=== PATIENT | female | born 1965 | race Caucasian/White ===

== ENCOUNTER 2024-09-17 09:04 | Inpatient (IN) | payer MEDICAID ==
[~2024-09-17] VITALS: Ht 170.2 cm; Wt 108.2 kg
[2024-09-17] VITALS (8 sets, daily range): BP systolic 127–159; BP diastolic 61–96; PULSE 77–94; RESP 16–22; TEMP 98.1–98.2; O2SAT 89–94
[~2024-09-17 09:04] MED LIST: ALBU0.084 NEB; HYDR25TA88 PO
--- NOTE | 2024-09-17 09:17 | ECG ---
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
--- NOTE | 2024-09-17 09:19 | ED.PDOC ---
History of Present Illness HPI Comments 58-year-old female brought by paramedics because of shortness a breath which started last night. She could not get any sleep because of shortness a breath. She does have a history of COPD hypotension atrial fibrillation CHF. Her blood pressure on arrival was 160/111 with a heart rate of 86. Her saturation in the was 74% on 5 L. She was given a breathing treatment in route which improved her saturation to 90%. Patient continues to smoke cigarettes. She was admitted at [facility] last week for pneumonia. She states that she never really improved 100%. She data lose her mother recently causing interviewed depressed. Denies suicidal or homicidal ideation. Time Seen by MD: 09:12 Reviewed Notes: Nurses Notes, Medications, Allergies Allergies: Coded Allergies: NO KNOWN ALLERGIES (Unverified , 09/17/24) Information Source: Patient, Emergency Med Personnel Mode of Arrival: EMS Severity: Moderate Timing: Hours Duration: Since onset Past Medical History PAST MEDICAL HISTORY: AFIB, CHF, COPD, HTN Social History Smoker: Cigarettes Alcohol: Denies ETOH Use Drugs: Denies Drug Use Constitutional: denies: chills, diaphoresis, fatigue, fever, malaise, sweats, weakness, others EENTM: denies: blurred vision, double vision, ear bleeding, ear discharge, ear drainage, ear pain, ear ringing, eye pain, eye redness, hearing loss, mouth pain, mouth swelling, nasal discharge, nose bleeding, nose congestion, nose pain, photophobia, tearing, throat pain, throat swelling, voice changes, others Respiratory: reports: shortness of breath; denies: cough, hemoptysis, orthopnea, SOB at rest, SOB with excertion, stridor, wheezing, others Cardiovascular: denies: chest pain, dizzy spells, diaphoresis, Dyspnea on exertion, edema, irregular heart beat, left arm pain, lightheadedness, palpitations, PND, syncope, others Gastrointestinal: denies: abdomen distended, abdominal pain, blood streaked bowels, constipated, diarrhea, dysphagia, difficulty swallowing, hematemesis, melena, nausea, poor appetite, poor fluid intake, rectal bleeding, rectal pain, vomiting, others Genitourinary: denies: abnormal vagina bleeding, burning, dyspareunia, dysuria, flank pain, frequency, hematuria, incontinence, pain, , vagina discharge, urgency, others Neurological: denies: dizziness, fainting, headache, left sided numbness, left sided weakness, numbness, paresthesia, pre-existing deficit, right sided numbness, right sided weakness, seizure, speech problems, tingling, tremors, weakness, others Musculoskeletal: denies: back pain, gout, joint pain, joint swelling, muscle pain, muscle stiffness, neck pain, others Integumetry: denies: bruises, change in color, change in hair/nails, dryness, laceration, lesions, lumps, rash, wounds, others Allergic/Immunocompromised: denies: Difficulty Healing, Frequent Infections, Hives, Itching, others Hematologic/Lymphatic: denies: anemia, blood clots, easy bleeding, easy bruising, swollen glands, others Endocrine: denies: excessive hunger, excessive sweating, excessive thirst, excessive urination, flushing, intolerance to cold, intolerance to heat, unexplained weight gain, unexplained weight loss, others Psychiatric: denies: anxiety, bipolar disorder, depression, hopeless, panic disorder, schizophrenia, sleepless, suicidal, others Physical Exam General Appearance: Moderate Distress HEENT: Normal ENT Inspection, Pharynx Normal, TMs Normal Neck: Full Range of Motion, Non-Tender, Normal, Normal Inspection Respiratory: Accessory Muscle Use, Respiratory Distress, Wheezing Cardiovascular: Irregular, Tachycardia Breast Exam: Deferred Gastrointestinal: No Organomegaly, Non Tender, No Pulsatile Mass, Normal Bowel Sounds, Soft Genitalia: Deferred Pelvic: Deferred Rectal: Deferred Extremities: Swelling (Bilateral lower extremity chronic) Musculoskeletal : Apperance: Normal Neurologic: Alert, research director II-XII nml as Tested, No Motor Deficits, No Sensory Deficits Cerebellar Function: NOT DONE Reflexes: NOT DONE Skin: Rash (Bilateral lower extremity chronic) Peripheral Pulses: 3+ Radial (R), 3+ Radial (L) Lymphatic: No Adenopathy Was a procedure done? Was a procedure done?: No Differential Dx Considerations may include: COPD Electrolyte imbalance X-Ray, Labs, Meds, VS Vital Signs Date Time Temp Pulse Resp B/P (MAP) Pulse Ox O2 Delivery O2 Flow Rate FiO2 09/17/24 10:02 18 99 Nasal Cannula* 2 28 09/17/24 10:00 95 16 140/92 (108) 95 09/17/24 09:42 85 188/104 09/17/24 09:22 98.2 97 14 188/104 (132) 97 98.2 09/17/24 09:15 94 Nasal Cannula* 3 32 09/17/24 09:15 91 16 94 Nasal Cannula* 3 32 09/17/24 09:13 97.6 94 25 140/96 (111) 96 97.6 09/17/24 09:13 25 96 Nasal Cannula* 4 36 09/17/24 09:11 90 Lab Test 09/17/24 09:49 Range/Units White Blood Count 11.5 H 4.4-10.8 10^3/uL Red Blood Count 5.21 H 4.0-5.20 10^6/uL Hemoglobin 15.3 12.2-16.2 g/dL Hematocrit 47.7 H 36.0-46.0 % Mean Corpuscular Volume 91.4 80.0-100.0 fL Mean Corpuscular Hemoglobin 29.3 28.0-32.0 pg Mean Corpuscular Hemoglobin Concent 32.0 32.0-36.0 g/dL Red Cell Distribution Width 15.0 H 11.8-14.3 % Platelet Count 233 140-450 10^3/uL Mean Platelet Volume 9.0 6.9-10.8 fL Neutrophils (%) (Auto) 78.2 37.0-80.0 % Lymphocytes (%) (Auto) 13.7 10.0-50.0 % Monocytes (%) (Auto) 6.9 0.0-12.0 % Eosinophils (%) (Auto) 0.7 0.0-7.0 % Basophils (%) (Auto) 0.5 0.0-2.0 % Neutrophils # (Auto) 9.0 H 1.6-8.6 10 ^3/uL Lymphocytes # (Auto) 1.6 0.4-5.4 10 ^3/uL Monocytes # (Auto) 0.8 0-1.3 10 ^3/uL Eosinophils # (Auto) 0.1 0-0.8 10 ^3/uL Basophils # (Auto) 0.1 0-0.2 10 ^3/uL Nucleated Red Blood Cells 0.1 % Sodium Level 145 136-145 mmol/L Potassium Level 3.2 L 3.5-5.1 mmol/L Chloride Level 97 L 98-107 mmol/L Carbon Dioxide Level > 40 *H 20-31 mmol/L Anion Gap 7.65955 5-15 Blood Urea Nitrogen 25 H 9-23 mg/dL Creatinine 0.93 0.550-1.02 mg/dL Glomerular Filtration Rate Calc 71 >90 mL/min BUN/Creatinine Ratio 26.9 H 10.0-20.0 Serum Glucose 125 H 74-106 mg/dL Calcium Level 9.5 8.7-10.4 mg/dL Troponin I High Sensitivity 9 </=34 ng/L Current Medications Medications (Trade) Dose Ordered Sig/Tod Route Start Time Stop Time Status Last Admin Labetalol HCl (Labetalol HCl) 10 mg ONCE ONCE IV 09/17/24 09:30 09/17/24 09:46 DC 09/17/24 09:42 Amiodarone HCl 100 ml @ 600 mls/hr ONCE ONCE IV 09/17/24 09:30 09/17/24 09:46 DC 09/17/24 09:44 Methylprednisolone Sodium Succinate (Solu Medrol) 125 mg ONCE ONCE IV 09/17/24 09:45 09/17/24 09:46 DC 09/17/24 10:39 Albuterol (Ventolin Medneb) 5 mg ONCE ONCE NEB 09/17/24 09:45 09/17/24 09:46 DC 09/17/24 10:03 Ipratropium [place] (Atrovent Medneb) 0.5 mg ONCE ONCE NEB 09/17/24 09:45 09/17/24 09:46 DC 09/17/24 10:03 Patient alert. Complaining of shortness a breath. Placed on oxygen. Blood pressure elevated. Chronic history. Possible pneumonitis. Possible pneumonia. Requiring more oxygen than normal. Was given breathing treatment. Was given steroid. Was given Levaquin. EKG reviewed does show atrial fibrillation with flutter. Reviewed her previous visit. Explained to the patient. Continue cardiac monitoring. Time of 1ST Reevaluation: 09:16 Reevaluation 1ST: Unchanged Patient Education/Counseling: Diagnosis, Treatment, Prognosis Family Education/Counseling: No Family Present Departure 1 Departure Time of Disposition: 09:18 Impression: Primary Impression: Acute respiratory failure Qualified Codes: J96.01 - Acute respiratory failure with hypoxia Additional Impressions: COPD exacerbation Congestive heart failure Qualified Codes: I50.43 - Acute on chronic combined systolic (congestive) and diastolic (congestive) heart failure Hypertensive emergency Disposition: 09 ADMITTED INPATIENT Admit to: Med Surg Condition: Guarded Critical Care Note Critical Care Time?: Yes (90 min-critical care time only) Critical care comment: Placed on oxygen continue to monitor Stability Stability form required: No Heart Score Heart Score: Heart Score Response (Comments) Value History Slightly Suspicious 0 EKG Normal 0 Age 45-64 1 Risk Factors >3 or Hx ASHD 2 Troponin Normal limit 0 Total 3 AVIVA DICKERSON MD Sep 17, 2024 09:19
[2024-09-17] MEDS: LABETALOL HCL 20 MG/4 ML VL IV ONE (09:42)
[2024-09-17] MEDS: AMIODARONE BOLUS KIT 100 ML IV ONE (09:44)
--- NOTE | 2024-09-17 10:02 | DVH ---
CHEST RADIOGRAPH Indication: sob Technique: Single frontal view of the chest was obtained COMPARISON: None FINDINGS: Lines and Tubes: None Lungs: Right lower lobe airspace disease. Pleura: No effusion. No pneumothorax. Cardiomediastinal contours: Unremarkable Bones: Unremarkable IMPRESSION: Right lower lobe airspace disease.
[2024-09-17] MEDS: ALBUTEROL SULF 2.5 MG/0.5ML(0.5%) NEB SOLN NEB ONE (10:03)
[2024-09-17] MEDS: IPRATROPIUM BROM 0.5 MG/2.5ML INH SOL NEB ONE (10:03)
[2024-09-17 10:09] LABS: Basophils # (auto) 0.1 10 ^3/uL (0-0.2); Basophils % (auto) 0.5 % (0.0-2.0); Eosinophils # (auto) 0.1 10 ^3/uL (0-0.8); Eosinophils % (auto) 0.7 % (0.0-7.0); Hematocrit 47.7 % (36.0-46.0); Hemoglobin 15.3 g/dL (12.2-16.2); Lymphocytes # (auto) 1.6 10 ^3/uL (0.4-5.4); Lymphocytes % (auto) 13.7 % (10.0-50.0); Mean Corpuscular Hemoglobin 29.3 pg (28.0-32.0); Mean Corpuscular Volume 91.4 fL (80.0-100.0); Monocytes # (auto) 0.8 10 ^3/uL (0-1.3); Monocytes % (auto) 6.9 % (0.0-12.0); Neutrophils % (auto) 78.2 % (37.0-80.0); Nucleated Red Blood Cells % 0.1 %; Platelet Count (auto) 233 10^3/uL (140-450); Red Blood Cells 5.21 10^6/uL (4.0-5.20); White Blood Cell 11.5 10^3/uL (4.4-10.8)
[2024-09-17 10:20] LABS: Sodium 145 mmol/L (136-145)
[2024-09-17 10:22] LABS: Calcium 9.5 mg/dL (8.7-10.4)
[2024-09-17 10:27] LABS: BUN/Creatinine Ratio 26.9 (10.0-20.0)
[2024-09-17 10:30] LABS: Anion Gap 7.99999 (5-15); Chloride 97 mmol/L (98-107); Potassium 3.2 mmol/L (3.5-5.1)
[2024-09-17 10:31] LABS: Blood Urea Nitrogen 25 mg/dL (9-23); Carbon Dioxide > 40 mmol/L (20-31); Glucose 125 mg/dL (74-106)
[2024-09-17] MEDS: AMIODARONE 360mg/200mL PREMIX 200 ML IV ONE (10:39)
[2024-09-17] MEDS: methylPREDNISolone SOD SUCC 125 MG/2 ML VL IV ONE (10:39)
[2024-09-17 11:22] LABS: Base Excess 14.9 mmol/L (-2.0-3.0)
[2024-09-17 12:41] LABS: Urine Bacteria None Seen /hpf (None Seen)
[2024-09-17 12:53] LABS: Urine Blood Negative /uL (Negative); Urine Clarity Clear (Clear); Urine Color Yellow (Yellow); Urine Protein, UAD 1+ (Negative); Urine Specific Gravity 1.035 (1.001-1.035); Urine Squamous Epithelial Cell MOD /hpf (<5); Urine Urobilinogen Normal (Negative); Urine WBC 3 /HPF (0-5); Urine pH 5.5 (5.0-9.0)
[2024-09-17] MEDS: NICOTINE 14 MG/24HR TOPICAL PATCH TD ONE (12:55)
[2024-09-17] MEDS ORDERED: ONDANSETRON HCL 4 MG/2 ML VIAL IV PRN (13:30)
[2024-09-17] MEDS ORDERED: NITROGLYCERIN 0.4 MG SL TAB SL PRN (13:30)
[2024-09-17] MEDS ORDERED: MORPHINE SULFATE INJ 2 MG/ml SYRG IV PRN (13:30)
[2024-09-17] MEDS ORDERED: DOCUSATE SOD 100 MG CAP PO PRN (13:30)
[2024-09-17] MEDS ORDERED: HYDR25TA5 PO (13:33)
[2024-09-17] MEDS ORDERED: CLON0.1T PO (13:33)
[2024-09-17] MEDS ORDERED: FURO20TA4 PO (13:33)
[2024-09-17] MEDS ORDERED: HYDR-3682 PO (13:33)
[2024-09-17] MEDS ORDERED: FAMO-12 PO (13:33)
[2024-09-17] MEDS ORDERED: DILT240C49 PO (13:33)
[2024-09-17] MEDS ORDERED: DILT-29 PO (13:33)
[2024-09-17] MEDS ORDERED: LISI10TA34 PO (13:33)
--- NOTE | 2024-09-17 13:43 | DVHHP2 ---
History of Present Illness Reason for Visit: Shortness of breath History of Present Illness Lolita Antonio is a 58-year-old female with past medical history of CHF, COPD, atrial fibrillation, and home oxygen who came in due to shortness of breath. Patient states he mom last night. She has been very upset and had a difficult time sleeping last night due to the shortness of breath. She states she has been short of breath for about a day. She also states she is on hospice care, and that she was recently hospitalized. Patient is a current daily smoker. When EMS arrived O2 sat was in the 70s, a breathing treatment was given and she improved to the 90s. ABG completed in ER showed PO2 of 54.1, and PCO2 of 56.7. Cardiovascular: AFIB, CHF Pulmonary: COPD (on home oxygen) Review of Systems Constitutional: No: Fever, Chills, Sweats, Weakness, Malaise, Other Eyes: No: Pain, Vision change, Conjunctivae inflammation, Eyelid inflammation, Other, Redness ENT: No: Ear pain, Ear discharge, Nose pain, Nose discharge, Nose congestion, Mouth pain, Mouth swelling, Throat pain, Throat swelling, Other Respiratory: Shortness of breath, SOB with excertion, Wheezing; No: Cough, Dry, Hemoptysis, Pleuritic Pain, Sputum, Wheezing, Other Cardiovascular: No: Chest Pain, Palpitations, Orthopnea, Paroxysmal Noc. Dyspnea, Edema, Lt Headedness, Other Gastrointestinal: No: Nausea, Vomiting, Abdominal Pain, Diarrhea, Constipation, Melena, Hematochezia, Other Genitourinary: No Dysuria, No Frequency, No Incontinence, No Hematuria, No Retention, No Other Musculoskeletal: No: other, neck pain, shoulder pain, arm pain, back pain, hand pain, leg pain, foot pain Skin: No: Rash, Lesions, Jaundice, Bruising, Other Neurological: No: Weakness, Numbness, Incoordination, Change in speech, Confusion, Seizures, Other Allergies: Coded Allergies: NO KNOWN ALLERGIES (Unverified , 09/17/24) Medications Current Medications Medications Dose Ordered Sig/Tod Route Start Time Stop Time Status Last Admin Dose Admin Sodium Chloride 10 ml Q8HR IV 09/17/24 14:00 UNV Acetaminophen/ Hydrocodone Bitart 1 tab Q4HP PRN PO 09/17/24 13:30 UNV Ondansetron HCl 4 mg Q4HP PRN IV 09/17/24 13:30 UNV Docusate Sodium 100 mg BIDPRN PRN PO 09/17/24 13:30 UNV Acetaminophen 650 mg Q6HP PRN PO 09/17/24 13:30 UNV Nitroglycerin 0.4 mg Q5MINP PRN SL 09/17/24 13:30 UNV Morphine Sulfate 2 mg Q30M PRN IV 09/17/24 13:30 UNV Exam Vital Signs Vital Signs Date Time Temp Pulse Resp B/P (MAP) Pulse Ox O2 Delivery O2 Flow Rate FiO2 09/17/24 12:00 94 09/17/24 10:42 140/92 09/17/24 10:02 18 99 Nasal Cannula* 2 28 09/17/24 09:22 98.2 98.2 General Appearance: Alert, Oriented X3, moderate distress HEENT: Atraumatic, PERRLA Respiratory: Other (bilateral wheezing) Cardiovascular: Normal S1, Normal S2, Other (atrial fibrillation) Abdominal: Normal bowel sounds, Soft, No tenderness Extremities: No clubbing, No cyanosis, Other (bilateral lower extremity edema, diminished pedal pulses) Skin: No rashes, No breakdown Psych/Mental Status: Mental status NL Labs/Xrays Labs Test 09/17/24 12:21 09/17/24 11:15 09/17/24 09:49 Range/Units Urine Color Yellow Yellow Urine Clarity Clear Clear Urine pH 5.5 5.0-9.0 Urine Specific [place] 1.035 1.001-1.035 Urine Protein 1+ H Negative Urine Ketones Negative Negative Urine Blood Negative Negative /uL Urine Nitrite Negative Negative Urine Bilirubin Negative Negative Urine Urobilinogen Normal Negative mg/dL Urine Leukocyte Esterase Trace Negative /uL Urine RBC 2 0 - 4 /hpf Urine Microscopic WBC 3 0-5 /HPF Urine Squamous Epithelial Cells Mod <5 /hpf Urine Bacteria None seen None Seen /hpf Urine Glucose Normal Normal mg/dL Blood Gas Specimen Type Arterial Blood Gas Sample Site Right radial Blood Gas Patient Temperature 37.0 Arterial Blood Date Drawn [id number] Arterial Blood pH 7.481 H 7.350-7.450 Arterial Blood Partial Pressure CO2 56.7 H 32.0-45.0 mmHg Arterial Blood Partial Pressure O2 54.1 *L 83.0-108.0 mmHg Arterial Blood HCO3 41.4 H 21.0-28.0 mmol/L Arterial Blood Oxygen Saturation 89.8 L 94.0-98.0 % Arterial Blood Base Excess 14.9 H -2.0-3.0 mmol/L Arterial Blood Oxyhemoglobin 86.3 L 94.0-98.0 % Arterial Blood Carboxyhemoglobin 3.5 H 0.5-1.5 % Arterial Blood Methemoglobin 0.4 0.0-1.5 % John Test Yes Blood Gas Total Hemoglobin 15.50 12.0-16.0 g/dL Blood Gas Liter Flow 4.00 Blood Gas Modality Nasal cannula FiO2 % 36.0 Blood Gas Critical Value Read Back Yes Blood Gas Notified Whom shanthi Santoyo Blood Gas Notified Time [id number] Blood Gas Notified By maite Bernal White Blood Count 11.5 H 4.4-10.8 10^3/uL Red Blood Count 5.21 H 4.0-5.20 10^6/uL Hemoglobin 15.3 12.2-16.2 g/dL Hematocrit 47.7 H 36.0-46.0 % Mean Corpuscular Volume 91.4 80.0-100.0 fL Mean Corpuscular Hemoglobin 29.3 28.0-32.0 pg Mean Corpuscular Hemoglobin Concent 32.0 32.0-36.0 g/dL Red Cell Distribution Width 15.0 H 11.8-14.3 % Platelet Count 233 140-450 10^3/uL Mean Platelet Volume 9.0 6.9-10.8 fL Neutrophils (%) (Auto) 78.2 37.0-80.0 % Lymphocytes (%) (Auto) 13.7 10.0-50.0 % Monocytes (%) (Auto) 6.9 0.0-12.0 % Eosinophils (%) (Auto) 0.7 0.0-7.0 % Basophils (%) (Auto) 0.5 0.0-2.0 % Neutrophils # (Auto) 9.0 H 1.6-8.6 10 ^3/uL Lymphocytes # (Auto) 1.6 0.4-5.4 10 ^3/uL Monocytes # (Auto) 0.8 0-1.3 10 ^3/uL Eosinophils # (Auto) 0.1 0-0.8 10 ^3/uL Basophils # (Auto) 0.1 0-0.2 10 ^3/uL Nucleated Red Blood Cells 0.1 % Sodium Level 145 136-145 mmol/L Potassium Level 3.2 L 3.5-5.1 mmol/L Chloride Level 97 L 98-107 mmol/L Carbon Dioxide Level > 40 *H 20-31 mmol/L Anion Gap 7.93498 5-15 Blood Urea Nitrogen 25 H 9-23 mg/dL Creatinine 0.93 0.550-1.02 mg/dL Glomerular Filtration Rate Calc 71 >90 mL/min BUN/Creatinine Ratio 26.9 H 10.0-20.0 Serum Glucose 125 H 74-106 mg/dL Calcium Level 9.5 8.7-10.4 mg/dL Troponin I High Sensitivity 9 </=34 ng/L CHEST RADIOGRAPH FINDINGS: Lines and Tubes: None Lungs: Right lower lobe airspace disease. Pleura: No effusion. No pneumothorax. Cardiomediastinal contours: Unremarkable Bones: Unremarkable IMPRESSION: Right lower lobe airspace disease. 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 Procedure Category Date Status Time Admit ADMIT 09/17/24 Transmitted 13:29 Code Status CODE 09/17/24 Transmitted 13:29 Sodium Chloride Lock PHA 09/17/24 Logged (Saline Lock Ns) 14:00 Hydrocodone-Acet PHA 09/17/24 Logged 5/325mg Tab ([place] 13:30 Ondansetron Hcl PHA 09/17/24 Logged (Zofran) 13:30 Docusate Sodium PHA 09/17/24 Logged Capsule (Colace 13:30 Complete Blood Count LAB 09/18/24 Verified 04:00 Comprehensive LAB 09/18/24 Verified Metabolic Panel 04:00 Cardiac DIET 09/17/24 Transmitted Diet-2gna,Lofat,Lochol Lunch Condition: Serious KAY 09/17/24 In Process 13:29 Acetaminophen Tablet PHA 09/17/24 Logged (Tylenol Tablet) 13:30 Nitroglycerin PHA 09/17/24 Logged Sublingual (Ntrostat 13:30 Morphine Sulfate PHA 09/17/24 Logged Injection 13:30 Stat Ekg For Chest [facility] 09/17/24 In Process Pain 13:29 Notify Of Changes [facility] 09/17/24 In Process From Base 13:29 Resistor Coater For [facility] 09/17/24 In Process 24 Hours 13:29 Emergency Dysrhythmia [facility] 09/17/24 In Process Protocol 13:29 Rhythm Strips Once [facility] 09/17/24 In Process Every Shift 13:29 Oxygen By Nasal RT 09/17/24 Transmitted Cannula 13:29 Clonidine Hcl Tablet PHA 09/18/24 Verified (Catapres Tablet) 10:00 Famotidine Tablet PHA 09/17/24 Verified (Pepcid Tablet) 22:00 Furosemide Tablet PHA 09/18/24 Verified (Lasix Tablet) 10:00 Hydrochlorothiazide PHA 09/18/24 Verified Tablet (Hydrochlorot 10:00 (Nf) Diltiazem Hcl PHA 09/18/24 Verified (Cartia Xt) 10:00 (Nf) Diltiazem Hcl PHA 09/18/24 Verified (Diltiazem Hcl Er) 10:00 (Nf) Hydroxyzine Hcl PHA 09/17/24 Verified 14:00 (Nf) Lisinopril PHA 09/18/24 Verified 10:00 Date of Service: Sep 17, 2024 Billing Provider: MILTON YIP Common Visit Codes: [id number] INP/OBS CARE (HIGH) MILTON YIP Sep 17, 2024 13:43
[2024-09-17] MEDS ORDERED: PATIENTS OWN MEDICATION (Hydroxyzine Hcl 1 TAB) PO SCH (14:00)
[2024-09-17] MEDS: SODIUM CHLOR 0.9% PF (SALINE LOCK) 10ML VIAL/SYR IV SCH (15:09)
[2024-09-17] MEDS: POTASSIUM EFFERVESENT TAB 25 MEQ PO ONE (15:26)
[2024-09-17] MEDS: FUROSEMIDE 40 MG/4 ML VIAL IV ONE (15:31)
[2024-09-17] MEDS ORDERED: APIX5TAB PO (15:46)
[2024-09-17] MEDS: AMIODARONE 360mg/200mL PREMIX 200 ML IV SCH (16:40)
[2024-09-17] MEDS: IPRATROPIUM BROM 0.5 MG/2.5ML INH SOL NEB SCH (18:00)
[2024-09-17] MEDS: ALBUTEROL SULF 2.5 MG/0.5ML(0.5%) NEB SOLN NEB SCH (18:44)
[2024-09-17] MEDS: FAMOTIDINE 20 MG TAB PO SCH (21:43)
[2024-09-17] MEDS: hydrOXYzine 25 MG TAB or CAP PO SCH (21:43)
[2024-09-17] MEDS: APIXABAN 5 MG TAB PO SCH (21:43)
[2024-09-17] MEDS: methylPREDNISolone SOD SUCC 40 MG/ML VL IV SCH (21:44)
[2024-09-18] VITALS (15 sets, daily range): BP systolic 130–170; BP diastolic 68–101; PULSE 64–96; RESP 16–20; TEMP 97.6–98.2; O2SAT 91–100
[2024-09-18 06:21] LABS: Basophils # (auto) 0 10 ^3/uL (0-0.2); Basophils % (auto) 0.2 % (0.0-2.0); Eosinophils # (auto) 0 10 ^3/uL (0-0.8); Eosinophils % (auto) 0.1 % (0.0-7.0); Hematocrit 42.8 % (36.0-46.0); Hemoglobin 14.3 g/dL (12.2-16.2); Lymphocytes # (auto) 0.8 10 ^3/uL (0.4-5.4); Lymphocytes % (auto) 6.9 % (10.0-50.0); Mean Corpuscular Hemoglobin 30.2 pg (28.0-32.0); Mean Corpuscular Hgb Conc. 33.4 g/dL (32.0-36.0); Mean Corpuscular Volume 90.3 fL (80.0-100.0); Monocytes # (auto) 0.2 10 ^3/uL (0-1.3); Monocytes % (auto) 2.1 % (0.0-12.0); Neutrophils # (auto) 10.1 10 ^3/uL (1.6-8.6); Neutrophils % (auto) 90.7 % (37.0-80.0); Nucleated Red Blood Cells % 0.1 %; Platelet Count (auto) 219 10^3/uL (140-450); Red Blood Cells 4.74 10^6/uL (4.0-5.20); Red Cell Distribution Width 14.9 % (11.8-14.3); White Blood Cell 11.1 10^3/uL (4.4-10.8)
[2024-09-18 06:38] LABS: Alanine Aminotransferase 23 U/L (7-40); Albumin 4.1 g/dL (3.2-4.8); Alkaline Phosphatase 89 U/L (46-116); Anion Gap 4 (5-15); BUN/Creatinine Ratio 30.9 (10.0-20.0); Calcium 9.2 mg/dL (8.7-10.4); Chloride 100 mmol/L (98-107); Potassium 3.7 mmol/L (3.5-5.1); Sodium 143 mmol/L (136-145); Total Protein 7.1 g/dL (5.7-8.2)
[2024-09-18 06:41] LABS: Aspartate Aminotransferase 11 U/L (13-40); Bilirubin, Total 0.2 mg/dL (0.2-1.0); Blood Urea Nitrogen 29 mg/dL (9-23); Carbon Dioxide 39 mmol/L (20-31); Glucose 156 mg/dL (74-106)
[2024-09-18] MEDS: hydroCHLOROthiazide 25 MG TAB PO SCH (09:18)
[2024-09-18] MEDS: NICOTINE 14 MG/24HR TOPICAL PATCH TD SCH (09:19)
[2024-09-18] MEDS: LISINOPRIL 5 MG TAB PO SCH (09:19)
[2024-09-18] MEDS: cloNIDine HCL 0.1 MG TAB PO SCH (09:19)
[2024-09-18] MEDS: FUROSEMIDE 20 MG/2 ML VIAL IV SCH (09:20)
[2024-09-18] MEDS ORDERED: FUROSEMIDE 20 MG TAB PO SCH (10:00)
[2024-09-18] MEDS ORDERED: PATIENTS OWN MEDICATION (Lisinopril 1 TAB) PO SCH (10:00)
[2024-09-18] MEDS ORDERED: DILTIAZEM HCL 240 MG PO SCH (10:00)
[2024-09-18] MEDS ORDERED: PATIENTS OWN MEDICATION (Diltiazem Hcl (Diltiazem Hcl Er) 1 CAP) PO SCH (10:00)
[2024-09-18] MEDS ORDERED: DILTIAZEM HCL PO SCH (10:00)
--- NOTE | 2024-09-18 13:45 | DVHPN2 ---
Progress Note Date Seen: Sep 18, 2024 Medical Necessity Reason Pt with a Central, PICC or Fol: Yes The following are medically ne: Arvizu Catheter Reason for arvizu catheter: Strict I&O Subjective Patient reports: No new complaints Review of Systems: HEENT:Normal, CVS:Normal, RESPIRATORY:Normal, GI:Normal, :Normal, MSK:Normal, NEURO:Normal Objective vital signs Vital Sign Date Time Temp Pulse Resp B/P (MAP) Pulse Ox O2 Delivery O2 Flow Rate FiO2 09/18/24 12:05 87 16 100 09/18/24 11:59 Nasal Cannula* 4 36 09/18/24 09:20 156/85 09/18/24 09:00 98.2 98.2 Total Intake and Output 09/17/24 09/17/24 09/18/24 15:00 23:00 07:00 Intake Total 244.98 ml 93.75 ml 20 ml Output Total 1000 ml Balance 244.98 ml 93.75 ml -980 ml medications Current Medications Medications Dose Ordered Sig/Tod Route Start Time Stop Time Status Last Admin Dose Admin Sodium Chloride 10 ml Q8HR IV 09/17/24 14:00 09/18/24 05:29 10 ML Acetaminophen/ Hydrocodone Bitart 1 tab Q4HP PRN PO 09/17/24 13:30 Ondansetron HCl 4 mg Q4HP PRN IV 09/17/24 13:30 Docusate Sodium 100 mg BIDPRN PRN PO 09/17/24 13:30 Acetaminophen 650 mg Q6HP PRN PO 09/17/24 13:30 Nitroglycerin 0.4 mg Q5MINP PRN SL 09/17/24 13:30 Morphine Sulfate 2 mg Q30M PRN IV 09/17/24 13:30 Clonidine HCl 0.1 mg DAILY PO 09/18/24 10:00 09/18/24 09:19 0.1 MG Famotidine 20 mg BID PO 09/17/24 22:00 09/18/24 09:18 20 MG Hydrochlorothiazide 25 mg DAILY PO 09/18/24 10:00 09/18/24 09:18 25 MG Patient Own Medication 1 cap DAILY PO 09/18/24 10:00 Hold Patient Own Medication 1 cap DAILY PO 09/18/24 10:00 Cancel Patient Own Medication 1 tab TID PO 09/17/24 14:00 UNV Patient Own Medication 1 tab DAILY PO 09/18/24 10:00 UNV Ipratropium [place] 0.5 mg Q6HWA NEB 09/17/24 18:00 09/18/24 11:59 0.5 MG Albuterol 2.5 mg Q6HWA NEB 09/17/24 18:00 09/18/24 11:59 2.5 MG Methylprednisolone Sodium Succinate 40 mg BID IV 09/17/24 22:00 09/18/24 09:20 40 MG Nicotine 1 patch DAILY TD 09/18/24 10:00 09/18/24 09:19 1 PATCH Furosemide 20 mg DAILY IV 09/18/24 10:00 09/18/24 09:20 20 MG Hydroxyzine Pamoate 25 mg TID PO 09/17/24 22:00 09/18/24 05:29 25 MG Lisinopril 10 mg DAILY PO 09/18/24 10:00 09/18/24 09:19 10 MG Patient Own Medication 1 cap DAILY PO 09/18/24 10:00 Hold Apixaban 5 mg BID PO 09/17/24 22:00 09/18/24 09:17 5 MG Examination: GENERAL:Normal, HEENT:Normal, NECK:Normal, LUNGS:Normal, LUNGS:Abnormal (ON OXYGEN), CVS:Normal, ABDOMEN:Normal, MSK:Normal, MSK:Abnormal (edema++, cellulitis both legs), SKIN:Normal, NEURO:Normal, :Normal laboratory and microbiology Laboratory Tests 09/18/24 05:14 Test 09/18/24 05:14 Range/Units Serum Glucose 156 H 74-106 mg/dL Problem List/Assessment/Plan Problem List/Assessment/Plan #1 acute on chronic resp failure: cont oxygen #2 copd with exacerbation: steroids, bronchodilators #3 right lower lung pneumonia ? sepsis: iv antibiotics #4 tobacco abuse: advised to quit, nicotine patch- time spent 11 mins #5 morbid obesity #6 a fib: resume home meds #7 cellulitis both legs: iv antibiotics #8 pvd #9 acute on chronic systolic/diastolic heart failure: iv lasix advance care planning- full code- time spent 19 mins Plan discussed with: Patient Date of Service: Sep 18, 2024 Billing Provider: KANDICE CAMILO MD Common Visit Codes: [id number] INP/OBS CARE(HIGH) Secondary Visit Codes: [id number] CHNG SMOKING >10MIN, [id number] CARE PLAN 30 MINUTES KANDICE CAMILO MD Sep 18, 2024 13:45
[2024-09-18] MEDS: dilTIAZem 120MG ER CAP PO ONE (14:34)
[2024-09-18] MEDS: AMPICILLIN & SULBACTAM SODIUM 3 GM in SODIUM CHL 0.9% 100 ML IV SCH ×2 (18:07→23:54)
[2024-09-18] MEDS: LEVALBUTEROL HCL 1.25 MG/3 ML NEB NEB SCH (19:26)
[2024-09-18] MEDS: HYDROcodone-ACET 5/325MG TAB PO PRN (22:53)
[2024-09-19] VITALS (18 sets, daily range): BP systolic 109–147; BP diastolic 64–93; PULSE 64–103; RESP 15–20; TEMP 97.3–98; O2SAT 88–100
--- NOTE | 2024-09-19 07:21 | DVH ---
EXAM: XR Chest, 1 View CLINICAL INDICATION: COPD TECHNIQUE: Frontal view of the chest. COMPARISON: XY CHEST PORTABLE on DOS: 09/17/24 FINDINGS: LUNGS AND PLEURAL SPACES: See below. HEART: Cardiomegaly with mild congestion. MEDIASTINUM: Unremarkable. Normal mediastinal contour. BONES/JOINTS: Unremarkable. No acute fracture. OTHER FINDINGS: . IMPRESSION: Cardiomegaly with mild congestion.
[2024-09-19 07:29] LABS: Anion Gap 6 (5-15); Sodium 140 mmol/L (136-145)
[2024-09-19 07:32] LABS: Carbon Dioxide 36 mmol/L (20-31); Chloride 98 mmol/L (98-107)
[2024-09-19 07:35] LABS: BUN/Creatinine Ratio 35.9 (10.0-20.0)
[2024-09-19 07:38] LABS: Hematocrit 46.1 % (36.0-46.0); Hemoglobin 14.9 g/dL (12.2-16.2); Mean Corpuscular Hemoglobin 29.8 pg (28.0-32.0); Mean Corpuscular Hgb Conc. 32.4 g/dL (32.0-36.0); Mean Corpuscular Volume 92.2 fL (80.0-100.0); Platelet Count (auto) 209 10^3/uL (140-450); Red Blood Cells 5.01 10^6/uL (4.0-5.20); Red Cell Distribution Width 15.6 % (11.8-14.3); White Blood Cell 25.9 10^3/uL (4.4-10.8)
[2024-09-19 07:40] LABS: Band Neutrophils % (manual) 0; Basophils % (manual) 0 (0.0-2.0); Blast Cells 0; Eosinophils % (manual) 0 (0-7); Metamyelocytes % 0; Myelocytes % 0; Promyelocytes % 0; Reactive Lymphocytes 0
[2024-09-19 07:44] LABS: Blood Urea Nitrogen 28 mg/dL (9-23); Glucose 145 mg/dL (74-106)
[2024-09-19 08:41] LABS: Lymphocytes % (manual) 6 (10.0-50.0); Monocytes % (manual) 3 (0-12); Platelet Estimate Adequate
[2024-09-19] MEDS: dilTIAZem 120MG ER CAP PO SCH (10:01)
--- NOTE | 2024-09-19 14:11 | DVHPN2 ---
Progress Note Date Seen: Sep 19, 2024 Medical Necessity Reason Pt with a Central, PICC or Fol: Yes The following are medically ne: Arvizu Catheter Reason for arvizu catheter: Strict I&O Subjective Patient reports: No new complaints Review of Systems: HEENT:Normal, CVS:Normal, RESPIRATORY:Normal, GI:Normal, :Normal, MSK:Normal, NEURO:Normal Objective vital signs Vital Sign Date Time Temp Pulse Resp B/P (MAP) Pulse Ox O2 Delivery O2 Flow Rate FiO2 09/19/24 13:00 97.7 83 16 117/67 (84) 88 97.7 09/19/24 11:04 Nasal Cannula 4.0 09/19/24 11:04 36 Total Intake and Output 09/18/24 09/18/24 09/19/24 15:00 23:00 07:00 Intake Total 113.12 ml 458 ml 1060 ml Output Total 1250 ml 500 ml Balance 113.12 ml -792 ml 560 ml medications Current Medications Medications Dose Ordered Sig/Tod Route Start Time Stop Time Status Last Admin Dose Admin Sodium Chloride 10 ml Q8HR IV 09/17/24 14:00 09/19/24 13:37 10 ML Acetaminophen/ Hydrocodone Bitart 1 tab Q4HP PRN PO 09/17/24 13:30 09/19/24 05:25 1 TAB Ondansetron HCl 4 mg Q4HP PRN IV 09/17/24 13:30 Docusate Sodium 100 mg BIDPRN PRN PO 09/17/24 13:30 Acetaminophen 650 mg Q6HP PRN PO 09/17/24 13:30 Nitroglycerin 0.4 mg Q5MINP PRN SL 09/17/24 13:30 Morphine Sulfate 2 mg Q30M PRN IV 09/17/24 13:30 Clonidine HCl 0.1 mg DAILY PO 09/18/24 10:00 09/19/24 10:00 0.1 MG Famotidine 20 mg BID PO 09/17/24 22:00 09/19/24 09:59 20 MG Patient Own Medication 1 cap DAILY PO 09/18/24 10:00 Cancel Patient Own Medication 1 tab TID PO 09/17/24 14:00 UNV Patient Own Medication 1 tab DAILY PO 09/18/24 10:00 UNV Ipratropium [place] 0.5 mg Q6HWA NEB 09/17/24 18:00 09/19/24 11:04 0.5 MG Methylprednisolone Sodium Succinate 40 mg BID IV 09/17/24 22:00 09/19/24 10:00 40 MG Nicotine 1 patch DAILY TD 09/18/24 10:00 09/19/24 09:59 1 PATCH Furosemide 20 mg DAILY IV 09/18/24 10:00 09/19/24 10:01 20 MG Hydroxyzine Pamoate 25 mg TID PO 09/17/24 22:00 09/19/24 13:35 25 MG Lisinopril 10 mg DAILY PO 09/18/24 10:00 09/19/24 10:01 10 MG Apixaban 5 mg BID PO 09/17/24 22:00 09/19/24 10:00 5 MG Levalbuterol HCl 1.25 mg Q6HR NEB 09/18/24 18:00 09/19/24 11:04 1.25 MG Diltiazem HCl 240 mg DAILY PO 09/19/24 10:00 09/19/24 10:01 240 MG Ampicillin Sodium/ Sulbactam Sodium 3 gm/Sodium Chloride 100 ml @ 100 mls/hr Q6H IV 09/19/24 00:00 09/19/24 12:05 100 MLS/HR Examination: GENERAL:Normal, HEENT:Normal, NECK:Normal, LUNGS:Normal, LUNGS:Abnormal (on oxygen, rhonchi), CVS:Normal, ABDOMEN:Normal, MSK:Normal, SKIN:Normal, NEURO:Normal, :Normal laboratory and microbiology Laboratory Tests 09/19/24 05:53 Test 09/19/24 05:53 Range/Units Serum Glucose 145 H 74-106 mg/dL Microbiology Date/Time Source Procedure Growth Status 09/18/24 09:38 Nose MRSA Screen - Final Complete Problem List/Assessment/Plan Problem List/Assessment/Plan #1 acute on chronic resp failure: cont oxygen #2 copd with exacerbation: steroids, bronchodilators #3 right lower lung pneumonia ? sepsis: iv antibiotics #4 tobacco abuse: advised to quit, nicotine patch- time spent 11 mins #5 morbid obesity #6 a fib: resume home meds #7 cellulitis both legs: iv antibiotics #8 pvd #9 acute on chronic systolic/diastolic heart failure: iv lasix advance care planning- full code- time spent 19 mins Plan discussed with: Patient My Orders My Orders Orders - KANDICE CAMILO MD Procedure Category Date Status Time Ampicillin & PHA 09/19/24 In Process Sulbactam Sodium 00:00 Date of Service: Sep 19, 2024 Billing Provider: KANDCIE CAMILO MD Common Visit Codes: [id number] INP/OBS CARE(HIGH) KANDICE CAMILO MD Sep 19, 2024 14:11
--- NOTE | 2024-09-19 14:22 | DVHSR ---
APPROVED REPORT EXAM: Two-dimensional and M-mode echocardiogram with Doppler, color Doppler and Optison. Blood Pressure: 156/85 mmHg INDICATION Chest Pain RISK FACTORS Obesity: Height: 5'7", Weight: 277 DIMENSIONS LVDd (3.8-5.7cm)LA (2D)4.9 (1.9-4.0cm)Aortic Root (2.0-3.7cm) EF (%) (55-70%)Rt. Atrium5.4 (1.9-4.0cm)Asc. Aorta cm Mitral Valve MitralMitral Stenosis E wave1.35m/sMV Mean GR.4mmHg A wavem/sMV Peak GR.9mmHg E/A ratio0.02D MVAcm2 Aortic Valve Aortic ValveAortic Stenosis V11.14m/Zhanna Mean GR.4mmHg V21.44m/Zhanna Peak GR.8mmHg LVOT Diameter2.0 (1.8-2.4cm)Doppler AVA2.49cm2 Other Information Quality : Technically LimitedRhythm : Technically limited study due to body habitus and pt patient position. Conclusion Technically difficult study off axis views. Atrial fibrillation. Biatrial enlargement. Mild mitral annular calcification. Valves are otherwise difficult to visualize but appear to be stru cturally normal. Left ventricular function appears preserved. EF of 60% with normal RV function. Contrast ECHO confi magaly normal left ventricular function. Dopplers unremarkable. No pericardial effusion masses or vegetations discernible.
[2024-09-19] MEDS: FUROSEMIDE 20 MG/2 ML VIAL IV ONE (15:21)
[2024-09-19] MEDS: methylPREDNISolone SOD SUCC 40 MG/ML VL IV SCH (21:41)
[2024-09-20] VITALS (20 sets, daily range): BP systolic 132–142; BP diastolic 75–88; PULSE 58–90; RESP 16–92; TEMP 97.3–98.5; O2SAT 90–98
[2024-09-20 07:02] LABS: Anion Gap 6 (5-15); Potassium 4.1 mmol/L (3.5-5.1); Sodium 140 mmol/L (136-145)
[2024-09-20 07:03] LABS: Calcium 8.8 mg/dL (8.7-10.4)
[2024-09-20 07:04] LABS: Carbon Dioxide 38 mmol/L (20-31); Chloride 96 mmol/L (98-107)
[2024-09-20 07:07] LABS: Basophils # (auto) 0 10 ^3/uL (0-0.2); Basophils % (auto) 0.1 % (0.0-2.0); Eosinophils # (auto) 0 10 ^3/uL (0-0.8); Hematocrit 44.3 % (36.0-46.0); Hemoglobin 14.2 g/dL (12.2-16.2); Lymphocytes # (auto) 0.6 10 ^3/uL (0.4-5.4); Lymphocytes % (auto) 3.6 % (10.0-50.0); Mean Corpuscular Hemoglobin 29.3 pg (28.0-32.0); Mean Corpuscular Hgb Conc. 32.1 g/dL (32.0-36.0); Mean Corpuscular Volume 91.2 fL (80.0-100.0); Monocytes # (auto) 0.9 10 ^3/uL (0-1.3); Monocytes % (auto) 5.4 % (0.0-12.0); Neutrophils # (auto) 14.6 10 ^3/uL (1.6-8.6); Neutrophils % (auto) 90.9 % (37.0-80.0); Platelet Count (auto) 178 10^3/uL (140-450); Red Blood Cells 4.86 10^6/uL (4.0-5.20); White Blood Cell 16.1 10^3/uL (4.4-10.8)
[2024-09-20 07:08] LABS: BUN/Creatinine Ratio 35.3 (10.0-20.0)
[2024-09-20 07:09] LABS: Blood Urea Nitrogen 30 mg/dL (9-23); Glucose 138 mg/dL (74-106)
--- NOTE | 2024-09-20 11:17 | DVHPN2 ---
Subjective The patient is seen and examined at bedside. No complaint today. Still have shortness for breath. Reviewed: Care Plan, H&P, Labs, Medications, Previous Orders, Radiology Changes from previous H/P or p: No Changes Eyes: No Pain, No Vision change, No Conjunctivae inflammation, No Eyelid inflammation, No Other, No Redness ENT: No Ear pain, No Ear discharge, No Nose pain, No Nose discharge, No Nose congestion, No Mouth pain, No Mouth swelling, No Throat pain, No Throat swelling, No Other Cardiovascular: No Chest Pain, No Palpitations, No Orthopnea, No Paroxysmal Noc. Dyspnea, No Edema, No Lt Headedness, No Other Respiratory: No Cough, No Dry; Shortness of breath, SOB with excertion, W heezing; No Hemoptysis, No Pleuritic Pain, No Sputum, No Other Gastrointestinal: No Nausea, No Vomiting, No Abdominal Pain, No Diarrhea, No Constipation, No Melena, No Hematochezia, No Other Genitourinary: No Dysuria, No Frequency, No Incontinence, No Hematuria, No Retention, No Other Musculoskeletal: No other, No neck pain, No shoulder pain, No arm pain, No back pain, No hand pain, No leg pain, No foot pain Skin: No Rash, No Lesions, No Jaundice, No Bruising, No Other Objective Vitals Vital Signs Date Time Temp Pulse Resp B/P (MAP) Pulse Ox O2 Delivery O2 Flow Rate FiO2 09/20/24 10:23 61 141/88 09/20/24 09:00 97.7 18 98 97.7 09/20/24 07:00 Nasal Cannula* 4 36 Intake/Output Intake and Output 09/20/24 07:00 Intake Total 2718 ml Output Total 1750 ml Balance 968 ml Intake Oral 2318 ml IV Total 400 ml Output Urine Total 1750 ml General Appearance: Alert, Oriented X3, Cooperative, No acute distress HEENT: Atraumatic, PERRLA, EOMI, Mucous membr. moist/pink Neck: Supple Lungs: Clear to auscultation, Normal air movement Cardiovascular: Regular rate, Normal S1, Normal S2, No murmurs, Gallops, Rubs Abdomen: Normal bowel sounds, Soft, No tenderness Neuro: Cranial nerves 3-12 NL Psych/Mental Status: Mental status NL Medications Current Medications Medications Dose Ordered Sig/Tod Route Start Time Stop Time Status Last Admin Dose Admin Sodium Chloride 10 ml Q8HR IV 09/17/24 14:00 09/20/24 05:14 10 ML Acetaminophen/ Hydrocodone Bitart 1 tab Q4HP PRN PO 09/17/24 13:30 09/19/24 21:42 1 TAB Ondansetron HCl 4 mg Q4HP PRN IV 09/17/24 13:30 Docusate Sodium 100 mg BIDPRN PRN PO 09/17/24 13:30 Acetaminophen 650 mg Q6HP PRN PO 09/17/24 13:30 Nitroglycerin 0.4 mg Q5MINP PRN SL 09/17/24 13:30 Morphine Sulfate 2 mg Q30M PRN IV 09/17/24 13:30 Clonidine HCl 0.1 mg DAILY PO 09/18/24 10:00 09/20/24 10:22 0.1 MG Famotidine 20 mg BID PO 09/17/24 22:00 09/20/24 10:21 20 MG Patient Own Medication 1 cap DAILY PO 09/18/24 10:00 Cancel Patient Own Medication 1 tab TID PO 09/17/24 14:00 UNV Patient Own Medication 1 tab DAILY PO 09/18/24 10:00 UNV Ipratropium [place] 0.5 mg Q6HWA NEB 09/17/24 18:00 09/20/24 07:00 0.5 MG Nicotine 1 patch DAILY TD 09/18/24 10:00 09/20/24 10:21 1 PATCH Furosemide 20 mg DAILY IV 09/18/24 10:00 09/20/24 10:20 20 MG Hydroxyzine Pamoate 25 mg TID PO 09/17/24 22:00 09/20/24 05:13 25 MG Lisinopril 10 mg DAILY PO 09/18/24 10:00 09/20/24 10:22 10 MG Apixaban 5 mg BID PO 09/17/24 22:00 09/20/24 10:22 5 MG Levalbuterol HCl 1.25 mg Q6HR NEB 09/18/24 18:00 09/20/24 07:00 1.25 MG Diltiazem HCl 240 mg DAILY PO 09/19/24 10:00 09/20/24 10:23 240 MG Ampicillin Sodium/ Sulbactam Sodium 3 gm/Sodium Chloride 100 ml @ 100 mls/hr Q6H IV 09/19/24 00:00 09/20/24 05:14 100 MLS/HR Methylprednisolone Sodium Succinate 20 mg BID IV 09/19/24 22:00 09/20/24 10:21 20 MG Laboratory Results Laboratory Tests 09/20/24 05:52 Chemistry Test 09/20/24 05:52 Calcium Level 8.8 mg/dL (8.7-10.4) Urinalysis Test 09/17/24 12:21 Urine Color Yellow (Yellow) Urine Clarity Clear (Clear) Urine pH 5.5 (5.0-9.0) Urine Specific [place] 1.035 (1.001-1.035) Urine Protein 1+ (Negative) H Urine Ketones Negative (Negative) Urine Blood Negative /uL (Negative) Urine Nitrite Negative (Negative) Urine Bilirubin Negative (Negative) Urine Urobilinogen Normal mg/dL (Negative) Urine Leukocyte Esterase Trace /uL (Negative) Urine RBC 2 /hpf (0 - 4) Urine Microscopic WBC 3 /HPF (0-5) Urine Squamous Epithelial Cells Mod /hpf (<5) Urine Bacteria None seen /hpf (None Seen) Urine Glucose Normal mg/dL (Normal) Microbiology Microbiology Date/Time Source Procedure Growth Status 09/18/24 09:38 Nose MRSA Screen - Final Complete Labs and/or images reviewed: Labs reviewed by me Assessment/Plan Assessment/Plan #1 acute on chronic resp failure #2 copd with exacerbation #3 right lower lung pneumonia ? sepsis #4 tobacco abuse #5 morbid obesity #6 a fibds #7 cellulitis both legs #8 pvd #9 acute on chronic systolic/diastolic heart failure Plan: Continuing current management. Continuing with oxygen to keep saturation oxygen above 92%. Continuing with Solu-Medrol and bronchodilator. Continuing with IV antibiotic Rocephin and Zithromax. Continuing with nicotine patch. Advised to quit smoking more than 15 minutes Continuing home medication for atrial fibrillation. Continuing IV Lasix. This medical document was created using an electronic medical record system with [employer] direct computerized dictation system. Although this document has been carefully reviewed, there may still be some phonetic and typographical errors. These areas are purely typographical due to imperfections of the software programs, and do not reflect any compromise in the patient's medical care. Plan discussed with: Patient Date of Service: Sep 20, 2024 Billing Provider: NUNO ENCARNACION MD Common Visit Codes: [id number] INP/OBS CARE(HIGH) NUNO ENCARNACION MD Sep 20, 2024 11:17
[2024-09-20] MEDS: ACETAMINOPHEN 325 MG TAB PO PRN (21:16)
[2024-09-21] VITALS (17 sets, daily range): BP systolic 107–164; BP diastolic 71–90; PULSE 58–95; RESP 17–22; TEMP 97.5–98; O2SAT 92–100
--- NOTE | 2024-09-21 23:05 | DVHPN2 ---
Subjective The patient is seen and examined at bedside. No complaint today. Still have shortness for breath. Reviewed: Care Plan, H&P, Labs, Medications, Previous Orders, Radiology Changes from previous H/P or p: No Changes Eyes: No Pain, No Vision change, No Conjunctivae inflammation, No Eyelid inflammation, No Other, No Redness ENT: No Ear pain, No Ear discharge, No Nose pain, No Nose discharge, No Nose congestion, No Mouth pain, No Mouth swelling, No Throat pain, No Throat swelling, No Other Cardiovascular: No Chest Pain, No Palpitations, No Orthopnea, No Paroxysmal Noc. Dyspnea, No Edema, No Lt Headedness, No Other Respiratory: No Cough, No Dry; Shortness of breath, SOB with excertion, W heezing; No Hemoptysis, No Pleuritic Pain, No Sputum, No Other Gastrointestinal: No Nausea, No Vomiting, No Abdominal Pain, No Diarrhea, No Constipation, No Melena, No Hematochezia, No Other Genitourinary: No Dysuria, No Frequency, No Incontinence, No Hematuria, No Retention, No Other Musculoskeletal: No other, No neck pain, No shoulder pain, No arm pain, No back pain, No hand pain, No leg pain, No foot pain Skin: No Rash, No Lesions, No Jaundice, No Bruising, No Other Objective Vitals Vital Signs Date Time Temp Pulse Resp B/P (MAP) Pulse Ox O2 Delivery O2 Flow Rate FiO2 09/21/24 21:26 95 140/90 (107) 09/21/24 21:00 97.8 18 95 97.8 09/21/24 19:20 Nasal Cannula* 4 36 Intake/Output Intake and Output 09/21/24 07:00 Intake Total 2638 ml Output Total 2650 ml Balance -12 ml Intake Oral 2338 ml IV Total 300 ml Output Urine Total 2650 ml General Appearance: Alert, Oriented X3, Cooperative, No acute distress HEENT: Atraumatic, PERRLA, EOMI, Mucous membr. moist/pink Neck: Supple Lungs: Clear to auscultation, Normal air movement Cardiovascular: Regular rate, Normal S1, Normal S2, No murmurs, Gallops, Rubs Abdomen: Normal bowel sounds, Soft, No tenderness Neuro: Cranial nerves 3-12 NL Psych/Mental Status: Mental status NL Medications Current Medications Medications Dose Ordered Sig/Tod Route Start Time Stop Time Status Last Admin Dose Admin Sodium Chloride 10 ml Q8HR IV 09/17/24 14:00 09/21/24 21:19 10 ML Acetaminophen/ Hydrocodone Bitart 1 tab Q4HP PRN PO 09/17/24 13:30 09/20/24 19:00 1 TAB Ondansetron HCl 4 mg Q4HP PRN IV 09/17/24 13:30 Docusate Sodium 100 mg BIDPRN PRN PO 09/17/24 13:30 Acetaminophen 650 mg Q6HP PRN PO 09/17/24 13:30 09/20/24 21:16 650 MG Nitroglycerin 0.4 mg Q5MINP PRN SL 09/17/24 13:30 Morphine Sulfate 2 mg Q30M PRN IV 09/17/24 13:30 Clonidine HCl 0.1 mg DAILY PO 09/18/24 10:00 09/21/24 09:56 0.1 MG Famotidine 20 mg BID PO 09/17/24 22:00 09/21/24 21:18 20 MG Patient Own Medication 1 cap DAILY PO 09/18/24 10:00 Cancel Patient Own Medication 1 tab TID PO 09/17/24 14:00 UNV Patient Own Medication 1 tab DAILY PO 09/18/24 10:00 UNV Ipratropium [place] 0.5 mg Q6HWA NEB 09/17/24 18:00 09/21/24 19:26 0.5 MG Nicotine 1 patch DAILY TD 09/18/24 10:00 09/21/24 10:15 1 PATCH Furosemide 20 mg DAILY IV 09/18/24 10:00 09/21/24 09:57 20 MG Hydroxyzine Pamoate 25 mg TID PO 09/17/24 22:00 09/21/24 21:17 25 MG Lisinopril 10 mg DAILY PO 09/18/24 10:00 09/21/24 09:57 10 MG Apixaban 5 mg BID PO 09/17/24 22:00 09/21/24 21:18 5 MG Levalbuterol HCl 1.25 mg Q6HR NEB 09/18/24 18:00 09/21/24 19:26 1.25 MG Diltiazem HCl 240 mg DAILY PO 09/19/24 10:00 09/21/24 09:56 240 MG Ampicillin Sodium/ Sulbactam Sodium 3 gm/Sodium Chloride 100 ml @ 100 mls/hr Q6H IV 09/19/24 00:00 09/21/24 19:06 100 MLS/HR Methylprednisolone Sodium Succinate 20 mg BID IV 09/19/24 22:00 09/21/24 21:18 20 MG Laboratory Results Laboratory Tests 09/20/24 05:52 Urinalysis Test 09/17/24 12:21 Urine Color Yellow (Yellow) Urine Clarity Clear (Clear) Urine pH 5.5 (5.0-9.0) Urine Specific [place] 1.035 (1.001-1.035) Urine Protein 1+ (Negative) H Urine Ketones Negative (Negative) Urine Blood Negative /uL (Negative) Urine Nitrite Negative (Negative) Urine Bilirubin Negative (Negative) Urine Urobilinogen Normal mg/dL (Negative) Urine Leukocyte Esterase Trace /uL (Negative) Urine RBC 2 /hpf (0 - 4) Urine Microscopic WBC 3 /HPF (0-5) Urine Squamous Epithelial Cells Mod /hpf (<5) Urine Bacteria None seen /hpf (None Seen) Urine Glucose Normal mg/dL (Normal) Microbiology Microbiology Date/Time Source Procedure Growth Status 09/21/24 06:00 Nose MRSA Screen - Final Complete Labs and/or images reviewed: Labs reviewed by me Assessment/Plan Assessment/Plan #1 acute on chronic resp failure #2 copd with exacerbation #3 right lower lung pneumonia ? sepsis #4 tobacco abuse #5 morbid obesity #6 a fibds #7 cellulitis both legs #8 pvd #9 acute on chronic systolic/diastolic heart failure Plan: Continuing current management. Continuing with oxygen to keep saturation oxygen above 92%. Continuing with Solu-Medrol and bronchodilator. Continuing with IV antibiotic Rocephin and Zithromax. Continuing with nicotine patch. Advised to quit smoking more than 15 minutes Continuing home medication for atrial fibrillation. Continuing IV Lasix. This medical document was created using an electronic medical record system with [employer] direct computerized dictation system. Although this document has been carefully reviewed, there may still be some phonetic and typographical errors. These areas are purely typographical due to imperfections of the software programs, and do not reflect any compromise in the patient's medical care. Plan discussed with: Patient Date of Service: Sep 21, 2024 Billing Provider: NUNO ENCARNACION MD Common Visit Codes: [id number] INP/OBS CARE(HIGH) NUNO ENCARNACION MD Sep 21, 2024 23:05
[2024-09-22] VITALS (15 sets, daily range): BP systolic 126–164; BP diastolic 78–97; PULSE 69–96; RESP 16–20; TEMP 97.7–98.4; O2SAT 93–99
--- NOTE | 2024-09-22 22:55 | DVHPN2 ---
Subjective The patient is seen and examined at bedside. Still have shortness for breath. Reviewed: Care Plan, H&P, Labs, Medications, Previous Orders, Radiology Changes from previous H/P or p: No Changes Eyes: No Pain, No Vision change, No Conjunctivae inflammation, No Eyelid inflammation, No Other, No Redness ENT: No Ear pain, No Ear discharge, No Nose pain, No Nose discharge, No Nose congestion, No Mouth pain, No Mouth swelling, No Throat pain, No Throat swelling, No Other Cardiovascular: No Chest Pain, No Palpitations, No Orthopnea, No Paroxysmal Noc. Dyspnea, No Edema, No Lt Headedness, No Other Respiratory: No Cough, No Dry; Shortness of breath, SOB with excertion, W heezing; No Hemoptysis, No Pleuritic Pain, No Sputum, No Other Gastrointestinal: No Nausea, No Vomiting, No Abdominal Pain, No Diarrhea, No Constipation, No Melena, No Hematochezia, No Other Genitourinary: No Dysuria, No Frequency, No Incontinence, No Hematuria, No Retention, No Other Musculoskeletal: No other, No neck pain, No shoulder pain, No arm pain, No back pain, No hand pain, No leg pain, No foot pain Skin: No Rash, No Lesions, No Jaundice, No Bruising, No Other Objective Vitals Vital Signs Date Time Temp Pulse Resp B/P (MAP) Pulse Ox O2 Delivery O2 Flow Rate FiO2 09/22/24 18:42 96 18 96 09/22/24 18:35 Nasal Cannula* 4 36 09/22/24 16:42 98.0 139/80 (99) 98.0 Intake/Output Intake and Output 09/22/24 07:00 Intake Total 2350 ml Output Total 2400 ml Balance -50 ml Intake Oral 2050 ml IV Total 300 ml Output Urine Total 2400 ml General Appearance: Alert, Oriented X3, Cooperative, No acute distress HEENT: Atraumatic, PERRLA, EOMI, Mucous membr. moist/pink Neck: Supple Lungs: Clear to auscultation, Normal air movement Cardiovascular: Regular rate, Normal S1, Normal S2, No murmurs, Gallops, Rubs Abdomen: Normal bowel sounds, Soft, No tenderness Neuro: Cranial nerves 3-12 NL Psych/Mental Status: Mental status NL Medications Current Medications Medications Dose Ordered Sig/Tod Route Start Time Stop Time Status Last Admin Dose Admin Sodium Chloride 10 ml Q8HR IV 09/17/24 14:00 09/22/24 22:35 10 ML Acetaminophen/ Hydrocodone Bitart 1 tab Q4HP PRN PO 09/17/24 13:30 09/21/24 23:17 1 TAB Ondansetron HCl 4 mg Q4HP PRN IV 09/17/24 13:30 Docusate Sodium 100 mg BIDPRN PRN PO 09/17/24 13:30 Acetaminophen 650 mg Q6HP PRN PO 09/17/24 13:30 09/20/24 21:16 650 MG Nitroglycerin 0.4 mg Q5MINP PRN SL 09/17/24 13:30 Morphine Sulfate 2 mg Q30M PRN IV 09/17/24 13:30 Clonidine HCl 0.1 mg DAILY PO 09/18/24 10:00 09/22/24 08:55 0.1 MG Famotidine 20 mg BID PO 09/17/24 22:00 09/22/24 22:34 20 MG Patient Own Medication 1 cap DAILY PO 09/18/24 10:00 Cancel Patient Own Medication 1 tab TID PO 09/17/24 14:00 UNV Patient Own Medication 1 tab DAILY PO 09/18/24 10:00 UNV Ipratropium [place] 0.5 mg Q6HWA NEB 09/17/24 18:00 09/22/24 18:30 0.5 MG Nicotine 1 patch DAILY TD 09/18/24 10:00 09/22/24 08:53 1 PATCH Furosemide 20 mg DAILY IV 09/18/24 10:00 09/22/24 08:55 20 MG Hydroxyzine Pamoate 25 mg TID PO 09/17/24 22:00 09/22/24 22:34 25 MG Lisinopril 10 mg DAILY PO 09/18/24 10:00 09/22/24 08:55 10 MG Apixaban 5 mg BID PO 09/17/24 22:00 09/22/24 22:34 5 MG Levalbuterol HCl 1.25 mg Q6HR NEB 09/18/24 18:00 09/22/24 18:30 1.25 MG Diltiazem HCl 240 mg DAILY PO 09/19/24 10:00 09/22/24 08:56 240 MG Ampicillin Sodium/ Sulbactam Sodium 3 gm/Sodium Chloride 100 ml @ 100 mls/hr Q6H IV 09/19/24 00:00 09/22/24 17:56 100 MLS/HR Methylprednisolone Sodium Succinate 20 mg BID IV 09/19/24 22:00 09/22/24 22:34 20 MG Laboratory Results Laboratory Tests 09/20/24 05:52 Urinalysis Test 09/17/24 12:21 Urine Color Yellow (Yellow) Urine Clarity Clear (Clear) Urine pH 5.5 (5.0-9.0) Urine Specific [place] 1.035 (1.001-1.035) Urine Protein 1+ (Negative) H Urine Ketones Negative (Negative) Urine Blood Negative /uL (Negative) Urine Nitrite Negative (Negative) Urine Bilirubin Negative (Negative) Urine Urobilinogen Normal mg/dL (Negative) Urine Leukocyte Esterase Trace /uL (Negative) Urine RBC 2 /hpf (0 - 4) Urine Microscopic WBC 3 /HPF (0-5) Urine Squamous Epithelial Cells Mod /hpf (<5) Urine Bacteria None seen /hpf (None Seen) Urine Glucose Normal mg/dL (Normal) Microbiology Microbiology Date/Time Source Procedure Growth Status 09/21/24 06:00 Nose MRSA Screen - Final Complete Labs and/or images reviewed: Labs reviewed by me Assessment/Plan Assessment/Plan #1 acute on chronic resp failure #2 copd with exacerbation #3 right lower lung pneumonia ? sepsis #4 tobacco abuse #5 morbid obesity #6 a fibds #7 cellulitis both legs #8 pvd #9 acute on chronic systolic/diastolic heart failure Plan: Continuing current management. Continuing with oxygen to keep saturation oxygen above 92%. Continuing with Solu-Medrol and bronchodilator. Continuing with IV antibiotic Rocephin and Zithromax. Continuing with nicotine patch. Advised to quit smoking more than 15 minutes Continuing home medication for atrial fibrillation. Continuing IV Lasix. Encourage to be out of bed and ambulate. Discharge planning. This medical document was created using an electronic medical record system with [email or web address] direct computerized dictation system. Although this document has been carefully reviewed, there may still be some phonetic and typographical errors. These areas are purely typographical due to imperfections of the software programs, and do not reflect any compromise in the patient's medical care. Plan discussed with: Patient Date of Service: Sep 22, 2024 Billing Provider: NUNO ENCARNACION MD Common Visit Codes: [id number] INP/OBS CARE(HIGH) NUNO ENCARNACION MD Sep 22, 2024 22:54
[2024-09-23] VITALS (20 sets, daily range): BP systolic 135–161; BP diastolic 78–91; PULSE 62–102; RESP 16–22; TEMP 97.5–98.2; O2SAT 90–100
[2024-09-23 06:43] LABS: Hemoglobin 14.5 g/dL (12.2-16.2); Mean Corpuscular Hemoglobin 29.4 pg (28.0-32.0); Mean Corpuscular Hgb Conc. 32.1 g/dL (32.0-36.0); Mean Corpuscular Volume 91.4 fL (80.0-100.0); Platelet Count (auto) 184 10^3/uL (140-450); Red Blood Cells 4.92 10^6/uL (4.0-5.20); Red Cell Distribution Width 15.3 % (11.8-14.3); White Blood Cell 20.6 10^3/uL (4.4-10.8)
[2024-09-23 06:47] LABS: Anion Gap 4 (5-15); Chloride 99 mmol/L (98-107); Potassium 4.3 mmol/L (3.5-5.1); Sodium 140 mmol/L (136-145)
[2024-09-23 06:48] LABS: Calcium 9.2 mg/dL (8.7-10.4)
[2024-09-23 06:51] LABS: Carbon Dioxide 37 mmol/L (20-31)
[2024-09-23 06:53] LABS: BUN/Creatinine Ratio 40.5 (10.0-20.0); Blood Urea Nitrogen 32 mg/dL (9-23); Glucose 172 mg/dL (74-106)
[2024-09-23 07:09] LABS: Band Neutrophils % (manual) 0; Basophils % (manual) 0 (0.0-2.0); Blast Cells 0; Eosinophils % (manual) 0 (0-7); Metamyelocytes % 0; Myelocytes % 0; Promyelocytes % 0; Reactive Lymphocytes 0
[2024-09-23 08:11] LABS: Lymphocytes % (manual) 10 (10.0-50.0); Monocytes % (manual) 6 (0-12); Platelet Estimate Adequate
--- NOTE | 2024-09-23 12:12 | DVHPN2 ---
Subjective The patient is seen and examined at bedside. Still have shortness for breath. Reviewed: Care Plan, H&P, Labs, Medications, Previous Orders, Radiology Changes from previous H/P or p: No Changes Eyes: No Pain, No Vision change, No Conjunctivae inflammation, No Eyelid inflammation, No Other, No Redness ENT: No Ear pain, No Ear discharge, No Nose pain, No Nose discharge, No Nose congestion, No Mouth pain, No Mouth swelling, No Throat pain, No Throat swelling, No Other Cardiovascular: No Chest Pain, No Palpitations, No Orthopnea, No Paroxysmal Noc. Dyspnea, No Edema, No Lt Headedness, No Other Respiratory: No Cough, No Dry; Shortness of breath, SOB with excertion, W heezing; No Hemoptysis, No Pleuritic Pain, No Sputum, No Other Gastrointestinal: No Nausea, No Vomiting, No Abdominal Pain, No Diarrhea, No Constipation, No Melena, No Hematochezia, No Other Genitourinary: No Dysuria, No Frequency, No Incontinence, No Hematuria, No Retention, No Other Musculoskeletal: No other, No neck pain, No shoulder pain, No arm pain, No back pain, No hand pain, No leg pain, No foot pain Skin: No Rash, No Lesions, No Jaundice, No Bruising, No Other Objective Vitals Vital Signs Date Time Temp Pulse Resp B/P (MAP) Pulse Ox O2 Delivery O2 Flow Rate FiO2 09/23/24 09:28 92 135/82 09/23/24 09:00 98.2 22 90 98.2 09/23/24 08:20 Nasal Cannula* 4 36 Intake/Output Intake and Output 09/23/24 07:00 Intake Total 2800 ml Output Total 3250 ml Balance -450 ml Intake Oral 2400 ml IV Total 400 ml Output Urine Total 3250 ml General Appearance: Alert, Oriented X3, Cooperative, No acute distress HEENT: Atraumatic, PERRLA, EOMI, Mucous membr. moist/pink Neck: Supple Lungs: Clear to auscultation, Normal air movement Cardiovascular: Regular rate, Normal S1, Normal S2, No murmurs, Gallops, Rubs Abdomen: Normal bowel sounds, Soft, No tenderness Neuro: Cranial nerves 3-12 NL Psych/Mental Status: Mental status NL Medications Current Medications Medications Dose Ordered Sig/Tod Route Start Time Stop Time Status Last Admin Dose Admin Sodium Chloride 10 ml Q8HR IV 09/17/24 14:00 09/23/24 05:46 10 ML Acetaminophen/ Hydrocodone Bitart 1 tab Q4HP PRN PO 09/17/24 13:30 09/21/24 23:17 1 TAB Ondansetron HCl 4 mg Q4HP PRN IV 09/17/24 13:30 Docusate Sodium 100 mg BIDPRN PRN PO 09/17/24 13:30 Acetaminophen 650 mg Q6HP PRN PO 09/17/24 13:30 09/20/24 21:16 650 MG Nitroglycerin 0.4 mg Q5MINP PRN SL 09/17/24 13:30 Morphine Sulfate 2 mg Q30M PRN IV 09/17/24 13:30 Clonidine HCl 0.1 mg DAILY PO 09/18/24 10:00 09/23/24 09:27 0.1 MG Famotidine 20 mg BID PO 09/17/24 22:00 09/23/24 09:27 20 MG Patient Own Medication 1 cap DAILY PO 09/18/24 10:00 Cancel Patient Own Medication 1 tab TID PO 09/17/24 14:00 UNV Patient Own Medication 1 tab DAILY PO 09/18/24 10:00 UNV Ipratropium [place] 0.5 mg Q6HWA NEB 09/17/24 18:00 09/23/24 06:25 0.5 MG Nicotine 1 patch DAILY TD 09/18/24 10:00 09/23/24 09:28 1 PATCH Furosemide 20 mg DAILY IV 09/18/24 10:00 09/23/24 09:25 20 MG Hydroxyzine Pamoate 25 mg TID PO 09/17/24 22:00 09/23/24 05:47 25 MG Lisinopril 10 mg DAILY PO 09/18/24 10:00 09/23/24 09:27 10 MG Apixaban 5 mg BID PO 09/17/24 22:00 09/23/24 09:26 5 MG Levalbuterol HCl 1.25 mg Q6HR NEB 09/18/24 18:00 09/23/24 06:24 1.25 MG Diltiazem HCl 240 mg DAILY PO 09/19/24 10:00 09/23/24 09:28 240 MG Ampicillin Sodium/ Sulbactam Sodium 3 gm/Sodium Chloride 100 ml @ 100 mls/hr Q6H IV 09/19/24 00:00 09/23/24 05:46 100 MLS/HR Methylprednisolone Sodium Succinate 20 mg BID IV 09/19/24 22:00 09/23/24 09:25 20 MG Laboratory Results Laboratory Tests 09/23/24 05:54 Chemistry Test 09/23/24 05:54 Calcium Level 9.2 mg/dL (8.7-10.4) Urinalysis Test 09/17/24 12:21 Urine Color Yellow (Yellow) Urine Clarity Clear (Clear) Urine pH 5.5 (5.0-9.0) Urine Specific [place] 1.035 (1.001-1.035) Urine Protein 1+ (Negative) H Urine Ketones Negative (Negative) Urine Blood Negative /uL (Negative) Urine Nitrite Negative (Negative) Urine Bilirubin Negative (Negative) Urine Urobilinogen Normal mg/dL (Negative) Urine Leukocyte Esterase Trace /uL (Negative) Urine RBC 2 /hpf (0 - 4) Urine Microscopic WBC 3 /HPF (0-5) Urine Squamous Epithelial Cells Mod /hpf (<5) Urine Bacteria None seen /hpf (None Seen) Urine Glucose Normal mg/dL (Normal) Microbiology Microbiology Date/Time Source Procedure Growth Status 09/21/24 06:00 Nose MRSA Screen - Final Complete Labs and/or images reviewed: Labs reviewed by me Assessment/Plan Assessment/Plan #1 acute on chronic resp failure #2 copd with exacerbation #3 right lower lung pneumonia ? sepsis #4 tobacco abuse #5 morbid obesity #6 a fibds #7 cellulitis both legs #8 pvd #9 acute on chronic systolic/diastolic heart failure Plan: Continuing current management. Continuing with oxygen to keep saturation oxygen above 92%. Continuing with Solu-Medrol and bronchodilator. Continuing with IV antibiotic Rocephin and Zithromax. Continuing with nicotine patch. Advised to quit smoking more than 15 minutes Continuing home medication for atrial fibrillation. Continuing IV Lasix. Encourage to be out of bed and ambulate. PT consult. JES arvizu Discharge planning. This medical document was created using an electronic medical record system with [employer] direct computerized dictation system. Although this document has been carefully reviewed, there may still be some phonetic and typographical errors. These areas are purely typographical due to imperfections of the software programs, and do not reflect any compromise in the patient's medical care. Plan discussed with: Patient, Spouse Date of Service: Sep 23, 2024 Billing Provider: NUNO ENCARNACION MD Common Visit Codes: [id number] INP/OBS CARE(HIGH) NUNO ENCARNACION MD Sep 23, 2024 12:12
[2024-09-24] VITALS (17 sets, daily range): BP systolic 124–156; BP diastolic 67–98; PULSE 58–97; RESP 14–21; TEMP 97.6–98.2; O2SAT 92–100
--- NOTE | 2024-09-24 20:18 | DVHPN2 ---
Reviewed: Care Plan, H&P, Labs, Medications, Previous Orders, Radiology Changes from previous H/P or p: No Changes General: Per HPI Eyes: No Pain, No Vision change, No Conjunctivae inflammation, No Eyelid inflammation, No Other, No Redness ENT: No Ear pain, No Ear discharge, No Nose pain, No Nose discharge, No Nose congestion, No Mouth pain, No Mouth swelling, No Throat pain, No Throat swelling, No Other Cardiovascular: No Chest Pain, No Palpitations, No Orthopnea, No Paroxysmal Noc. Dyspnea, No Edema, No Lt Headedness, No Other Respiratory: No Cough, No Dry; Shortness of breath, SOB with excertion, W heezing; No Hemoptysis, No Pleuritic Pain, No Sputum, No Other Gastrointestinal: No Nausea, No Vomiting, No Abdominal Pain, No Diarrhea, No Constipation, No Melena, No Hematochezia, No Other Genitourinary: No Dysuria, No Frequency, No Incontinence, No Hematuria, No Retention, No Other Musculoskeletal: No other, No neck pain, No shoulder pain, No arm pain, No back pain, No hand pain, No leg pain, No foot pain Skin: No Rash, No Lesions, No Jaundice, No Bruising, No Other Objective Vitals Vital Signs Date Time Temp Pulse Resp B/P (MAP) Pulse Ox O2 Delivery O2 Flow Rate FiO2 09/24/24 20:04 59 18 93 09/24/24 20:04 Nasal Cannula 3.0 09/24/24 20:04 32 09/24/24 17:23 97.9 133/89 (104) 97.9 Intake/Output Intake and Output 09/24/24 07:00 Intake Total 1700 ml Output Total 4500 ml Balance -2800 ml Intake Oral 1300 ml IV Total 400 ml Output Urine Total 4500 ml # Bowel Movements 4 General Appearance: Alert, Oriented X3, Cooperative, No acute distress HEENT: Atraumatic, PERRLA, EOMI, Mucous membr. moist/pink Neck: Supple Lungs: Clear to auscultation, Normal air movement Cardiovascular: Regular rate, Normal S1, Normal S2, No murmurs, Gallops, Rubs Abdomen: Normal bowel sounds, Soft, No tenderness Neuro: Cranial nerves 3-12 NL Psych/Mental Status: Mental status NL Medications Current Medications Medications Dose Ordered Sig/Tod Route Start Time Stop Time Status Last Admin Dose Admin Sodium Chloride 10 ml Q8HR IV 09/17/24 14:00 09/24/24 13:38 10 ML Acetaminophen/ Hydrocodone Bitart 1 tab Q4HP PRN PO 09/17/24 13:30 09/21/24 23:17 1 TAB Ondansetron HCl 4 mg Q4HP PRN IV 09/17/24 13:30 Docusate Sodium 100 mg BIDPRN PRN PO 09/17/24 13:30 Acetaminophen 650 mg Q6HP PRN PO 09/17/24 13:30 09/20/24 21:16 650 MG Nitroglycerin 0.4 mg Q5MINP PRN SL 09/17/24 13:30 Morphine Sulfate 2 mg Q30M PRN IV 09/17/24 13:30 Clonidine HCl 0.1 mg DAILY PO 09/18/24 10:00 09/24/24 09:57 0.1 MG Famotidine 20 mg BID PO 09/17/24 22:00 09/24/24 09:57 20 MG Patient Own Medication 1 cap DAILY PO 09/18/24 10:00 Cancel Patient Own Medication 1 tab TID PO 09/17/24 14:00 UNV Patient Own Medication 1 tab DAILY PO 09/18/24 10:00 UNV Ipratropium [place] 0.5 mg Q6HWA NEB 09/17/24 18:00 09/24/24 20:04 0.5 MG Nicotine 1 patch DAILY TD 09/18/24 10:00 09/24/24 10:01 1 PATCH Furosemide 20 mg DAILY IV 09/18/24 10:00 09/24/24 09:59 20 MG Hydroxyzine Pamoate 25 mg TID PO 09/17/24 22:00 09/24/24 13:37 25 MG Lisinopril 10 mg DAILY PO 09/18/24 10:00 09/24/24 09:55 10 MG Apixaban 5 mg BID PO 09/17/24 22:00 09/24/24 09:57 5 MG Levalbuterol HCl 1.25 mg Q6HR NEB 09/18/24 18:00 09/24/24 20:04 1.25 MG Diltiazem HCl 240 mg DAILY PO 09/19/24 10:00 09/24/24 09:56 240 MG Ampicillin Sodium/ Sulbactam Sodium 3 gm/Sodium Chloride 100 ml @ 100 mls/hr Q6H IV 09/19/24 00:00 09/24/24 17:15 100 MLS/HR Methylprednisolone Sodium Succinate 20 mg BID IV 09/19/24 22:00 09/24/24 09:59 20 MG Laboratory Results Laboratory Tests 09/23/24 05:54 Urinalysis Test 09/17/24 12:21 Urine Color Yellow (Yellow) Urine Clarity Clear (Clear) Urine pH 5.5 (5.0-9.0) Urine Specific [place] 1.035 (1.001-1.035) Urine Protein 1+ (Negative) H Urine Ketones Negative (Negative) Urine Blood Negative /uL (Negative) Urine Nitrite Negative (Negative) Urine Bilirubin Negative (Negative) Urine Urobilinogen Normal mg/dL (Negative) Urine Leukocyte Esterase Trace /uL (Negative) Urine RBC 2 /hpf (0 - 4) Urine Microscopic WBC 3 /HPF (0-5) Urine Squamous Epithelial Cells Mod /hpf (<5) Urine Bacteria None seen /hpf (None Seen) Urine Glucose Normal mg/dL (Normal) Microbiology Microbiology Date/Time Source Procedure Growth Status 09/21/24 06:00 Nose MRSA Screen - Final Complete Labs and/or images reviewed: Labs reviewed by me, Image(s) reviewed by me Assessment/Plan Assessment/Plan #1 acute on chronic resp failure #2 copd with exacerbation #3 right lower lung pneumonia ? sepsis #4 tobacco abuse #5 morbid obesity #6 a fibds #7 cellulitis both legs #8 pvd #9 acute on chronic systolic/diastolic heart failure Plan: Continuing current management. Continuing with oxygen to keep saturation oxygen above 92%. Continuing with Solu-Medrol and bronchodilator. Continuing with IV antibiotic Rocephin and Zithromax. Continuing with nicotine patch. Advised to quit smoking more than 15 minutes Continuing home medication for atrial fibrillation. Continuing IV Lasix. Encourage to be out of bed and ambulate. PT consult. JES arvizu Discharge planning. 09/24/2024: pt seen right outside of her room, sitting comfortably in a wheelchair with PT. Per pt, she still has significant coughing. Pt observed to have some coughing during my conversation. Plan discussed with: Patient Date of Service: Sep 24, 2024 Billing Provider: AMIN,LELA T DO Common Visit Codes: [id number] INP/OBS CARE(HIGH) LELA AMIN DO Sep 24, 2024 20:18
--- NOTE | 2024-09-24 21:06 | DVHINCON2 ---
Date of service: Sep 24, 2024 Referring Physician Lela Amin DO Reason for Consultation Acute hypoxic respiratory failure, chronic hypercarbic respiratory failure and COPD exacerbation History of Present Illness A 58-year-old woman with past medical history of COPD on home oxygen, CHF, and atrial fibrillation who presented to ED on 09/17/24 due to shortness of breath. Patient reported her mom the night prior to presentation and she had been very upset and had a difficult time sleeping that night due to the shortness of breath. She reported shortness of breath ongoing for about a day. Patient is also on hospice care and was recently hospitalized. Patient is a cur rent daily smoker. When EMS arrived, her O2 sat was in the 70s; a breathing treatment was given and she improved to the 90s. ABG completed in ER showed PO2 of 54.1, and PCO2 of 56.7. Patient was admitted for further care. Pulmonary consultation is requested for evaluation and management of acute hypoxic respiratory failure, chronic hypercarbic respiratory failure and COPD exacerb ation. Review of Systems: 14-point review of systems negative unless otherwise noted above. Past Medical History: COPD on home oxygen, CHF, and atrial fibrillation Past Surgical History: None Medications: Reviewed. Allergies: No known drug allergies. Family History: Liver cancer. Social History: Nonsmoker. No alcohol or illicit drug use. Family History: FH: liver cancer G8 MOTHER Allergies: Coded Allergies: NO KNOWN ALLERGIES (Unverified , 09/17/24) Home Meds Active Scripts Levofloxacin Hemihydrate (LEVOFLOXACIN) 500 Mg Tab, 1 TAB PO DAILY for 7 Days, #7 TAB Prov:LELA AMIN DO 09/26/24 Reported Medications Albuterol Sulfate (Albuterol Sulfate) 0.083 % Neb, 1 VIAL NEB TID for 90 Days, #810 09/18/24 Hydralazine Hcl (Hydralazine Hcl) 25 Mg Tab, 1 TAB PO BID for 90 Days, #180 09/18/24 Apixaban Base (ELIQUIS) 5 Mg Tab, 1 TAB PO BID 09/17/24 Famotidine (Famotidine) 20 Mg Tab, 1 TAB PO BID 09/17/24 Clonidine Hydrochloride (Clonidine Hcl) 0.1 Mg Tab, 1 TAB PO DAILY 09/17/24 Furosemide (Furosemide) 20 Mg Tab, 1 TAB PO DAILY 09/17/24 Hctz (Hydrochlorothiazide) 25 Mg Tab, 1 TAB PO DAILY 09/17/24 Lisinopril (Lisinopril) 10 Mg Tab, 1 TAB PO DAILY 09/17/24 Diltiazem Hcl (DILTIAZEM HCL ER) 240 Mg Cap, 1 CAP PO DAILY 09/17/24 Hydroxyzine Hcl (Hydroxyzine Hcl) 25 Mg Tab, 1 TAB PO TID 09/17/24 Vital Signs Vital Signs Date Time Temp Pulse Resp B/P (MAP) Pulse Ox O2 Delivery O2 Flow Rate FiO2 09/24/24 20:14 58 18 98 09/24/24 20:04 Nasal Cannula 3.0 09/24/24 20:04 32 09/24/24 17:23 97.9 133/89 (104) 97.9 Physical Exam Gen.: Patient lying in bed in no apparent distress. On supplemental oxygen. Head: Normocephalic, atraumatic. Eyes: EOMI/PERRLA. Ears: Normal hearing. Normal anatomy. Neck/trachea: Trachea midline, supple. Nose: Normal external anatomy. Mouth: Moist mucous membranes. Chest: Decreased air entry bilaterally. No wheezing or rhonchi. Cardiovascular: Positive S1, positive S2. Regular rate and rhythm. Abdomen: Positive bowel sounds in all 4 quadrants. Soft, non-tender, non- distended. : Deferred. Rectal: Deferred. Skin: Warm, dry. Intact. Extremities: 2+ radial pulses bilaterally. No lower extremity edema. Neuro: Awake, alert, oriented x3. No gross motor or sensory deficits. Cranial nerves II through XII intact. Gait not assessed. Labs/Diagnostic Data Labs Test 09/23/24 05:54 09/20/24 05:52 09/18/24 05:14 09/17/24 12:21 Range/Units White Blood Count 20.6 #H 4.4-10.8 10^3/uL Red Blood Count 4.92 4.0-5.20 10^6/uL Hemoglobin 14.5 12.2-16.2 g/dL Hematocrit 45.0 36.0-46.0 % Mean Corpuscular Volume 91.4 80.0-100.0 fL Mean Corpuscular Hemoglobin 29.4 28.0-32.0 pg Mean Corpuscular Hemoglobin Concent 32.1 32.0-36.0 g/dL Red Cell Distribution Width 15.3 H 11.8-14.3 % Platelet Count 184 140-450 10^3/uL Mean Platelet Volume 9.8 6.9-10.8 fL Neutrophils (%) (Auto) 37.0-80.0 % Lymphocytes (%) (Auto) 10.0-50.0 % Monocytes (%) (Auto) 0.0-12.0 % Basophils (%) (Auto) 0.0-2.0 % Neutrophils # (Auto) 1.6-8.6 10 ^3/uL Lymphocytes # (Auto) 0.4-5.4 10 ^3/uL Monocytes # (Auto) 0-1.3 10 ^3/uL Differential Total Cells Counted 100.0 100 Neutrophils % (Manual) 84 H 37.0-80.0 Band Neutrophils % (Manual) 0 Lymphocytes % (Manual) 10 10.0-50.0 Monocytes % (Manual) 6 0-12 Eosinophils % (Manual) 0 0-7 Basophils % (Manual) 0 0.0-2.0 Metamyelocytes % (manual) 0 Myelocytes % (Manual) 0 Promyelocytes % (Manual) 0 Blast Cells % (Manual) 0 Reactive Lymphocytes 0 Platelet Estimate Adequate Sodium Level 140 136-145 mmol/L Potassium Level 4.3 3.5-5.1 mmol/L Chloride Level 99 98-107 mmol/L Carbon Dioxide Level 37 H 20-31 mmol/L Anion Gap 4 L 5-15 Blood Urea Nitrogen 32 H 9-23 mg/dL Creatinine 0.79 0.550-1.02 mg/dL Glomerular Filtration Rate Calc 87 >90 mL/min BUN/Creatinine Ratio 40.5 H 10.0-20.0 Serum Glucose 172 H 74-106 mg/dL Calcium Level 9.2 8.7-10.4 mg/dL Eosinophils (%) (Auto) 0.0 0.0-7.0 % Eosinophils # (Auto) 0 0-0.8 10 ^3/uL Basophils # (Auto) 0 0-0.2 10 ^3/uL Nucleated Red Blood Cells 0.0 % Total Bilirubin 0.2 0.2-1.0 mg/dL Aspartate Amino Transferase (AST) 11 L 13-40 U/L Alanine Aminotransferase (ALT) 23 7-40 U/L Alkaline Phosphatase 89 46-116 U/L Total Protein 7.1 5.7-8.2 g/dL Albumin 4.1 3.2-4.8 g/dL Urine Color Yellow Yellow Urine Clarity Clear Clear Urine pH 5.5 5.0-9.0 Urine Specific [place] 1.035 1.001-1.035 Urine Protein 1+ H Negative Urine Ketones Negative Negative Urine Blood Negative Negative /uL Urine Nitrite Negative Negative Urine Bilirubin Negative Negative Urine Urobilinogen Normal Negative mg/dL Urine Leukocyte Esterase Trace Negative /uL Urine RBC 2 0 - 4 /hpf Urine Microscopic WBC 3 0-5 /HPF Urine Squamous Epithelial Cells Mod <5 /hpf Urine Bacteria None seen None Seen /hpf Urine Glucose Normal Normal mg/dL Test 09/17/24 11:15 09/17/24 09:49 Range/Units Blood Gas Specimen Type Arterial Blood Gas Sample Site Right radial Blood Gas Patient Temperature 37.0 Arterial Blood Date Drawn [id number] Arterial Blood pH 7.481 H 7.350-7.450 Arterial Blood Partial Pressure CO2 56.7 H 32.0-45.0 mmHg Arterial Blood Partial Pressure O2 54.1 *L 83.0-108.0 mmHg Arterial Blood HCO3 41.4 H 21.0-28.0 mmol/L Arterial Blood Oxygen Saturation 89.8 L 94.0-98.0 % Arterial Blood Base Excess 14.9 H -2.0-3.0 mmol/L Arterial Blood Oxyhemoglobin 86.3 L 94.0-98.0 % Arterial Blood Carboxyhemoglobin 3.5 H 0.5-1.5 % Arterial Blood Methemoglobin 0.4 0.0-1.5 % John Test Yes Blood Gas Total Hemoglobin 15.50 12.0-16.0 g/dL Blood Gas Liter Flow 4.00 Blood Gas Modality Nasal cannula FiO2 % 36.0 Blood Gas Critical Value Read Back Yes Blood Gas Notified Whom shanthi Santoyo Blood Gas Notified Time [id number] Blood Gas Notified By maite Bernal Troponin I High Sensitivity 9 </=34 ng/L Microbiology Date/Time Source Procedure Growth Status 09/21/24 06:00 Nose MRSA Screen - Final Complete Assessment Impression: Acute hypoxic respiratory failure Dependence on supplemental oxygen Chronic hypercarbic respiratory failure Acute COPD exacerbation Pneumonia, likely gram negative Morbid obesity, BMI 41.1 Nicotine dependence Acute on chronic CHF exacerbation Plan: Supplemental oxygen Titrate to keep O2 sats above 92%. CXR demonstrates pulmonary vascular congestion ABG notable for hypoxemia Continue antibiotics IV steroids Eliquis BID Diurese w/ Lasix Monitor renal function. Monitor electrolytes. Supplement as necessary. Monitor ins and outs. NRT Smoking cessation discussed for greater than 10 minutes Diet and lifestyle modifications for weight reduction Morbid obesity - complicates all care GI prophylaxis w/ Pepcid DVT prophylaxis w/ Eliquis. Prognosis: Poor given patient's multiple co-morbidities. Rest of plan per hospitalist and other consultants. Thank you Dr. Amin, for allowing me to participate in this patient's care. Further recommendations will depend on the patient's clinical course. Please do not hesitate to contact me if you have any questions or concerns. This medical document was created using an electronic medical record system with [employer] dictation system. Although these documentations are being carefully reviewed, there may still be some phonetic and typographical changes. The errors are purely typographical, due to imperfection on the software program, and do not reflect any compromise in the patient's medical care. Plan discussed with: Patient, Other (RN/Dr. Amin) GÓMEZ GORDILLO MD Sep 24, 2024 21:06
[2024-09-25] VITALS (18 sets, daily range): BP systolic 135–165; BP diastolic 77–118; PULSE 60–124; RESP 17–21; TEMP 97.3–97.6; O2SAT 91–100
--- NOTE | 2024-09-25 13:00 | DVHPN2 ---
Reviewed: Care Plan, H&P, Labs, Medications, Previous Orders, Radiology Changes from previous H/P or p: No Changes General: Per HPI Eyes: No Pain, No Vision change, No Conjunctivae inflammation, No Eyelid inflammation, No Other, No Redness ENT: No Ear pain, No Ear discharge, No Nose pain, No Nose discharge, No Nose congestion, No Mouth pain, No Mouth swelling, No Throat pain, No Throat swelling, No Other Cardiovascular: No Chest Pain, No Palpitations, No Orthopnea, No Paroxysmal Noc. Dyspnea, No Edema, No Lt Headedness, No Other Respiratory: No Cough, No Dry; Shortness of breath, SOB with excertion, W heezing; No Hemoptysis, No Pleuritic Pain, No Sputum, No Other Gastrointestinal: No Nausea, No Vomiting, No Abdominal Pain, No Diarrhea, No Constipation, No Melena, No Hematochezia, No Other Genitourinary: No Dysuria, No Frequency, No Incontinence, No Hematuria, No Retention, No Other Musculoskeletal: No other, No neck pain, No shoulder pain, No arm pain, No back pain, No hand pain, No leg pain, No foot pain Skin: No Rash, No Lesions, No Jaundice, No Bruising, No Other Objective Vitals Vital Signs Date Time Temp Pulse Resp B/P (MAP) Pulse Ox O2 Delivery O2 Flow Rate FiO2 09/25/24 11:41 66 18 99 09/25/24 11:35 Nasal Cannula 2.0 09/25/24 11:35 28 09/25/24 09:45 158/97 09/25/24 09:00 97.6 97.6 Intake/Output Intake and Output 09/25/24 07:00 Intake Total 200 ml Output Total 3500 ml Balance -3300 ml IV Total 200 ml Output Urine Total 3500 ml # Bowel Movements 3 General Appearance: Alert, Oriented X3, Cooperative, No acute distress HEENT: Atraumatic, PERRLA, EOMI, Mucous membr. moist/pink Neck: Supple Lungs: Clear to auscultation, Normal air movement Cardiovascular: Regular rate, Normal S1, Normal S2, No murmurs, Gallops, Rubs Abdomen: Normal bowel sounds, Soft, No tenderness Neuro: Cranial nerves 3-12 NL Psych/Mental Status: Mental status NL Medications Current Medications Medications Dose Ordered Sig/Tod Route Start Time Stop Time Status Last Admin Dose Admin Sodium Chloride 10 ml Q8HR IV 09/17/24 14:00 09/25/24 05:56 10 ML Acetaminophen/ Hydrocodone Bitart 1 tab Q4HP PRN PO 09/17/24 13:30 09/25/24 04:20 1 TAB Ondansetron HCl 4 mg Q4HP PRN IV 09/17/24 13:30 Docusate Sodium 100 mg BIDPRN PRN PO 09/17/24 13:30 Acetaminophen 650 mg Q6HP PRN PO 09/17/24 13:30 09/20/24 21:16 650 MG Nitroglycerin 0.4 mg Q5MINP PRN SL 09/17/24 13:30 Morphine Sulfate 2 mg Q30M PRN IV 09/17/24 13:30 Clonidine HCl 0.1 mg DAILY PO 09/18/24 10:00 09/25/24 09:34 0.1 MG Famotidine 20 mg BID PO 09/17/24 22:00 09/25/24 09:34 20 MG Patient Own Medication 1 cap DAILY PO 09/18/24 10:00 Cancel Patient Own Medication 1 tab TID PO 09/17/24 14:00 UNV Patient Own Medication 1 tab DAILY PO 09/18/24 10:00 UNV Ipratropium [place] 0.5 mg Q6HWA NEB 09/17/24 18:00 09/25/24 11:36 0.5 MG Nicotine 1 patch DAILY TD 09/18/24 10:00 09/25/24 09:37 1 PATCH Furosemide 20 mg DAILY IV 09/18/24 10:00 09/24/24 09:59 20 MG Lisinopril 10 mg DAILY PO 09/18/24 10:00 09/25/24 09:33 10 MG Apixaban 5 mg BID PO 09/17/24 22:00 09/25/24 09:32 5 MG Levalbuterol HCl 1.25 mg Q6HR NEB 09/18/24 18:00 09/25/24 11:36 1.25 MG Diltiazem HCl 240 mg DAILY PO 09/19/24 10:00 09/25/24 09:34 240 MG Ampicillin Sodium/ Sulbactam Sodium 3 gm/Sodium Chloride 100 ml @ 100 mls/hr Q6H IV 09/19/24 00:00 09/25/24 11:30 100 MLS/HR Methylprednisolone Sodium Succinate 20 mg BID IV 09/19/24 22:00 09/25/24 09:32 20 MG Laboratory Results Laboratory Tests 09/23/24 05:54 Urinalysis Test 09/17/24 12:21 Urine Color Yellow (Yellow) Urine Clarity Clear (Clear) Urine pH 5.5 (5.0-9.0) Urine Specific [place] 1.035 (1.001-1.035) Urine Protein 1+ (Negative) H Urine Ketones Negative (Negative) Urine Blood Negative /uL (Negative) Urine Nitrite Negative (Negative) Urine Bilirubin Negative (Negative) Urine Urobilinogen Normal mg/dL (Negative) Urine Leukocyte Esterase Trace /uL (Negative) Urine RBC 2 /hpf (0 - 4) Urine Microscopic WBC 3 /HPF (0-5) Urine Squamous Epithelial Cells Mod /hpf (<5) Urine Bacteria None seen /hpf (None Seen) Urine Glucose Normal mg/dL (Normal) Microbiology Microbiology Date/Time Source Procedure Growth Status 09/21/24 06:00 Nose MRSA Screen - Final Complete Assessment/Plan Assessment/Plan #1 acute on chronic resp failure #2 copd with exacerbation #3 right lower lung pneumonia ? sepsis #4 tobacco abuse #5 morbid obesity #6 a fibds #7 cellulitis both legs #8 pvd #9 acute on chronic systolic/diastolic heart failure Plan: Continuing current management. Continuing with oxygen to keep saturation oxygen above 92%. Continuing with Solu-Medrol and bronchodilator. Continuing with IV antibiotic Rocephin and Zithromax. Continuing with nicotine patch. Advised to quit smoking more than 15 minutes Continuing home medication for atrial fibrillation. Continuing IV Lasix. Encourage to be out of bed and ambulate. PT consult. JES arvizu Discharge planning. 09/24/2024: pt seen right outside of her room, sitting comfortably in a wheelchair with PT. Per pt, she still has significant coughing. Pt observed to have some coughing during my conversation. 09/25/2024: improving, possible discharged to home within 24 hours Plan discussed with: Patient My Orders Orders - LELA AMIN DO Procedure Category Date Status Time Furosemide Injection PHA 09/25/24 Logged (Lasix Injection) 13:00 Date of Service: Sep 25, 2024 Billing Provider: LELA AMIN DO Common Visit Codes: [id number] INP/OBS CARE(HIGH) LELA AMIN DO Sep 25, 2024 13:00
[2024-09-25] MEDS: FUROSEMIDE 40 MG/4 ML VIAL IV SCH (15:35)
--- NOTE | 2024-09-25 22:54 | DVHPN2 ---
Progress Note - Dictate Date Seen: Sep 25, 2024 Medical Necessity Reason Pt with a Central, PICC or Fol: Yes The following are medically ne: Arvizu Catheter Reason for arvizu catheter: Strict I&O Subjective Patient seen and examined at bedside. Remains on supplemental oxygen Overnight events reviewed. vital signs Vital Sign Date Time Temp Pulse Resp B/P (MAP) Pulse Ox O2 Delivery O2 Flow Rate FiO2 09/25/24 21:00 97.5 98 17 165/95 (118) 92 97.5 09/25/24 19:44 Nasal Cannula* 2 28 Total Intake and Output 09/24/24 09/24/24 09/25/24 15:00 23:00 07:00 Intake Total 100 ml 100 ml Output Total 2500 ml 1000 ml Balance 100 ml -2400 ml -1000 ml medications Current Medications Medications Dose Ordered Sig/Tod Route Start Time Stop Time Status Last Admin Dose Admin Sodium Chloride 10 ml Q8HR IV 09/17/24 14:00 09/25/24 15:18 10 ML Acetaminophen/ Hydrocodone Bitart 1 tab Q4HP PRN PO 09/17/24 13:30 09/25/24 04:20 1 TAB Ondansetron HCl 4 mg Q4HP PRN IV 09/17/24 13:30 Docusate Sodium 100 mg BIDPRN PRN PO 09/17/24 13:30 Acetaminophen 650 mg Q6HP PRN PO 09/17/24 13:30 09/20/24 21:16 650 MG Nitroglycerin 0.4 mg Q5MINP PRN SL 09/17/24 13:30 Morphine Sulfate 2 mg Q30M PRN IV 09/17/24 13:30 Clonidine HCl 0.1 mg DAILY PO 09/18/24 10:00 09/25/24 09:34 0.1 MG Famotidine 20 mg BID PO 09/17/24 22:00 09/25/24 22:41 20 MG Patient Own Medication 1 cap DAILY PO 09/18/24 10:00 Cancel Patient Own Medication 1 tab TID PO 09/17/24 14:00 UNV Patient Own Medication 1 tab DAILY PO 09/18/24 10:00 UNV Ipratropium [place] 0.5 mg Q6HWA NEB 09/17/24 18:00 09/25/24 19:44 0.5 MG Nicotine 1 patch DAILY TD 09/18/24 10:00 4/2/25 09:37 1 PATCH Lisinopril 10 mg DAILY PO 09/18/24 10:00 09/25/24 09:33 10 MG Apixaban 5 mg BID PO 09/17/24 22:00 09/25/24 22:41 5 MG Levalbuterol HCl 1.25 mg Q6HR NEB 09/18/24 18:00 09/25/24 19:44 1.25 MG Diltiazem HCl 240 mg DAILY PO 09/19/24 10:00 09/25/24 09:34 240 MG Ampicillin Sodium/ Sulbactam Sodium 3 gm/Sodium Chloride 100 ml @ 100 mls/hr Q6H IV 09/19/24 00:00 09/25/24 17:54 100 MLS/HR Methylprednisolone Sodium Succinate 20 mg BID IV 09/19/24 22:00 09/25/24 22:41 20 MG Furosemide 40 mg BIDD IV 09/25/24 13:02 09/25/24 15:35 40 MG objective Gen.: Patient lying in bed in no apparent distress. On supplemental oxygen. Head: Normocephalic, atraumatic. Eyes: EOMI/PERRLA. Ears: Normal hearing. Normal anatomy. Neck/trachea: Trachea midline, supple. Nose: Normal external anatomy. Mouth: Moist mucous membranes. Chest: Decreased air entry bilaterally. No wheezing or rhonchi. Cardiovascular: Positive S1, positive S2. Regular rate and rhythm. Abdomen: Positive bowel sounds in all 4 quadrants. Soft, non-tender, non- distended. : Deferred. Rectal: Deferred. Skin: Warm, dry. Intact. Extremities: 2+ radial pulses bilaterally. No lower extremity edema. Neuro: Awake, alert, oriented x3. No gross motor or sensory deficits. Cranial nerves II through XII intact. Gait not assessed. laboratory and microbiology Laboratory Tests 09/23/24 05:54 Test 09/23/24 05:54 Range/Units Serum Glucose 172 H 74-106 mg/dL Assessment/Plan Impression: Acute hypoxic respiratory failure Dependence on supplemental oxygen Chronic hypercarbic respiratory failure Acute COPD exacerbation Pneumonia, likely gram negative Morbid obesity, BMI 41.1 Nicotine dependence Acute on chronic CHF exacerbation Events: Remains on supplemental oxygen, 4 LPM NC Taper O2 as tolerated Continue bronchodilators IV steroids Continue antibiotics Incentive spirometry Diurese w/ Lasix Note, pt refused 6 AM Lasix Monitor renal function. Monitor electrolytes. Supplement as necessary. Patient requesting Arvizu Labs and imaging reviewed. Rest of plan as noted below. Plan: Supplemental oxygen Titrate to keep O2 sats above 92%. CXR demonstrated pulmonary vascular congestion ABG notable for hypoxemia Continue antibiotics IV steroids Eliquis BID Diurese w/ Lasix Monitor renal function. Monitor electrolytes. Supplement as necessary. Monitor ins and outs. NRT Smoking cessation discussed for greater than 10 minutes Diet and lifestyle modifications for weight reduction Morbid obesity - complicates all care GI prophylaxis w/ Pepcid DVT prophylaxis w/ Eliquis. Prognosis: Poor given patient's multiple co-morbidities. Rest of plan per hospitalist and other consultants. Thank you Dr. Andrade, for allowing me to participate in this patient's care. Further recommendations will depend on the patient's clinical course. Please do not hesitate to contact me if you have any questions or concerns. This medical document was created using an electronic medical record system with [employer] computerized dictation system. Although these documentations are being carefully reviewed, there may still be some phonetic and typographical changes. The errors are purely typographical, due to imperfection on the software program, and do not reflect any compromise in the patient's medical care. Dietary Evaluation Review Comments: 1) Refer to CDE on DC for weight management 2) Continue current plan of care Expected Outcomes/Goals: Pt will meet >75% estimated needs Fu 3-5 days Plan discussed with: Patient, Other (RICARDO Oakes) GÓMEZ GORDILLO MD Sep 25, 2024 22:54
[2024-09-25] MEDS ORDERED: hydrOXYzine 25 MG TAB or CAP PO ONE (23:30)
[2024-09-26] VITALS (15 sets, daily range): BP systolic 142–165; BP diastolic 97–109; PULSE 73–105; RESP 16–18; TEMP 97.3–97.9; O2SAT 90–99
[2024-09-26] MEDS: hydrOXYzine 25 MG TAB or CAP PO ONE (00:55)
[2024-09-26] MEDS: hydrOXYzine 25 MG TAB or CAP PO PRN (09:45)
[2024-09-26] MEDS ORDERED: LEVO500T91 PO (13:12)
--- NOTE | 2024-09-26 13:13 | DVHDS2 ---
Discharge Summary Date of Admission Sep 17, 2024 at 13:29 Date of Discharge: Sep 26, 2024 Labs/Diagnostic Data: Laboratory Results Test 09/23/24 05:54 09/20/24 05:52 09/18/24 05:14 09/17/24 12:21 White Blood Count 20.6 10^3/uL (4.4-10.8) Red Blood Count 4.92 10^6/uL (4.0-5.20) Hemoglobin 14.5 g/dL (12.2-16.2) Hematocrit 45.0 % (36.0-46.0) Mean Corpuscular Volume 91.4 fL (80.0-100.0) Mean Corpuscular Hemoglobin 29.4 pg (28.0-32.0) Mean Corpuscular Hemoglobin Concent 32.1 g/dL (32.0-36.0) Red Cell Distribution Width 15.3 % (11.8-14.3) Platelet Count 184 10^3/uL (140-450) Mean Platelet Volume 9.8 fL (6.9-10.8) Neutrophils (%) (Auto) % (37.0-80.0) Lymphocytes (%) (Auto) % (10.0-50.0) Monocytes (%) (Auto) % (0.0-12.0) Basophils (%) (Auto) % (0.0-2.0) Neutrophils # (Auto) 10 ^3/uL (1.6-8.6) Lymphocytes # (Auto) 10 ^3/uL (0.4-5.4) Monocytes # (Auto) 10 ^3/uL (0-1.3) Differential Total Cells Counted 100.0 (100) Neutrophils % (Manual) 84 (37.0-80.0) Band Neutrophils % (Manual) 0 Lymphocytes % (Manual) 10 (10.0-50.0) Monocytes % (Manual) 6 (0-12) Eosinophils % (Manual) 0 (0-7) Basophils % (Manual) 0 (0.0-2.0) Metamyelocytes % (manual) 0 Myelocytes % (Manual) 0 Promyelocytes % (Manual) 0 Blast Cells % (Manual) 0 Reactive Lymphocytes 0 Platelet Estimate Adequate Sodium Level 140 mmol/L (136-145) Potassium Level 4.3 mmol/L (3.5-5.1) Chloride Level 99 mmol/L (98-107) Carbon Dioxide Level 37 mmol/L (20-31) Anion Gap 4 (5-15) Blood Urea Nitrogen 32 mg/dL (9-23) Creatinine 0.79 mg/dL (0.550-1.02) Glomerular Filtration Rate Calc 87 mL/min (>90) BUN/Creatinine Ratio 40.5 (10.0-20.0) Serum Glucose 172 mg/dL (74-106) Calcium Level 9.2 mg/dL (8.7-10.4) Eosinophils (%) (Auto) 0.0 % (0.0-7.0) Eosinophils # (Auto) 0 10 ^3/uL (0-0.8) Basophils # (Auto) 0 10 ^3/uL (0-0.2) Nucleated Red Blood Cells 0.0 % Total Bilirubin 0.2 mg/dL (0.2-1.0) Aspartate Amino Transferase (AST) 11 U/L (13-40) Alanine Aminotransferase (ALT) 23 U/L (7-40) Alkaline Phosphatase 89 U/L (46-116) Total Protein 7.1 g/dL (5.7-8.2) Albumin 4.1 g/dL (3.2-4.8) Urine Color Yellow (Yellow) Urine Clarity Clear (Clear) Urine pH 5.5 (5.0-9.0) Urine Specific [place] 1.035 (1.001-1.035) Urine Protein 1+ (Negative) Urine Ketones Negative (Negative) Urine Blood Negative /uL (Negative) Urine Nitrite Negative (Negative) Urine Bilirubin Negative (Negative) Urine Urobilinogen Normal mg/dL (Negative) Urine Leukocyte Esterase Trace /uL (Negative) Urine RBC 2 /hpf (0 - 4) Urine Microscopic WBC 3 /HPF (0-5) Urine Squamous Epithelial Cells Mod /hpf (<5) Urine Bacteria None seen /hpf (None Seen) Urine Glucose Normal mg/dL (Normal) Test 09/17/24 11:15 09/17/24 09:49 Blood Gas Specimen Type Arterial Blood Gas Sample Site Right radial Blood Gas Patient Temperature 37.0 Arterial Blood Date Drawn [id number] Arterial Blood pH 7.481 (7.350-7.450) Arterial Blood Partial Pressure CO2 56.7 mmHg (32.0-45.0) Arterial Blood Partial Pressure O2 54.1 mmHg (83.0-108.0) Arterial Blood HCO3 41.4 mmol/L (21.0-28.0) Arterial Blood Oxygen Saturation 89.8 % (94.0-98.0) Arterial Blood Base Excess 14.9 mmol/L (-2.0-3.0) Arterial Blood Oxyhemoglobin 86.3 % (94.0-98.0) Arterial Blood Carboxyhemoglobin 3.5 % (0.5-1.5) Arterial Blood Methemoglobin 0.4 % (0.0-1.5) John Test Yes Blood Gas Total Hemoglobin 15.50 g/dL (12.0-16.0) Blood Gas Liter Flow 4.00 Blood Gas Modality Nasal cannula FiO2 % 36.0 Blood Gas Critical Value Read Back Yes Blood Gas Notified Whom shanthi Santoyo Blood Gas Notified Time [id number] Blood Gas Notified By Change Coordinator maite salmeron Troponin I High Sensitivity 9 ng/L (</=34) Other Laboratory Tests 09/23/24 05:54 Brief Hx & Hospital Course: #1 acute on chronic resp failure #2 copd with exacerbation #3 right lower lung pneumonia ? sepsis #4 tobacco abuse #5 morbid obesity #6 a fibds #7 cellulitis both legs #8 pvd #9 acute on chronic systolic/diastolic heart failure Plan: Continuing current management. Continuing with oxygen to keep saturation oxygen above 92%. Continuing with Solu-Medrol and bronchodilator. Continuing with IV antibiotic Rocephin and Zithromax. Continuing with nicotine patch. Advised to quit smoking more than 15 minutes Continuing home medication for atrial fibrillation. Continuing IV Lasix. Encourage to be out of bed and ambulate. PT consult. JES arvizu Discharge planning. 09/24/2024: pt seen right outside of her room, sitting comfortably in a wheelchair with PT. Per pt, she still has significant coughing. Pt observed to have some coughing during my conversation. 09/25/2024: improving, possible discharged to home within 24 hours 09/26/2024: discharged to home with self care. pt lives with a friend and has her equipment over her friend's place Condition at Discharge: Good Final Diagnosis/Problems List see atove Discharge Disposition: Home Discharge Instruct/Medications Diet: Cardiac 2g Na,low cholest Activity: No Restrictions, As Tolerated Discharge Statement: "Patient was advised to return to the ER or call 911 if any headaches, dizziness, shortness of breath, chest pain, abdominal pain, bleeding, fevers, or worsening of medical condition. Patient was counseled about treatment plan, medications, possible side effects, patientverbalized understanding. All questions were answered to the best of my ability. This discharge took greater then 30 minutes in planning, reviewing documentation, counseling the patient, and discussing with other team members." ASSESSMENT ASSESSMENT Assessment Date of Service: Sep 26, 2024 Billing Provider: LELA AMIN DO Common Visit Codes: [id number] DISCH DAY >30min LELA AMIN DO Sep 26, 2024 13:13
--- NOTE | 2024-09-26 23:07 | DVHPN2 ---
Progress Note - Dictate Date Seen: Sep 26, 2024 Medical Necessity Reason Pt with a Central, PICC or Fol: Yes The following are medically ne: Arvizu Catheter Reason for arvizu catheter: Strict I&O Subjective Patient seen and examined at bedside. Remains on supplemental oxygen Overnight events reviewed. vital signs Vital Sign Date Time Temp Pulse Resp B/P (MAP) Pulse Ox O2 Delivery O2 Flow Rate FiO2 09/26/24 20:47 97.9 94 17 150/98 (115) 94 97.9 09/26/24 19:21 Nasal Cannula 3.0 09/26/24 19:21 32 Total Intake and Output 09/25/24 09/25/24 09/26/24 15:00 23:00 07:00 Intake Total 100 ml 1340 ml 1280 ml Balance 100 ml 1340 ml 1280 ml medications Current Medications Medications Dose Ordered Sig/Tod Route Start Time Stop Time Status Last Admin Dose Admin Sodium Chloride 10 ml Q8HR IV 09/17/24 14:00 09/26/24 14:12 10 ML Ondansetron HCl 4 mg Q4HP PRN IV 09/17/24 13:30 Docusate Sodium 100 mg BIDPRN PRN PO 09/17/24 13:30 Acetaminophen 650 mg Q6HP PRN PO 09/17/24 13:30 09/20/24 21:16 650 MG Nitroglycerin 0.4 mg Q5MINP PRN SL 09/17/24 13:30 Clonidine HCl 0.1 mg DAILY PO 09/18/24 10:00 09/26/24 09:55 0.1 MG Famotidine 20 mg BID PO 09/17/24 22:00 09/26/24 09:55 20 MG Patient Own Medication 1 cap DAILY PO 09/18/24 10:00 Cancel Patient Own Medication 1 tab TID PO 09/17/24 14:00 UNV Patient Own Medication 1 tab DAILY PO 09/18/24 10:00 UNV Ipratropium [place] 0.5 mg Q6HWA NEB 09/17/24 18:00 09/26/24 19:25 0.5 MG Nicotine 1 patch DAILY TD 09/18/24 10:00 09/26/24 09:58 1 PATCH Lisinopril 10 mg DAILY PO 09/18/24 10:00 09/26/24 09:55 10 MG Apixaban 5 mg BID PO 09/17/24 22:00 09/26/24 09:55 5 MG Levalbuterol HCl 1.25 mg Q6HR NEB 09/18/24 18:00 09/26/24 19:25 1.25 MG Diltiazem HCl 240 mg DAILY PO 09/19/24 10:00 09/26/24 09:55 240 MG Ampicillin Sodium/ Sulbactam Sodium 3 gm/Sodium Chloride 100 ml @ 100 mls/hr Q6H IV 09/19/24 00:00 09/26/24 17:53 100 MLS/HR Methylprednisolone Sodium Succinate 20 mg BID IV 09/19/24 22:00 09/26/24 09:56 20 MG Furosemide 40 mg BIDD IV 09/25/24 13:02 09/26/24 05:57 40 MG Hydroxyzine Pamoate 25 mg TIDPRN PRN PO 09/26/24 09:15 09/26/24 18:34 25 MG objective Gen.: Patient lying in bed in no apparent distress. On supplemental oxygen. Head: Normocephalic, atraumatic. Eyes: EOMI/PERRLA. Ears: Normal hearing. Normal anatomy. Neck/trachea: Trachea midline, supple. Nose: Normal external anatomy. Mouth: Moist mucous membranes. Chest: Decreased air entry bilaterally. No wheezing or rhonchi. Cardiovascular: Positive S1, positive S2. Regular rate and rhythm. Abdomen: Positive bowel sounds in all 4 quadrants. Soft, non-tender, non- distended. : Deferred. Rectal: Deferred. Skin: Warm, dry. Intact. Extremities: 2+ radial pulses bilaterally. No lower extremity edema. Neuro: Awake, alert, oriented x3. No gross motor or sensory deficits. Cranial nerves II through XII intact. Gait not assessed. laboratory and microbiology Laboratory Tests 09/23/24 05:54 Test 09/23/24 05:54 Range/Units Serum Glucose 172 H 74-106 mg/dL Assessment/Plan Impression: Acute hypoxic respiratory failure Dependence on supplemental oxygen Chronic hypercarbic respiratory failure Acute COPD exacerbation Pneumonia, likely gram negative Morbid obesity, BMI 41.1 Nicotine dependence Acute on chronic CHF exacerbation Events: Remains on supplemental oxygen, 4 LPM NC Taper O2 as tolerated Continue bronchodilators IV steroids Continue antibiotics Incentive spirometry Diurese as tolerated w/ Lasix Monitor renal function. Monitor electrolytes. Supplement as necessary. Labs and imaging reviewed. Rest of plan as noted below. Plan: Supplemental oxygen Titrate to keep O2 sats above 92%. Continue antibiotics IV steroids Eliquis BID Diurese w/ Lasix Monitor renal function. Monitor electrolytes. Supplement as necessary. Monitor ins and outs. NRT Smoking cessation discussed for greater than 10 minutes Diet and lifestyle modifications for weight reduction Morbid obesity - complicates all care GI prophylaxis w/ Pepcid DVT prophylaxis w/ Eliquis. Prognosis: Poor given patient's multiple co-morbidities. Rest of plan per hospitalist and other consultants. Thank you Dr. Andrade, for allowing me to participate in this patient's care. Further recommendations will depend on the patient's clinical course. Please do not hesitate to contact me if you have any questions or concerns. This medical document was created using an electronic medical record system with [email or web address] dictation system. Although these documentations are being carefully reviewed, there may still be some phonetic and typographical changes. The errors are purely typographical, due to imperfection on the software program, and do not reflect any compromise in the patient's medical care. Dietary Evaluation Review Comments: 1) Refer to CDE on DC for weight management 2) Continue current plan of care Expected Outcomes/Goals: Pt will meet >75% estimated needs Fu 3-5 days Plan discussed with: Patient, Other (RN) GÓMEZ GORDILLO MD Sep 26, 2024 23:07
[2024-09-27] VITALS (16 sets, daily range): BP systolic 142–152; BP diastolic 76–101; PULSE 68–108; RESP 16–20; TEMP 97.7–98.1; O2SAT 95–100
[2024-09-28] VITALS (14 sets, daily range): BP systolic 122–163; BP diastolic 76–103; PULSE 66–110; RESP 17–20; TEMP 97.5–98; O2SAT 94–100
--- NOTE | 2024-09-28 09:15 | DVHPN2 ---
Progress Note - Dictate Date Seen: Sep 27, 2024 Medical Necessity Reason Pt with a Central, PICC or Fol: Yes The following are medically ne: Arvizu Catheter Reason for arvizu catheter: Strict I&O Subjective Patient seen and examined at bedside. Remains on supplemental oxygen Overnight events reviewed. vital signs Vital Sign Date Time Temp Pulse Resp B/P (MAP) Pulse Ox O2 Delivery O2 Flow Rate FiO2 09/28/24 08:32 154/84 09/28/24 08:31 96 09/28/24 05:00 97.6 18 97 97.6 09/27/24 20:00 Nasal Cannula* 2 28 Total Intake and Output 09/27/24 09/27/24 09/28/24 15:00 23:00 07:00 Intake Total 120 ml 480 ml 580 ml Output Total 950 ml Balance 120 ml -470 ml 580 ml medications Current Medications Medications Dose Ordered Sig/Tod Route Start Time Stop Time Status Last Admin Dose Admin Sodium Chloride 10 ml Q8HR IV 09/17/24 14:00 09/28/24 06:39 10 ML Ondansetron HCl 4 mg Q4HP PRN IV 09/17/24 13:30 Docusate Sodium 100 mg BIDPRN PRN PO 09/17/24 13:30 Acetaminophen 650 mg Q6HP PRN PO 09/17/24 13:30 09/20/24 21:16 650 MG Nitroglycerin 0.4 mg Q5MINP PRN SL 09/17/24 13:30 Clonidine HCl 0.1 mg DAILY PO 09/18/24 10:00 09/28/24 08:32 0.1 MG Famotidine 20 mg BID PO 09/17/24 22:00 09/27/24 21:22 20 MG Patient Own Medication 1 cap DAILY PO 09/18/24 10:00 Cancel Patient Own Medication 1 tab TID PO 09/17/24 14:00 UNV Patient Own Medication 1 tab DAILY PO 09/18/24 10:00 UNV Ipratropium [place] 0.5 mg Q6HWA NEB 09/17/24 18:00 09/28/24 07:10 0.5 MG Nicotine 1 patch DAILY TD 09/18/24 10:00 09/27/24 09:49 1 PATCH Lisinopril 10 mg DAILY PO 09/18/24 10:00 09/28/24 08:31 10 MG Apixaban 5 mg BID PO 09/17/24 22:00 09/27/24 21:21 5 MG Levalbuterol HCl 1.25 mg Q6HR NEB 09/18/24 18:00 09/28/24 07:10 1.25 MG Diltiazem HCl 240 mg DAILY PO 09/19/24 10:00 09/28/24 08:31 240 MG Ampicillin Sodium/ Sulbactam Sodium 3 gm/Sodium Chloride 100 ml @ 100 mls/hr Q6H IV 09/19/24 00:00 09/28/24 06:39 100 MLS/HR Methylprednisolone Sodium Succinate 20 mg BID IV 09/19/24 22:00 09/27/24 21:21 20 MG Furosemide 40 mg BIDD IV 09/25/24 13:02 09/28/24 06:39 40 MG Hydroxyzine Pamoate 25 mg TIDPRN PRN PO 09/26/24 09:15 09/28/24 08:32 25 MG objective Gen.: Patient lying in bed in no apparent distress. On supplemental oxygen. Head: Normocephalic, atraumatic. Eyes: EOMI/PERRLA. Ears: Normal hearing. Normal anatomy. Neck/trachea: Trachea midline, supple. Nose: Normal external anatomy. Mouth: Moist mucous membranes. Chest: Decreased air entry bilaterally. No wheezing or rhonchi. Cardiovascular: Positive S1, positive S2. Regular rate and rhythm. Abdomen: Positive bowel sounds in all 4 quadrants. Soft, non-tender, non- distended. : Deferred. Rectal: Deferred. Skin: Warm, dry. Intact. Extremities: 2+ radial pulses bilaterally. No lower extremity edema. Neuro: Awake, alert, oriented x3. No gross motor or sensory deficits. Cranial nerves II through XII intact. Gait not assessed. laboratory and microbiology Laboratory Tests 09/23/24 05:54 Test 09/23/24 05:54 Range/Units Serum Glucose 172 H 74-106 mg/dL Assessment/Plan Impression: Acute hypoxic respiratory failure Dependence on supplemental oxygen Chronic hypercarbic respiratory failure Acute COPD exacerbation Pneumonia, likely gram negative Morbid obesity, BMI 41.1 Nicotine dependence Acute on chronic CHF exacerbation Events: Remains on supplemental oxygen, 3 LPM NC O2 sat 98% Taper O2 as tolerated Continue bronchodilators IV steroids Continue antibiotics Incentive spirometry Diurese as tolerated w/ Lasix Monitor renal function. Monitor electrolytes. Supplement as necessary. Pending discharge Labs and imaging reviewed. Rest of plan as noted below. Plan: Supplemental oxygen Titrate to keep O2 sats above 92%. Continue antibiotics IV steroids Eliquis BID Diurese w/ Lasix Monitor renal function. Monitor electrolytes. Supplement as necessary. Monitor ins and outs. NRT Smoking cessation discussed for greater than 10 minutes Diet and lifestyle modifications for weight reduction Morbid obesity - complicates all care GI prophylaxis w/ Pepcid DVT prophylaxis w/ Eliquis. Prognosis: Poor given patient's multiple co-morbidities. Rest of plan per hospitalist and other consultants. Thank you Dr. Andrade, for allowing me to participate in this patient's care. Further recommendations will depend on the patient's clinical course. Please do not hesitate to contact me if you have any questions or concerns. This medical document was created using an electronic medical record system with [employer] dictation system. Although these documentations are being carefully reviewed, there may still be some phonetic and typographical changes. The errors are purely typographical, due to imperfection on the software program, and do not reflect any compromise in the patient's medical care. Dietary Evaluation Review Comments: 1) Refer to CDE on DC for weight management 2) Continue current plan of care Expected Outcomes/Goals: Pt will meet >75% estimated needs Fu 3-5 days Plan discussed with: Patient, Other (RN) GÓMEZ GORDILLO MD Sep 28, 2024 09:15
--- NOTE | 2024-09-28 09:36 | DVHPN2 ---
Assessment/Plan Assessment/Plan 58 F with COPD admitted for acute hypoxic RF seen today during rounds, baseline, pending discharge. please see jes whitt for further info assessment and plan #1 acute on chronic resp failure #2 copd with exacerbation #3 right lower lung pneumonia ? sepsis #4 tobacco abuse #5 morbid obesity #6 a fibds #7 cellulitis both legs #8 pvd #9 acute on chronic systolic/diastolic heart failure Plan: Continuing current management. Continuing with oxygen to keep saturation oxygen above 92%. Continuing with Solu-Medrol and bronchodilator. Continuing with IV antibiotic Rocephin and Zithromax. Continuing with nicotine patch. Advised to quit smoking more than 15 minutes Continuing home medication for atrial fibrillation. Continuing IV Lasix. Encourage to be out of bed and ambulate. PT consult. JES arvizu Discharge planning. Plan discussed with: Patient Date of Service: Sep 27, 2024 Billing Provider: PAUL MEDRANO MD Common Visit Codes: [id number] DISCH DAY >30min PAUL MEDRANO MD Sep 28, 2024 09:36
--- NOTE | 2024-09-28 15:30 | DVHPN2 ---
Assessment/Plan Assessment/Plan 58 F with COPD admitted for acute hypoxic RF seen today during rounds, slightly worse SOB, adjusted BP meds, and on lasix BID. will dc tomorrow if improved enough assessment and plan #1 acute on chronic resp failure #2 copd with exacerbation #3 right lower lung pneumonia ? sepsis #4 tobacco abuse #5 morbid obesity #6 a fibds #7 cellulitis both legs #8 pvd #9 acute on chronic systolic/diastolic heart failure Plan: Continuing current management. Continuing with oxygen to keep saturation oxygen above 92%. Continuing with Solu-Medrol and bronchodilator. Continuing with IV antibiotic Rocephin and Zithromax. Continuing with nicotine patch. Advised to quit smoking more than 15 minutes Continuing home medication for atrial fibrillation. Continuing IV Lasix. Encourage to be out of bed and ambulate. PT consult. DC nolberto Discharge planning. - hold today Plan discussed with: Patient Date of Service: Sep 28, 2024 Billing Provider: PAUL MEDRANO MD Common Visit Codes: [id number] INP/OBS CARE(HIGH) PAUL MEDRANO MD Sep 28, 2024 15:30
--- NOTE | 2024-09-28 16:45 | DVH ---
CHEST RADIOGRAPH Indication: Dyspnea Technique: Single frontal view of the chest was obtained COMPARISON: XY CHEST PORTABLE on DOS: 09/19/24, XY CHEST PORTABLE on DOS: 09/17/24 FINDINGS: Lines and Tubes: None Lungs: Increased interstitial prominence Pleura: No effusion. No pneumothorax. Cardiomediastinal contours: Cardiomegaly Bones: Unremarkable IMPRESSION: Unchanged pulmonary vascular congestion
--- NOTE | 2024-09-28 19:23 | DVHPN2 ---
Progress Note - Dictate Date Seen: Sep 28, 2024 Medical Necessity Reason Pt with a Central, PICC or Fol: Yes The following are medically ne: Arvizu Catheter Reason for arvizu catheter: Strict I&O Subjective Patient seen and examined at bedside. Remains on supplemental oxygen Overnight events reviewed. vital signs Vital Sign Date Time Temp Pulse Resp B/P (MAP) Pulse Ox O2 Delivery O2 Flow Rate FiO2 09/28/24 19:12 97 Nasal Cannula 3.0 09/28/24 19:12 32 09/28/24 19:12 107 20 09/28/24 17:35 149/105 09/28/24 17:00 98.0 98.0 Total Intake and Output 09/27/24 09/27/24 09/28/24 15:00 23:00 07:00 Intake Total 120 ml 480 ml 580 ml Output Total 950 ml Balance 120 ml -470 ml 580 ml medications Current Medications Medications Dose Ordered Sig/Tod Route Start Time Stop Time Status Last Admin Dose Admin Sodium Chloride 10 ml Q8HR IV 09/17/24 14:00 09/28/24 17:35 10 ML Ondansetron HCl 4 mg Q4HP PRN IV 09/17/24 13:30 Docusate Sodium 100 mg BIDPRN PRN PO 09/17/24 13:30 Acetaminophen 650 mg Q6HP PRN PO 09/17/24 13:30 09/28/24 12:56 650 MG Nitroglycerin 0.4 mg Q5MINP PRN SL 09/17/24 13:30 Famotidine 20 mg BID PO 09/17/24 22:00 09/28/24 10:21 20 MG Patient Own Medication 1 cap DAILY PO 09/18/24 10:00 Cancel Patient Own Medication 1 tab TID PO 09/17/24 14:00 UNV Patient Own Medication 1 tab DAILY PO 09/18/24 10:00 UNV Ipratropium [place] 0.5 mg Q6HWA NEB 09/17/24 18:00 09/28/24 19:12 0.5 MG Nicotine 1 patch DAILY TD 09/18/24 10:00 09/28/24 10:22 1 PATCH Lisinopril 10 mg DAILY PO 09/18/24 10:00 09/28/24 08:31 10 MG Apixaban 5 mg BID PO 09/17/24 22:00 09/28/24 10:21 5 MG Levalbuterol HCl 1.25 mg Q6HR NEB 09/18/24 18:00 09/28/24 19:12 1.25 MG Diltiazem HCl 240 mg DAILY PO 09/19/24 10:00 09/28/24 08:31 240 MG Ampicillin Sodium/ Sulbactam Sodium 3 gm/Sodium Chloride 100 ml @ 100 mls/hr Q6H IV 09/19/24 00:00 09/28/24 17:35 100 MLS/HR Methylprednisolone Sodium Succinate 20 mg BID IV 09/19/24 22:00 09/28/24 10:21 20 MG Furosemide 40 mg BIDD IV 09/25/24 13:02 09/28/24 17:35 40 MG Hydroxyzine Pamoate 25 mg TIDPRN PRN PO 09/26/24 09:15 09/28/24 18:51 25 MG Clonidine HCl 0.2 mg DAILY PO 09/29/24 10:00 objective Gen.: Patient lying in bed in no apparent distress. On supplemental oxygen. Head: Normocephalic, atraumatic. Eyes: EOMI/PERRLA. Ears: Normal hearing. Normal anatomy. Neck/trachea: Trachea midline, supple. Nose: Normal external anatomy. Mouth: Moist mucous membranes. Chest: Decreased air entry bilaterally. Bilateral wheezing. No rhonchi. Cardiovascular: Positive S1, positive S2. Regular rate and rhythm. Abdomen: Positive bowel sounds in all 4 quadrants. Soft, non-tender, non- distended. : Deferred. Rectal: Deferred. Skin: Warm, dry. Intact. Extremities: 2+ radial pulses bilaterally. No lower extremity edema. Neuro: Awake, alert, oriented x3. No gross motor or sensory deficits. Cranial nerves II through XII intact. Gait not assessed. laboratory and microbiology Laboratory Tests 09/23/24 05:54 Test 09/23/24 05:54 Range/Units Serum Glucose 172 H 74-106 mg/dL Assessment/Plan Impression: Acute hypoxic respiratory failure Dependence on supplemental oxygen Chronic hypercarbic respiratory failure Acute COPD exacerbation Pneumonia, likely gram negative Morbid obesity, BMI 41.1 Nicotine dependence Acute on chronic CHF exacerbation Events: Remains on supplemental oxygen, 3 LPM NC Taper O2 as tolerated Patient c/o distress. Wheezing - discharge canceled for today. Chest x-ray ordered Continue breathing treatment. Continue bronchodilators IV steroids Continue antibiotics Incentive spirometry Diurese as tolerated w/ Lasix Monitor renal function. Monitor electrolytes. Supplement as necessary. Labs and imaging reviewed. Rest of plan as noted below. Plan: Supplemental oxygen Titrate to keep O2 sats above 92%. Continue antibiotics IV steroids Eliquis BID Diurese w/ Lasix Monitor renal function. Monitor electrolytes. Supplement as necessary. Monitor ins and outs. NRT Smoking cessation discussed for greater than 10 minutes Diet and lifestyle modifications for weight reduction Morbid obesity - complicates all care GI prophylaxis w/ Pepcid DVT prophylaxis w/ Eliquis. Prognosis: Poor given patient's multiple co-morbidities. Rest of plan per hospitalist and other consultants. Thank you Dr. Andrade, for allowing me to participate in this patient's care. Further recommendations will depend on the patient's clinical course. Please do not hesitate to contact me if you have any questions or concerns. This medical document was created using an electronic medical record system with [employer] computerized dictation system. Although these documentations are being carefully reviewed, there may still be some phonetic and typographical changes. The errors are purely typographical, due to imperfection on the software program, and do not reflect any compromise in the patient's medical care. Dietary Evaluation Review Comments: 1) Refer to CDE on DC for weight management 2) Continue current plan of care Expected Outcomes/Goals: Pt will meet >75% estimated needs Fu 3-5 days Plan discussed with: Patient, Other (RN) GÓMEZ GORDILLO MD Sep 28, 2024 19:23
[2024-09-29] VITALS (18 sets, daily range): BP systolic 97–161; BP diastolic 67–88; PULSE 60–100; RESP 16–24; TEMP 97.5–98; O2SAT 92–100
[2024-09-29] MEDS: cloNIDine HCL 0.1 MG TAB PO SCH (12:32)
--- NOTE | 2024-09-29 18:50 | DVHPN2 ---
Assessment/Plan Assessment/Plan 58 F with COPD admitted for acute hypoxic RF seen today during rounds, improved, patient informed me she was on hospice and wants to resume, ss consult place, however if not possible will dc to board and care tomorrow assessment and plan #1 acute on chronic resp failure #2 copd with exacerbation #3 right lower lung pneumonia ? sepsis #4 tobacco abuse #5 morbid obesity #6 a fibds #7 cellulitis both legs #8 pvd #9 acute on chronic systolic/diastolic heart failure Plan: Continuing current management. Continuing with oxygen to keep saturation oxygen above 92%. Continuing with Solu-Medrol and bronchodilator. Continuing with IV antibiotic Rocephin and Zithromax. Continuing with nicotine patch. Advised to quit smoking more than 15 minutes Continuing home medication for atrial fibrillation. Continuing IV Lasix. Encourage to be out of bed and ambulate. PT consult. DC nolberto Discharge planning. - hold today Plan discussed with: Patient My Orders Orders - PAUL MEDRANO MD Procedure Category Date Status Time * Board Certified Orthodontist CONS 09/29/24 Verified Consult Date of Service: Sep 29, 2024 Billing Provider: PAUL MEDRANO MD Common Visit Codes: [id number] INP/OBS CARE(HIGH) PAUL MEDRANO MD Sep 29, 2024 18:50
--- NOTE | 2024-09-29 19:00 | DVHPN2 ---
Progress Note - Dictate Date Seen: Sep 29, 2024 Medical Necessity Reason Pt with a Central, PICC or Fol: Yes The following are medically ne: Arvizu Catheter Reason for arvizu catheter: Strict I&O Subjective Patient seen and examined at bedside. Remains on supplemental oxygen Overnight events reviewed. vital signs Vital Sign Date Time Temp Pulse Resp B/P (MAP) Pulse Ox O2 Delivery O2 Flow Rate FiO2 09/29/24 17:51 100/68 09/29/24 17:00 97.8 75 22 96 97.8 09/29/24 14:00 3.0 32 09/29/24 11:37 Nasal Cannula* Total Intake and Output 09/28/24 09/28/24 09/29/24 15:00 23:00 07:00 Intake Total 318 ml 718 ml 900 ml Balance 318 ml 718 ml 900 ml medications Current Medications Medications Dose Ordered Sig/Tod Route Start Time Stop Time Status Last Admin Dose Admin Sodium Chloride 10 ml Q8HR IV 09/17/24 14:00 09/29/24 15:21 10 ML Ondansetron HCl 4 mg Q4HP PRN IV 09/17/24 13:30 Docusate Sodium 100 mg BIDPRN PRN PO 09/17/24 13:30 Acetaminophen 650 mg Q6HP PRN PO 09/17/24 13:30 09/29/24 12:31 650 MG Nitroglycerin 0.4 mg Q5MINP PRN SL 09/17/24 13:30 Famotidine 20 mg BID PO 09/17/24 22:00 09/29/24 12:32 20 MG Patient Own Medication 1 cap DAILY PO 09/18/24 10:00 Cancel Patient Own Medication 1 tab TID PO 09/17/24 14:00 UNV Patient Own Medication 1 tab DAILY PO 09/18/24 10:00 UNV Ipratropium [place] 0.5 mg Q6HWA NEB 09/17/24 18:00 09/29/24 11:37 0.5 MG Nicotine 1 patch DAILY TD 09/18/24 10:00 09/29/24 10:10 1 PATCH Lisinopril 10 mg DAILY PO 09/18/24 10:00 09/29/24 10:09 10 MG Apixaban 5 mg BID PO 09/17/24 22:00 09/29/24 10:09 5 MG Levalbuterol HCl 1.25 mg Q6HR NEB 09/18/24 18:00 09/29/24 11:37 1.25 MG Diltiazem HCl 240 mg DAILY PO 09/19/24 10:00 09/29/24 10:08 240 MG Ampicillin Sodium/ Sulbactam Sodium 3 gm/Sodium Chloride 100 ml @ 100 mls/hr Q6H IV 09/19/24 00:00 09/29/24 15:18 100 MLS/HR Methylprednisolone Sodium Succinate 20 mg BID IV 09/19/24 22:00 09/29/24 10:08 20 MG Furosemide 40 mg BIDD IV 09/25/24 13:02 09/29/24 05:31 40 MG Hydroxyzine Pamoate 25 mg TIDPRN PRN PO 09/26/24 09:15 09/29/24 10:09 25 MG Clonidine HCl 0.2 mg DAILY PO 09/29/24 10:00 09/29/24 12:32 0.2 MG objective Gen.: Patient lying in bed in no apparent distress. On supplemental oxygen. Head: Normocephalic, atraumatic. Eyes: EOMI/PERRLA. Ears: Normal hearing. Normal anatomy. Neck/trachea: Trachea midline, supple. Nose: Normal external anatomy. Mouth: Moist mucous membranes. Chest: Decreased air entry bilaterally. Bilateral wheezing, heard throughout. No rhonchi. Cardiovascular: Positive S1, positive S2. Regular rate and rhythm. Abdomen: Positive bowel sounds in all 4 quadrants. Soft, non-tender, non- distended. : Deferred. Rectal: Deferred. Skin: Warm, dry. Intact. Extremities: 2+ radial pulses bilaterally. No lower extremity edema. Neuro: Awake, alert, oriented x3. No gross motor or sensory deficits. Cranial nerves II through XII intact. Gait not assessed. laboratory and microbiology Laboratory Tests 09/23/24 05:54 Test 09/23/24 05:54 Range/Units Serum Glucose 172 H 74-106 mg/dL Assessment/Plan Impression: Acute hypoxic respiratory failure Dependence on supplemental oxygen Chronic hypercarbic respiratory failure Acute COPD exacerbation Pneumonia, likely gram negative Morbid obesity, BMI 41.1 Nicotine dependence Acute on chronic CHF exacerbation Events: Remains on supplemental oxygen, 3 LPM NC Taper O2 as tolerated Continued wheezing Chest x-ray was reviewed. Continue breathing treatment. Continue bronchodilators IV steroids Continue antibiotics Incentive spirometry Diurese as tolerated w/ Lasix Monitor renal function. Monitor electrolytes. Supplement as necessary. Labs and imaging reviewed. Rest of plan as noted below. Plan: Supplemental oxygen Titrate to keep O2 sats above 92%. Continue antibiotics IV steroids Eliquis BID Diurese w/ Lasix Monitor renal function. Monitor electrolytes. Supplement as necessary. Monitor ins and outs. NRT Smoking cessation discussed for greater than 10 minutes Diet and lifestyle modifications for weight reduction Morbid obesity - complicates all care GI prophylaxis w/ Pepcid DVT prophylaxis w/ Eliquis. Prognosis: Poor given patient's multiple co-morbidities. Rest of plan per hospitalist and other consultants. Thank you Dr. Andrade, for allowing me to participate in this patient's care. Further recommendations will depend on the patient's clinical course. Please do not hesitate to contact me if you have any questions or concerns. This medical document was created using an electronic medical record system with [employer] [place] computerized dictation system. Although these documentations are being carefully reviewed, there may still be some phonetic and typographical changes. The errors are purely typographical, due to imperfection on the software program, and do not reflect any compromise in the patient's medical care. Dietary Evaluation Review Comments: 1) Refer to CDE on DC for weight management 2) Continue current plan of care Expected Outcomes/Goals: Pt will meet >75% estimated needs Fu 3-5 days Plan discussed with: Patient, Other (RICARDO Howard) GÓMEZ GORDILLO MD Sep 29, 2024 19:00
[2024-09-30] VITALS (16 sets, daily range): BP systolic 101–159; BP diastolic 67–89; PULSE 39–101; RESP 16–26; TEMP 97.2–97.8; O2SAT 62–100
--- NOTE | 2024-09-30 13:49 | DVHPN2 ---
Assessment/Plan Assessment/Plan 58 F with COPD admitted for acute hypoxic RF seen today during rounds, improved, patient informed me she was on hospice and wants to resume, ss consult place, however if not possible will dc to board and care tomorrow assessment and plan #1 acute on chronic resp failure #2 copd with exacerbation #3 right lower lung pneumonia ? sepsis #4 tobacco abuse #5 morbid obesity #6 a fibds #7 cellulitis both legs #8 pvd #9 acute on chronic systolic/diastolic heart failure Plan: Continuing current management. Continuing with oxygen to keep saturation oxygen above 92%. Continuing with Solu-Medrol and bronchodilator. Continuing with IV antibiotic Rocephin and Zithromax. Continuing with nicotine patch. Advised to quit smoking more than 15 minutes Continuing home medication for atrial fibrillation. Continuing IV Lasix. Encourage to be out of bed and ambulate. PT consult. DC nolberto Discharge planning. - hold today Plan discussed with: Patient My Orders Orders - PAUL MEDRANO MD Procedure Category Date Status Time * Inventory Analyst CONS 09/29/24 Transmitted Consult Date of Service: Sep 30, 2024 Billing Provider: PAUL MEDRANO MD Common Visit Codes: [id number] INP/OBS CARE(HIGH) PAUL MEDRANO MD Sep 30, 2024 13:49
--- NOTE | 2024-09-30 23:41 | DVHPN2 ---
Progress Note - Dictate Date Seen: Sep 30, 2024 Medical Necessity Reason Pt with a Central, PICC or Fol: Yes The following are medically ne: Arvizu Catheter Reason for arvizu catheter: Strict I&O Subjective Patient seen and examined at bedside. Remains on supplemental oxygen Overnight events reviewed. vital signs Vital Sign Date Time Temp Pulse Resp B/P (MAP) Pulse Ox O2 Delivery O2 Flow Rate FiO2 09/30/24 20:55 97.8 63 16 143/67 (92) 96 97.8 09/30/24 20:00 Nasal Cannula* 4 36 Total Intake and Output 09/29/24 09/29/24 09/30/24 15:00 23:00 07:00 Intake Total 100 ml 500 ml Balance 100 ml 500 ml medications Current Medications Medications Dose Ordered Sig/Tod Route Start Time Stop Time Status Last Admin Dose Admin Sodium Chloride 10 ml Q8HR IV 09/17/24 14:00 09/30/24 22:09 10 ML Ondansetron HCl 4 mg Q4HP PRN IV 09/17/24 13:30 Docusate Sodium 100 mg BIDPRN PRN PO 09/17/24 13:30 Acetaminophen 650 mg Q6HP PRN PO 09/17/24 13:30 09/29/24 12:31 650 MG Nitroglycerin 0.4 mg Q5MINP PRN SL 09/17/24 13:30 Famotidine 20 mg BID PO 09/17/24 22:00 09/30/24 21:17 20 MG Patient Own Medication 1 cap DAILY PO 09/18/24 10:00 Cancel Patient Own Medication 1 tab TID PO 09/17/24 14:00 UNV Patient Own Medication 1 tab DAILY PO 09/18/24 10:00 UNV Ipratropium [place] 0.5 mg Q6HWA NEB 09/17/24 18:00 09/30/24 18:35 0.5 MG Nicotine 1 patch DAILY TD 09/18/24 10:00 09/30/24 09:52 1 PATCH Lisinopril 10 mg DAILY PO 09/18/24 10:00 09/30/24 09:52 10 MG Apixaban 5 mg BID PO 09/17/24 22:00 09/30/24 21:18 5 MG Levalbuterol HCl 1.25 mg Q6HR NEB 09/18/24 18:00 09/30/24 18:36 1.25 MG Diltiazem HCl 240 mg DAILY PO 09/19/24 10:00 09/30/24 09:50 240 MG Methylprednisolone Sodium Succinate 20 mg BID IV 09/19/24 22:00 09/30/24 21:17 20 MG Furosemide 40 mg BIDD IV 09/25/24 13:02 09/30/24 18:51 40 MG Hydroxyzine Pamoate 25 mg TIDPRN PRN PO 09/26/24 09:15 09/30/24 21:17 25 MG Clonidine HCl 0.2 mg DAILY PO 09/29/24 10:00 09/30/24 09:51 0.2 MG objective Gen.: Patient lying in bed in no apparent distress. On supplemental oxygen. Head: Normocephalic, atraumatic. Eyes: EOMI/PERRLA. Ears: Normal hearing. Normal anatomy. Neck/trachea: Trachea midline, supple. Nose: Normal external anatomy. Mouth: Moist mucous membranes. Chest: Decreased air entry bilaterally. Bilateral wheezing, heard throughout. No rhonchi. Cardiovascular: Positive S1, positive S2. Regular rate and rhythm. Abdomen: Positive bowel sounds in all 4 quadrants. Soft, non-tender, non- distended. : Deferred. Rectal: Deferred. Skin: Warm, dry. Intact. Extremities: 2+ radial pulses bilaterally. No lower extremity edema. Neuro: Awake, alert, oriented x3. No gross motor or sensory deficits. Cranial nerves II through XII intact. Gait not assessed. laboratory and microbiology Laboratory Tests 09/23/24 05:54 Test 09/23/24 05:54 Range/Units Serum Glucose 172 H 74-106 mg/dL Assessment/Plan Impression: Acute hypoxic respiratory failure Dependence on supplemental oxygen Chronic hypercarbic respiratory failure Acute COPD exacerbation Pneumonia, likely gram negative Morbid obesity, BMI 41.1 Nicotine dependence Acute on chronic CHF exacerbation Events: Remains on supplemental oxygen, 3 LPM NC Taper O2 as tolerated Continue bronchodilators IV steroids Continue antibiotics Incentive spirometry On Eliquis Diurese as tolerated w/ Lasix Monitor renal function. Monitor electrolytes. Supplement as necessary. Labs and imaging reviewed. Rest of plan as noted below. Plan: Supplemental oxygen Titrate to keep O2 sats above 92%. Continue antibiotics IV steroids Eliquis BID Diurese w/ Lasix Monitor renal function. Monitor electrolytes. Supplement as necessary. Monitor ins and outs. NRT Smoking cessation discussed for greater than 10 minutes Diet and lifestyle modifications for weight reduction Morbid obesity - complicates all care GI prophylaxis w/ Pepcid DVT prophylaxis w/ Eliquis. Prognosis: Poor given patient's multiple co-morbidities. Rest of plan per hospitalist and other consultants. Thank you Dr. Andrade, for allowing me to participate in this patient's care. Further recommendations will depend on the patient's clinical course. Please do not hesitate to contact me if you have any questions or concerns. This medical document was created using an electronic medical record system with [employer] dictation system. Although these documentations are being carefully reviewed, there may still be some phonetic and typographical changes. The errors are purely typographical, due to imperfection on the software program, and do not reflect any compromise in the patient's medical care. Dietary Evaluation Review Comments: 1) Refer to CDE on DC for weight management 2) Continue current plan of care Expected Outcomes/Goals: Pt will meet >75% estimated needs Fu 3-5 days Plan discussed with: Patient, Other (RN) GÓMEZ GORDILLO MD Sep 30, 2024 23:41
[2024-10-01] VITALS (15 sets, daily range): BP systolic 124–154; BP diastolic 77–96; PULSE 56–91; RESP 18; TEMP 97.4–98; O2SAT 95–100
--- NOTE | 2024-10-01 21:08 | DVHPN2 ---
Progress Note - Dictate Date Seen: Oct 01, 2024 Medical Necessity Reason Pt with a Central, PICC or Fol: Yes The following are medically ne: Arvizu Catheter Reason for arvizu catheter: Strict I&O Subjective Patient seen and examined at bedside. Remains on supplemental oxygen Overnight events reviewed. vital signs Vital Sign Date Time Temp Pulse Resp B/P (MAP) Pulse Ox O2 Delivery O2 Flow Rate FiO2 10/01/24 19:47 70 18 96 10/01/24 19:38 Nasal Cannula 4.0 10/01/24 19:38 36 10/01/24 17:44 129/86 10/01/24 17:00 98.0 98.0 Total Intake and Output 09/30/24 09/30/24 10/01/24 15:00 23:00 07:00 Intake Total 490 ml 180 ml Output Total 1500 ml Balance -1010 ml 180 ml medications Current Medications Medications Dose Ordered Sig/Tod Route Start Time Stop Time Status Last Admin Dose Admin Sodium Chloride 10 ml Q8HR IV 09/17/24 14:00 10/01/24 14:58 10 ML Ondansetron HCl 4 mg Q4HP PRN IV 09/17/24 13:30 Docusate Sodium 100 mg BIDPRN PRN PO 09/17/24 13:30 Acetaminophen 650 mg Q6HP PRN PO 09/17/24 13:30 10/01/24 09:30 650 MG Nitroglycerin 0.4 mg Q5MINP PRN SL 09/17/24 13:30 Famotidine 20 mg BID PO 09/17/24 22:00 10/01/24 09:30 20 MG Patient Own Medication 1 cap DAILY PO 09/18/24 10:00 Cancel Patient Own Medication 1 tab TID PO 09/17/24 14:00 UNV Patient Own Medication 1 tab DAILY PO 09/18/24 10:00 UNV Ipratropium [place] 0.5 mg Q6HWA NEB 09/17/24 18:00 10/01/24 19:38 0.5 MG Nicotine 1 patch DAILY TD 09/18/24 10:00 10/01/24 09:38 1 PATCH Lisinopril 10 mg DAILY PO 09/18/24 10:00 10/01/24 09:55 10 MG Apixaban 5 mg BID PO 09/17/24 22:00 10/01/24 09:32 5 MG Levalbuterol HCl 1.25 mg Q6HR NEB 09/18/24 18:00 10/01/24 19:39 1.25 MG Diltiazem HCl 240 mg DAILY PO 09/19/24 10:00 10/01/24 09:54 240 MG Methylprednisolone Sodium Succinate 20 mg BID IV 09/19/24 22:00 10/01/24 09:31 20 MG Furosemide 40 mg BIDD IV 09/25/24 13:02 10/01/24 17:44 40 MG Clonidine HCl 0.2 mg DAILY PO 09/29/24 10:00 10/01/24 09:56 0.2 MG Hydroxyzine Pamoate 25 mg TIDPRN PRN PO 10/01/24 16:45 objective Gen.: Patient lying in bed in no apparent distress. On supplemental oxygen. Head: Normocephalic, atraumatic. Eyes: EOMI/PERRLA. Ears: Normal hearing. Normal anatomy. Neck/trachea: Trachea midline, supple. Nose: Normal external anatomy. Mouth: Moist mucous membranes. Chest: Decreased air entry bilaterally. Bilateral wheezing, heard throughout. No rhonchi. Cardiovascular: Positive S1, positive S2. Regular rate and rhythm. Abdomen: Positive bowel sounds in all 4 quadrants. Soft, non-tender, non- distended. : Deferred. Rectal: Deferred. Skin: Warm, dry. Intact. Extremities: 2+ radial pulses bilaterally. No lower extremity edema. Neuro: Awake, alert, oriented x3. No gross motor or sensory deficits. Cranial nerves II through XII intact. Gait not assessed. laboratory and microbiology Laboratory Tests 09/23/24 05:54 Test 09/23/24 05:54 Range/Units Serum Glucose 172 H 74-106 mg/dL Assessment/Plan Impression: Acute hypoxic respiratory failure Dependence on supplemental oxygen Chronic hypercarbic respiratory failure Acute COPD exacerbation Pneumonia, likely gram negative Morbid obesity, BMI 41.1 Nicotine dependence Acute on chronic CHF exacerbation Events: Remains on supplemental oxygen, 3 LPM [place] Taper O2 as tolerated Continue bronchodilators IV steroids Incentive spirometry Continue Eliquis Diurese as tolerated w/ Lasix Monitor renal function. Monitor electrolytes. Supplement as necessary. Pepcid for GI prophylaxis Labs and imaging reviewed. Rest of plan as noted below. Plan: Supplemental oxygen Titrate to keep O2 sats above 92%. Continue bronchodilators IV steroids Eliquis BID Diurese w/ Lasix Monitor renal function. Monitor electrolytes. Supplement as necessary. Monitor ins and outs. NRT Smoking cessation discussed for greater than 10 minutes Diet and lifestyle modifications for weight reduction Morbid obesity - complicates all care GI prophylaxis w/ Pepcid DVT prophylaxis w/ Eliquis. Prognosis: Poor given patient's multiple co-morbidities. Rest of plan per hospitalist and other consultants. Thank you Dr. Andrade, for allowing me to participate in this patient's care. Further recommendations will depend on the patient's clinical course. Please do not hesitate to contact me if you have any questions or concerns. This medical document was created using an electronic medical record system with [employer] computerized dictation system. Although these documentations are being carefully reviewed, there may still be some phonetic and typographical changes. The errors are purely typographical, due to imperfection on the software program, and do not reflect any compromise in the patient's medical care. Dietary Evaluation Review Comments: 1) Refer to CDE on DC for weight management 2) Continue current plan of care Expected Outcomes/Goals: Pt will meet >75% estimated needs Fu 3-5 days Plan discussed with: Patient, Other (RICARDO Cooley) GÓMEZ GORDILLO MD Oct 01, 2024 21:08
--- NOTE | 2024-10-01 23:11 | DVHPN2 ---
Assessment/Plan Assessment/Plan 58 F with COPD admitted for acute hypoxic RF seen today during rounds, informed by SS that patient will not qualify for hospice, per patient she will return to board and care, set for . otherwise FADYEKANWAL assessment and plan #1 acute on chronic resp failure #2 copd with exacerbation #3 right lower lung pneumonia ? sepsis #4 tobacco abuse #5 morbid obesity #6 a fibds #7 cellulitis both legs #8 pvd #9 acute on chronic systolic/diastolic heart failure Plan: Continuing current management. Continuing with oxygen to keep saturation oxygen above 92%. Continuing with Solu-Medrol and bronchodilator. Continuing with IV antibiotic Rocephin and Zithromax. Continuing with nicotine patch. Advised to quit smoking more than 15 minutes Continuing home medication for atrial fibrillation. Continuing IV Lasix. Encourage to be out of bed and ambulate. PT consult. JES arvizu Discharge planning. - hold today Plan discussed with: Patient My Orders Orders - PAUL MEDRANO MD Procedure Category Date Status Time * Certified Dietary Manager CONS 10/01/24 Transmitted Consult Hydroxyzine Oral PHA 10/01/24 In Process (Vistaril Oral) 16:45 Date of Service: Oct 01, 2024 Billing Provider: PAUL MEDRANO MD Common Visit Codes: [id number] INP/OBS CARE(MOD) PAUL MEDRANO MD Oct 01, 2024 23:11
[2024-10-02] VITALS (16 sets, daily range): BP systolic 112–144; BP diastolic 79–90; PULSE 60–112; RESP 17–20; TEMP 97.2–98.8; O2SAT 94–100
[2024-10-02] MEDS: hydrOXYzine 25 MG TAB or CAP PO PRN (04:41)
[2024-10-02 07:22] LABS: Potassium 4.3 mmol/L (3.5-5.1)
[2024-10-02 07:23] LABS: Anion Gap 4 (5-15)
[2024-10-02 07:24] LABS: Calcium 9.9 mg/dL (8.7-10.4)
[2024-10-02 07:28] LABS: BUN/Creatinine Ratio 41.3 (10.0-20.0)
[2024-10-02 07:35] LABS: Basophils # (auto) 0 10 ^3/uL (0-0.2); Basophils % (auto) 0.2 % (0.0-2.0); Eosinophils # (auto) 0 10 ^3/uL (0-0.8); Hematocrit 46.9 % (36.0-46.0); Hemoglobin 15.2 g/dL (12.2-16.2); Lymphocytes % (auto) 5.5 % (10.0-50.0); Mean Corpuscular Hemoglobin 29.4 pg (28.0-32.0); Mean Corpuscular Hgb Conc. 32.5 g/dL (32.0-36.0); Mean Corpuscular Volume 90.6 fL (80.0-100.0); Monocytes % (auto) 5.8 % (0.0-12.0); Neutrophils % (auto) 88.5 % (37.0-80.0); Nucleated Red Blood Cells % 0.1 %; Platelet Count (auto) 207 10^3/uL (140-450); Red Blood Cells 5.18 10^6/uL (4.0-5.20); Red Cell Distribution Width 15.6 % (11.8-14.3); White Blood Cell 18.1 10^3/uL (4.4-10.8)
[2024-10-02 07:38] LABS: Blood Urea Nitrogen 33 mg/dL (9-23); Carbon Dioxide 38 mmol/L (20-31); Chloride 94 mmol/L (98-107); Glucose 189 mg/dL (74-106); Sodium 136 mmol/L (136-145)
--- NOTE | 2024-10-02 19:10 | DVHPN2 ---
Progress Note - Dictate Date Seen: Oct 02, 2024 Medical Necessity Reason Pt with a Central, PICC or Fol: No The following are medically ne: Arvizu Catheter Reason for arvizu catheter: Strict I&O Subjective Patient seen and examined at bedside. Remains on supplemental oxygen Overnight events reviewed. vital signs Vital Sign Date Time Temp Pulse Resp B/P (MAP) Pulse Ox O2 Delivery O2 Flow Rate FiO2 10/02/24 18:16 130/79 10/02/24 16:49 98.1 85 18 95 98.1 10/02/24 14:00 4.0 36 10/02/24 11:58 Nasal Cannula Total Intake and Output 10/01/24 10/01/24 10/02/24 15:00 23:00 07:00 Intake Total 960 ml 2000 ml 675 ml Output Total 200 ml 2400 ml Balance 760 ml -400 ml 675 ml medications Current Medications Medications Dose Ordered Sig/Tod Route Start Time Stop Time Status Last Admin Dose Admin Sodium Chloride 10 ml Q8HR IV 09/17/24 14:00 10/02/24 14:13 10 ML Ondansetron HCl 4 mg Q4HP PRN IV 09/17/24 13:30 Docusate Sodium 100 mg BIDPRN PRN PO 09/17/24 13:30 Acetaminophen 650 mg Q6HP PRN PO 09/17/24 13:30 10/01/24 09:30 650 MG Nitroglycerin 0.4 mg Q5MINP PRN SL 09/17/24 13:30 Famotidine 20 mg BID PO 09/17/24 22:00 10/02/24 09:06 20 MG Patient Own Medication 1 cap DAILY PO 09/18/24 10:00 Cancel Patient Own Medication 1 tab TID PO 09/17/24 14:00 UNV Patient Own Medication 1 tab DAILY PO 09/18/24 10:00 UNV Ipratropium [place] 0.5 mg Q6HWA NEB 09/17/24 18:00 10/02/24 11:58 0.5 MG Nicotine 1 patch DAILY TD 09/18/24 10:00 10/02/24 09:07 1 PATCH Lisinopril 10 mg DAILY PO 09/18/24 10:00 10/02/24 09:05 10 MG Apixaban 5 mg BID PO 09/17/24 22:00 10/02/24 09:06 5 MG Levalbuterol HCl 1.25 mg Q6HR NEB 09/18/24 18:00 10/02/24 11:58 1.25 MG Diltiazem HCl 240 mg DAILY PO 09/19/24 10:00 10/02/24 09:06 240 MG Methylprednisolone Sodium Succinate 20 mg BID IV 09/19/24 22:00 10/02/24 09:15 20 MG Furosemide 40 mg BIDD IV 09/25/24 13:02 10/02/24 18:16 40 MG Clonidine HCl 0.2 mg DAILY PO 09/29/24 10:00 10/02/24 09:08 0.2 MG Hydroxyzine Pamoate 25 mg TIDPRN PRN PO 10/01/24 16:45 10/02/24 14:13 25 MG objective Gen.: Patient lying in bed in no apparent distress. On supplemental oxygen. Head: Normocephalic, atraumatic. Eyes: EOMI/PERRLA. Ears: Normal hearing. Normal anatomy. Neck/trachea: Trachea midline, supple. Nose: Normal external anatomy. Mouth: Moist mucous membranes. Chest: Decreased air entry bilaterally. Bilateral wheezing, heard throughout. No rhonchi. Cardiovascular: Positive S1, positive S2. Regular rate and rhythm. Abdomen: Positive bowel sounds in all 4 quadrants. Soft, non-tender, non- distended. : Deferred. Rectal: Deferred. Skin: Warm, dry. Intact. Extremities: 2+ radial pulses bilaterally. No lower extremity edema. Neuro: Awake, alert, oriented x3. No gross motor or sensory deficits. Cranial nerves II through XII intact. Gait not assessed. laboratory and microbiology Laboratory Tests 10/02/24 06:35 Test 10/02/24 06:35 Range/Units Serum Glucose 189 H 74-106 mg/dL Assessment/Plan Impression: Acute hypoxic respiratory failure Dependence on supplemental oxygen Chronic hypercarbic respiratory failure Acute COPD exacerbation Pneumonia, likely gram negative Morbid obesity, BMI 41.1 Nicotine dependence Acute on chronic CHF exacerbation Events: Remains on supplemental oxygen, 3 --> 2 LPM NC Taper O2 as tolerated Continue bronchodilators IV steroids Incentive spirometry Continue antibiotics Continue Eliquis Diurese as tolerated w/ Lasix Monitor renal function. Monitor electrolytes. Supplement as necessary. Pepcid for GI prophylaxis Labs and imaging reviewed. Rest of plan as noted below. Plan: Supplemental oxygen Titrate to keep O2 sats above 92%. Continue bronchodilators IV steroids Continue Eliquis BID Diurese w/ Lasix Monitor renal function. Monitor electrolytes. Supplement as necessary. Monitor ins and outs. NRT Smoking cessation discussed for greater than 10 minutes Diet and lifestyle modifications for weight reduction Morbid obesity - complicates all care GI prophylaxis w/ Pepcid DVT prophylaxis w/ Eliquis. Prognosis: Poor given patient's multiple co-morbidities. Rest of plan per hospitalist and other consultants. Thank you Dr. Andrade, for allowing me to participate in this patient's care. Further recommendations will depend on the patient's clinical course. Please do not hesitate to contact me if you have any questions or concerns. This medical document was created using an electronic medical record system with [employer] dictation system. Although these documentations are being carefully reviewed, there may still be some phonetic and typographical changes. The errors are purely typographical, due to imperfection on the software program, and do not reflect any compromise in the patient's medical care. Dietary Evaluation Review Comments: 1) Refer to CDE on DC for weight management 2) Continue current plan of care Expected Outcomes/Goals: Pt will meet >75% estimated needs Fu 3-5 days Plan discussed with: Patient, Other (RICARDO Flanagan) GÓMEZ GORDILLO MD Oct 02, 2024 19:10
--- NOTE | 2024-10-02 21:58 | DVHPN2 ---
Assessment/Plan Assessment/Plan 58 F with COPD admitted for acute hypoxic RF seen today during rounds, dc tomorrow to board and care. BRYAN assessment and plan #1 acute on chronic resp failure #2 copd with exacerbation #3 right lower lung pneumonia ? sepsis #4 tobacco abuse #5 morbid obesity #6 a fibds #7 cellulitis both legs #8 pvd #9 acute on chronic systolic/diastolic heart failure Plan: Continuing current management. Continuing with oxygen to keep saturation oxygen above 92%. Continuing with Solu-Medrol and bronchodilator. Continuing with IV antibiotic Rocephin and Zithromax. Continuing with nicotine patch. Advised to quit smoking more than 15 minutes Continuing home medication for atrial fibrillation. Continuing IV Lasix. Encourage to be out of bed and ambulate. PT consult. JES arvizu Discharge planning. - hold today Plan discussed with: Patient Date of Service: Oct 02, 2024 Billing Provider: PAUL MEDRANO MD Common Visit Codes: [id number] INP/OBS CARE(MOD) PAUL MEDRANO MD Oct 02, 2024 21:58
[2024-10-03] VITALS (11 sets, daily range): BP systolic 110–152; BP diastolic 66–85; PULSE 52–106; RESP 16–20; TEMP 97.4–98.1; O2SAT 95–100
--- NOTE | 2024-10-03 13:36 | DVHPN2 ---
Assessment/Plan Assessment/Plan 58 F with COPD admitted for acute hypoxic RF seen today during rounds, jes today to board and care assessment and plan #1 acute on chronic resp failure #2 copd with exacerbation #3 right lower lung pneumonia ? sepsis #4 tobacco abuse #5 morbid obesity #6 a fibds #7 cellulitis both legs #8 pvd #9 acute on chronic systolic/diastolic heart failure Plan: Continuing current management. Continuing with oxygen to keep saturation oxygen above 92%. Continuing with Solu-Medrol and bronchodilator. Continuing with IV antibiotic Rocephin and Zithromax. Continuing with nicotine patch. Advised to quit smoking more than 15 minutes Continuing home medication for atrial fibrillation. Continuing IV Lasix. Encourage to be out of bed and ambulate. PT consult. JES arvizu Discharge planning. - today Plan discussed with: Patient My Orders Orders - PAUL MEDRANO MD Procedure Category Date Status Time Discharge DISCHARGE 10/03/24 Transmitted 09:10 Date of Service: Oct 03, 2024 Billing Provider: PAUL MEDRANO MD Common Visit Codes: [id number] DISCH DAY >30min PAUL MEDRANO MD Oct 03, 2024 13:36
--- NOTE | 2024-10-03 18:21 | DVHPN2 ---
Progress Note - Dictate Date Seen: Oct 03, 2024 Medical Necessity Reason Pt with a Central, PICC or Fol: No Subjective Patient seen and examined at bedside. Remains on supplemental oxygen Overnight events reviewed. vital signs Vital Sign Date Time Temp Pulse Resp B/P (MAP) Pulse Ox O2 Delivery O2 Flow Rate FiO2 10/03/24 13:00 98.0 56 20 119/70 (86) 95 98.0 10/03/24 12:06 Nasal Cannula 3.0 10/03/24 12:06 32 Total Intake and Output 10/02/24 10/02/24 10/03/24 15:00 23:00 07:00 Intake Total 1400 ml 720 ml Balance 1400 ml 720 ml medications Current Medications Medications Dose Ordered Sig/Tod Route Start Time Stop Time Status Last Admin Dose Admin Patient Own Medication 1 cap DAILY PO 09/18/24 10:00 Cancel Patient Own Medication 1 tab TID PO 09/17/24 14:00 UNV Patient Own Medication 1 tab DAILY PO 09/18/24 10:00 UNV objective Gen.: Patient lying in bed in no apparent distress. On supplemental oxygen. Head: Normocephalic, atraumatic. Eyes: EOMI/PERRLA. Ears: Normal hearing. Normal anatomy. Neck/trachea: Trachea midline, supple. Nose: Normal external anatomy. Mouth: Moist mucous membranes. Chest: Decreased air entry bilaterally. Bilateral wheezing, heard throughout. No rhonchi. Cardiovascular: Positive S1, positive S2. Regular rate and rhythm. Abdomen: Positive bowel sounds in all 4 quadrants. Soft, non-tender, non- distended. : Deferred. Rectal: Deferred. Skin: Warm, dry. Intact. Extremities: 2+ radial pulses bilaterally. No lower extremity edema. Neuro: Awake, alert, oriented x3. No gross motor or sensory deficits. Cranial nerves II through XII intact. Gait not assessed. laboratory and microbiology Laboratory Tests 10/02/24 06:35 Test 10/02/24 06:35 Range/Units Serum Glucose 189 H 74-106 mg/dL Assessment/Plan Impression: Acute hypoxic respiratory failure Dependence on supplemental oxygen Chronic hypercarbic respiratory failure Acute COPD exacerbation Pneumonia, likely gram negative Morbid obesity, BMI 41.1 Nicotine dependence Acute on chronic CHF exacerbation Events: Remains on supplemental oxygen, 2 LPM [place] Taper O2 as tolerated Continue bronchodilators IV steroids Incentive spirometry Continue Eliquis Diurese as tolerated w/ Lasix Monitor renal function. Monitor electrolytes. Supplement as necessary. Pepcid for GI prophylaxis Labs and imaging reviewed. Rest of plan as noted below. Plan: Supplemental oxygen Titrate to keep O2 sats above 92%. Continue bronchodilators IV steroids Continue Eliquis BID Diurese w/ Lasix Monitor renal function. Monitor electrolytes. Supplement as necessary. Monitor ins and outs. NRT Smoking cessation discussed for greater than 10 minutes Diet and lifestyle modifications for weight reduction Morbid obesity - complicates all care GI prophylaxis w/ Pepcid DVT prophylaxis w/ Eliquis. Prognosis: Guarded given patient's multiple co-morbidities. Rest of plan per hospitalist and other consultants. Thank you Dr. Anrdade, for allowing me to participate in this patient's care. Further recommendations will depend on the patient's clinical course. Please do not hesitate to contact me if you have any questions or concerns. This medical document was created using an electronic medical record system with [employer] computerized dictation system. Although these documentations are being carefully reviewed, there may still be some phonetic and typographical changes. The errors are purely typographical, due to imperfection on the software program, and do not reflect any compromise in the patient's medical care. Dietary Evaluation Review Comments: 1) Refer to CDE on DC for weight management 2) Continue current plan of care Expected Outcomes/Goals: Pt will meet >75% estimated needs Fu 3-5 days Plan discussed with: Patient, Other (RICARDO Kinney) GÓMEZ GORDILLO MD Oct 03, 2024 18:21
== END 2024-10-03 16:15 | disposition hospice, home (50) | DRG 720 ==
LOC: EDBD 09:04 → ER 09:04 → OVERFLOW 13:29 → TELE-WESTW 20:50
PROVIDERS: ADMIT Student in an Organized Health Care Education/Training Program; ATTEND Student in an Organized Health Care Education/Training Program
DX: A41.9 Sepsis, unspecified organism (principal); J96.21 Acute and chronic respiratory failure with hypoxia; I50.43 Acute on chronic combined systolic (congestive) and diastolic (congestive) heart failure; J15.69 Pneumonia due to other Gram-negative bacteria; J96.22 Acute and chronic respiratory failure with hypercapnia; I11.0 Hypertensive heart disease with heart failure; Z99.81 Dependence on supplemental oxygen; J15.9 Unspecified bacterial pneumonia; Z51.5 Encounter for palliative care; I48.91 Unspecified atrial fibrillation; J44.1 Chronic obstructive pulmonary disease with (acute) exacerbation; I73.9 Peripheral vascular disease, unspecified; E66.01 Morbid (severe) obesity due to excess calories; I16.1 Hypertensive emergency; J44.0 Chronic obstructive pulmonary disease with (acute) lower respiratory infection; L03.116 Cellulitis of left lower limb; L03.115 Cellulitis of right lower limb; F17.210 Nicotine dependence, cigarettes, uncomplicated; Z68.41 Body mass index [BMI] 40.0-44.9, adult; Z80.0 Family history of malignant neoplasm of digestive organs; Z79.899 Other long term (current) drug therapy; Z79.01 Long term (current) use of anticoagulants
CPT/HCPCS: 36415; 36600; 71045; 80048; 80053; 81001; 82805; 84484; 85007; 85025; 85027; 87081; 93005; 93306; 94640; 96365; 96375; 97110; 97116; 97163; 99291; 99292; G0378

== ENCOUNTER 2024-10-24 19:54 | Inpatient (IN) | payer MEDICAID ==
[~2024-10-24] VITALS: Ht 172.7 cm; Wt 114.5 kg
[~2024-10-24 19:54] MED LIST changes: +APIX5TAB PO; +CLON0.1T PO; +DILT-29 PO; +FAMO-12 PO; +FURO20TA4 PO; +HYDR-3682 PO; +HYDR25TA5 PO; +LEVO500T91 PO; +LISI10TA34 PO
--- NOTE | 2024-10-24 20:30 | ED.PDOC ---
SOB-HPI HPI Comments 59y F who presents to the ED via EMS for chief complaint of shortness of breath. - pt states she is resident at nursing care facility and states she has been having increasing shortness of breath for the past 4 days. - EMS was called and states pt was in no respiratory distress and noted pt was on 5 L via nc with 02 sat at 95%. pt baseline is 4L NC. - EMS states pt was given breathing treatment and 1 nitro and pt had rechecked 02 sat at 95% and pt was placed at 4L and pt was brought to the ED - pt states she has history of CHF, COPD, and AFIB and states facility lost her medications but pt states she was given another pts medications - pt otherwise denies any other symptoms at this time PMH: COPD, CHF, HTN, AFIB PSH: unknown allergies: nkda medications: carvedilol, amlodipine, eliquis social history: denies ETOH use, denies tobacco use, denies drug use HPI: Poor Historian. REVIEW OF SYSTEMS: CONSTITUTIONAL: Denies acute: fever, diaphoresis, chills, HEAD: Denies acute: headache, photophobia Eyes: Denies acute: Double vision, vision loss, eye pain, eye discharge. EARS: Denies acute: tinnitus, hearing loss, ear discharge, ear pain, THROAT: Denies acute: sore throat, swelling, difficulty swallowing , pain with swallowing, change in voice. NECK: Denies acute: neck pain, neck swelling, stiff neck. HEART: Denies acute : chest pain, palpitations, LUNGS: Denies acute: wheezing, cough, hemoptysis ABDOMEN: Denies acute: abdominal pain, Nausea, Vomiting, diarrhea, melena , hematemesis, hematochezia SKIN: Denies acute: rash, redness, lesions, itchiness. EXTREMITIES: Denies acute: calf pain, numbness, tingling, weakness, denies pain in extremity. Denies acute: Low back pain. Neuro: Denies acute: focal neurological deficit, motor or sensory focal neurological deficit, tremors, seizure like activity, confusion, dizziness, change in mental status, loss of bowel or bladder function, cauda equina like symptoms. : Denies acute: dysuria, hematuria, flank pain, increase in urinary frequency. PSYCH: Denies acute: hallucination, suicidal ideation, homicidal ideation. FEMALE: Denies acute: abnormal vaginal bleeding, foul odor, unusual discharge. PHYSICAL EXAM: General: -----fbnn-bq-buamjaqz---acute distress, awake and alert. Head: normocephalic, atraumatic. Neck: supple, trachea is midline, no swelling. Throat: Normal phonation. Eyes:, no erythema, no purulent discharge, no proptosis, no icterus. Heart: Irregular rate and rhythm consistent with atrial fibrillation with RVR, no significant murmur appreciated. Lungs: no apparent respiratory distress, Able to speak in full sentences. No wheezing, no rhonchi, no crackles. No stridors Clear to auscultation bilaterally. Abdomen: non tender to palpation, non distended, soft, no guarding, no rebound, + bowel sounds. Morbidly obese. Neuro: Awake, Alert, oriented to name, self, situation, follows commands GCS=15. Speech is normal. Skin: no petechia, no purpura, no cyanosis, non-pale, not jaundice. Lower extremities: --three/for bilateral - Pitting edema no deformity, no focal swelling, no calf TTP. Noted bilateral lower extremity [id number] these wound dressing. Makes eye contact. moves all four extremities. Face: no apparent facial droop. ED COURSE: Chief Complaint: Shortness of Breath Time Seen by MD: 20:29 Reviewed notes: Sales Clerk Food Notes Information Source: Patient, Emergency Med Personnel Mode of Arrival: EMS Past Medical History PAST MEDICAL HISTORY: AFIB, CHF, COPD, HTN Social History Smoker: Cigarettes Alcohol: Denies ETOH Use Drugs: Denies Drug Use Was a procedure done? Was a procedure done?: No Differential Dx Differential Diagnosis: Other (DDx include ACS, unstable angina, anxiety, PE, pneumothroax, neoplasm, cardiac ischemia, COPD, asthma, CHF, pleural effusion, tobacco abuse, pneumonia, hypoxia, hypercapnia, anemia., infection/sepsis., pulmonary edema. Asthma, Cardiac tamponade, infection.) X-Ray, Labs, Meds, VS Vital Signs Date Time Temp Pulse Resp B/P (MAP) Pulse Ox O2 Delivery O2 Flow Rate FiO2 10/25/24 00:00 98.9 113 17 108/87 (94) 97 98.9 10/25/24 00:00 121 10/24/24 23:19 115 10/24/24 21:23 103 32 91 Nasal Cannula* 5 40 10/24/24 21:22 98.6 103 32 132/87 (102) 91 98.6 10/24/24 21:18 132/87 10/24/24 20:57 102 10/24/24 20:57 102 10/24/24 20:51 127 10/24/24 20:05 98.5 138 28 134/90 (105) 95 98.5 Lab Test 10/24/24 23:40 10/24/24 21:32 10/24/24 21:19 10/24/24 20:40 Range/Units Troponin I High Sensitivity 8 9 8 </=34 ng/L Urine Color Yellow Yellow Urine Clarity Clear Clear Urine pH 5.5 5.0-9.0 Urine Specific [place] 1.033 1.001-1.035 Urine Protein Trace H Negative Urine Ketones Trace Negative Urine Blood Negative Negative /uL Urine Nitrite Negative Negative Urine Bilirubin Negative Negative Urine Urobilinogen 2 H Negative mg/dL Urine Leukocyte Esterase Negative Negative /uL Urine RBC 2 0 - 4 /hpf Urine Microscopic WBC 2 0-5 /HPF Urine Squamous Epithelial Cells Few <5 /hpf Urine Bacteria None seen None Seen /hpf Urine Mucus Few None Seen Urine Glucose Normal Normal mg/dL White Blood Count 9.9 4.4-10.8 10^3/uL Red Blood Count 4.19 4.0-5.20 10^6/uL Hemoglobin 12.4 12.2-16.2 g/dL Hematocrit 37.7 36.0-46.0 % Mean Corpuscular Volume 90.0 80.0-100.0 fL Mean Corpuscular Hemoglobin 29.7 28.0-32.0 pg Mean Corpuscular Hemoglobin Concent 33.0 32.0-36.0 g/dL Red Cell Distribution Width 16.3 H 11.8-14.3 % Platelet Count 278 140-450 10^3/uL Mean Platelet Volume 8.4 6.9-10.8 fL Neutrophils (%) (Auto) 69.3 37.0-80.0 % Lymphocytes (%) (Auto) 18.0 10.0-50.0 % Monocytes (%) (Auto) 10.0 0.0-12.0 % Eosinophils (%) (Auto) 1.6 0.0-7.0 % Basophils (%) (Auto) 1.1 0.0-2.0 % Neutrophils # (Auto) 6.8 1.6-8.6 10 ^3/uL Lymphocytes # (Auto) 1.8 0.4-5.4 10 ^3/uL Monocytes # (Auto) 1.0 0-1.3 10 ^3/uL Eosinophils # (Auto) 0.2 0-0.8 10 ^3/uL Basophils # (Auto) 0.1 0-0.2 10 ^3/uL Nucleated Red Blood Cells 0.1 % Sodium Level 143 136-145 mmol/L Potassium Level 3.8 3.5-5.1 mmol/L Chloride Level 106 98-107 mmol/L Carbon Dioxide Level 32 H 20-31 mmol/L Anion Gap 5 5-15 Blood Urea Nitrogen 16 9-23 mg/dL Creatinine 0.76 0.550-1.02 mg/dL Glomerular Filtration Rate Calc 90 >90 mL/min BUN/Creatinine Ratio 21.1 H 10.0-20.0 Serum Glucose 124 H 74-106 mg/dL Lactic Acid Level 1.6 0.4-2.0 mmol/L Calcium Level 9.1 8.7-10.4 mg/dL Magnesium Level 1.9 1.6-2.6 mg/dL Total Bilirubin 0.3 0.2-1.0 mg/dL Aspartate Amino Transferase (AST) 11 L 13-40 U/L Alanine Aminotransferase (ALT) 16 7-40 U/L Alkaline Phosphatase 104 46-116 U/L B-Type Natriuretic Peptide 200.06 0-100 pg/mL Total Protein 6.4 5.7-8.2 g/dL Albumin 4.0 3.2-4.8 g/dL Current Medications Medications (Trade) Dose Ordered Sig/Tod Route Start Time Stop Time Status Last Admin Furosemide (Lasix Injection) 60 mg ONCE ONCE IV 10/24/24 20:30 10/24/24 20:31 DC 10/24/24 21:18 Hydroxyzine HCl (Vistaril Oral) 10 mg ONCE ONCE PO 10/24/24 22:30 10/24/24 22:31 DC 10/24/24 22:37 [facility] [id number] [place] [address] Ph: [phone] DIAGNOSTIC IMAGING Diagnostic Imaging Report : [id number] Signed PATIENT: MYESHA BAEZ ACCT: [id number] UNIT: [id number] : 1965 LOC: ER ROOM / BED: / AGE / SEX: 59 / F ADM STATUS: REG ER SERVICE 15 ORDERING PHYSICIAN: ARCENIO LAFLEUR DO PROCEDURE(s): CXRP - CHEST PORTABLE REASON: sob ORDER NUMBER(s): [id number], ACCESSION NUMBER(s): [id number] CHEST RADIOGRAPH Indication: sob Technique: Single frontal view of the chest was obtained COMPARISON: XY CHEST PORTABLE on DOS: 09/28/24, XY CHEST PORTABLE on DOS: 09/19/24, XY CHEST PORTABLE on DOS: 09/17/24 FINDINGS / IMPRESSION: Lines and Tubes: None Lungs: Pulmonary vascular congestion, peribronchial thickening, and mild perihilar opacity suggestive of mild pulmonary edema. Mild airspace consolidation noted at the right lung base. Pleura: No effusion. No pneumothorax. Cardiomediastinal contours: Lwjp-vq-odmvgkoc cardiomegaly. ATED BY: PIOTR CARRERA MD DICTATED DATE/TIME: 10/24/242119 SIGNED BY: PIOTR CARRERA MD SIGNED DATE/TIME: 10/24/242119 CC: Time of 1ST Reevaluation: 21:52 Reevaluation 1ST: Improved Time of 2ND Reevaluation: 22:18 (Patient at this time requesting hydroxyzine which she says she takes at the facility but they have not been giving it to her in the last two days. She does not know any other medicine that she is supposed to be taking. She is not even sure if she is supposed to be on diltiazem or not. It sounds from what she is communicating to me that whenever medicine she may have on our records is not necessarily the medicine they are allowing her to have at the facility.) Patient Education/Counseling: Diagnosis, Treatment Family Education/Counseling: No Family Present Comments Patient presented with the above HPI.--dyspnea----workup was initiated. patient was found with the above mentioned diagnosis. the following medications were ordered: please refer to order lists of meds and tests obtained by myself Dr. Lafleur. Patient ED course and VS have been stabilized. Patient has been reassessed in the ED and remained in a stable condition. Pertinent incidental findings were discussed with the patient and/or family. Patient/family voices understanding and is agreeable with plan. Patient has been observed in the ED adequate length of time to insure improvement/stability. Escalation of care considered: Consideration of escalation to observation or admission Patient requested a Knowles catheter. Patient was ADMITTED to the medicine team for further evaluation and treatment of their presentation. All the reports of any imaging studies that were ordered by myself were reviewed by myself. Departure 1 Departure Time of Disposition: 21:01 Impression: Primary Impression: Dyspnea Additional Impressions: Atrial fibrillation with RVR CHF exacerbation Disposition: ADMITTED INPATIENT Admit to: [facility] Condition: Guarded Discharged With: Self Critical Care Note Critical Care Time?: Yes (45 min-critical care time only) Heart Score Heart Score: Heart Score Response (Comments) Value History Slightly Suspicious 0 EKG Normal 0 Age >65 2 Risk Factors >3 or Hx ASHD 2 Troponin Normal limit 0 Total 4 I personally scribed for ARCENIO LAFLEUR DO ([email or web address]) on 10/24/24 at 20:30. Electronically submitted by Aidan Chatman ([email or web address]). I personally scribed for ARCENIO LAFLEUR DO ([email or web address]) on 10/24/24 at 21:36. Electronically submitted by Aidan MILNER). ARCENIO LAFLEUR DO October 24, 2024 20:30
[2024-10-24 20:57] LABS: Basophils # (auto) 0.1 10 ^3/uL (0-0.2); Basophils % (auto) 1.1 % (0.0-2.0); Eosinophils # (auto) 0.2 10 ^3/uL (0-0.8); Eosinophils % (auto) 1.6 % (0.0-7.0); Hematocrit 37.7 % (36.0-46.0); Hemoglobin 12.4 g/dL (12.2-16.2); Lymphocytes # (auto) 1.8 10 ^3/uL (0.4-5.4); Mean Corpuscular Hemoglobin 29.7 pg (28.0-32.0); Neutrophils # (auto) 6.8 10 ^3/uL (1.6-8.6); Neutrophils % (auto) 69.3 % (37.0-80.0); Nucleated Red Blood Cells % 0.1 %; Platelet Count (auto) 278 10^3/uL (140-450); Red Blood Cells 4.19 10^6/uL (4.0-5.20); Red Cell Distribution Width 16.3 % (11.8-14.3); White Blood Cell 9.9 10^3/uL (4.4-10.8)
[2024-10-24 21:13] LABS: Alanine Aminotransferase 16 U/L (7-40); Alkaline Phosphatase 104 U/L (46-116); Anion Gap 5 (5-15); BUN/Creatinine Ratio 21.1 (10.0-20.0); Bilirubin, Total 0.3 mg/dL (0.2-1.0); Blood Urea Nitrogen 16 mg/dL (9-23); Calcium 9.1 mg/dL (8.7-10.4); Chloride 106 mmol/L (98-107); Magnesium 1.9 mg/dL (1.6-2.6); Potassium 3.8 mmol/L (3.5-5.1); Sodium 143 mmol/L (136-145); Total Protein 6.4 g/dL (5.7-8.2)
[2024-10-24 21:14] LABS: Aspartate Aminotransferase 11 U/L (13-40); Carbon Dioxide 32 mmol/L (20-31); Glucose 124 mg/dL (74-106)
[2024-10-24] MEDS: FUROSEMIDE 100 MG/10ML VIAL IV ONE (21:18)
[2024-10-24 21:19] LABS: Urine Bacteria None Seen /hpf (None Seen)
--- NOTE | 2024-10-24 21:22 | DVH ---
CHEST RADIOGRAPH Indication: sob Technique: Single frontal view of the chest was obtained COMPARISON: XY CHEST PORTABLE on DOS: 09/28/24, XY CHEST PORTABLE on DOS: 09/19/24, XY CHEST PORTABLE on DOS: 09/17/24 FINDINGS / IMPRESSION: Lines and Tubes: None Lungs: Pulmonary vascular congestion, peribronchial thickening, and mild perihilar opacity suggestive of mild pulmonary edema. Mild airspace consolidation noted at the right lung base. Pleura: No effusion. No pneumothorax. Cardiomediastinal contours: Lmce-dj-ycxzzthw cardiomegaly.
[2024-10-24 21:23] VITALS: PULSE 103; RESP 32; O2SAT 91
[2024-10-24 21:31] LABS: Urine Blood Negative /uL (Negative); Urine Clarity Clear (Clear); Urine Color Yellow (Yellow); Urine Mucus FEW (None Seen); Urine Protein, UAD TRACE (Negative); Urine Specific Gravity 1.033 (1.001-1.035); Urine Squamous Epithelial Cell FEW /hpf (<5); Urine Urobilinogen 2 mg/dL (Negative); Urine WBC 2 /HPF (0-5); Urine pH 5.5 (5.0-9.0)
[2024-10-24] MEDS: hydrOXYzine HCL 10 MG TAB PO ONE (22:37)
[2024-10-25] VITALS (10 sets, daily range): BP systolic 108–144; BP diastolic 87–103; PULSE 74–113; RESP 17–23; TEMP 97.2–98.9; O2SAT 94–100
--- NOTE | 2024-10-25 00:56 | DVHHP2 ---
History of Present Illness Reason for Visit: COPD with acute exacerbation History of Present Illness The patient is a 59-year-old female with past medical history of COPD, CHF, hypertension, and AFib who presented to [facility] ED with complaint of shortness of breaths for the past 4 days. Patient was seen and evaluated in the ED with extremity swellings. Laboratory data shows WBC 9.9, platelets 278, sodium 143, potassium 3.8, BUN 16, creatinine 0.76, glucose 124, AST 11, ALT 16, BNP 200.06, troponin 8, blood pressure 108/87, heart rate 112, temperature 98.9 F, O2 saturation 91% on oxygen. Chest x-ray revealing pulmonary vascular congestion, peribronchial thickening and mild perihilar opacity suggestive of mild pulmonary edema. Patient was started on IV Lasix, please see medication orders section in the computer. On my assessment, patient denied chest pain, no headache, no dizziness, no diaphoresis, no palpitation, currently on oxygen, no nausea, no vomiting, no fever, no chills. Patient was admitted for further evaluation and medical management. Past Medical History COPD, CHF, HTN, AFIB Past Surgical History Denies past surgical history Family History Reviewed, noncontributory to the management of this case. Past Social History The patient lives at home, denies smoking, alcohol or illicit drugs abuse. Review of Systems Constitutional: No: Fever, Chills, Sweats, Weakness, Malaise, Other Eyes: No: Pain, Vision change, Conjunctivae inflammation, Eyelid inflammation, Other, Redness ENT: No: Ear pain, Ear discharge, Nose pain, Nose discharge, Nose congestion, Mouth pain, Mouth swelling, Throat pain, Throat swelling, Other Respiratory: Shortness of breath, SOB with excertion; No: Cough, Dry, Wheezing, Hemoptysis, Pleuritic Pain, Sputum, Wheezing, Other Cardiovascular: No: Chest Pain, Palpitations, Orthopnea, Paroxysmal Noc. Dyspne a, Edema, Lt Headedness, Other Gastrointestinal: No: Nausea, Vomiting, Abdominal Pain, Diarrhea, Constipation, Melena, Hematochezia, Other Genitourinary: No Dysuria, No Frequency, No Incontinence, No Hematuria, No Retention, No Other Musculoskeletal: No: other, neck pain, shoulder pain, arm pain, back pain, hand pain, leg pain, foot pain Skin: No: Rash, Lesions, Jaundice, Bruising, Other Neurological: No: Weakness, Numbness, Incoordination, Change in speech, Confusion, Seizures, Other Allergies: Coded Allergies: NO KNOWN ALLERGIES (Unverified , 09/17/24) Exam Vital Signs Vital Signs Date Time Temp Pulse Resp B/P (MAP) Pulse Ox O2 Delivery O2 Flow Rate FiO2 10/25/24 00:00 98.9 113 17 108/87 (94) 97 98.9 10/24/24 21:23 Nasal Cannula* 5 40 General Appearance: Alert, Oriented X3, Cooperative, No acute distress HEENT: Atraumatic, PERRLA, EOMI, Mucous membr. moist/pink Respiratory: Normal air movement, Other (Diminished breath sounds) Cardiovascular: Regular rate, Normal S1, Normal S2, No murmurs Abdominal: Normal bowel sounds, Soft, No tenderness, No hepatospenomegaly, No masses Extremities: No clubbing, No cyanosis, No edema, Normal pulses, No tenderness/swelling Skin: No rashes, No breakdown, No significant lesion Neuro: Normal gait, Normal speech, Strength at 5/5 X4 ext, Normal tone, Sensation intact, Cranial nerves 3-12 NL, Reflexes 2+ Psych/Mental Status: Mental status NL, Mood NL Labs/Xrays Labs Test 10/24/24 23:40 10/24/24 21:19 10/24/24 20:40 Range/Units Troponin I High Sensitivity 8 </=34 ng/L Urine Color Yellow Yellow Urine Clarity Clear Clear Urine pH 5.5 5.0-9.0 Urine Specific [place] 1.033 1.001-1.035 Urine Protein Trace H Negative Urine Ketones Trace Negative Urine Blood Negative Negative /uL Urine Nitrite Negative Negative Urine Bilirubin Negative Negative Urine Urobilinogen 2 H Negative mg/dL Urine Leukocyte Esterase Negative Negative /uL Urine RBC 2 0 - 4 /hpf Urine Microscopic WBC 2 0-5 /HPF Urine Squamous Epithelial Cells Few <5 /hpf Urine Bacteria None seen None Seen /hpf Urine Mucus Few None Seen Urine Glucose Normal Normal mg/dL White Blood Count 9.9 4.4-10.8 10^3/uL Red Blood Count 4.19 4.0-5.20 10^6/uL Hemoglobin 12.4 12.2-16.2 g/dL Hematocrit 37.7 36.0-46.0 % Mean Corpuscular Volume 90.0 80.0-100.0 fL Mean Corpuscular Hemoglobin 29.7 28.0-32.0 pg Mean Corpuscular Hemoglobin Concent 33.0 32.0-36.0 g/dL Red Cell Distribution Width 16.3 H 11.8-14.3 % Platelet Count 278 140-450 10^3/uL Mean Platelet Volume 8.4 6.9-10.8 fL Neutrophils (%) (Auto) 69.3 37.0-80.0 % Lymphocytes (%) (Auto) 18.0 10.0-50.0 % Monocytes (%) (Auto) 10.0 0.0-12.0 % Eosinophils (%) (Auto) 1.6 0.0-7.0 % Basophils (%) (Auto) 1.1 0.0-2.0 % Neutrophils # (Auto) 6.8 1.6-8.6 10 ^3/uL Lymphocytes # (Auto) 1.8 0.4-5.4 10 ^3/uL Monocytes # (Auto) 1.0 0-1.3 10 ^3/uL Eosinophils # (Auto) 0.2 0-0.8 10 ^3/uL Basophils # (Auto) 0.1 0-0.2 10 ^3/uL Nucleated Red Blood Cells 0.1 % Sodium Level 143 136-145 mmol/L Potassium Level 3.8 3.5-5.1 mmol/L Chloride Level 106 98-107 mmol/L Carbon Dioxide Level 32 H 20-31 mmol/L Anion Gap 5 5-15 Blood Urea Nitrogen 16 9-23 mg/dL Creatinine 0.76 0.550-1.02 mg/dL Glomerular Filtration Rate Calc 90 >90 mL/min BUN/Creatinine Ratio 21.1 H 10.0-20.0 Serum Glucose 124 H 74-106 mg/dL Lactic Acid Level 1.6 0.4-2.0 mmol/L Calcium Level 9.1 8.7-10.4 mg/dL Magnesium Level 1.9 1.6-2.6 mg/dL Total Bilirubin 0.3 0.2-1.0 mg/dL Aspartate Amino Transferase (AST) 11 L 13-40 U/L Alanine Aminotransferase (ALT) 16 7-40 U/L Alkaline Phosphatase 104 46-116 U/L B-Type Natriuretic Peptide 200.06 0-100 pg/mL Total Protein 6.4 5.7-8.2 g/dL Albumin 4.0 3.2-4.8 g/dL PATIENT: MYESHA BAEZ ACCT: [id number] UNIT: [id number] : 1965 LOC: ER ROOM / BED: / AGE / SEX: 59 / F ADM STATUS: REG ER SERVICE 15 ORDERING PHYSICIAN: ARCENIO LAFLEUR DO PROCEDURE(s): CXRP - CHEST PORTABLE REASON: sob ORDER NUMBER(s): [id number], ACCESSION NUMBER(s): [id number] CHEST RADIOGRAPH Indication: sob Technique: Single frontal view of the chest was obtained COMPARISON: XY CHEST PORTABLE on DOS: 09/28/24, XY CHEST PORTABLE on DOS: 09/19/24, XY CHEST PORTABLE on DOS: 09/17/24 FINDINGS / IMPRESSION: Lines and Tubes: None Lungs: Pulmonary vascular congestion, peribronchial thickening, and mild perihilar opacity suggestive of mild pulmonary edema. Mild airspace consolidation noted at the right lung base. Pleura: No effusion. No pneumothorax. Cardiomediastinal contours: Gwby-ty-jxeafvhx cardiomegaly. Assessment/Plan Assessment/Plan COPD with acute exacerbation Atrial fibrillation with RVR Acute exacerbation of congestive heart failure Plan 1. Admit to telemetry unit 2. Breathing treatment 3. Pain control management 4. Management of fluids and electrolytes 5. Consultation for Cardiology/hospitalist 6. Diagnostic tests chest x-ray 7. DVT prophylaxis-on Eliquis 8. Repeat labs CBC, CMP in a.m. 9. Continue with current medical management 10. Treatment plan discussed with patient and RN. Patient verbalized understanding. Plan discussed with: Patient, Other (RN) My Orders Orders - ED CHILDRESS DNP Procedure Category Date Status Time Complete Blood Count LAB 10/25/24 Transmitted 04:00 Comprehensive LAB 10/25/24 Transmitted Metabolic Panel 04:00 Furosemide Injection PHA 10/25/24 Transmitted (Lasix Injection) 10:00 Levalbuterol Hcl PHA 10/25/24 Transmitted (Xopenex Medneb) 06:00 Diltiazem Er Capsule PHA 10/25/24 Transmitted (Cardizem Er Capsul 10:00 Famotidine Injection PHA 10/25/24 Transmitted (Pepcid Injection) 10:00 Hydralazine Injection PHA 10/25/24 Transmitted (Apresoline Inject 01:00 Carvedilol Tablet PHA 10/25/24 Transmitted (Coreg Tablet) 10:00 Apixaban (Eliquis) PHA 10/25/24 Transmitted 10:00 Admit ADMIT 10/25/24 Transmitted 00:46 Allergies KAY 10/25/24 Transmitted 00:46 Code Status CODE 10/25/24 Transmitted 00:46 Sodium Chloride Lock PHA 10/25/24 Transmitted (Saline Lock Ns) 06:00 Oxygen Per Hour RT 10/25/24 Transmitted 00:46 Hydrocodone-Acet PHA 10/25/24 Transmitted 5/325mg Tab ([place] 01:00 Ondansetron Hcl PHA 10/25/24 Transmitted (Zofran) 01:00 Docusate Sodium PHA 10/25/24 Transmitted Capsule (Colace 01:00 Complete Blood Count LAB 10/26/24 Verified 04:00 Comprehensive LAB 10/26/24 Verified Metabolic Panel 04:00 Cardiac DIET 10/25/24 Transmitted Diet-2gna,Lofat,Lochol Breakfast Condition: Serious KAY 10/25/24 Transmitted 00:46 Acetaminophen Tablet PHA 10/25/24 Transmitted (Tylenol Tablet) 01:00 Bedrest With Bathroom KAY 10/25/24 Transmitted Privileg 00:46 Sequential KAY 10/25/24 Transmitted Compression Device Nitroglycerin PHA 10/25/24 Transmitted Sublingual (Ntrostat 01:00 Morphine Sulfate PHA 10/25/24 Transmitted Injection 01:00 Notify Md Of Changes KAY 10/25/24 Transmitted From Base 00:46 Horticultural Services Supervisor For KAY 10/25/24 Transmitted 24 Hours 00:46 Emergency Dysrhythmia KAY 10/25/24 Transmitted Protocol 00:46 Rhythm Strips Once KAY 10/25/24 Transmitted Every Shift 00:46 Oxygen By Nasal RT 10/25/24 Transmitted Cannula 00:46 Methylprednisolone PHA 10/25/24 Transmitted Sod Succ (Solu Medrol 01:00 Methylprednisolone PHA 10/25/24 Transmitted Sod Succ (Solu Medrol 06:00 Problem List: (1) COPD with acute exacerbation (2) Atrial fibrillation with RVR (3) Acute exacerbation of congestive heart failure Date of Service: October 25, 2024 Billing Provider: ED CHILDRESS DNP Common Visit Codes: [id number] INP/OBS CARE (HIGH) ED CHILDRESS DNP October 25, 2024 00:56
[2024-10-25] MEDS ORDERED: DOCUSATE SOD 100 MG CAP PO PRN (01:00)
[2024-10-25] MEDS ORDERED: ONDANSETRON HCL 4 MG/2 ML VIAL IV PRN (01:00)
[2024-10-25] MEDS ORDERED: NITROGLYCERIN 0.4 MG SL TAB SL PRN (01:00)
[2024-10-25] MEDS ORDERED: MORPHINE SULFATE INJ 2 MG/ml SYRG IV PRN (01:00)
[2024-10-25] MEDS: hydrOXYzine 25 MG TAB or CAP PO PRN ×2 (01:29→22:16)
[2024-10-25] MEDS: methylPREDNISolone SOD SUCC 125 MG/2 ML VL IM ONE (01:29)
[2024-10-25] MEDS: HYDROcodone-ACET 5/325MG TAB PO PRN (01:29)
[2024-10-25] MEDS: SODIUM CHLOR 0.9% PF (SALINE LOCK) 10ML VIAL/SYR IV SCH (05:31)
[2024-10-25] MEDS: NICOTINE 21MG/24 HR TOPICAL PATCH TD SCH (05:39)
[2024-10-25 05:46] LABS: Basophils # (auto) 0.1 10 ^3/uL (0-0.2); Basophils % (auto) 0.7 % (0.0-2.0); Eosinophils # (auto) 0 10 ^3/uL (0-0.8); Eosinophils % (auto) 0.2 % (0.0-7.0); Hematocrit 39.9 % (36.0-46.0); Lymphocytes # (auto) 0.7 10 ^3/uL (0.4-5.4); Lymphocytes % (auto) 6.7 % (10.0-50.0); Mean Corpuscular Hemoglobin 29.2 pg (28.0-32.0); Mean Corpuscular Hgb Conc. 32.6 g/dL (32.0-36.0); Mean Corpuscular Volume 89.6 fL (80.0-100.0); Monocytes # (auto) 0.2 10 ^3/uL (0-1.3); Monocytes % (auto) 1.9 % (0.0-12.0); Neutrophils # (auto) 9.4 10 ^3/uL (1.6-8.6); Neutrophils % (auto) 90.5 % (37.0-80.0); Nucleated Red Blood Cells % 0.2 %; Platelet Count (auto) 297 10^3/uL (140-450); Red Blood Cells 4.46 10^6/uL (4.0-5.20); Red Cell Distribution Width 16.5 % (11.8-14.3); White Blood Cell 10.4 10^3/uL (4.4-10.8)
[2024-10-25 06:08] LABS: Alanine Aminotransferase 16 U/L (7-40); Albumin 4.2 g/dL (3.2-4.8); Alkaline Phosphatase 108 U/L (46-116); Anion Gap 6 (5-15); BUN/Creatinine Ratio 21.1 (10.0-20.0); Bilirubin, Total 0.4 mg/dL (0.2-1.0); Blood Urea Nitrogen 16 mg/dL (9-23); Calcium 9.4 mg/dL (8.7-10.4); Chloride 102 mmol/L (98-107); Potassium 3.8 mmol/L (3.5-5.1); Sodium 143 mmol/L (136-145); Total Protein 6.8 g/dL (5.7-8.2)
[2024-10-25 06:10] LABS: Aspartate Aminotransferase 9 U/L (13-40); Carbon Dioxide 35 mmol/L (20-31); Glucose 148 mg/dL (74-106)
[2024-10-25] MEDS: methylPREDNISolone SOD SUCC 40 MG/ML VL IV SCH ×2 (06:13→10:27)
--- NOTE | 2024-10-25 06:26 | ECG ---
[facility] Test Date: 2024-10-24 Test Time: 19:58:07 Pat Name: MYESHA BAEZ Department: ED Room: [address] [place] [address] A Gender: F Lotus Notes Administrator: RM : 1965 Requested By: ARCENIO LAFLEUR Order Number: [id number] Reading MD: Bishop Hernandez Measurements Intervals Brule Rate: 116 P: 0 UT: 0 QRS: 62 QRSD: 98 T: 263 QT: 361 QTc: 502 Interpretive Statements Atrial fibrillation Paired ventricular premature complexes Low voltage, precordial leads Nonspecific T abnormalities, inferior leads Borderline prolonged QT interval Electronically Signed On 10-25-2024 9:22:47 PDT by Bishop Hernandez Please click the below link to view image of tracing.
[2024-10-25] MEDS: dilTIAZem 25 MG/5 ML VIAL IV ONE (06:39)
[2024-10-25] MEDS: LEVALBUTEROL HCL 1.25 MG/3 ML NEB NEB SCH (08:21)
[2024-10-25] MEDS ORDERED: FAMOTIDINE (10MG/ML) 2ML VL IV SCH (10:00)
[2024-10-25] MEDS: dilTIAZem 120MG ER CAP PO SCH (10:24)
[2024-10-25] MEDS: PANTOPRAZOLE 40 MG/10 ML VIAL INJ IV ONE (10:25)
[2024-10-25] MEDS: CARVEDILOL 3.125 MG TAB PO SCH (10:25)
[2024-10-25] MEDS: APIXABAN 5 MG TAB PO SCH (10:25)
[2024-10-25] MEDS: FUROSEMIDE 40 MG/4 ML VIAL IV SCH (10:27)
--- NOTE | 2024-10-25 11:18 | DVH ---
US BiLat Lower DVT HISTORY: b/l Led swelling COMPARISON: None TECHNIQUE: Duplex doppler evaluation of the deep venous system of the lower extremity from the common femoral veins, superficial femoral vein, great saphenous vein, deep femoral vein, popliteal vein, an d calf veins, including color doppler and spectral/pulsed waveform analysis, was performed. FINDINGS: Right: - Common femoral vein: Compressible - Deep femoral vein: Compressible - Femoral vein: Compressible - Popliteal vein: Compressible - Other: Nothing Left: - Common femoral vein: Compressible - Deep femoral vein: Compressible - Femoral vein: Compressible - Popliteal vein: Compressible - Other: Nothing IMPRESSION: No right or left lower extremity deep venous thrombosis.
[2024-10-25] MEDS: IPRATROPIUM BROM 0.5 MG/2.5ML INH SOL NEB SCH (11:38)
[2024-10-25] MEDS: cefTRIAXone 1GM/50ML D5W 50 ML IV ONE (14:54)
[2024-10-25] MEDS: ACETAMINOPHEN 325 MG TAB PO PRN (14:57)
--- NOTE | 2024-10-25 15:53 | DVHPNRES ---
Progress Note Date Seen: October 25, 2024 Resident Creating Document: DOMI JOSHI RESIDENT Has the PT tested + for MRSA If YES, has PT been informed?: No Medical Necessity Reason Pt with a Central, PICC or Fol: No Subjective Review of Systems Patient is 59 years old female with past medical history of COPD on home oxygen 3 L/min, heart failure preserved ejection fraction EF 60%, hypertension, atrial fibrillation, bilateral lower extremity cellulitis, peripheral artery disease came with a complaint of shortness of breaths. As per patient she has been having worsening shortness of breaths for last couple of days with orthopnea and PND. Patient also reported worsening leg swelling for last couple of weeks. Patient denied any fever or chest pain or acute sick contact or diarrhea constipation or dysarthria. Initial lab workup revealed BNP 200, UDS negative, urinalysis negative, CXR cardiomegaly with right-sided pleural effusion/consolidation. PMH- COPD on home oxygen 3 L/min, heart failure preserved ejection fraction EF 60%, hypertension, atrial fibrillation, bilateral lower extremity cellulitis, peripheral artery disease PSH- Allergy- NKDA Personal History/ Social History- denies smoking or alcoholism or drug abuse Patient was seen today at the bedside. Gastrointestinal- denies any rectal bleeding, nausea or vomiting Musculoskeletal-denies acute joint swelling or tenderness or redness Neurological- denies acute dysarthria, dysphagia, change in vision Psychiatry- denies depression or SI or HI Skin- denies acute rash or purpura Patient was seen today for clinical evaluation. Labs and chart reviewed. Patient on [place] O2 4 L/min. Patient was bilateral lung crackles in bilateral leg edema with redness, likely bilateral lower leg extremity cellulitis. Doppler study negative for DVT. Ordered ceftriaxone and doxycycline for possible pneumonia. We will continue with the medication Objective vital signs Vital Sign Date Time Temp Pulse Resp B/P (MAP) Pulse Ox O2 Delivery O2 Flow Rate FiO2 10/25/24 13:54 97.8 105 16 151/101 (118) 92 97.8 10/25/24 11:38 Nasal Cannula 5.0 10/25/24 11:38 40 Total Intake and Output 10/24/24 10/24/24 10/25/24 15:00 23:00 07:00 Intake Total 200 ml Output Total 1750 ml 2100 ml Balance -1550 ml -2100 ml medications Current Medications Medications Dose Ordered Sig/Tod Route Start Time Stop Time Status Last Admin Dose Admin Furosemide 40 mg DAILY IV 10/25/24 10:00 10/25/24 10:27 40 MG Levalbuterol HCl 0.625 mg Q6HR NEB 10/25/24 06:00 10/25/24 11:38 0.625 MG Diltiazem HCl 240 mg DAILY PO 10/25/24 10:00 10/25/24 10:24 240 MG Hydralazine HCl 10 mg Q6HP PRN IV 10/25/24 01:00 Carvedilol 3.125 mg Q12HR PO 10/25/24 10:00 10/25/24 10:25 3.125 MG Apixaban 5 mg BID PO 10/25/24 10:00 10/25/24 10:25 5 MG Sodium Chloride 10 ml Q8HR IV 10/25/24 06:00 10/25/24 14:54 10 ML Acetaminophen/ Hydrocodone Bitart 1 tab Q4HP PRN PO 10/25/24 01:00 10/25/24 01:29 1 TAB Ondansetron HCl 4 mg Q4HP PRN IV 10/25/24 01:00 Docusate Sodium 100 mg BIDPRN PRN PO 10/25/24 01:00 Acetaminophen 650 mg Q6HP PRN PO 10/25/24 01:00 10/25/24 14:57 650 MG Nitroglycerin 0.4 mg Q5MINP PRN SL 10/25/24 01:00 Morphine Sulfate 2 mg Q30M PRN IV 10/25/24 01:00 Hydroxyzine Pamoate 25 mg Q12HP PRN PO 10/25/24 01:15 10/25/24 10:24 25 MG Nicotine 1 patch DAILY TD 10/25/24 05:30 10/25/24 05:39 1 PATCH Methylprednisolone Sodium Succinate 40 mg BID IV 10/25/24 10:00 10/25/24 10:27 40 MG Ipratropium [place] 0.5 mg Q6HR NEB 10/25/24 12:00 10/25/24 11:38 0.5 MG Pantoprazole Sodium 40 mg DAILY IV 10/26/24 10:00 Hydralazine HCl 25 mg BID PO 10/25/24 22:00 Ceftriaxone Sodium 50 ml @ 100 mls/hr DAILY@09 IV 10/26/24 09:00 Doxycycline Hyclate 100 ml @ 50 mls/hr Q12HR IV 10/25/24 22:00 Examination General examination- awake, alert HEENT- PEERLA, no acute nasal discharge Cardiovascular- S1-S2 audible, rate and rhythm regular, no murmur Respiratory- bilateral lung crackles+ Gastrointestinal-nontender, bowel sound+. Nondistended Musculoskeletal-no acute joint swelling or tenderness or redness Lower extremity- alert and leg edema, redness, swelling Neurological- cranial nerves intact, no acute dysarthria or dysphagia Psychiatry- denies depression or SI or HI Skin- no acute rash or purpura laboratory and microbiology Laboratory Tests 10/25/24 05:23 Test 10/25/24 05:23 Range/Units Serum Glucose 148 H 74-106 mg/dL Problem List/Assessment/Plan Problem List/Assessment/Plan Assessment and plan Acute hypoxic respiratory failure likely due to acute exertional COPD/pneumonia Acute exertional COPD Acute pneumonia Gram-positive versus Gram-negative Acute exertional heart failure with preserved ejection fraction Hypertension Atrial fibrillation Bilateral leg swelling likely due to cellulitis Peripheral artery disease [id number] pleural effusion suspected pneumonia Doppler study negative for DVT Plan Continue ceftriaxone as prescribed Continue doxycycline as prescribed Nebulization as prescribed Diltiazem 240 mg p.o. daily Lasix 40 mg IV daily Hydralazine 25 mg p.o. b.i.d. Methylprednisolone 40 mg IV b.i.d. Pantoprazole as prescribed Goals of care, Code status ; discussed with >15 minutes PUD prophylaxis: Pantoprazole DVT prophylaxis: Eliquis Plan discussed with Dr. Amin , nursing staff, Total time spent on patient evaluation, chart review, assessment and plan, discussion discussion >35 minutes Plan discussed with: Patient, Other (RN) My Orders My Orders Orders - DOMI JOSHI RESIDENT Procedure Category Date Status Time Methylprednisolone PHA 10/25/24 In Process Sod Succ (Solu Medrol 10:00 Ipratropium Medneb PHA 10/25/24 In Process (Atrovent Medneb) 12:00 Pantoprazole PHA 10/26/24 In Process (Protonix) 10:00 Hydralazine Hcl PHA 10/25/24 In Process Tablet (Apresoline 22:00 Bilat Lower Dvt US 10/25/24 Resulted 10:04 Ceftriaxone 1gm/50ml PHA 10/26/24 In Process D5w (Rocephin) 09:00 Doxycycline PHA 10/25/24 In Process 100mg/100ml 22:00 Date of Service: October 25, 2024 Billing Provider: LELA AMIN DO Common Visit Codes: [id number] INP/OBS CARE(HIGH) DOMI JOSHI RESIDENT October 25, 2024 15:53 LELA AMIN DO October 28, 2024 19:49
[2024-10-25] MEDS: DOXYCYCLINE 100MG/100ML 100 ML IV ONE (16:06)
[2024-10-25] MEDS: DOXYCYCLINE 100MG/100ML 100 ML IV SCH (21:24)
[2024-10-25] MEDS: hydrALAZINE HCL 25 MG TAB PO SCH (21:31)
[2024-10-26] VITALS (18 sets, daily range): BP systolic 90–162; BP diastolic 55–93; PULSE 86–140; RESP 15–22; TEMP 97.4–98.1; O2SAT 89–99
[2024-10-26] MEDS: cefTRIAXone 1GM/50ML D5W 50 ML IV SCH (09:14)
[2024-10-26] MEDS: PANTOPRAZOLE 40 MG/10 ML VIAL INJ IV SCH (09:27)
[2024-10-26 09:46] LABS: Basophils # (auto) 0 10 ^3/uL (0-0.2); Basophils % (auto) 0.1 % (0.0-2.0); Eosinophils # (auto) 0 10 ^3/uL (0-0.8); Hematocrit 40.9 % (36.0-46.0); Hemoglobin 13.4 g/dL (12.2-16.2); Lymphocytes # (auto) 1.3 10 ^3/uL (0.4-5.4); Lymphocytes % (auto) 7.9 % (10.0-50.0); Mean Corpuscular Hemoglobin 29.1 pg (28.0-32.0); Mean Corpuscular Hgb Conc. 32.8 g/dL (32.0-36.0); Mean Corpuscular Volume 88.6 fL (80.0-100.0); Monocytes # (auto) 0.9 10 ^3/uL (0-1.3); Monocytes % (auto) 5.3 % (0.0-12.0); Neutrophils # (auto) 14.5 10 ^3/uL (1.6-8.6); Neutrophils % (auto) 86.7 % (37.0-80.0); Nucleated Red Blood Cells % 0.1 %; Platelet Count (auto) 380 10^3/uL (140-450); Red Blood Cells 4.61 10^6/uL (4.0-5.20); Red Cell Distribution Width 16.1 % (11.8-14.3); White Blood Cell 16.7 10^3/uL (4.4-10.8)
[2024-10-26 10:05] LABS: Alanine Aminotransferase 17 U/L (7-40); Albumin 4.6 g/dL (3.2-4.8); Alkaline Phosphatase 108 U/L (46-116); Anion Gap 6 (5-15); BUN/Creatinine Ratio 29.5 (10.0-20.0); Blood Urea Nitrogen 23 mg/dL (9-23); Calcium 10.1 mg/dL (8.7-10.4); Chloride 100 mmol/L (98-107); Potassium 3.6 mmol/L (3.5-5.1); Sodium 140 mmol/L (136-145); Total Protein 7.5 g/dL (5.7-8.2)
[2024-10-26 10:06] LABS: Aspartate Aminotransferase 8 U/L (13-40); Bilirubin, Total 0.3 mg/dL (0.2-1.0); Carbon Dioxide 34 mmol/L (20-31); Glucose 175 mg/dL (74-106)
[2024-10-26] MEDS: hydrALAZINE HCL 20 MG/ML VL IV PRN (13:23)
[2024-10-26] MEDS: FUROSEMIDE 100 MG/10ML VIAL IV SCH (17:52)
--- NOTE | 2024-10-26 19:57 | DVHPN2 ---
Reviewed: Care Plan, H&P, Labs, Medications, Previous Orders Changes from previous H/P or p: No Changes General: Per HPI Eyes: No Pain, No Vision change, No Conjunctivae inflammation, No Eyelid inflammation, No Other, No Redness ENT: No Ear pain, No Ear discharge, No Nose pain, No Nose discharge, No Nose congestion, No Mouth pain, No Mouth swelling, No Throat pain, No Throat swelling, No Other Cardiovascular: No Chest Pain, No Palpitations, No Orthopnea, No Paroxysmal Noc. Dyspnea, No Edema, No Lt Headedness, No Other Respiratory: No Cough, No Dry; Shortness of breath, SOB with excertion; No Wheezing, No Hemoptysis, No Pleuritic Pain, No Sputum, No Other Gastrointestinal: No Nausea, No Vomiting, No Abdominal Pain, No Diarrhea, No Constipation, No Melena, No Hematochezia, No Other Genitourinary: No Dysuria, No Frequency, No Incontinence, No Hematuria, No Retention, No Other Musculoskeletal: No other, No neck pain, No shoulder pain, No arm pain, No back pain, No hand pain, No leg pain, No foot pain Skin: No Rash, No Lesions, No Jaundice, No Bruising, No Other Objective Vitals Vital Signs Date Time Temp Pulse Resp B/P (MAP) Pulse Ox O2 Delivery O2 Flow Rate FiO2 10/26/24 19:37 118 20 98 10/26/24 19:29 Nasal Cannula* 3 32 10/26/24 17:52 155/89 10/26/24 16:50 98.0 98.0 Intake/Output Intake and Output 10/26/24 07:00 Intake Total 950 ml Output Total 300 ml Balance 650 ml Intake Oral 700 ml IV Total 250 ml Output Urine Total 300 ml # Bowel Movements 4 Medications Current Medications Medications Dose Ordered Sig/Tod Route Start Time Stop Time Status Last Admin Dose Admin Furosemide 40 mg DAILY IV 10/25/24 10:00 Hold 10/26/24 09:24 40 MG Levalbuterol HCl 0.625 mg Q6HR NEB 10/25/24 06:00 10/26/24 19:27 0.625 MG Diltiazem HCl 240 mg DAILY PO 10/25/24 10:00 10/26/24 09:29 240 MG Hydralazine HCl 10 mg Q6HP PRN IV 10/25/24 01:00 10/26/24 13:23 10 MG Carvedilol 3.125 mg Q12HR PO 10/25/24 10:00 10/26/24 09:28 3.125 MG Apixaban 5 mg BID PO 10/25/24 10:00 10/26/24 09:30 5 MG Sodium Chloride 10 ml Q8HR IV 10/25/24 06:00 10/26/24 14:49 10 ML Acetaminophen/ Hydrocodone Bitart 1 tab Q4HP PRN PO 10/25/24 01:00 10/25/24 01:29 1 TAB Ondansetron HCl 4 mg Q4HP PRN IV 10/25/24 01:00 Docusate Sodium 100 mg BIDPRN PRN PO 10/25/24 01:00 Acetaminophen 650 mg Q6HP PRN PO 10/25/24 01:00 10/26/24 13:27 650 MG Nitroglycerin 0.4 mg Q5MINP PRN SL 10/25/24 01:00 Morphine Sulfate 2 mg Q30M PRN IV 10/25/24 01:00 Nicotine 1 patch DAILY TD 10/25/24 05:30 10/26/24 09:21 1 PATCH Methylprednisolone Sodium Succinate 40 mg BID IV 10/25/24 10:00 10/26/24 09:31 40 MG Ipratropium [place] 0.5 mg Q6HR NEB 10/25/24 12:00 10/26/24 19:27 0.5 MG Pantoprazole Sodium 40 mg DAILY IV 10/26/24 10:00 10/26/24 09:27 40 MG Hydralazine HCl 25 mg BID PO 10/25/24 22:00 10/26/24 09:30 25 MG Ceftriaxone Sodium 50 ml @ 100 mls/hr DAILY@09 IV 10/26/24 09:00 10/26/24 09:14 100 MLS/HR Doxycycline Hyclate 100 ml @ 50 mls/hr Q12HR IV 10/25/24 22:00 10/26/24 10:00 50 MLS/HR Hydroxyzine Pamoate 25 mg TID PRN PO 10/25/24 21:00 10/26/24 18:14 25 MG Furosemide 80 mg BIDD IV 10/26/24 18:00 10/26/24 17:52 80 MG Laboratory Results Laboratory Tests 10/26/24 09:19 Chemistry Test 10/26/24 09:19 Albumin 4.6 g/dL (3.2-4.8) Calcium Level 10.1 mg/dL (8.7-10.4) Total Protein 7.5 g/dL (5.7-8.2) LFT Test 10/26/24 09:19 Alanine Aminotransferase (ALT) 17 U/L (7-40) Alkaline Phosphatase 108 U/L (46-116) Aspartate Amino Transferase (AST) 8 U/L (13-40) L Total Bilirubin 0.3 mg/dL (0.2-1.0) Urinalysis Test 10/24/24 21:19 Urine Color Yellow (Yellow) Urine Clarity Clear (Clear) Urine pH 5.5 (5.0-9.0) Urine Specific [place] 1.033 (1.001-1.035) Urine Protein Trace (Negative) H Urine Ketones Trace (Negative) Urine Blood Negative /uL (Negative) Urine Nitrite Negative (Negative) Urine Bilirubin Negative (Negative) Urine Urobilinogen 2 mg/dL (Negative) H Urine Leukocyte Esterase Negative /uL (Negative) Urine RBC 2 /hpf (0 - 4) Urine Microscopic WBC 2 /HPF (0-5) Urine Squamous Epithelial Cells Few /hpf (<5) Urine Bacteria None seen /hpf (None Seen) Urine Mucus Few (None Seen) Urine Glucose Normal mg/dL (Normal) Assessment/Plan Assessment/Plan Acute hypoxic respiratory failure likely due to acute exertional COPD/pneumonia Acute exertional COPD Acute pneumonia Gram-positive versus Gram-negative Acute exertional heart failure with preserved ejection fraction Hypertension Atrial fibrillation Bilateral leg swelling likely due to cellulitis Peripheral artery disease Plan discussed with: Patient My Orders Orders - LELA AMIN DO Procedure Category Date Status Time Furosemide Injection PHA 10/26/24 In Process (Lasix Injection) 18:00 Date of Service: October 26, 2024 Billing Provider: LELA AMIN DO Common Visit Codes: [id number] INP/OBS CARE(HIGH) LELA AMIN DO October 26, 2024 19:56
[2024-10-27] VITALS (21 sets, daily range): BP systolic 108–146; BP diastolic 52–100; PULSE 65–121; RESP 17–22; TEMP 97.6–98.4; O2SAT 93–100
--- NOTE | 2024-10-27 13:19 | DVHPNRES ---
Progress Note Date Seen: October 27, 2024 Resident Creating Document: DOMI JOSHI RESIDENT Has the PT tested + for MRSA If YES, has PT been informed?: No Medical Necessity Reason Pt with a Central, PICC or Fol: No Subjective Review of Systems Patient is 59 years old female hospice revoked a while before with past medical history of COPD on home oxygen 3 L/min, heart failure preserved ejection fraction EF 60%, hypertension, atrial fibrillation, bilateral lower extremity cellulitis, peripheral artery disease came with a complaint of shortness of breaths. As per patient she has been having worsening shortness of breaths for last couple of days with orthopnea and PND. Patient also reported worsening leg swelling for last couple of weeks. Patient denied any fever or chest pain or acute sick contact or diarrhea constipation or dysarthria. Initial lab workup revealed BNP 200, UDS negative, urinalysis negative, CXR cardiomegaly with right-sided pleural effusion/consolidation. PMH- COPD on home oxygen 3 L/min, heart failure preserved ejection fraction EF 60%, hypertension, atrial fibrillation, bilateral lower extremity cellulitis, peripheral artery disease PSH- Allergy- NKDA Personal History/ Social History- denies smoking or alcoholism or drug abuse Patient was seen today at the bedside. Gastrointestinal- denies any rectal bleeding, nausea or vomiting Musculoskeletal-denies acute joint swelling or tenderness or redness Neurological- denies acute dysarthria, dysphagia, change in vision Psychiatry- denies depression or SI or HI Skin- denies acute rash or purpura Patient was seen today for clinical evaluation. Labs and chart reviewed. Patient on [place] O2 3 L/min. Patient reports feeling better today, shortness of breaths has improved, leg swelling is mildly reduced, oxygen requirement has reduced from 5-3 L/min on [place] O2. Ordered physical therapy. Objective vital signs Vital Sign Date Time Temp Pulse Resp B/P (MAP) Pulse Ox O2 Delivery O2 Flow Rate FiO2 10/27/24 10:29 77 137/83 10/27/24 10:00 97 Nasal Cannula* 3 32 10/27/24 09:00 97.6 17 97.6 Total Intake and Output 10/26/24 10/26/24 10/27/24 15:00 23:00 07:00 Intake Total 738 ml 800 ml 940 ml Output Total 1500 ml 3100 ml Balance 738 ml -700 ml -2160 ml medications Current Medications Medications Dose Ordered Sig/Tod Route Start Time Stop Time Status Last Admin Dose Admin Furosemide 40 mg DAILY IV 10/25/24 10:00 Hold 10/26/24 09:24 40 MG Levalbuterol HCl 0.625 mg Q6HR NEB 10/25/24 06:00 10/27/24 00:15 0.625 MG Diltiazem HCl 240 mg DAILY PO 10/25/24 10:00 10/27/24 10:29 240 MG Hydralazine HCl 10 mg Q6HP PRN IV 10/25/24 01:00 10/26/24 13:23 10 MG Carvedilol 3.125 mg Q12HR PO 10/25/24 10:00 10/27/24 10:16 3.125 MG Apixaban 5 mg BID PO 10/25/24 10:00 10/27/24 10:15 5 MG Sodium Chloride 10 ml Q8HR IV 10/25/24 06:00 10/27/24 05:36 10 ML Acetaminophen/ Hydrocodone Bitart 1 tab Q4HP PRN PO 10/25/24 01:00 10/25/24 01:29 1 TAB Ondansetron HCl 4 mg Q4HP PRN IV 10/25/24 01:00 Docusate Sodium 100 mg BIDPRN PRN PO 10/25/24 01:00 Acetaminophen 650 mg Q6HP PRN PO 10/25/24 01:00 10/26/24 13:27 650 MG Nitroglycerin 0.4 mg Q5MINP PRN SL 10/25/24 01:00 Morphine Sulfate 2 mg Q30M PRN IV 10/25/24 01:00 Nicotine 1 patch DAILY TD 10/25/24 05:30 10/27/24 10:17 1 PATCH Methylprednisolone Sodium Succinate 40 mg BID IV 10/25/24 10:00 10/27/24 10:14 40 MG Ipratropium [place] 0.5 mg Q6HR NEB 10/25/24 12:00 10/27/24 00:15 0.5 MG Pantoprazole Sodium 40 mg DAILY IV 10/26/24 10:00 10/27/24 10:10 40 MG Hydralazine HCl 25 mg BID PO 10/25/24 22:00 10/27/24 10:14 25 MG Ceftriaxone Sodium 50 ml @ 100 mls/hr DAILY@09 IV 10/26/24 09:00 10/27/24 10:07 100 MLS/HR Doxycycline Hyclate 100 ml @ 50 mls/hr Q12HR IV 10/25/24 22:00 10/27/24 10:06 50 MLS/HR Hydroxyzine Pamoate 25 mg TID PRN PO 10/25/24 21:00 10/27/24 02:00 25 MG Furosemide 80 mg BIDD IV 10/26/24 18:00 10/27/24 05:37 80 MG Examination General examination- awake, alert HEENT- PEERLA, no acute nasal discharge Cardiovascular- S1-S2 audible, rate and rhythm regular, no murmur Respiratory- bilateral lung crackles+ Gastrointestinal-nontender, bowel sound+. Nondistended Musculoskeletal-no acute joint swelling or tenderness or redness Lower extremity- alert and leg edema, redness, swelling Neurological- cranial nerves intact, no acute dysarthria or dysphagia Psychiatry- denies depression or SI or HI Skin- no acute rash or purpura laboratory and microbiology Laboratory Tests 10/26/24 09:19 Test 10/26/24 09:19 Range/Units Serum Glucose 175 H 74-106 mg/dL Problem List/Assessment/Plan Problem List/Assessment/Plan Assessment and plan Acute hypoxic respiratory failure likely due to acute exertional COPD/pneumonia Acute exertional COPD Acute pneumonia Gram-positive versus Gram-negative Acute exertional heart failure with preserved ejection fraction Hypertension Atrial fibrillation Bilateral leg swelling likely due to cellulitis Peripheral artery disease [id number] pleural effusion suspected pneumonia Doppler study negative for DVT Plan Continue ceftriaxone as prescribed Continue doxycycline as prescribed Nebulization as prescribed Diltiazem 240 mg p.o. daily Lasix 40 mg IV daily Hydralazine 25 mg p.o. b.i.d. Methylprednisolone 40 mg IV b.i.d. Pantoprazole as prescribed Goals of care, Code status ; discussed with >15 minutes PUD prophylaxis: Pantoprazole DVT prophylaxis: Eliquis Plan discussed with Dr. Amin , nursing staff, Total time spent on patient evaluation, chart review, assessment and plan, discussion discussion >35 minutes Plan discussed with: Patient, Other (RN) My Orders My Orders Orders - DOMI JOSHI RESIDENT Procedure Category Date Status Time Pt Request For Service PT 10/28/24 Logged 04:00 Date of Service: October 27, 2024 Billing Provider: LELA AMIN DO Common Visit Codes: [id number] INP/OBS CARE(HIGH) DOMI JOSHI RESIDENT October 27, 2024 13:18 LELA AMIN DO October 28, 2024 19:54
[2024-10-27] MEDS: metOLazone 5 MG TAB PO ONE (13:37)
[2024-10-28] VITALS (14 sets, daily range): BP systolic 112–152; BP diastolic 69–104; PULSE 59–115; RESP 12–22; TEMP 97.7–98.1; O2SAT 92–100
[2024-10-28 06:23] LABS: Basophils # (auto) 0 10 ^3/uL (0-0.2); Basophils % (auto) 0.2 % (0.0-2.0); Eosinophils # (auto) 0 10 ^3/uL (0-0.8); Hematocrit 39.7 % (36.0-46.0); Lymphocytes # (auto) 1.1 10 ^3/uL (0.4-5.4); Lymphocytes % (auto) 8.2 % (10.0-50.0); Mean Corpuscular Hgb Conc. 32.7 g/dL (32.0-36.0); Mean Corpuscular Volume 88.7 fL (80.0-100.0); Monocytes # (auto) 0.9 10 ^3/uL (0-1.3); Monocytes % (auto) 6.1 % (0.0-12.0); Neutrophils % (auto) 85.5 % (37.0-80.0); Nucleated Red Blood Cells % 0.1 %; Platelet Count (auto) 368 10^3/uL (140-450); Red Blood Cells 4.48 10^6/uL (4.0-5.20); Red Cell Distribution Width 15.9 % (11.8-14.3)
[2024-10-28 06:42] LABS: Calcium 9.9 mg/dL (8.7-10.4); Sodium 141 mmol/L (136-145)
[2024-10-28 06:43] LABS: Anion Gap 7 (5-15)
[2024-10-28 06:48] LABS: Carbon Dioxide 38 mmol/L (20-31); Chloride 96 mmol/L (98-107); Potassium 3.4 mmol/L (3.5-5.1)
[2024-10-28 06:50] LABS: Blood Urea Nitrogen 33 mg/dL (9-23); Glucose 210 mg/dL (74-106)
[2024-10-28] MEDS ORDERED: SODIUM CHLORIDE 0.9% 250 ML IV SCH (10:15)
[2024-10-28] MEDS: POTASSIUM EFFERVESENT TAB 25 MEQ PO ONE (10:40)
--- NOTE | 2024-10-28 14:15 | DVHPNRES ---
Progress Note Date Seen: October 28, 2024 Resident Creating Document: KIZZY MONACO RESIDENT Has the PT tested + for MRSA If YES, has PT been informed?: No Medical Necessity Reason Pt with a Central, PICC or Fol: No Subjective Review of Systems Patient seen and examined at the bedside. Patient is currently on 2 L oxygen [place], reported mild improvement in her symptoms since admission. Possible DC tomorrow. Patient reports: Feels better Objective vital signs Vital Sign Date Time Temp Pulse Resp B/P (MAP) Pulse Ox O2 Delivery O2 Flow Rate FiO2 10/28/24 11:45 61 112/77 10/28/24 11:15 20 100 10/28/24 11:06 Oxymizer 2 N/A 10/28/24 09:00 97.9 97.9 Total Intake and Output 10/27/24 10/27/24 10/28/24 15:00 23:00 07:00 Intake Total 150 ml 925 ml 505 ml Output Total 2300 ml 1050 ml Balance 150 ml -1375 ml -545 ml medications Current Medications Medications Dose Ordered Sig/Tod Route Start Time Stop Time Status Last Admin Dose Admin Furosemide 40 mg DAILY IV 10/25/24 10:00 Hold 10/26/24 09:24 40 MG Levalbuterol HCl 0.625 mg Q6HR NEB 10/25/24 06:00 10/28/24 11:05 0.625 MG Diltiazem HCl 240 mg DAILY PO 10/25/24 10:00 10/28/24 10:42 240 MG Hydralazine HCl 10 mg Q6HP PRN IV 10/25/24 01:00 10/26/24 13:23 10 MG Carvedilol 3.125 mg Q12HR PO 10/25/24 10:00 10/28/24 10:42 3.125 MG Apixaban 5 mg BID PO 10/25/24 10:00 10/28/24 10:41 5 MG Sodium Chloride 10 ml Q8HR IV 10/25/24 06:00 10/28/24 06:00 10 ML Acetaminophen/ Hydrocodone Bitart 1 tab Q4HP PRN PO 10/25/24 01:00 10/27/24 16:08 1 TAB Ondansetron HCl 4 mg Q4HP PRN IV 10/25/24 01:00 Docusate Sodium 100 mg BIDPRN PRN PO 10/25/24 01:00 Acetaminophen 650 mg Q6HP PRN PO 10/25/24 01:00 10/27/24 20:32 650 MG Nitroglycerin 0.4 mg Q5MINP PRN SL 10/25/24 01:00 Morphine Sulfate 2 mg Q30M PRN IV 10/25/24 01:00 Nicotine 1 patch DAILY TD 10/25/24 05:30 10/28/24 10:46 1 PATCH Methylprednisolone Sodium Succinate 40 mg BID IV 10/25/24 10:00 10/28/24 10:50 40 MG Ipratropium [place] 0.5 mg Q6HR NEB 10/25/24 12:00 10/28/24 11:05 0.5 MG Pantoprazole Sodium 40 mg DAILY IV 10/26/24 10:00 10/27/24 10:10 40 MG Hydralazine HCl 25 mg BID PO 10/25/24 22:00 10/28/24 10:41 25 MG Ceftriaxone Sodium 50 ml @ 100 mls/hr DAILY@09 IV 10/26/24 09:00 10/28/24 10:45 100 MLS/HR Doxycycline Hyclate 100 ml @ 50 mls/hr Q12HR IV 10/25/24 22:00 10/28/24 10:44 50 MLS/HR Hydroxyzine Pamoate 25 mg TID PRN PO 10/25/24 21:00 10/27/24 18:28 25 MG Examination Pt is lying on bed General Appearance: Alert, Oriented X3, Cooperative, Mild distress HEENT: Atraumatic, Mucous membranes moist/pink Respiratory: diminished breath sounds Cardiovascular: Regular rate, Normal S1, Normal S2, No murmurs Abdominal: Active bowel sounds, Soft, no distention, no tenderness Extremities: No edema, Normal pulses, No tenderness/swelling Skin: No Significant rash, except past surgical scars Neuro: Normal speech, sensorimotor deficits none Psych/Mental Status: Mental status NL, Mood NL Nurse was there as enrique during examination laboratory and microbiology Laboratory Tests 10/28/24 05:48 Test 10/28/24 05:48 Range/Units Serum Glucose 210 H 74-106 mg/dL Labs and/or images reviewed: Labs reviewed by me, Image(s) reviewed by me Problem List/Assessment/Plan Problem List/Assessment/Plan Acute hypoxic respiratory failure likely due to acute exacerbation of COPD/pneumonia Acute exacerbation of COPD Acute pneumonia Gram-positive versus Gram-negative Acute exertional heart failure with preserved ejection fraction Hypertension Atrial fibrillation Bilateral leg swelling likely due to cellulitis Peripheral artery disease Leukocytosis likely from steroids use IAN likely due to VMN [id number] pleural effusion suspected pneumonia Doppler study negative for DVT Plan Continue ceftriaxone and doxycycline as prescribed Nebulization as prescribed Diltiazem 240 mg p.o. daily DC Lasix Hydralazine 25 mg p.o. b.i.d. Methylprednisolone 40 mg IV b.i.d. Pantoprazole as prescribed Avoid nephrotoxic agents PUD prophylaxis: Pantoprazole DVT prophylaxis: Eliquis Goals of care discussed with the patient for more than 27 minutes: Full code status Case discussed with Dr. Rios, patient and nurse. Plan discussed with: Patient My Orders My Orders Orders - KIZZY MONACO Procedure Category Date Status Time * Communications Strategist CONS 10/28/24 Transmitted Consult KIZZY MONACO RESIDENT October 28, 2024 14:15
[2024-10-29] VITALS (17 sets, daily range): BP systolic 117–160; BP diastolic 65–95; PULSE 64–100; RESP 16–19; TEMP 97.5–98; O2SAT 91–100
[2024-10-29 07:20] LABS: Potassium 3.9 mmol/L (3.5-5.1); Sodium 138 mmol/L (136-145)
[2024-10-29 07:21] LABS: Calcium 10.2 mg/dL (8.7-10.4)
[2024-10-29 07:26] LABS: BUN/Creatinine Ratio 28.7 (10.0-20.0)
[2024-10-29 07:28] LABS: Basophils # (auto) 0 10 ^3/uL (0-0.2); Basophils % (auto) 0.2 % (0.0-2.0); Eosinophils # (auto) 0 10 ^3/uL (0-0.8); Hematocrit 41.6 % (36.0-46.0); Hemoglobin 13.9 g/dL (12.2-16.2); Lymphocytes # (auto) 1.3 10 ^3/uL (0.4-5.4); Lymphocytes % (auto) 8.1 % (10.0-50.0); Mean Corpuscular Hemoglobin 29.6 pg (28.0-32.0); Mean Corpuscular Hgb Conc. 33.4 g/dL (32.0-36.0); Mean Corpuscular Volume 88.7 fL (80.0-100.0); Monocytes # (auto) 0.8 10 ^3/uL (0-1.3); Monocytes % (auto) 5.1 % (0.0-12.0); Neutrophils # (auto) 13.9 10 ^3/uL (1.6-8.6); Neutrophils % (auto) 86.6 % (37.0-80.0); Nucleated Red Blood Cells % 0.1 %; Platelet Count (auto) 377 10^3/uL (140-450); Red Blood Cells 4.69 10^6/uL (4.0-5.20)
[2024-10-29 07:29] LABS: Anion Gap 6.99999 (5-15); Blood Urea Nitrogen 31 mg/dL (9-23); Chloride 91 mmol/L (98-107); Glucose 224 mg/dL (74-106)
[2024-10-29 07:31] LABS: Carbon Dioxide > 40 mmol/L (20-31)
--- NOTE | 2024-10-29 11:57 | DVHPNRES ---
Progress Note Date Seen: October 29, 2024 Resident Creating Document: KIZZY MONACO RESIDENT Has the PT tested + for MRSA If YES, has PT been informed?: No Medical Necessity Reason Pt with a Central, PICC or Fol: No Subjective Review of Systems Patient seen and examined at the bedside . Patient is retaining CO2, advised her to use BiPAP initially patient denied but agreed. Ordered ABG. Objective vital signs Vital Sign Date Time Temp Pulse Resp B/P (MAP) Pulse Ox O2 Delivery O2 Flow Rate FiO2 10/29/24 10:00 91 Oxymizer 2.0 10/29/24 10:00 N/A 10/29/24 09:23 129/80 10/29/24 09:15 70 10/29/24 09:00 97.8 16 97.8 Total Intake and Output 10/28/24 10/28/24 10/29/24 15:00 23:00 07:00 Intake Total 150 ml 550 ml 100 ml Output Total 4100 ml 700 ml 1400 ml Balance -3950 ml -150 ml -1300 ml medications Current Medications Medications Dose Ordered Sig/Tod Route Start Time Stop Time Status Last Admin Dose Admin Levalbuterol HCl 0.625 mg Q6HR NEB 10/25/24 06:00 10/29/24 06:40 0.625 MG Diltiazem HCl 240 mg DAILY PO 10/25/24 10:00 10/29/24 09:14 240 MG Hydralazine HCl 10 mg Q6HP PRN IV 10/25/24 01:00 10/26/24 13:23 10 MG Carvedilol 3.125 mg Q12HR PO 10/25/24 10:00 10/29/24 09:15 3.125 MG Apixaban 5 mg BID PO 10/25/24 10:00 10/29/24 09:14 5 MG Sodium Chloride 10 ml Q8HR IV 10/25/24 06:00 10/29/24 05:50 10 ML Acetaminophen/ Hydrocodone Bitart 1 tab Q4HP PRN PO 10/25/24 01:00 10/28/24 22:02 1 TAB Ondansetron HCl 4 mg Q4HP PRN IV 10/25/24 01:00 Docusate Sodium 100 mg BIDPRN PRN PO 10/25/24 01:00 Acetaminophen 650 mg Q6HP PRN PO 10/25/24 01:00 10/29/24 01:44 650 MG Nitroglycerin 0.4 mg Q5MINP PRN SL 10/25/24 01:00 Morphine Sulfate 2 mg Q30M PRN IV 10/25/24 01:00 Nicotine 1 patch DAILY TD 10/25/24 05:30 10/29/24 09:14 1 PATCH Methylprednisolone Sodium Succinate 40 mg BID IV 10/25/24 10:00 10/29/24 09:13 40 MG Ipratropium [place] 0.5 mg Q6HR NEB 10/25/24 12:00 10/29/24 06:40 0.5 MG Pantoprazole Sodium 40 mg DAILY IV 10/26/24 10:00 10/29/24 09:13 40 MG Hydralazine HCl 25 mg BID PO 10/25/24 22:00 10/29/24 09:23 25 MG Ceftriaxone Sodium 50 ml @ 100 mls/hr DAILY@09 IV 10/26/24 09:00 10/29/24 09:13 100 MLS/HR Hydroxyzine Pamoate 25 mg TID PRN PO 10/25/24 21:00 10/29/24 06:58 25 MG Azithromycin 250 ml @ 125 mls/hr DAILY IV 10/30/24 10:00 UNV Examination General Appearance: Alert, Oriented X3, Cooperative, Mild distress HEENT: Atraumatic, Mucous membranes moist/pink Respiratory: diminished breath sounds Cardiovascular: Regular rate, Normal S1, Normal S2, No murmurs Abdominal: Active bowel sounds, Soft, no distention, no tenderness Extremities: No edema, Normal pulses, No tenderness/swelling Skin: No Significant rash, except past surgical scars Neuro: Normal speech, sensorimotor deficits none Psych/Mental Status: Mental status NL, Mood NL Nurse was there as joonne during examination laboratory and microbiology Laboratory Tests 10/29/24 06:46 Test 10/29/24 06:46 Range/Units Serum Glucose 224 H 74-106 mg/dL Labs and/or images reviewed: Labs reviewed by me, Image(s) reviewed by me Problem List/Assessment/Plan Problem List/Assessment/Plan Acute hypoxic respiratory failure likely due to acute exacerbation of COPD/pneumonia Acute exacerbation of COPD Acute pneumonia Gram-positive versus Gram-negative Acute exertional heart failure with preserved ejection fraction Hypertension Atrial fibrillation Bilateral leg swelling likely due to cellulitis Peripheral artery disease Leukocytosis likely from steroids use IAN likely due to VMN [id number] pleural effusion suspected pneumonia Doppler study negative for DVT Plan Patient is on BiPAP because of CO2 retention Ordered ABG on room air Continue ceftriaxone and azithromycin as prescribed Nebulization as prescribed Diltiazem 240 mg p.o. daily DC Lasix Hydralazine 25 mg p.o. b.i.d. Methylprednisolone 40 mg IV b.i.d. Pantoprazole as prescribed Avoid nephrotoxic agents PUD prophylaxis: Pantoprazole DVT prophylaxis: Eliquis Goals of care discussed with the patient for more than 27 minutes: Full code status Case discussed with Dr. Rios, patient and nurse. Plan discussed with: Patient My Orders My Orders Orders - KIZZY MONACO RESIDENT Procedure Category Date Status Time * Service Liaison Representative CONS 10/28/24 Transmitted Consult Abg W/ Co-Ox RT 10/29/24 Logged 11:20 Azithromycin 500mg/ PHA 10/30/24 Logged 250ml (Zithromax 50 10:00 Azithromycin 500mg/ PHA 10/29/24 Logged 250ml (Zithromax 50 11:30 KIZZY MONACO RESIDENT October 29, 2024 11:57
--- NOTE | 2024-10-29 12:20 | ECG ---
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
[2024-10-29] MEDS: AZITHROMYCIN 500MG/ 250ML 250 ML IV ONE (13:33)
[2024-10-29] MEDS: acetaZOLAMIDE 250 MG TAB PO ONE (19:42)
[2024-10-30] VITALS (19 sets, daily range): BP systolic 137–154; BP diastolic 54–90; PULSE 56–99; RESP 14–22; TEMP 97.8–98.2; O2SAT 93–100
[2024-10-30] MEDS: acetaZOLAMIDE 250 MG TAB PO SCH
[2024-10-30 08:07] LABS: Basophils # (auto) 0 10 ^3/uL (0-0.2); Basophils % (auto) 0.1 % (0.0-2.0); Eosinophils # (auto) 0 10 ^3/uL (0-0.8); Eosinophils % (auto) 0.2 % (0.0-7.0); Hematocrit 41.9 % (36.0-46.0); Hemoglobin 13.9 g/dL (12.2-16.2); Mean Corpuscular Hemoglobin 29.9 pg (28.0-32.0); Mean Corpuscular Hgb Conc. 33.1 g/dL (32.0-36.0); Mean Corpuscular Volume 90.2 fL (80.0-100.0); Monocytes % (auto) 5.8 % (0.0-12.0); Neutrophils # (auto) 15.2 10 ^3/uL (1.6-8.6); Neutrophils % (auto) 87.9 % (37.0-80.0); Nucleated Red Blood Cells % 0.1 %; Platelet Count (auto) 341 10^3/uL (140-450); Red Blood Cells 4.64 10^6/uL (4.0-5.20); White Blood Cell 17.3 10^3/uL (4.4-10.8)
[2024-10-30 08:15] LABS: Alkaline Phosphatase 87 U/L (46-116); Anion Gap 9 (5-15); BUN/Creatinine Ratio 30.1 (10.0-20.0); Potassium 3.9 mmol/L (3.5-5.1); Sodium 137 mmol/L (136-145); Total Protein 6.8 g/dL (5.7-8.2)
[2024-10-30 08:16] LABS: Albumin 4.2 g/dL (3.2-4.8); Aspartate Aminotransferase 16 U/L (13-40)
[2024-10-30 08:17] LABS: Alanine Aminotransferase 41 U/L (7-40); Bilirubin, Total 0.4 mg/dL (0.2-1.0); Blood Urea Nitrogen 31 mg/dL (9-23); Carbon Dioxide 34 mmol/L (20-31); Chloride 94 mmol/L (98-107); Glucose 236 mg/dL (74-106)
[2024-10-30] MEDS: AZITHROMYCIN 500MG/ 250ML 250 ML IV SCH (10:31)
--- NOTE | 2024-10-30 11:21 | DVHPNRES ---
Progress Note Date Seen: October 30, 2024 Resident Creating Document: KIZZY MONACO RESIDENT Has the PT tested + for MRSA If YES, has PT been informed?: No Medical Necessity Reason Pt with a Central, PICC or Fol: No Subjective Review of Systems Patient seen and examined at the bedside. patient reported mild improvement. Patient is refusing BiPAP. Patient is refusing CT abdominal pelvis because she is having difficulty with the lying flat. We started Lasix 20 mg IV b.i.d. and change in methylprednisolone IV to oral. Objective vital signs Vital Sign Date Time Temp Pulse Resp B/P (MAP) Pulse Ox O2 Delivery O2 Flow Rate FiO2 10/30/24 10:09 143/76 10/30/24 10:09 67 10/30/24 10:00 94 Nasal Cannula 2.0 10/30/24 10:00 28 10/30/24 09:00 98.0 17 98.0 Total Intake and Output 10/29/24 10/29/24 10/30/24 14:59 22:59 06:59 Intake Total 50 ml 800 ml 400 ml Output Total 1000 ml 2575 ml Balance 50 ml -200 ml -2175 ml medications Current Medications Medications Dose Ordered Sig/Tod Route Start Time Stop Time Status Last Admin Dose Admin Levalbuterol HCl 0.625 mg Q6HR NEB 10/25/24 06:00 10/30/24 06:24 0.625 MG Diltiazem HCl 240 mg DAILY PO 10/25/24 10:00 10/30/24 10:09 240 MG Hydralazine HCl 10 mg Q6HP PRN IV 10/25/24 01:00 10/26/24 13:23 10 MG Carvedilol 3.125 mg Q12HR PO 10/25/24 10:00 10/30/24 10:08 3.125 MG Apixaban 5 mg BID PO 10/25/24 10:00 10/30/24 09:30 5 MG Sodium Chloride 10 ml Q8HR IV 10/25/24 06:00 10/30/24 05:57 10 ML Acetaminophen/ Hydrocodone Bitart 1 tab Q4HP PRN PO 10/25/24 01:00 10/29/24 21:30 1 TAB Ondansetron HCl 4 mg Q4HP PRN IV 10/25/24 01:00 Docusate Sodium 100 mg BIDPRN PRN PO 10/25/24 01:00 Acetaminophen 650 mg Q6HP PRN PO 10/25/24 01:00 10/29/24 15:01 650 MG Nitroglycerin 0.4 mg Q5MINP PRN SL 10/25/24 01:00 Morphine Sulfate 2 mg Q30M PRN IV 10/25/24 01:00 Nicotine 1 patch DAILY TD 10/25/24 05:30 10/30/24 10:07 1 PATCH Ipratropium [place] 0.5 mg Q6HR NEB 10/25/24 12:00 10/30/24 06:24 0.5 MG Pantoprazole Sodium 40 mg DAILY IV 10/26/24 10:00 10/30/24 09:30 40 MG Hydralazine HCl 25 mg BID PO 10/25/24 22:00 10/30/24 10:09 25 MG Ceftriaxone Sodium 50 ml @ 100 mls/hr DAILY@09 IV 10/26/24 09:00 10/30/24 09:30 100 MLS/HR Hydroxyzine Pamoate 25 mg TID PRN PO 10/25/24 21:00 10/29/24 15:16 25 MG Azithromycin 250 ml @ 125 mls/hr DAILY IV 10/30/24 10:00 10/30/24 10:31 125 MLS/HR Acetazolamide 250 mg Q6HR PO 10/30/24 00:00 10/30/24 05:59 250 MG Furosemide 20 mg BIDD IV 10/30/24 18:00 Prednisone 40 mg DAILY PO 10/31/24 10:00 Examination General Appearance: Alert, Oriented X3, Cooperative, Mild distress HEENT: Atraumatic, Mucous membranes moist/pink Respiratory: diminished breath sounds Cardiovascular: Regular rate, Normal S1, Normal S2, No murmurs Abdominal: Active bowel sounds, Soft, no distention, no tenderness Extremities: No edema, Normal pulses, No tenderness/swelling Skin: No Significant rash, except past surgical scars Neuro: Normal speech, sensorimotor deficits none Psych/Mental Status: Mental status NL, Mood NL Nurse was there as sharperone during examination laboratory and microbiology Laboratory Tests 10/30/24 07:21 Test 10/30/24 07:21 Range/Units Serum Glucose 236 H 74-106 mg/dL Labs and/or images reviewed: Labs reviewed by me, Image(s) reviewed by me Problem List/Assessment/Plan Problem List/Assessment/Plan Acute hypoxic respiratory failure likely due to acute exacerbation of COPD/pneumonia Acute exacerbation of COPD Acute pneumonia Gram-positive versus Gram-negative Acute exertional heart failure with preserved ejection fraction Hypertension Atrial fibrillation Bilateral leg swelling likely due to cellulitis Peripheral artery disease Leukocytosis likely from steroids use IAN likely due to VMN Hypokalemia [id number] pleural effusion suspected pneumonia Doppler study negative for DVT Plan Patient is refusing BiPAP Ordered ABG on room air, co2 retention Continue ceftriaxone and azithromycin as prescribed Nebulization as prescribed Diltiazem 240 mg p.o. daily Lasix 20 mg iv bid Hydralazine 25 mg p.o. b.i.d. Prednisolone 40 mg IV daily Pantoprazole as prescribed Avoid nephrotoxic agents PUD prophylaxis: Pantoprazole DVT prophylaxis: Eliquis Goals of care discussed with the patient for more than 27 minutes: Full code status Case discussed with Dr. Rios, patient and nurse. Plan discussed with: Patient My Orders My Orders Orders - KIZZY MONACO RESIDENT Procedure Category Date Status Time Azithromycin 500mg/ PHA 10/30/24 In Process 250ml (Zithromax 50 10:00 Acetazolamide Tablet PHA 10/30/24 In Process (Diamox Tablet) 00:00 Furosemide Injection PHA 10/30/24 In Process (Lasix Injection) 18:00 *Tele Psych Consult CONS 10/30/24 Transmitted 10:50 Prednisone Tablet PHA 10/31/24 In Process 10:00 KIZZY MONACO RESIDENT October 30, 2024 11:21
[2024-10-30] MEDS: FUROSEMIDE 20 MG/2 ML VIAL IV ONE (11:58)
[2024-10-30] MEDS: FUROSEMIDE 20 MG/2 ML VIAL IV SCH (17:34)
--- NOTE | 2024-10-30 19:20 | DVHINCON2 ---
Date of Service if different f: October 30, 2024 Consultation (MARTINS FERRY) Labs Laboratory Tests Test 10/24/24 20:40 10/24/24 21:19 10/24/24 23:40 10/29/24 13:45 Lactic Acid Level 1.6 mmol/L (0.4-2.0) Magnesium Level 1.9 mg/dL (1.6-2.6) B-Type Natriuretic Peptide 200.06 pg/mL (0-100) Urine Color Yellow (Yellow) Urine Clarity Clear (Clear) Urine pH 5.5 (5.0-9.0) Urine Specific [place] 1.033 (1.001-1.035) Urine Protein Trace (Negative) Urine Ketones Trace (Negative) Urine Blood Negative /uL (Negative) Urine Nitrite Negative (Negative) Urine Bilirubin Negative (Negative) Urine Urobilinogen 2 mg/dL (Negative) Urine Leukocyte Esterase Negative /uL (Negative) Urine RBC 2 /hpf (0 - 4) Urine Microscopic WBC 2 /HPF (0-5) Urine Squamous Epithelial Cells Few /hpf (<5) Urine Bacteria None seen /hpf (None Seen) Urine Mucus Few (None Seen) Urine Glucose Normal mg/dL (Normal) Troponin I High Sensitivity 8 ng/L (</=34) Blood Gas Specimen Type Arterial Blood Gas Sample Site Left radial Blood Gas Patient Temperature 37.0 Arterial Blood Date Drawn [id number] Arterial Blood pH 7.517 (7.350-7.450) Arterial Blood Partial Pressure CO2 46.1 mmHg (32.0-45.0) Arterial Blood Partial Pressure O2 49.6 mmHg (83.0-108.0) Arterial Blood HCO3 36.5 mmol/L (21.0-28.0) Arterial Blood Oxygen Saturation 86.6 % (94.0-98.0) Arterial Blood Base Excess 12.0 mmol/L (-2.0-3.0) Arterial Blood Oxyhemoglobin 85.1 % (94.0-98.0) Arterial Blood Carboxyhemoglobin 1.3 % (0.5-1.5) Arterial Blood Methemoglobin 0.4 % (0.0-1.5) John Test Yes Blood Gas Total Hemoglobin 14.50 g/dL (12.0-16.0) Blood Gas Liter Flow 2.00 Blood Gas Modality Oxymizer FiO2 % 32.0 Blood Gas Critical Value Read Back Yes Blood Gas Notified Whom Johan johnson Blood Gas Notified Time [id number] Blood Gas Notified By [employer] Test 10/30/24 07:21 White Blood Count 17.3 10^3/uL (4.4-10.8) Red Blood Count 4.64 10^6/uL (4.0-5.20) Hemoglobin 13.9 g/dL (12.2-16.2) Hematocrit 41.9 % (36.0-46.0) Mean Corpuscular Volume 90.2 fL (80.0-100.0) Mean Corpuscular Hemoglobin 29.9 pg (28.0-32.0) Mean Corpuscular Hemoglobin Concent 33.1 g/dL (32.0-36.0) Red Cell Distribution Width 16.0 % (11.8-14.3) Platelet Count 341 10^3/uL (140-450) Mean Platelet Volume 8.8 fL (6.9-10.8) Neutrophils (%) (Auto) 87.9 % (37.0-80.0) Lymphocytes (%) (Auto) 6.0 % (10.0-50.0) Monocytes (%) (Auto) 5.8 % (0.0-12.0) Eosinophils (%) (Auto) 0.2 % (0.0-7.0) Basophils (%) (Auto) 0.1 % (0.0-2.0) Neutrophils # (Auto) 15.2 10 ^3/uL (1.6-8.6) Lymphocytes # (Auto) 1.0 10 ^3/uL (0.4-5.4) Monocytes # (Auto) 1.0 10 ^3/uL (0-1.3) Eosinophils # (Auto) 0 10 ^3/uL (0-0.8) Basophils # (Auto) 0 10 ^3/uL (0-0.2) Nucleated Red Blood Cells 0.1 % Sodium Level 137 mmol/L (136-145) Potassium Level 3.9 mmol/L (3.5-5.1) Chloride Level 94 mmol/L (98-107) Carbon Dioxide Level 34 mmol/L (20-31) Anion Gap 9 (5-15) Blood Urea Nitrogen 31 mg/dL (9-23) Creatinine 1.03 mg/dL (0.550-1.02) Glomerular Filtration Rate Calc 63 mL/min (>90) BUN/Creatinine Ratio 30.1 (10.0-20.0) Serum Glucose 236 mg/dL (74-106) Calcium Level 10.0 mg/dL (8.7-10.4) Total Bilirubin 0.4 mg/dL (0.2-1.0) Aspartate Amino Transf (AST/SGOT) 16 U/L (13-40) Alanine Aminotransferase (ALT/SGPT) 41 U/L (7-40) Alkaline Phosphatase 87 U/L (46-116) Total Protein 6.8 g/dL (5.7-8.2) Albumin 4.2 g/dL (3.2-4.8) Appetite: Fair Appearance: Stated age Psychomotor activity: Lethargic Behavioral: Withdrawn Eye contact: Limited Speech: Soft Affect: Mood Congruent, Flat Mood: Depressed Thought processes: Linear/Goal-directed Thought content: WNL Suicidal ideations: Absent Homicidal ideations: Absent Orientation: Person, Place, Time, Situation Memory intact: Recent Intellect: Average Abstractability: WNL Concentration: Adequate Attention: Adequate Judgement: WNL Insight: Fair Vitals Vital Signs Date Time Temp Pulse Resp B/P (MAP) Pulse Ox O2 Delivery O2 Flow Rate FiO2 10/30/24 17:34 148/77 10/30/24 17:00 97.8 63 19 93 97.8 10/30/24 11:55 Nasal Cannula* 3 32 Current medications Current Medications Medications Dose Ordered Sig/Tod Route Start Time Stop Time Status Last Admin Dose Admin Levalbuterol HCl 0.625 mg Q6HR NEB 10/25/24 06:00 10/30/24 11:53 0.625 MG Diltiazem HCl 240 mg DAILY PO 10/25/24 10:00 10/30/24 10:09 240 MG Hydralazine HCl 10 mg Q6HP PRN IV 10/25/24 01:00 10/26/24 13:23 10 MG Carvedilol 3.125 mg Q12HR PO 10/25/24 10:00 10/30/24 10:08 3.125 MG Apixaban 5 mg BID PO 10/25/24 10:00 10/30/24 09:30 5 MG Sodium Chloride 10 ml Q8HR IV 10/25/24 06:00 5/7/25 14:00 10 ML Acetaminophen/ Hydrocodone Bitart 1 tab Q4HP PRN PO 10/25/24 01:00 10/29/24 21:30 1 TAB Ondansetron HCl 4 mg Q4HP PRN IV 10/25/24 01:00 Docusate Sodium 100 mg BIDPRN PRN PO 10/25/24 01:00 Acetaminophen 650 mg Q6HP PRN PO 10/25/24 01:00 10/30/24 11:57 650 MG Nitroglycerin 0.4 mg Q5MINP PRN SL 10/25/24 01:00 Morphine Sulfate 2 mg Q30M PRN IV 10/25/24 01:00 Nicotine 1 patch DAILY TD 10/25/24 05:30 10/30/24 10:07 1 PATCH Ipratropium [place] 0.5 mg Q6HR NEB 10/25/24 12:00 10/30/24 11:53 0.5 MG Pantoprazole Sodium 40 mg DAILY IV 10/26/24 10:00 10/30/24 09:30 40 MG Hydralazine HCl 25 mg BID PO 10/25/24 22:00 10/30/24 10:09 25 MG Ceftriaxone Sodium 50 ml @ 100 mls/hr DAILY@09 IV 10/26/24 09:00 10/30/24 09:30 100 MLS/HR Hydroxyzine Pamoate 25 mg TID PRN PO 10/25/24 21:00 10/29/24 15:16 25 MG Azithromycin 250 ml @ 125 mls/hr DAILY IV 10/30/24 10:00 10/30/24 10:31 125 MLS/HR Acetazolamide 250 mg Q6HR PO 10/30/24 00:00 10/30/24 17:34 250 MG Furosemide 20 mg BIDD IV 10/30/24 18:00 10/30/24 17:34 20 MG Prednisone 40 mg DAILY PO 10/31/24 10:00 Treatment plan discussed: With staff Medication adjusted: Yes Diagnosis: unspecified mood disorder V adjustment disorder Plan : Patient presently denies suicidal/homicidal ideation. She does have low moods with flat affect. Recommend to start lexapro 5mg po daily for depression Patient may discharge after medical clearance or contact psych for re-evaluation as needed. History of Present Illness Reason for Consult : per report hx of depression and anxiety HPI : This is a 59-year-old female presented here for SOB, with medical history of CHF, Afib. Patient is evaluated via telepsychiatry. Patient reports having low moods due to her medical condition. She has a flat affect with little participation on interview. She reports being told by doctors that her condition will not improve and she will from this. She denies having prior hx of depression and anxiety. She reports wanting to feel better but knows she will not based on what she was told by her doctors. She reports feeling depressed, hopelessness. She reports having poor sleep because she has difficulty breathing. She reports appetite is fine. She denies having suicidal/homicidal ideation. She denies auditory/visual hallucinations or paranoid thoughts. Past Psychiatric History : She denies prior mental health diagnoses. She denies prior psych admissions, holds, or suicide attempt. She denies prior use of psychotropic medications Past Medical History : per chart review, she has hx of CHF, Afib, COPD Social History : She reports living in group home since mom . She was previously living with mom. She is and has 2 adult children. She denies any history of substance use including alcohol. She did not answer regarding her nicotine usage. She reports disability and unable to work. She denies any known family history of psychiatric problems. ALAINA TAY DNP October 30, 2024 19:20
[2024-10-31] VITALS (11 sets, daily range): BP systolic 125–151; BP diastolic 72–99; PULSE 51–89; RESP 16–22; TEMP 97.3–98.8; O2SAT 95–99
[2024-10-31 08:13] LABS: Potassium 3.7 mmol/L (3.5-5.1); Sodium 140 mmol/L (136-145)
[2024-10-31 08:14] LABS: Anion Gap 7 (5-15); Calcium 10.2 mg/dL (8.7-10.4); Carbon Dioxide 35 mmol/L (20-31); Chloride 98 mmol/L (98-107)
[2024-10-31 08:19] LABS: BUN/Creatinine Ratio 36.5 (10.0-20.0)
[2024-10-31 08:20] LABS: Basophils # (auto) 0 10 ^3/uL (0-0.2); Basophils % (auto) 0.1 % (0.0-2.0); Eosinophils # (auto) 0 10 ^3/uL (0-0.8); Hematocrit 43.9 % (36.0-46.0); Hemoglobin 14.3 g/dL (12.2-16.2); Lymphocytes # (auto) 2.2 10 ^3/uL (0.4-5.4); Lymphocytes % (auto) 10.4 % (10.0-50.0); Mean Corpuscular Hgb Conc. 32.6 g/dL (32.0-36.0); Mean Corpuscular Volume 89.1 fL (80.0-100.0); Monocytes # (auto) 1.8 10 ^3/uL (0-1.3); Monocytes % (auto) 8.3 % (0.0-12.0); Neutrophils # (auto) 17.5 10 ^3/uL (1.6-8.6); Neutrophils % (auto) 81.2 % (37.0-80.0); Nucleated Red Blood Cells % 0.1 %; Platelet Count (auto) 362 10^3/uL (140-450); Red Blood Cells 4.93 10^6/uL (4.0-5.20); Red Cell Distribution Width 15.6 % (11.8-14.3); White Blood Cell 21.5 10^3/uL (4.4-10.8)
[2024-10-31 08:22] LABS: Blood Urea Nitrogen 35 mg/dL (9-23); Glucose 121 mg/dL (74-106)
[2024-10-31] MEDS: predniSONE 20 MG TAB PO SCH (09:49)
--- NOTE | 2024-10-31 12:25 | DVHPNRES ---
Progress Note Date Seen: October 31, 2024 Resident Creating Document: KIZZY MONACO RESIDENT Has the PT tested + for MRSA If YES, has PT been informed?: No Medical Necessity Reason Pt with a Central, PICC or Fol: No Subjective Review of Systems Patient seen and examined at the bedside. Patient reported mild improvement in her shortness of breath. We are advised BiPAP but patient is refusing BiPAP despite of explaining risks of refusing BiPAP. Patient is making good urine with the Lasix 20 mg IV b.i.d. continue. We will add Lexapro as per Psychiatry recommendations. Objective vital signs Vital Sign Date Time Temp Pulse Resp B/P (MAP) Pulse Ox O2 Delivery O2 Flow Rate FiO2 10/31/24 10:00 99 Nasal Cannula* 3 32 10/31/24 09:49 151/99 10/31/24 09:49 72 10/31/24 08:46 98.0 18 98.0 Total Intake and Output 10/30/24 10/30/24 10/31/24 15:00 23:00 07:00 Intake Total 300 ml 500 ml 200 ml Output Total 800 ml 2700 ml Balance 300 ml -300 ml -2500 ml medications Current Medications Medications Dose Ordered Sig/Tod Route Start Time Stop Time Status Last Admin Dose Admin Levalbuterol HCl 0.625 mg Q6HR NEB 10/25/24 06:00 10/30/24 19:02 0.625 MG Diltiazem HCl 240 mg DAILY PO 10/25/24 10:00 10/31/24 09:49 240 MG Hydralazine HCl 10 mg Q6HP PRN IV 10/25/24 01:00 10/26/24 13:23 10 MG Carvedilol 3.125 mg Q12HR PO 10/25/24 10:00 10/31/24 09:49 3.125 MG Apixaban 5 mg BID PO 10/25/24 10:00 10/31/24 09:49 5 MG Sodium Chloride 10 ml Q8HR IV 10/25/24 06:00 10/31/24 05:50 10 ML Acetaminophen/ Hydrocodone Bitart 1 tab Q4HP PRN PO 10/25/24 01:00 10/29/24 21:30 1 TAB Ondansetron HCl 4 mg Q4HP PRN IV 10/25/24 01:00 Docusate Sodium 100 mg BIDPRN PRN PO 10/25/24 01:00 Acetaminophen 650 mg Q6HP PRN PO 10/25/24 01:00 10/30/24 11:57 650 MG Nitroglycerin 0.4 mg Q5MINP PRN SL 10/25/24 01:00 Morphine Sulfate 2 mg Q30M PRN IV 10/25/24 01:00 Nicotine 1 patch DAILY TD 10/25/24 05:30 10/31/24 09:44 1 PATCH Ipratropium [place] 0.5 mg Q6HR NEB 10/25/24 12:00 10/30/24 19:02 0.5 MG Pantoprazole Sodium 40 mg DAILY IV 10/26/24 10:00 10/31/24 09:44 40 MG Hydralazine HCl 25 mg BID PO 10/25/24 22:00 10/31/24 09:49 25 MG Ceftriaxone Sodium 50 ml @ 100 mls/hr DAILY@09 IV 10/26/24 09:00 10/31/24 09:44 100 MLS/HR Hydroxyzine Pamoate 25 mg TID PRN PO 10/25/24 21:00 10/30/24 19:52 25 MG Azithromycin 250 ml @ 125 mls/hr DAILY IV 10/30/24 10:00 10/31/24 09:50 125 MLS/HR Acetazolamide 250 mg Q6HR PO 10/30/24 00:00 10/31/24 05:50 250 MG Furosemide 20 mg BIDD IV 10/30/24 18:00 10/31/24 05:50 20 MG Prednisone 40 mg DAILY PO 10/31/24 10:00 10/31/24 09:49 40 MG Examination General Appearance: Alert, Oriented X3, Cooperative, Mild distress HEENT: Atraumatic, Mucous membranes moist/pink Respiratory: diminished breath sounds Cardiovascular: Regular rate, Normal S1, Normal S2, No murmurs Abdominal: Active bowel sounds, Soft, no distention, no tenderness Extremities: No edema, Normal pulses, No tenderness/swelling Skin: No Significant rash, except past surgical scars Neuro: Normal speech, sensorimotor deficits none Psych/Mental Status: Mental status NL, Mood NL Nurse was there as sharperone during examination laboratory and microbiology Laboratory Tests 10/31/24 07:11 Test 10/31/24 07:11 Range/Units Serum Glucose 121 H 74-106 mg/dL Labs and/or images reviewed: Labs reviewed by me, Image(s) reviewed by me Problem List/Assessment/Plan Problem List/Assessment/Plan Acute hypoxic respiratory failure likely due to acute exacerbation of COPD/pneumonia Acute exacerbation of COPD Acute pneumonia Gram-positive versus Gram-negative Acute exertional heart failure with preserved ejection fraction Hypertension Atrial fibrillation Bilateral leg swelling likely due to cellulitis Peripheral artery disease Leukocytosis likely from steroids use IAN likely due to VMN Hypokalemia [id number] pleural effusion suspected pneumonia Doppler study negative for DVT Plan Patient is refusing BiPAP Ordered ABG on room air, co2 retention Continue ceftriaxone and azithromycin as prescribed Nebulization as prescribed Diltiazem 240 mg p.o. daily Lasix 20 mg iv bid Hydralazine 25 mg p.o. b.i.d. Prednisolone 40 mg IV daily Pantoprazole as prescribed Avoid nephrotoxic agents Lexapro 5 mg PUD prophylaxis: Pantoprazole DVT prophylaxis: Eliquis Goals of care discussed with the patient for more than 27 minutes: Full code status Case discussed with Dr. Rios, patient and nurse. Plan discussed with: Patient Dietary Evaluation Review Comments: 1) MVI 1 tab daily 2) Refer to CDE on DC for weight management 3) Continue current plan of care Expected Outcomes/Goals: pt will meet 75% estimated needs fu 3-5 days KIZZY MONACO RESIDENT October 31, 2024 12:25
--- NOTE | 2024-10-31 12:40 | ECG ---
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
[2024-11-01] VITALS (16 sets, daily range): BP systolic 109–142; BP diastolic 65–96; PULSE 58–94; RESP 14–22; TEMP 97.6–98.7; O2SAT 91–97
[2024-11-01 07:35] LABS: Alanine Aminotransferase 39 U/L (7-40); Albumin 4.1 g/dL (3.2-4.8); Alkaline Phosphatase 92 U/L (46-116); Anion Gap 6 (5-15); Aspartate Aminotransferase 15 U/L (13-40); BUN/Creatinine Ratio 40.2 (10.0-20.0); Blood Urea Nitrogen 39 mg/dL (9-23); Calcium 9.7 mg/dL (8.7-10.4); Carbon Dioxide 33 mmol/L (20-31); Chloride 102 mmol/L (98-107); Glucose 140 mg/dL (74-106); Potassium 3.5 mmol/L (3.5-5.1); Sodium 141 mmol/L (136-145); Total Protein 6.6 g/dL (5.7-8.2)
[2024-11-01 07:36] LABS: Bilirubin, Total 0.3 mg/dL (0.2-1.0)
[2024-11-01 07:45] LABS: Basophils # (auto) 0 10 ^3/uL (0-0.2); Basophils % (auto) 0.2 % (0.0-2.0); Eosinophils # (auto) 0.1 10 ^3/uL (0-0.8); Eosinophils % (auto) 0.3 % (0.0-7.0); Hematocrit 45.9 % (36.0-46.0); Hemoglobin 14.7 g/dL (12.2-16.2); Lymphocytes # (auto) 2.9 10 ^3/uL (0.4-5.4); Lymphocytes % (auto) 14.1 % (10.0-50.0); Mean Corpuscular Hemoglobin 28.7 pg (28.0-32.0); Mean Corpuscular Volume 89.6 fL (80.0-100.0); Monocytes # (auto) 1.8 10 ^3/uL (0-1.3); Monocytes % (auto) 8.9 % (0.0-12.0); Neutrophils # (auto) 15.6 10 ^3/uL (1.6-8.6); Neutrophils % (auto) 76.5 % (37.0-80.0); Nucleated Red Blood Cells % 0.1 %; Platelet Count (auto) 318 10^3/uL (140-450); Red Blood Cells 5.13 10^6/uL (4.0-5.20); White Blood Cell 20.4 10^3/uL (4.4-10.8)
[2024-11-01] MEDS ORDERED: FURO1TAB31 PO (13:01)
[2024-11-01] MEDS ORDERED: ESCI5TAB PO (13:01)
--- NOTE | 2024-11-01 13:59 | DVHDSRES ---
Discharge Summary Date of Admission Resident Creating Document: KIZZY MONACO RESIDENT October 25, 2024 at 00:46 Date of Discharge: November 01, 2024 Admitting Diagnosis shortness of braeth Labs/Diagnostic Data: Laboratory Results Test 11/01/24 07:00 10/29/24 13:45 10/24/24 23:40 10/24/24 21:19 White Blood Count 20.4 10^3/uL (4.4-10.8) Red Blood Count 5.13 10^6/uL (4.0-5.20) Hemoglobin 14.7 g/dL (12.2-16.2) Hematocrit 45.9 % (36.0-46.0) Mean Corpuscular Volume 89.6 fL (80.0-100.0) Mean Corpuscular Hemoglobin 28.7 pg (28.0-32.0) Mean Corpuscular Hemoglobin Concent 32.0 g/dL (32.0-36.0) Red Cell Distribution Width 16.0 % (11.8-14.3) Platelet Count 318 10^3/uL (140-450) Mean Platelet Volume 8.9 fL (6.9-10.8) Neutrophils (%) (Auto) 76.5 % (37.0-80.0) Lymphocytes (%) (Auto) 14.1 % (10.0-50.0) Monocytes (%) (Auto) 8.9 % (0.0-12.0) Eosinophils (%) (Auto) 0.3 % (0.0-7.0) Basophils (%) (Auto) 0.2 % (0.0-2.0) Neutrophils # (Auto) 15.6 10 ^3/uL (1.6-8.6) Lymphocytes # (Auto) 2.9 10 ^3/uL (0.4-5.4) Monocytes # (Auto) 1.8 10 ^3/uL (0-1.3) Eosinophils # (Auto) 0.1 10 ^3/uL (0-0.8) Basophils # (Auto) 0 10 ^3/uL (0-0.2) Nucleated Red Blood Cells 0.1 % Sodium Level 141 mmol/L (136-145) Potassium Level 3.5 mmol/L (3.5-5.1) Chloride Level 102 mmol/L (98-107) Carbon Dioxide Level 33 mmol/L (20-31) Anion Gap 6 (5-15) Blood Urea Nitrogen 39 mg/dL (9-23) Creatinine 0.97 mg/dL (0.550-1.02) Glomerular Filtration Rate Calc 67 mL/min (>90) BUN/Creatinine Ratio 40.2 (10.0-20.0) Serum Glucose 140 mg/dL (74-106) Calcium Level 9.7 mg/dL (8.7-10.4) Total Bilirubin 0.3 mg/dL (0.2-1.0) Aspartate Amino Transferase (AST) 15 U/L (13-40) Alanine Aminotransferase (ALT) 39 U/L (7-40) Alkaline Phosphatase 92 U/L (46-116) Total Protein 6.6 g/dL (5.7-8.2) Albumin 4.1 g/dL (3.2-4.8) Blood Gas Specimen Type Arterial Blood Gas Sample Site Left radial Blood Gas Patient Temperature 37.0 Arterial Blood Date Drawn [id number] Arterial Blood pH 7.517 (7.350-7.450) Arterial Blood Partial Pressure CO2 46.1 mmHg (32.0-45.0) Arterial Blood Partial Pressure O2 49.6 mmHg (83.0-108.0) Arterial Blood HCO3 36.5 mmol/L (21.0-28.0) Arterial Blood Oxygen Saturation 86.6 % (94.0-98.0) Arterial Blood Base Excess 12.0 mmol/L (-2.0-3.0) Arterial Blood Oxyhemoglobin 85.1 % (94.0-98.0) Arterial Blood Carboxyhemoglobin 1.3 % (0.5-1.5) Arterial Blood Methemoglobin 0.4 % (0.0-1.5) John Test Yes Blood Gas Total Hemoglobin 14.50 g/dL (12.0-16.0) Blood Gas Liter Flow 2.00 Blood Gas Modality Oxymizer FiO2 % 32.0 Blood Gas Critical Value Read Back Yes Blood Gas Notified Whom Johan johnson Blood Gas Notified Time [id number] Blood Gas Notified By Branden valdes Troponin I High Sensitivity 8 ng/L (</=34) Urine Color Yellow (Yellow) Urine Clarity Clear (Clear) Urine pH 5.5 (5.0-9.0) Urine Specific [place] 1.033 (1.001-1.035) Urine Protein Trace (Negative) Urine Ketones Trace (Negative) Urine Blood Negative /uL (Negative) Urine Nitrite Negative (Negative) Urine Bilirubin Negative (Negative) Urine Urobilinogen 2 mg/dL (Negative) Urine Leukocyte Esterase Negative /uL (Negative) Urine RBC 2 /hpf (0 - 4) Urine Microscopic WBC 2 /HPF (0-5) Urine Squamous Epithelial Cells Few /hpf (<5) Urine Bacteria None seen /hpf (None Seen) Urine Mucus Few (None Seen) Urine Glucose Normal mg/dL (Normal) Test 10/24/24 20:40 Lactic Acid Level 1.6 mmol/L (0.4-2.0) Magnesium Level 1.9 mg/dL (1.6-2.6) B-Type Natriuretic Peptide 200.06 pg/mL (0-100) Other Laboratory Tests 11/01/24 07:00 Brief Hx & Hospital Course: 59 years old female with past medical history of COPD on home oxygen 3 L/min, heart failure preserved ejection fraction EF 60%, hypertension, atrial fibrillation, bilateral lower extremity cellulitis, peripheral artery disease came with a complaint of shortness of breaths. As per patient she has been having worsening shortness of breaths for last couple of days with orthopnea and PND. Patient also reported worsening leg swelling for last couple of weeks. Patient denied any fever or chest pain or acute sick contact or diarrhea constipation or dysarthria. Initial lab workup revealed BNP 200, UDS negative, urinalysis negative, CXR cardiomegaly with right-sided pleural effusion/consolidation. Patient required hospital admission for further evaluation of the respiratory failure. Patient found to have likely CHF exacerbation along with COPD exacerbation. Patient on NC O2 4 L/min. Patient was started on breathing treatments along with methylprednisolone 40 mg IV b.i.d. and eventually decrease the dose of methylprednisolone. Patient was bilateral lung crackles in bilateral leg edema with redness, likely bilateral lower leg extremity cellulitis, Given Rocephin. Doppler study negative for DVT. Ordered ceftriaxone and doxycycline for possible pneumonia. due to CHF exacerbation patient was dialysis and aggressively along with strict in and os and fluid restriction. Uterine patient condition was continuously monitored on telemetry. Due to PRITESH patient has been retaining CO2 chronically and advised to use BiPAP but patient refused many depth despite of explaining risks versus benefits. Eventually patient condition got better and in condition to be discharged home with health services For physical therapy. patient was advised about healthy lifestyle modifications including diet and exercise and medication adherence along with patient was advised to follow up with PCP, Cardiology after the discharge regularly. General Appearance: Alert, Oriented X3, Cooperative, Mild distress HEENT: Atraumatic, Mucous membranes moist/pink Respiratory: Mild crackles but improved Cardiovascular: Regular rate, Normal S1, Normal S2, No murmurs Abdominal: Active bowel sounds, Soft, no distention, no tenderness Extremities: Chronic venous stasis changes, normal pulses Skin: No Significant rash, except past surgical scars Neuro: Normal speech, sensorimotor deficits none Psych/Mental Status: Mental status NL, Mood NL Nurse was there as sharperone during examination Operations or Procedures US BiLat Lower DVT IMPRESSION: No right or left lower extremity deep venous thrombosis. CHEST RADIOGRAPH FINDINGS / IMPRESSION: Lungs: Pulmonary vascular congestion, peribronchial thickening, and mild perihilar opacity suggestive of mild pulmonary edema. Mild airspace consolidation noted at the right lung base. Pleura: No effusion. No pneumothorax. Cardiomediastinal contours: [id number] cardiomegaly. Condition at Discharge: Stable Final Diagnosis/Problems List Acute hypoxic respiratory failure likely due to acute exacerbation of COPD/pneumonia Acute exacerbation of COPD Acute pneumonia Gram-positive versus Gram-negative Acute exertional heart failure with preserved ejection fraction Hypertension Atrial fibrillation Bilateral leg swelling likely due to cellulitis Peripheral artery disease Leukocytosis likely from steroids use IAN likely due to VMN Hypokalemia Discharge Disposition: Home with Health Services Discharge Instruct/Medications Diet: Consistent carbohydrate, Cardiac 2g Na,low cholest Activity: No Restrictions, As Tolerated Follow Up/Referral: Discharge Clinic PCP Cardiology Medications: Lasix 40 mg once daily for 30 days Lexapro 5 mg once daily for 30 days Discharge Statement: "Patient was advised to return to the ER or call 911 if any headaches, dizziness, shortness of breath, chest pain, abdominal pain, bleeding, fevers, or worsening of medical condition. Patient was counseled about treatment plan, medications, possible side effects, patientverbalized understanding. All questions were answered to the best of my ability. This discharge took greater then 30 minutes in planning, reviewing documentation, counseling the patient, and discussing with other team members." ASSESSMENT ASSESSMENT Assessment Acute hypoxic respiratory failure likely due to acute exacerbation of COPD/pneumonia Acute exacerbation of COPD Acute pneumonia Gram-positive versus Gram-negative Acute exertional heart failure with preserved ejection fraction Hypertension Atrial fibrillation Bilateral leg swelling likely due to cellulitis Peripheral artery disease Leukocytosis likely from steroids use IAN likely due to VMN Hypokalemia KIZZY MONACO RESIDENT November 01, 2024 13:59
[2024-11-01] MEDS ORDERED: CEPH250C PO (16:56)
== END 2024-11-01 21:39 | disposition home health service (06) | DRG 720 ==
LOC: EDBD 19:54 → ER 19:54 → OVERFLOW 10-25 00:46 → TELE-WESTW 10-25 14:38
PROVIDERS: ADMIT Student in an Organized Health Care Education/Training Program; ATTEND Emergency Medicine
DX: A41.50 Gram-negative sepsis, unspecified (principal); J96.01 Acute respiratory failure with hypoxia; N17.0 Acute kidney failure with tubular necrosis; I50.33 Acute on chronic diastolic (congestive) heart failure; J15.69 Pneumonia due to other Gram-negative bacteria; J15.9 Unspecified bacterial pneumonia; I11.0 Hypertensive heart disease with heart failure; Z99.81 Dependence on supplemental oxygen; J44.1 Chronic obstructive pulmonary disease with (acute) exacerbation; I48.91 Unspecified atrial fibrillation; F17.210 Nicotine dependence, cigarettes, uncomplicated; I73.9 Peripheral vascular disease, unspecified; E87.6 Hypokalemia; J44.0 Chronic obstructive pulmonary disease with (acute) lower respiratory infection; L03.116 Cellulitis of left lower limb; L03.115 Cellulitis of right lower limb; Z63.4 Disappearance and death of family member
CPT/HCPCS: 36415; 36600; 71045; 80048; 80053; 81001; 82805; 83605; 83735; 83880; 84484; 85025; 93005; 93970; 94640; 96372; 96374; 96375; 97116; 97163; 97530; 99291; G0378; J2470

== ENCOUNTER 2024-11-16 20:00 | Inpatient (IN) | payer MEDICAID ==
[~2024-11-16] VITALS: Ht 170.2 cm; Wt 138.0 kg
[~2024-11-16 20:00] MED LIST changes: +AMLO1TAB23 PO; +CARV6.2551 PO; +CEPH250C PO; +ESCI5TAB PO; +FURO1TAB31 PO; -FURO20TA4 PO
--- NOTE | 2024-11-16 20:42 | ED.PDOC ---
SOB-HPI HPI Comments 59 year old female was BIBA with a prior Hx of Pneumonia, CHF, COPD, HTN, and A- Fib associated to the c/c of SOB. Pt states that her SOB was been onset for the past 3x days with no alleviating factors at this time. Pt states that she has recently been admitted to the hospital 1x week ago because of Pneumonia. Notes that pt was A-Fib upon arrival, and bilateral leg edema. Pt denies any other associated symptoms, modifiers, recent injuries or sick contacts present at this time. Chief Complaint: Shortness of Breath Time Seen by MD: 20:36 Reviewed notes: Nurses Notes, Liner Worker Notes, Medications, Allergies Information Source: Patient, Emergency Med Personnel Mode of Arrival: EMS Severity: Moderate Timing: Days Duration: Since onset, Days Context: At Rest PE Risk Factors: None History of: CHF Prehospital treatment: Oxygen Modifying Factors: Nothing Associated Signs and Symptoms: Chest Pain, Leg Swelling Radiation: No Radiation If cough with SOB: Non-Productive Past Medical History PAST MEDICAL HISTORY: AFIB, CHF, COPD, HTN Social History Smoker: Cigarettes Alcohol: Denies ETOH Use Drugs: Denies Drug Use Constitutional: denies: chills, diaphoresis, fatigue, fever, malaise, sweats, weakness, others EENTM: denies: blurred vision, double vision, ear bleeding, ear discharge, ear drainage, ear pain, ear ringing, eye pain, eye redness, hearing loss, mouth pain, mouth swelling, nasal discharge, nose bleeding, nose congestion, nose pain, photophobia, tearing, throat pain, throat swelling, voice changes, others Respiratory: reports: cough, SOB at rest, shortness of breath; denies: hemoptysis, orthopnea, SOB with excertion, stridor, wheezing, others Cardiovascular: denies: chest pain, dizzy spells, diaphoresis, Dyspnea on exertion, edema, irregular heart beat, left arm pain, lightheadedness, palpitations, PND, syncope, others Gastrointestinal: denies: abdomen distended, abdominal pain, blood streaked bowels, constipated, diarrhea, dysphagia, difficulty swallowing, hematemesis, melena, nausea, poor appetite, poor fluid intake, rectal bleeding, rectal pain, vomiting, others Genitourinary: denies: abnormal vagina bleeding, burning, dyspareunia, dysuria, flank pain, frequency, hematuria, incontinence, pain, , vagina disc harge, urgency, others Neurological: denies: dizziness, fainting, headache, left sided numbness, left sided weakness, numbness, paresthesia, pre-existing deficit, right sided numbness, right sided weakness, seizure, speech problems, tingling, tremors, weakness, others Musculoskeletal: denies: back pain, gout, joint pain, joint swelling, muscle pain, muscle stiffness, neck pain, others Integumetry: denies: bruises, change in color, change in hair/nails, dryness, laceration, lesions, lumps, rash, wounds, others Allergic/Immunocompromised: denies: Difficulty Healing, Frequent Infections, Hives, Itching, others Hematologic/Lymphatic: denies: anemia, blood clots, easy bleeding, easy bruising, swollen glands, others Endocrine: denies: excessive hunger, excessive sweating, excessive thirst, excessive urination, flushing, intolerance to cold, intolerance to heat, unexplained weight gain, unexplained weight loss, others Psychiatric: denies: anxiety, bipolar disorder, depression, hopeless, panic disorder, schizophrenia, sleepless, suicidal, others All Other Systems: Reviewed and Negative Physical Exam General Appearance: Normal, Obese HEENT: Normal ENT Inspection, TMs Normal Neck: Full Range of Motion, Normal Respiratory: Lungs Clear Cardiovascular: No Murmur, Normal Peripheral Pulses Breast Exam: Deferred Gastrointestinal: Non Tender, Soft Genitalia: Deferred Pelvic: Deferred Rectal: Deferred Extremities: Decreased range of motion, Leg edema Musculoskeletal : Apperance: Normal Neurologic: Alert, No Motor Deficits, Normal Mood Cerebellar Function: Normal Reflexes: Normal Skin: Dry, Normal Color, Warm Lymphatic: No Adenopathy Was a procedure done? Was a procedure done?: No Differential Dx Differential Diagnosis: Anxiety, Asthma, CHF, COPD, Dysrhythmia, Hypertension, Myocardial infarction, Pulmonary Embolism, Respiratory Distress, URI, Other X-Ray, Labs, Meds, VS Vital Signs Date Time Temp Pulse Resp B/P (MAP) Pulse Ox O2 Delivery O2 Flow Rate FiO2 11/16/24 22:43 113/68 11/16/24 20:21 99.4 117 26 147/80 (102) 95 99.4 11/16/24 20:21 108 Lab Test 11/16/24 21:56 11/16/24 21:00 Range/Units Troponin I High Sensitivity 6 5 </=34 ng/L White Blood Count 11.0 H 4.4-10.8 10^3/uL Red Blood Count 4.12 4.0-5.20 10^6/uL Hemoglobin 12.0 L 12.2-16.2 g/dL Hematocrit 37.0 36.0-46.0 % Mean Corpuscular Volume 89.8 80.0-100.0 fL Mean Corpuscular Hemoglobin 29.2 28.0-32.0 pg Mean Corpuscular Hemoglobin Concent 32.5 32.0-36.0 g/dL Red Cell Distribution Width 16.1 H 11.8-14.3 % Platelet Count 155 140-450 10^3/uL Mean Platelet Volume 9.1 6.9-10.8 fL Neutrophils (%) (Auto) 68.9 37.0-80.0 % Lymphocytes (%) (Auto) 19.0 10.0-50.0 % Monocytes (%) (Auto) 8.2 0.0-12.0 % Eosinophils (%) (Auto) 2.6 0.0-7.0 % Basophils (%) (Auto) 1.3 0.0-2.0 % Neutrophils # (Auto) 7.6 1.6-8.6 10 ^3/uL Lymphocytes # (Auto) 2.1 0.4-5.4 10 ^3/uL Monocytes # (Auto) 0.9 0-1.3 10 ^3/uL Eosinophils # (Auto) 0.3 0-0.8 10 ^3/uL Basophils # (Auto) 0.1 0-0.2 10 ^3/uL Nucleated Red Blood Cells 0.1 % Prothrombin Time 10.6 9.3-11.8 sec Prothrombin Time INR 1.00 0.9-1.15 Activated Partial Thromboplast Time 25.3 24.5-34.5 SEC Sodium Level 144 136-145 mmol/L Potassium Level 4.3 3.5-5.1 mmol/L Chloride Level 101 98-107 mmol/L Carbon Dioxide Level 35 H 20-31 mmol/L Anion Gap 8 5-15 Blood Urea Nitrogen 18 9-23 mg/dL Creatinine 0.92 0.550-1.02 mg/dL Glomerular Filtration Rate Calc 72 >90 mL/min BUN/Creatinine Ratio 19.6 10.0-20.0 Serum Glucose 105 74-106 mg/dL Lactic Acid Level 1.3 0.4-2.0 mmol/L Calcium Level 9.9 8.7-10.4 mg/dL Total Bilirubin 0.2 0.2-1.0 mg/dL Aspartate Amino Transferase (AST) 19 13-40 U/L Alanine Aminotransferase (ALT) 25 7-40 U/L Alkaline Phosphatase 115 46-116 U/L B-Type Natriuretic Peptide 162.58 0-100 pg/mL Total Protein 6.6 5.7-8.2 g/dL Albumin 4.0 3.2-4.8 g/dL Current Medications Medications (Trade) Dose Ordered Sig/Tod Route Start Time Stop Time Status Last Admin Aspirin 162 mg ONCE ONCE PO 11/16/24 22:30 11/16/24 22:31 DC 11/16/24 22:43 Furosemide (Lasix Injection) 40 mg ONCE ONCE IV 11/16/24 22:30 11/16/24 22:31 DC 11/16/24 22:43 PATIENT: MYESHA BAEZ ACCT: [id number] UNIT: [id number] : 1965 LOC: ER ROOM / BED: / AGE / SEX: 59 / F ADM STATUS: REG ER SERVICE 39 ORDERING PHYSICIAN: DHARA MCDERMOTT MD PROCEDURE(s): CXRP - CHEST PORTABLE REASON: SOB ORDER NUMBER(s): [id number], ACCESSION NUMBER(s): [id number] CHEST RADIOGRAPH Indication: SOB Technique: Single frontal view of the chest was obtained COMPARISON: XY CHEST PORTABLE on DOS: 10/24/24 FINDINGS / IMPRESSION: Lines and Tubes: None Lungs: Mild pulmonary vascular congestion, peribronchial thickening, and mild perihilar opacity suggestive of mild pulmonary edema. Mild airspace consolidation noted at the right lung base. Pleura: No effusion. No pneumothorax. Cardiomediastinal contours: [id number] cardiomegaly. No significant change compared to the prior chest x-ray from 10/24/24. Time of 1ST Reevaluation: 21:07 Reevaluation 1ST: Unchanged Patient Education/Counseling: Diagnosis, Treatment Family Education/Counseling: No Family Present Sepsis Sepsis Reasesment Focused Exam Orders: Laboratory Tests 11/16/24 21:00: Lactic Acid Level 1.3 Departure 1 Departure Time of Disposition: 23:02 Impression: Primary Impression: Acute exacerbation of congestive heart failure Additional Impressions: Acute respiratory failure Right lower lobe pneumonia COPD exacerbation Disposition: ADMITTED INPATIENT Condition: Guarded Discharged With: Self Comments Shortness of Breath in Patient with Multiple Comorbidities Chief Complaint: Shortness of breath History of Present Illness: 59-year-old female with a significant past medical history of atrial fibrillation, congestive heart failure (CHF), and COPD presents to the emergency department with complaints of shortness of breath. The patient is currently requiring supplemental oxygen and continues to experience dyspnea despite oxygen therapy. Review of Systems: Respiratory: Positive for shortness of breath Cardiovascular: Irregular heart rhythm All other systems: Deferred or negative Medications: Current medications not provided in tea room manager ED medications administered: - Aspirin - Lasix (Furosemide) - Rocephin (Ceftriaxone) - Azithromycin Allergies: No known allergies documented Past Medical History: 1. Atrial fibrillation 2. Congestive heart failure (CHF) 3. Chronic obstructive pulmonary disease (COPD) Physical Exam: RESPIRATORY: - Mildly diminished breath sounds in bilateral bases CARDIOVASCULAR: - Irregular irregularly irregular rhythm consistent with atrial fibrillation - Rate controlled Lab Results: WBC: 11, 000 (elevated) Chemistry Panel: - CO2: 35 (elevated) - Otherwise unremarkable BNP: 163 Troponin: 5 (normal) Imaging and Other Relevant Results: Chest X-ray: - Pulmonary vascular congestion - Signs of CHF - Right lower lobe and perihilar opacity concerning for pneumonia Medical Decision Making: Summary Statement: 59-year-old female with multiple comorbidities presenting with respiratory distress, found to have CHF exacerbation complicated by probable pneumonia and controlled atrial fibrillation. Problem List: 1. Respiratory failure 2. COPD exacerbation 3. CHF exacerbation 4. Right lower lobe pneumonia 5. Atrial fibrillation Differential Diagnosis: CHF exacerbation, COPD exacerbation, Community-acquired pneumonia, Pulmonary embolism, Acute coronary syndrome ED Course: Patient received supplemental oxygen, diuresis with Lasix, and broad- spectrum antibiotics (Rocephin and azithromycin). Despite interventions, patient continues to experience dyspnea requiring ongoing oxygen support. Assessment and Plan: 1. Respiratory Failure: - Requiring supplemental oxygen - Admit to hospital for close monitoring and management 2. COPD Exacerbation/CHF Exacerbation: - Started on diuretics (Lasix) - Continue current COPD medications - Monitor response to therapy 3. Right Lower Lobe Pneumonia: - Started on Rocephin and azithromycin - Monitor clinical response 4. Atrial Fibrillation: - Currently rate-controlled - Continue current rate control medications Disposition: Admit to hospital for management of respiratory failure and underlying conditions Billing Information: ICD-10: J96.21 - Acute and chronic respiratory failure ICD-10: J44.1 - COPD with acute exacerbation ICD-10: I50.9 - Heart failure, unspecified ICD-10: I48.91 - Unspecified atrial fibrillation ICD-10: J18.9 - Pneumonia, unspecified organism Critical Care Note Critical Care Time?: Yes (35 min-critical care time only) Critical care comment: Total critical care time: Approximately 36 minutes Due to a high probability of clinically significant, life threatening deterioration, the patient required my highest level of preparedness to intervene emergently and I personally spent this critical care time directly and personally managing the patient. This critical care time included obtaining a history; examining the patient; pulse oximetry; ordering and review of studies; arranging urgent treatment with development of a management plan; evaluation of patient's response to treatment; frequent reassessment; and, discussions with other providers. This critical care time was performed to assess and manage the high probability of imminent, life-threatening deterioration that could result in multi-organ failure. It was exclusive of separately billable procedures and treating other patients. Stability Stability form required: No Heart Score Heart Score: Heart Score Response (Comments) Value History Moderate Suspicious 1 EKG Repolarization Disturb 1 Age 45-64 1 Risk Factors 1 or 2 risk factors 1 Troponin Normal limit 0 Total 4 I personally scribed for DHARA MCDERMOTT MD ([email or web address]) on 11/16/24 at 20:42. Electronically submitted by Santiago Uribe ([email or web address]). I personally scribed for DHARA MCDERMOTT MD ([email or web address]) on 11/16/24 at 22:24. Electronically submitted by Santiago Uribe ([email or web address]). DHARA MCDERMOTT MD November 16, 2024 20:42
[2024-11-16 21:20] LABS: Basophils # (auto) 0.1 10 ^3/uL (0-0.2); Basophils % (auto) 1.3 % (0.0-2.0); Eosinophils # (auto) 0.3 10 ^3/uL (0-0.8); Eosinophils % (auto) 2.6 % (0.0-7.0); Lymphocytes # (auto) 2.1 10 ^3/uL (0.4-5.4); Mean Corpuscular Hemoglobin 29.2 pg (28.0-32.0); Mean Corpuscular Hgb Conc. 32.5 g/dL (32.0-36.0); Mean Corpuscular Volume 89.8 fL (80.0-100.0); Monocytes # (auto) 0.9 10 ^3/uL (0-1.3); Monocytes % (auto) 8.2 % (0.0-12.0); Neutrophils # (auto) 7.6 10 ^3/uL (1.6-8.6); Neutrophils % (auto) 68.9 % (37.0-80.0); Nucleated Red Blood Cells % 0.1 %; Platelet Count (auto) 155 10^3/uL (140-450); Red Blood Cells 4.12 10^6/uL (4.0-5.20); Red Cell Distribution Width 16.1 % (11.8-14.3)
[2024-11-16 21:34] LABS: Partial Thromboplastin Time 25.3 SEC (24.5-34.5); Prothrombin Time 10.6 sec (9.3-11.8)
[2024-11-16 21:38] LABS: Alanine Aminotransferase 25 U/L (7-40); Alkaline Phosphatase 115 U/L (46-116); Anion Gap 8 (5-15); Aspartate Aminotransferase 19 U/L (13-40); BUN/Creatinine Ratio 19.6 (10.0-20.0); Blood Urea Nitrogen 18 mg/dL (9-23); Calcium 9.9 mg/dL (8.7-10.4); Chloride 101 mmol/L (98-107); Glucose 105 mg/dL (74-106); Potassium 4.3 mmol/L (3.5-5.1); Sodium 144 mmol/L (136-145); Total Protein 6.6 g/dL (5.7-8.2)
--- NOTE | 2024-11-16 22:06 | DVH ---
CHEST RADIOGRAPH Indication: SOB Technique: Single frontal view of the chest was obtained COMPARISON: XY CHEST PORTABLE on DOS: 10/24/24 FINDINGS / IMPRESSION: Lines and Tubes: None Lungs: Mild pulmonary vascular congestion, peribronchial thickening, and mild perihilar opacity sugge stive of mild pulmonary edema. Mild airspace consolidation noted at the right lung base. Pleura: No effusion. No pneumothorax. Cardiomediastinal contours: [id number] cardiomegaly. No significant change compared to the prior chest x-ray from 10/24/24.
[2024-11-16] MEDS: ASPirin 81 mg TAB PO ONE (22:43)
[2024-11-16] MEDS: FUROSEMIDE 40 MG/4 ML VIAL IV ONE (22:43)
[2024-11-16 22:46] LABS: Bilirubin, Total 0.2 mg/dL (0.2-1.0); Carbon Dioxide 35 mmol/L (20-31)
[2024-11-16] MEDS: cefTRIAXone 1GM/50ML D5W 50 ML IV ONE (23:00)
[2024-11-16 23:41] LABS: Urine Bacteria None Seen /hpf (None Seen)
[2024-11-16] MEDS: LORazepam 0.5 MG TAB PO ONE (23:50)
--- NOTE | 2024-11-16 23:55 | DVHHP2 ---
History of Present Illness Reason for Visit: Acute exacerbation of congestive heart failure History of Present Illness The patient is a 59-year-old female with past medical history of pneumonia, hype rtension, COPD, CHF, and AFib who presented to [facility] ED with complaint of shortness of breaths. Patient reports she has been experiencing shortness of breaths for the past 3 days, nonproductive cough, increased work of breathing, getting worse today that prompted this visit. Patient was seen and evaluated in the ED, laboratory data shows WBC 11.0, platelets 155, sodium 144, potassium 4.3, BUN 18, creatinine 0.92, glucose 105, BNP 162.58, troponin 6, blood pressure 147/80, heart rate 108, temperature 99.4 F, O2 saturation 95% on oxygen. Chest x-ray revealing mild pulmonary vascular congestion, peribronchial thickening, and mild perihilar opacity suggestive of mild pulmonary edema; mild airspace consolidation noted at the right lung base, no pleural effusion or pneumothorax. Patient was started on IV antibiotic regimen azithromycin, IV Lasix, please see medication orders section in the computer. On my assessment, patient denies chest pain, no headache, no dizziness, currently on oxygen, no diaphoresis, no nausea, no vomiting, no fever, no chills. Patient was admitted for further evaluation and medical management. Past Medical History AFIB, CHF, COPD, HTN, Pneumonia Past Surgical History Denies all surgeries Family History Reviewed, noncontributory to the management of this case. Past Social History The patient lives at home, denies smoking, alcohol or illicit drugs abuse. Review of Systems Constitutional: No: Fever, Chills, Sweats, Weakness, Malaise, Other Eyes: No: Pain, Vision change, Conjunctivae inflammation, Eyelid inflammation, Other, Redness ENT: No: Ear pain, Ear discharge, Nose pain, Nose discharge, Nose congestion, Mouth pain, Mouth swelling, Throat pain, Throat swelling, Other Respiratory: Cough, Shortness of breath, Other (SOB at rest); No: Dry, SOB with excertion, Wheezing, Hemoptysis, Pleuritic Pain, Sputum, Wheezing Cardiovascular: No: Chest Pain, Palpitations, Orthopnea, Paroxysmal Noc. Dyspnea, Edema, Lt Headedness, Other Gastrointestinal: No: Nausea, Vomiting, Abdominal Pain, Diarrhea, Constipation, Melena, Hematochezia, Other Genitourinary: No Dysuria, No Frequency, No Incontinence, No Hematuria, No Retention, No Other Musculoskeletal: No: other, neck pain, shoulder pain, arm pain, back pain, hand pain, leg pain, foot pain Skin: No: Rash, Lesions, Jaundice, Bruising, Other Neurological: No: Weakness, Numbness, Incoordination, Change in speech, Confusion, Seizures, Other Allergies: Coded Allergies: NO KNOWN ALLERGIES (Unverified , 09/17/24) Exam Vital Signs Vital Signs Date Time Temp Pulse Resp B/P (MAP) Pulse Ox O2 Delivery O2 Flow Rate FiO2 11/16/24 22:43 113/68 11/16/24 20:21 99.4 117 26 95 99.4 General Appearance: Alert, Oriented X3, Cooperative, No acute distress HEENT: Atraumatic, PERRLA, EOMI, Mucous membr. moist/pink Respiratory: Normal air movement, Other (Congestion) Cardiovascular: Regular rate, Normal S1, Normal S2, No murmurs Abdominal: Normal bowel sounds, Soft, No tenderness, No hepatospenomegaly, No masses Extremities: No clubbing, No cyanosis, No edema, Normal pulses, No tenderness/swelling Skin: No rashes, No breakdown, No significant lesion Neuro: Normal gait, Normal speech, Strength at 5/5 X4 ext, Normal tone, Sensation intact, Cranial nerves 3-12 NL, Reflexes 2+ Psych/Mental Status: Mental status NL, Mood NL Labs/Xrays Labs Test 11/16/24 23:10 11/16/24 21:56 11/16/24 21:00 Range/Units Troponin I High Sensitivity 6 </=34 ng/L White Blood Count 11.0 H 4.4-10.8 10^3/uL Red Blood Count 4.12 4.0-5.20 10^6/uL Hemoglobin 12.0 L 12.2-16.2 g/dL Hematocrit 37.0 36.0-46.0 % Mean Corpuscular Volume 89.8 80.0-100.0 fL Mean Corpuscular Hemoglobin 29.2 28.0-32.0 pg Mean Corpuscular Hemoglobin Concent 32.5 32.0-36.0 g/dL Red Cell Distribution Width 16.1 H 11.8-14.3 % Platelet Count 155 140-450 10^3/uL Mean Platelet Volume 9.1 6.9-10.8 fL Neutrophils (%) (Auto) 68.9 37.0-80.0 % Lymphocytes (%) (Auto) 19.0 10.0-50.0 % Monocytes (%) (Auto) 8.2 0.0-12.0 % Eosinophils (%) (Auto) 2.6 0.0-7.0 % Basophils (%) (Auto) 1.3 0.0-2.0 % Neutrophils # (Auto) 7.6 1.6-8.6 10 ^3/uL Lymphocytes # (Auto) 2.1 0.4-5.4 10 ^3/uL Monocytes # (Auto) 0.9 0-1.3 10 ^3/uL Eosinophils # (Auto) 0.3 0-0.8 10 ^3/uL Basophils # (Auto) 0.1 0-0.2 10 ^3/uL Nucleated Red Blood Cells 0.1 % Prothrombin Time 10.6 9.3-11.8 sec Prothrombin Time INR 1.00 0.9-1.15 Activated Partial Thromboplast Time 25.3 24.5-34.5 SEC Sodium Level 144 136-145 mmol/L Potassium Level 4.3 3.5-5.1 mmol/L Chloride Level 101 98-107 mmol/L Carbon Dioxide Level 35 H 20-31 mmol/L Anion Gap 8 5-15 Blood Urea Nitrogen 18 9-23 mg/dL Creatinine 0.92 0.550-1.02 mg/dL Glomerular Filtration Rate Calc 72 >90 mL/min BUN/Creatinine Ratio 19.6 10.0-20.0 Serum Glucose 105 74-106 mg/dL Lactic Acid Level 1.3 0.4-2.0 mmol/L Calcium Level 9.9 8.7-10.4 mg/dL Total Bilirubin 0.2 0.2-1.0 mg/dL Aspartate Amino Transferase (AST) 19 13-40 U/L Alanine Aminotransferase (ALT) 25 7-40 U/L Alkaline Phosphatase 115 46-116 U/L B-Type Natriuretic Peptide 162.58 0-100 pg/mL Total Protein 6.6 5.7-8.2 g/dL Albumin 4.0 3.2-4.8 g/dL PATIENT: MYESHA BAEZ ACCT: [id number] UNIT: [id number] : 1965 LOC: ER ROOM / BED: / AGE / SEX: 59 / F ADM STATUS: REG ER SERVICE 39 ORDERING PHYSICIAN: DHARA MCDERMOTT MD PROCEDURE(s): CXRP - CHEST PORTABLE REASON: SOB ORDER NUMBER(s): [id number], ACCESSION NUMBER(s): [id number] CHEST RADIOGRAPH Indication: SOB Technique: Single frontal view of the chest was obtained COMPARISON: XY CHEST PORTABLE on DOS: 10/24/24 FINDINGS / IMPRESSION: Lines and Tubes: None Lungs: Mild pulmonary vascular congestion, peribronchial thickening, and mild perihilar opacity suggestive of mild pulmonary edema. Mild airspace consolidation noted at the right lung base. Pleura: No effusion. No pneumothorax. Cardiomediastinal contours: [id number] cardiomegaly. No significant change compared to the prior chest x-ray from 10/24/24. Assessment/Plan Assessment/Plan Acute exacerbation of congestive heart failure Acute respiratory failure Right lower lobe pneumonia COPD with acute exacerbation Plan 1. Admit to telemetry unit 2. Breathing treatment 3. Pain control management 4. IV antibiotic management 5. Management of fluids and electrolytes 6. Consultation for hospitalist 7. Diagnostic test chest x-ray 8. DVT prophylaxis-on Eliquis 9. Repeat labs CBC, CMP in a.m. 10. Home medication reviewed and reconciled 11. Continue with current medical management 12. Treatment plan discussed with patient and RN. Patient verbalized understanding. Plan discussed with: Patient, Other (RN) My Orders Orders - ED CHILDRESS DNP Procedure Category Date Status Time Ceftriaxone Ivpb PHA 11/17/24 Verified Rocephin 09:00 Azithromycin 500mg/ PHA 11/17/24 Verified 250ml (Zithromax 50 10:00 Famotidine Injection PHA 11/17/24 Verified (Pepcid Injection) 10:00 Furosemide Injection PHA 11/17/24 Verified (Lasix Injection) 10:00 Carvedilol Tablet PHA 11/17/24 Verified (Coreg Tablet) 10:00 Hydralazine Injection PHA 11/17/24 Verified (Apresoline Inject 00:00 Lorazepam 2mg/Ml Inj PHA 11/17/24 Verified (Ativan Inj) 00:00 Apixaban (Eliquis) PHA 11/17/24 Verified 10:00 Admit ADMIT 11/16/24 Verified 23:46 Allergies KAY 11/16/24 Verified 23:46 Code Status CODE 11/16/24 Verified 23:46 Sodium Chloride Lock PHA 11/17/24 Verified (Saline Lock Ns) 06:00 Oxygen Per Hour RT 11/16/24 Verified 23:46 Hydrocodone-Acet PHA 11/17/24 Verified 5/325mg Tab ([place] 00:00 Ondansetron Hcl PHA 11/17/24 Verified (Zofran) 00:00 Docusate Sodium PHA 11/17/24 Verified Capsule ([place] 00:00 Complete Blood Count LAB 11/17/24 Verified 04:00 Comprehensive LAB 11/17/24 Verified Metabolic Panel 04:00 Cardiac DIET 11/17/24 Verified Diet-2gna,Lofat,Lochol Breakfast Condition: Serious KAY 11/16/24 Verified 23:46 Acetaminophen Tablet PHA 11/17/24 Verified (Tylenol Tablet) 00:00 Bedrest With Bathroom KAY 11/16/24 Verified Privileg 23:46 Sequential [facility] 11/16/24 Verified Compression Device Nitroglycerin [facility] 11/17/24 Verified Sublingual (Ntrostat 00:00 Morphine Sulfate PHA 11/17/24 Verified Injection 00:00 Stat Ekg For Chest [facility] 11/16/24 Verified Pain 23:46 Notify Md Of Changes [facility] 11/16/24 Verified From Base 23:46 Hop Farmer For [facility] 11/16/24 Verified 24 Hours 23:46 Emergency Dysrhythmia [facility] 11/16/24 Verified Protocol 23:46 Rhythm Strips Once [facility] 11/16/24 Verified Every Shift 23:46 Oxygen By Nasal RT 11/16/24 Verified Cannula 23:46 Albuterol Medneb PHA 11/17/24 Verified (Ventolin Medneb) 00:00 Ipratropium Medneb PHA 11/17/24 Verified (Atrovent Medneb) 00:00 Problem List: (1) Acute exacerbation of congestive heart failure (2) Acute respiratory failure (3) Right lower lobe pneumonia (4) COPD with acute exacerbation Date of Service: November 16, 2024 Billing Provider: ED CHILDRESS DNP Common Visit Codes: [id number] INP/OBS CARE (HIGH) ED CHILDRESS DNP November 16, 2024 23:55
[2024-11-16 23:57] LABS: Urine Blood Negative /uL (Negative); Urine Clarity Clear (Clear); Urine Color Light-Yellow (Yellow); Urine Protein, UAD Negative (Negative); Urine Squamous Epithelial Cell FEW /hpf (<5); Urine Urobilinogen Normal (Negative); Urine WBC 1 /HPF (0-5); Urine pH 6.5 (5.0-9.0)
[2024-11-17] VITALS (15 sets, daily range): BP systolic 139–147; BP diastolic 80–91; PULSE 88–120; RESP 18–26; TEMP 98.8–99.4; O2SAT 93–100
[2024-11-17] MEDS ORDERED: DOCUSATE SOD 100 MG CAP PO PRN
[2024-11-17] MEDS ORDERED: NITROGLYCERIN 0.4 MG SL TAB SL PRN
[2024-11-17] MEDS ORDERED: MORPHINE SULFATE INJ 2 MG/ml SYRG IV PRN
[2024-11-17] MEDS ORDERED: ONDANSETRON HCL 4 MG/2 ML VIAL IV PRN
[2024-11-17] MEDS: AZITHROMYCIN 500MG/ 250ML 250 ML IV ONE (00:07)
[2024-11-17] MEDS: IPRATROPIUM BROM 0.5 MG/2.5ML INH SOL NEB PRN (01:55)
[2024-11-17] MEDS: ALBUTEROL SULF 2.5 MG/0.5ML(0.5%) NEB SOLN NEB PRN (01:56)
[2024-11-17] MEDS: HYDROcodone-ACET 5/325MG TAB PO PRN (03:12)
--- NOTE | 2024-11-17 04:37 | ECG ---
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
[2024-11-17 05:14] LABS: Basophils # (auto) 0.1 10 ^3/uL (0-0.2); Basophils % (auto) 0.9 % (0.0-2.0); Eosinophils # (auto) 0.3 10 ^3/uL (0-0.8); Eosinophils % (auto) 3.2 % (0.0-7.0); Hematocrit 35.6 % (36.0-46.0); Hemoglobin 11.5 g/dL (12.2-16.2); Lymphocytes # (auto) 2.4 10 ^3/uL (0.4-5.4); Lymphocytes % (auto) 23.8 % (10.0-50.0); Mean Corpuscular Hemoglobin 29.2 pg (28.0-32.0); Mean Corpuscular Hgb Conc. 32.3 g/dL (32.0-36.0); Mean Corpuscular Volume 90.7 fL (80.0-100.0); Monocytes % (auto) 10.3 % (0.0-12.0); Neutrophils # (auto) 6.2 10 ^3/uL (1.6-8.6); Neutrophils % (auto) 61.8 % (37.0-80.0); Platelet Count (auto) 152 10^3/uL (140-450); Red Blood Cells 3.92 10^6/uL (4.0-5.20); Red Cell Distribution Width 15.7 % (11.8-14.3)
[2024-11-17 05:34] LABS: Alanine Aminotransferase 21 U/L (7-40); Albumin 3.8 g/dL (3.2-4.8); Alkaline Phosphatase 100 U/L (46-116); Anion Gap 8 (5-15); Aspartate Aminotransferase 14 U/L (13-40); BUN/Creatinine Ratio 22.4 (10.0-20.0); Blood Urea Nitrogen 19 mg/dL (9-23); Calcium 9.6 mg/dL (8.7-10.4); Chloride 100 mmol/L (98-107); Potassium 3.7 mmol/L (3.5-5.1); Sodium 143 mmol/L (136-145); Total Protein 6.2 g/dL (5.7-8.2)
[2024-11-17 05:35] LABS: Bilirubin, Total 0.3 mg/dL (0.2-1.0)
[2024-11-17 05:44] LABS: Carbon Dioxide 35 mmol/L (20-31); Glucose 106 mg/dL (74-106)
[2024-11-17] MEDS: SODIUM CHLOR 0.9% PF (SALINE LOCK) 10ML VIAL/SYR IV SCH (06:00)
[2024-11-17] MEDS: LORazepam 2MG/ML-1ML VIAL IV PRN (06:32)
[2024-11-17] MEDS: FUROSEMIDE 40 MG/4 ML VIAL IV SCH (09:26)
[2024-11-17] MEDS: FAMOTIDINE (10MG/ML) 2ML VL IV SCH (09:27)
[2024-11-17] MEDS: CARVEDILOL 3.125 MG TAB PO SCH (09:27)
[2024-11-17] MEDS: APIXABAN 5 MG TAB PO SCH (09:27)
--- NOTE | 2024-11-17 17:59 | DVHPN2 ---
Subjective I am assuming the care of the patient from today onwards. Patient complaining of shortness of breaths on exertion. Reviewed: Care Plan Changes from previous H/P or p: No Changes Eyes: No Pain, No Vision change, No Conjunctivae inflammation, No Eyelid inflammation, No Other, No Redness ENT: No Ear pain, No Ear discharge, No Nose pain, No Nose discharge, No Nose congestion, No Mouth pain, No Mouth swelling, No Throat pain, No Throat swelling, No Other Cardiovascular: No Chest Pain, No Palpitations, No Orthopnea, No Paroxysmal Noc. Dyspnea, No Edema, No Lt Headedness, No Other Respiratory: Cough; No Dry; Shortness of breath; No SOB with excertion, No Wheezing, No Hemoptysis, No Pleuritic Pain, No Sputum; Other (SOB at rest) Gastrointestinal: No Nausea, No Vomiting, No Abdominal Pain, No Diarrhea, No Constipation, No Melena, No Hematochezia, No Other Genitourinary: No Dysuria, No Frequency, No Incontinence, No Hematuria, No Retention, No Other Musculoskeletal: No other, No neck pain, No shoulder pain, No arm pain, No back pain, No hand pain, No leg pain, No foot pain Skin: No Rash, No Lesions, No Jaundice, No Bruising, No Other Objective Vitals Vital Signs Date Time Temp Pulse Resp B/P (MAP) Pulse Ox O2 Delivery O2 Flow Rate FiO2 11/17/24 16:00 114 11/17/24 14:01 15 116/70 (85) 100 11/17/24 12:00 98.2 98.2 11/17/24 08:26 Nasal Cannula* 4 36 Exam HEENT pupils are reactive Neck is supple CV is S1-S2 regular rate and rhythm Respiratory diminished breath sound bases GI posterior bowel sound Extremity trace edema [employer] no motor deficit Bilateral lower extremity chronic leg inflammation/cellulitis Medications Current Medications Medications Dose Ordered Sig/Tod Route Start Time Stop Time Status Last Admin Dose Admin Ceftriaxone Sodium 50 ml @ 100 mls/hr DAILY@09 IV 11/18/24 09:00 Azithromycin 250 ml @ 125 mls/hr DAILY IV 11/18/24 10:00 Famotidine 20 mg DAILY IV 11/17/24 10:00 11/17/24 09:27 20 MG Furosemide 40 mg DAILY IV 11/17/24 10:00 11/17/24 09:26 40 MG Carvedilol 3.125 mg Q12HR PO 11/17/24 10:00 11/17/24 09:27 3.125 MG Hydralazine HCl 10 mg Q6HP PRN IV 11/17/24 00:00 Lorazepam 0.5 mg Q8HP PRN IV 11/17/24 00:00 11/17/24 06:32 0.5 MG Apixaban 5 mg BID PO 11/17/24 10:00 11/17/24 09:27 5 MG Sodium Chloride 10 ml Q8HR IV 11/17/24 06:00 11/17/24 14:05 10 ML Acetaminophen/ Hydrocodone Bitart 1 tab Q4HP PRN PO 11/17/24 00:00 11/17/24 11:38 1 TAB Ondansetron HCl 4 mg Q4HP PRN IV 11/17/24 00:00 Docusate Sodium 100 mg BIDPRN PRN PO 11/17/24 00:00 Acetaminophen 650 mg Q6HP PRN PO 11/17/24 00:00 Nitroglycerin 0.4 mg Q5MINP PRN SL 11/17/24 00:00 Morphine Sulfate 2 mg Q30M PRN IV 11/17/24 00:00 Albuterol 2.5 mg Q4HPRN PRN NEB 11/17/24 00:00 11/17/24 06:40 2.5 MG Ipratropium [place] 0.5 mg Q4HPRN PRN NEB 11/17/24 00:00 11/17/24 06:40 0.5 MG Laboratory Results Laboratory Tests 11/17/24 04:58 Chemistry Test 11/16/24 21:00 11/17/24 04:58 Albumin 4.0 g/dL (3.2-4.8) 3.8 g/dL (3.2-4.8) Calcium Level 9.9 mg/dL (8.7-10.4) 9.6 mg/dL (8.7-10.4) Total Protein 6.6 g/dL (5.7-8.2) 6.2 g/dL (5.7-8.2) Coagulation Test 11/16/24 21:00 Prothrombin Time 10.6 sec (9.3-11.8) Prothrombin Time INR 1.00 (0.9-1.15) Activated Partial Thromboplast Time 25.3 SEC (24.5-34.5) Cardiac Markers Test 11/16/24 21:00 B-Type Natriuretic Peptide 162.58 pg/mL (0-100) LFT Test 11/16/24 21:00 11/17/24 04:58 Alanine Aminotransferase (ALT) 25 U/L (7-40) 21 U/L (7-40) Alkaline Phosphatase 115 U/L (46-116) 100 U/L (46-116) Aspartate Amino Transferase (AST) 19 U/L (13-40) 14 U/L (13-40) Total Bilirubin 0.2 mg/dL (0.2-1.0) 0.3 mg/dL (0.2-1.0) Urinalysis Test 11/16/24 23:10 Urine Color Light-yellow (Yellow) Urine Clarity Clear (Clear) Urine pH 6.5 (5.0-9.0) Urine Specific [place] 1.010 (1.001-1.035) Urine Protein Negative (Negative) Urine Ketones Negative (Negative) Urine Blood Negative /uL (Negative) Urine Nitrite Negative (Negative) Urine Bilirubin Negative (Negative) Urine Urobilinogen Normal mg/dL (Negative) Urine Leukocyte Esterase Negative /uL (Negative) Urine RBC 1 /hpf (0 - 4) Urine Microscopic WBC 1 /HPF (0-5) Urine Squamous Epithelial Cells Few /hpf (<5) Urine Bacteria None seen /hpf (None Seen) Urine Glucose Normal mg/dL (Normal) Assessment/Plan Assessment/Plan 59-year-old female with a known history of chronic AFib, hypertension, COPD, presented to the hospital with shortness breath found to have 1. Acute hypoxic respiratory failure secondary to COPD exacerbation/CHF exacerbation/pneumonia 2. Acute CHF exacerbation unspecified 3. Suspected pneumonia 4. Acute COPD exacerbation 5. Morbid obesity classII -continue med nebs, O2 supplementation, IV antibiotics, we will get 2D echo and cardiology consultation Plan discussed with: Patient Date of Service: November 17, 2024 Billing Provider: NEVIN ALLEN MD Common Visit Codes: [id number] INP/OBS CARE(MOD) NEVIN ALLEN MD November 17, 2024 17:59
[2024-11-17] MEDS: NICOTINE 14 MG/24HR TOPICAL PATCH TD ONE (22:51)
[2024-11-17] MEDS: ACETAMINOPHEN 325 MG TAB PO PRN (22:57)
[2024-11-18] VITALS (15 sets, daily range): BP systolic 93–151; BP diastolic 80–127; PULSE 82–124; RESP 18–22; TEMP 97.4–98.5; O2SAT 93–100
[2024-11-18] MEDS: cefTRIAXone 1GM/50ML D5W 50 ML IV SCH (08:31)
[2024-11-18] MEDS: AZITHROMYCIN 500MG/ 250ML 250 ML IV SCH (10:29)
--- NOTE | 2024-11-18 15:52 | DVHPN2 ---
Subjective Patient is still complaining of generalized weakness and shortness of breaths. Reviewed: Care Plan Changes from previous H/P or p: No Changes Eyes: No Pain, No Vision change, No Conjunctivae inflammation, No Eyelid inflammation, No Other, No Redness ENT: No Ear pain, No Ear discharge, No Nose pain, No Nose discharge, No Nose congestion, No Mouth pain, No Mouth swelling, No Throat pain, No Throat swelling, No Other Cardiovascular: No Chest Pain, No Palpitations, No Orthopnea, No Paroxysmal Noc. Dyspnea, No Edema, No Lt Headedness, No Other Respiratory: Cough; No Dry; Shortness of breath; No SOB with excertion, No Wheezing, No Hemoptysis, No Pleuritic Pain, No Sputum; Other (SOB at rest) Gastrointestinal: No Nausea, No Vomiting, No Abdominal Pain, No Diarrhea, No Constipation, No Melena, No Hematochezia, No Other Genitourinary: No Dysuria, No Frequency, No Incontinence, No Hematuria, No Retention, No Other Musculoskeletal: No other, No neck pain, No shoulder pain, No arm pain, No back pain, No hand pain, No leg pain, No foot pain Skin: No Rash, No Lesions, No Jaundice, No Bruising, No Other Objective Vitals Vital Signs Date Time Temp Pulse Resp B/P (MAP) Pulse Ox O2 Delivery O2 Flow Rate FiO2 11/18/24 13:00 97.4 92 20 131/92 (105) 97 97.4 11/18/24 06:35 Nasal Cannula 3.0 11/18/24 06:35 28 Intake/Output Intake and Output 11/18/24 07:00 Intake Total 480 ml Balance 480 ml Intake Oral 480 ml # Voids 2 Exam HEENT pupils are reactive Neck is supple CV is S1-S2 regular rate and rhythm Respiratory diminished breath sound bases GI posterior bowel sound 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 Bilateral lower extremity chronic leg inflammation/cellulitis Medications Current Medications Medications Dose Ordered Sig/Tod Route Start Time Stop Time Status Last Admin Dose Admin Ceftriaxone Sodium 50 ml @ 100 mls/hr DAILY@09 IV 11/18/24 09:00 11/18/24 08:31 100 MLS/HR Azithromycin 250 ml @ 125 mls/hr DAILY IV 11/18/24 10:00 11/18/24 10:29 125 MLS/HR Famotidine 20 mg DAILY IV 11/17/24 10:00 11/18/24 10:29 20 MG Furosemide 40 mg DAILY IV 11/17/24 10:00 11/18/24 10:29 40 MG Carvedilol 3.125 mg Q12HR PO 11/17/24 10:00 11/18/24 10:30 3.125 MG Hydralazine HCl 10 mg Q6HP PRN IV 11/17/24 00:00 Lorazepam 0.5 mg Q8HP PRN IV 11/17/24 00:00 11/17/24 18:45 0.5 MG Apixaban 5 mg BID PO 11/17/24 10:00 11/18/24 10:30 5 MG Sodium Chloride 10 ml Q8HR IV 11/17/24 06:00 11/17/24 22:49 10 ML Acetaminophen/ Hydrocodone Bitart 1 tab Q4HP PRN PO 11/17/24 00:00 11/17/24 11:38 1 TAB Ondansetron HCl 4 mg Q4HP PRN IV 11/17/24 00:00 Docusate Sodium 100 mg BIDPRN PRN PO 11/17/24 00:00 Acetaminophen 650 mg Q6HP PRN PO 11/17/24 00:00 11/17/24 22:57 650 MG Nitroglycerin 0.4 mg Q5MINP PRN SL 11/17/24 00:00 Morphine Sulfate 2 mg Q30M PRN IV 11/17/24 00:00 Albuterol 2.5 mg Q4HPRN PRN NEB 11/17/24 00:00 11/18/24 06:31 2.5 MG Ipratropium [place] 0.5 mg Q4HPRN PRN NEB 11/17/24 00:00 11/18/24 06:31 0.5 MG Laboratory Results Laboratory Tests 11/17/24 04:58 Urinalysis Test 11/16/24 23:10 Urine Color Light-yellow (Yellow) Urine Clarity Clear (Clear) Urine pH 6.5 (5.0-9.0) Urine Specific [place] 1.010 (1.001-1.035) Urine Protein Negative (Negative) Urine Ketones Negative (Negative) Urine Blood Negative /uL (Negative) Urine Nitrite Negative (Negative) Urine Bilirubin Negative (Negative) Urine Urobilinogen Normal mg/dL (Negative) Urine Leukocyte Esterase Negative /uL (Negative) Urine RBC 1 /hpf (0 - 4) Urine Microscopic WBC 1 /HPF (0-5) Urine Squamous Epithelial Cells Few /hpf (<5) Urine Bacteria None seen /hpf (None Seen) Urine Glucose Normal mg/dL (Normal) Microbiology Microbiology Date/Time Source Procedure Growth Status 11/17/24 18:19 Nose MRSA Screen - Final Complete 11/16/24 21:00 Blood Blood Culture - Preliminary NO GROWTH AFTER 24 HOURS OF INCUBATION. Resulted Assessment/Plan Assessment/Plan 59-year-old female with a known history of chronic AFib, hypertension, COPD, presented to the hospital with shortness breath found to have 1. Acute hypoxic respiratory failure secondary to COPD exacerbation/CHF exacerbation/pneumonia 2. Acute CHF exacerbation unspecified 3. Suspected pneumonia 4. Acute COPD exacerbation 5. Morbid obesity classII -continue med nebs, O2 supplementation, IV antibiotics, add IV Solu-Medrol. we will get 2D echo and cardiology consultation. Plan discussed with: Patient My Orders Orders - NEVIN ALLEN MD Procedure Category Date Status Time * Cardiology Consult CONS 11/17/24 Transmitted 17:56 Communication Order ORDERS 11/17/24 Transmitted 17:59 Date of Service: November 18, 2024 Billing Provider: NEVIN ALLEN MD Common Visit Codes: [id number] INP/OBS CARE(MOD) NEVIN ALLEN MD November 18, 2024 15:52
[2024-11-18] MEDS: methylPREDNISolone SOD SUCC 40 MG/ML VL IV SCH (17:17)
[2024-11-18] MEDS: methylPREDNISolone SOD SUCC 40 MG/ML VL ONE (17:28)
[2024-11-18] MEDS: FUROSEMIDE 100 MG/10ML VIAL IV ONE (17:30)
[2024-11-18] MEDS: FUROSEMIDE INJECTION 10 ML ONE (17:54)
--- NOTE | 2024-11-18 18:02 | DVH ---
CHEST RADIOGRAPH Indication: SOB Technique: Single frontal view of the chest was obtained Comparison: XY CHEST PORTABLE on DOS: 11/16/24, XY CHEST PORTABLE on DOS: 10/24/24, XY CHEST PORTABLE on DOS: 09/28/24 FINDINGS: Lines and Tubes: None Lungs: Interstitial opacities of bilateral lungs with subtle right mid and lower lung zone consolidat ion. Pleura: No effusion. No pneumothorax. Cardiomediastinal contours: Moderate cardiomegaly Bones: No acute osseous abnormality. IMPRESSION: Cardiomegaly with findings suggestive of congestive heart failure. Underlying right mid and lower charo g zone pneumonia can not excluded.
[2024-11-18 18:13] LABS: Basophils # (auto) 0.1 10 ^3/uL (0-0.2); Basophils % (auto) 0.9 % (0.0-2.0); Eosinophils # (auto) 0.3 10 ^3/uL (0-0.8); Eosinophils % (auto) 2.9 % (0.0-7.0); Hematocrit 37.5 % (36.0-46.0); Hemoglobin 12.4 g/dL (12.2-16.2); Lymphocytes # (auto) 2.3 10 ^3/uL (0.4-5.4); Lymphocytes % (auto) 21.6 % (10.0-50.0); Mean Corpuscular Hemoglobin 29.9 pg (28.0-32.0); Mean Corpuscular Volume 90.5 fL (80.0-100.0); Monocytes # (auto) 0.9 10 ^3/uL (0-1.3); Monocytes % (auto) 8.3 % (0.0-12.0); Neutrophils # (auto) 7.2 10 ^3/uL (1.6-8.6); Neutrophils % (auto) 66.3 % (37.0-80.0); Nucleated Red Blood Cells % 0.1 %; Platelet Count (auto) 194 10^3/uL (140-450); Red Blood Cells 4.14 10^6/uL (4.0-5.20); Red Cell Distribution Width 15.7 % (11.8-14.3); White Blood Cell 10.8 10^3/uL (4.4-10.8)
[2024-11-18 19:19] LABS: Anion Gap 7 (5-15)
[2024-11-18 19:24] LABS: Calcium 9.8 mg/dL (8.7-10.4); Carbon Dioxide 37 mmol/L (20-31); Chloride 98 mmol/L (98-107); Potassium 3.7 mmol/L (3.5-5.1); Sodium 142 mmol/L (136-145)
[2024-11-18 19:30] LABS: BUN/Creatinine Ratio 22.4 (10.0-20.0); Glucose 97 mg/dL (74-106)
[2024-11-18 19:31] LABS: Blood Urea Nitrogen 19 mg/dL (9-23)
[2024-11-18 20:10] LABS: Base Excess 8.7 mmol/L (-2.0-3.0)
[2024-11-18] MEDS: NICOTINE 14 MG/24HR TOPICAL PATCH TD ONE (23:10)
[2024-11-19] VITALS (14 sets, daily range): BP systolic 130–152; BP diastolic 79–101; PULSE 77–122; RESP 18–22; TEMP 97.4–98.2; O2SAT 93–98
--- NOTE | 2024-11-19 15:08 | DVHPN2 ---
Subjective Patient is still complaining of generalized weakness and shortness of breaths. Reviewed: Care Plan Changes from previous H/P or p: No Changes Eyes: No Pain, No Vision change, No Conjunctivae inflammation, No Eyelid inflammation, No Other, No Redness ENT: No Ear pain, No Ear discharge, No Nose pain, No Nose discharge, No Nose congestion, No Mouth pain, No Mouth swelling, No Throat pain, No Throat swelling, No Other Cardiovascular: No Chest Pain, No Palpitations, No Orthopnea, No Paroxysmal Noc. Dyspnea, No Edema, No Lt Headedness, No Other Respiratory: Cough; No Dry; Shortness of breath; No SOB with excertion, No Wheezing, No Hemoptysis, No Pleuritic Pain, No Sputum; Other (SOB at rest) Gastrointestinal: No Nausea, No Vomiting, No Abdominal Pain, No Diarrhea, No Constipation, No Melena, No Hematochezia, No Other Genitourinary: No Dysuria, No Frequency, No Incontinence, No Hematuria, No Retention, No Other Musculoskeletal: No other, No neck pain, No shoulder pain, No arm pain, No back pain, No hand pain, No leg pain, No foot pain Skin: No Rash, No Lesions, No Jaundice, No Bruising, No Other Objective Vitals Vital Signs Date Time Temp Pulse Resp B/P (MAP) Pulse Ox O2 Delivery O2 Flow Rate FiO2 11/19/24 13:52 98.2 87 22 150/91 (110) 94 98.2 11/19/24 08:00 Nasal Cannula* 5 40 Intake/Output Intake and Output 11/19/24 07:00 Intake Total 1840 ml Output Total 5155 ml Balance -3315 ml Intake Oral 1540 ml IV Total 300 ml Output Urine Total 5150 ml Stool Total 5 ml Exam HEENT pupils are reactive Neck is supple CV is S1-S2 regular rate and rhythm Respiratory diminished breath sound bases GI posterior bowel sound Extremity trace 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 Bilateral lower extremity chronic leg inflammation/cellulitis Medications Current Medications Medications Dose Ordered Sig/Tod Route Start Time Stop Time Status Last Admin Dose Admin Ceftriaxone Sodium 50 ml @ 100 mls/hr DAILY@09 IV 11/18/24 09:00 11/19/24 09:57 100 MLS/HR Azithromycin 250 ml @ 125 mls/hr DAILY IV 11/18/24 10:00 11/19/24 13:28 125 MLS/HR Famotidine 20 mg DAILY IV 11/17/24 10:00 11/19/24 09:58 20 MG Furosemide 40 mg DAILY IV 11/17/24 10:00 11/19/24 09:58 40 MG Carvedilol 3.125 mg Q12HR PO 11/17/24 10:00 11/19/24 09:59 3.125 MG Hydralazine HCl 10 mg Q6HP PRN IV 11/17/24 00:00 Lorazepam 0.5 mg Q8HP PRN IV 11/17/24 00:00 11/19/24 10:00 0.5 MG Apixaban 5 mg BID PO 11/17/24 10:00 11/19/24 09:59 5 MG Sodium Chloride 10 ml Q8HR IV 11/17/24 06:00 11/19/24 13:28 10 ML Acetaminophen/ Hydrocodone Bitart 1 tab Q4HP PRN PO 11/17/24 00:00 11/19/24 14:10 1 TAB Ondansetron HCl 4 mg Q4HP PRN IV 11/17/24 00:00 Docusate Sodium 100 mg BIDPRN PRN PO 11/17/24 00:00 Acetaminophen 650 mg Q6HP PRN PO 11/17/24 00:00 11/17/24 22:57 650 MG Nitroglycerin 0.4 mg Q5MINP PRN SL 11/17/24 00:00 Morphine Sulfate 2 mg Q30M PRN IV 11/17/24 00:00 Albuterol 2.5 mg Q4HPRN PRN NEB 11/17/24 00:00 11/18/24 17:59 2.5 MG Ipratropium [place] 0.5 mg Q4HPRN PRN NEB 11/17/24 00:00 11/18/24 17:59 0.5 MG Methylprednisolone Sodium Succinate 40 mg Q8HR IV 11/18/24 16:00 11/19/24 13:28 40 MG Laboratory Results Laboratory Tests 11/18/24 17:34 11/18/24 18:59 Chemistry Test 11/18/24 18:59 Calcium Level 9.8 mg/dL (8.7-10.4) Urinalysis Test 11/16/24 23:10 Urine Color Light-yellow (Yellow) Urine Clarity Clear (Clear) Urine pH 6.5 (5.0-9.0) Urine Specific [place] 1.010 (1.001-1.035) Urine Protein Negative (Negative) Urine Ketones Negative (Negative) Urine Blood Negative /uL (Negative) Urine Nitrite Negative (Negative) Urine Bilirubin Negative (Negative) Urine Urobilinogen Normal mg/dL (Negative) Urine Leukocyte Esterase Negative /uL (Negative) Urine RBC 1 /hpf (0 - 4) Urine Microscopic WBC 1 /HPF (0-5) Urine Squamous Epithelial Cells Few /hpf (<5) Urine Bacteria None seen /hpf (None Seen) Urine Glucose Normal mg/dL (Normal) Blood Gas Results Test 11/18/24 17:35 Arterial Blood pH 7.416 (7.350-7.450) FiO2 % 50.0 Microbiology Microbiology Date/Time Source Procedure Growth Status 11/17/24 18:19 Nose MRSA Screen - Final Complete 11/16/24 21:00 Blood Blood Culture - Preliminary NO GROWTH AFTER 48 HOURS OF INCUBATION. Resulted Assessment/Plan Assessment/Plan 59-year-old female with a known history of chronic AFib, hypertension, COPD, presented to the hospital with shortness breath found to have 1. Acute hypoxic respiratory failure secondary to COPD exacerbation/CHF exacerbation/pneumonia 2. Acute CHF exacerbation unspecified 3. Suspected pneumonia 4. Acute COPD exacerbation 5. Morbid obesity classII -continue med nebs, O2 supplementation, IV antibiotics, add IV Solu-Medrol. we will get 2D echo and cardiology consultation. -social service consultation for group home facility placement. Plan discussed with: Patient My Orders Orders - NEVIN ALLEN MD Procedure Category Date Status Time Methylprednisolone PHA 11/18/24 In Process Sod Succ (Solu Medrol 16:00 Pt Request For Service PT 11/19/24 Logged 14:21 Date of Service: November 19, 2024 Billing Provider: NEVIN ALLEN MD Common Visit Codes: [id number] INP/OBS CARE(MOD) NEVIN ALLEN MD November 19, 2024 15:08
--- NOTE | 2024-11-19 19:14 | DVHCONRES ---
Date Seen: November 19, 2024 Resident Creating Document: PARMINDER DOUGLASS RESIDENT Referring Physician Dr Jha Reason for Consultation Congestive heart Failure History of Present Illness Old female who has past medical history of hypertension, COPD, on 3 L of oxygen at home, atrial fibrillation, peripheral arterial disease and CHF presented with complaints of generalized body swelling, pedal edema and shortness of breath for last three days. Patient mentioned that patient gets shortness of breath on minimal activity correlating to NYHA class III on most of the days, but for last three days she is getting shortness of breath on rest. She also mentioned gen eralized body swelling has worsened for last 3 days, associated with chest pressure in the left side. On presenting in the ER patient was treated with IV diuretics. She is currently on 2 L of oxygen through nasal cannula. Patient denied any palpitations, nausea, vomiting, diarrhea. Patient mentioned that she had a stress test done in [place] three years ago for which she does not remember the results was mentioned did not have any significant ischemic results. Last echocardiogram was done in September 17 which showed 60% ejection fraction. Past medical history hypertension, COPD, on 3 L of oxygen at home, atrial fibrillation, peripheral arterial disease and CHF Past surgical history Denied Social history Quit smoking four years ago, smoked for 35 years half pack every day Patient was taking methamphetamine for 30 years, quit four years ago Denied alcohol and marijuana intake Family History: FH: liver cancer G8 MOTHER, Allergies: Coded Allergies: NO KNOWN ALLERGIES (Unverified , 09/17/24) Home Meds Active Scripts Cephalexin (KEFLEX CAPSULE) 250 Mg Cp, 500 MG PO BID for 7 Days, #14 CAP Prov:KIZZY MONACO RESIDENT 11/01/24 Escitalopram Oxalate (Lexapro) 5 Mg Tab, 1 TAB PO DAILY for 30 Days, #30 TAB 1 Refill Prov:KIZZY MONACO RESIDENT 11/01/24 Furosemide (Lasix) 40 Mg Tab, 40 MG PO DAILY for 30 Days, #30 TAB Prov:KIZZY MONACO RESIDENT 11/01/24 Reported Medications Amlodipine Besylate (Amlodipine Besylate) 10 Mg Tab, 1 TAB PO DAILY for 30 Days, #30 11/18/24 Carvedilol (Carvedilol) 6.25 Mg Tab, 1 TAB PO BID for 30 Days, #60 11/18/24 Levofloxacin Hemihydrate (LEVAQUIN 500 MG) 500 Mg Tab, 1 TAB PO DAILY for 30 Days, #30 11/18/24 Albuterol Sulfate (Albuterol Sulfate) 0.083 % Neb, 1 VIAL NEB TID for 90 Days, #810 09/18/24 Hydralazine Hcl (Hydralazine Hcl) 25 Mg Tab, 1 TAB PO BID for 90 Days, #180 09/18/24 Apixaban Base (ELIQUIS) 5 Mg Tab, 1 TAB PO BID 09/17/24 Famotidine (Famotidine) 20 Mg Tab, 1 TAB PO BID 09/17/24 Clonidine Hydrochloride (Clonidine Hcl) 0.1 Mg Tab, 1 TAB PO DAILY for 90 Days, #90 09/17/24 Hctz (Hydrochlorothiazide) 25 Mg Tab, 1 TAB PO DAILY for 90 Days, #90 09/17/24 Lisinopril (Lisinopril) 10 Mg Tab, 1 TAB PO DAILY for 90 Days, #90 09/17/24 Diltiazem Hcl (DILTIAZEM HCL ER) 240 Mg Cap, 1 CAP PO DAILY for 90 Days, #90 09/17/24 Hydroxyzine Hcl (Hydroxyzine Hcl) 25 Mg Tab, 1 TAB PO TID for 270 Days, #90 09/17/24 Vital Signs Vital Signs Date Time Temp Pulse Resp B/P (MAP) Pulse Ox O2 Delivery O2 Flow Rate FiO2 11/19/24 16:53 97.7 95 21 145/88 (107) 94 97.7 11/19/24 15:11 Nasal Cannula 2.0 11/19/24 15:11 28 Physical Exam Examination General Appearance: Alert, Oriented X3, Cooperative, No acute distress HEENT: EOMI Respiratory: Clear to auscultation, Normal air movement Cardiovascular: Regular rate, Normal S1, Normal S2 Abdominal: Normal bowel sounds Extremities: Pedal edema, No cyanosis, No edema, Normal pulses, No tenderness/swelling Skin: No rashes, No breakdown Neuro: Normal gait, Normal speech, Strength at 5/5 X4 ext, Normal tone, Sensation intact, Cranial nerves 3-12 NL, Reflexes 2+ Psych/Mental Status: Mental status NL, Mood NL Labs/Diagnostic Data Labs Test 11/18/24 18:59 11/18/24 17:35 11/18/24 17:34 11/17/24 04:58 Range/Units Sodium Level 142 136-145 mmol/L Potassium Level 3.7 3.5-5.1 mmol/L Chloride Level 98 98-107 mmol/L Carbon Dioxide Level 37 H 20-31 mmol/L Anion Gap 7 5-15 Blood Urea Nitrogen 19 9-23 mg/dL Creatinine 0.85 0.550-1.02 mg/dL Glomerular Filtration Rate Calc 79 >90 mL/min BUN/Creatinine Ratio 22.4 H 10.0-20.0 Serum Glucose 97 74-106 mg/dL Calcium Level 9.8 8.7-10.4 mg/dL Blood Gas Specimen Type Arterial Blood Gas Sample Site Right radial Blood Gas Patient Temperature 37.0 Arterial Blood Date Drawn [id number] Arterial Blood pH 7.416 7.350-7.450 Arterial Blood Partial Pressure CO2 55.6 H 32.0-45.0 mmHg Arterial Blood Partial Pressure O2 138.4 H 83.0-108.0 mmHg Arterial Blood HCO3 34.9 H 21.0-28.0 mmol/L Arterial Blood Oxygen Saturation 98.2 H 94.0-98.0 % Arterial Blood Base Excess 8.7 H -2.0-3.0 mmol/L Arterial Blood Oxyhemoglobin 97.0 94.0-98.0 % Arterial Blood Carboxyhemoglobin 0.8 0.5-1.5 % Arterial Blood Methemoglobin 0.4 0.0-1.5 % John Test Modified Blood Gas Total Hemoglobin 12.80 12.0-16.0 g/dL Blood Gas Liter Flow 10.00 Blood Gas Modality Mask - simple FiO2 % 50.0 White Blood Count 10.8 4.4-10.8 10^3/uL Red Blood Count 4.14 4.0-5.20 10^6/uL Hemoglobin 12.4 12.2-16.2 g/dL Hematocrit 37.5 36.0-46.0 % Mean Corpuscular Volume 90.5 80.0-100.0 fL Mean Corpuscular Hemoglobin 29.9 28.0-32.0 pg Mean Corpuscular Hemoglobin Concent 33.0 32.0-36.0 g/dL Red Cell Distribution Width 15.7 H 11.8-14.3 % Platelet Count 194 140-450 10^3/uL Mean Platelet Volume 9.2 6.9-10.8 fL Neutrophils (%) (Auto) 66.3 37.0-80.0 % Lymphocytes (%) (Auto) 21.6 10.0-50.0 % Monocytes (%) (Auto) 8.3 0.0-12.0 % Eosinophils (%) (Auto) 2.9 0.0-7.0 % Basophils (%) (Auto) 0.9 0.0-2.0 % Neutrophils # (Auto) 7.2 1.6-8.6 10 ^3/uL Lymphocytes # (Auto) 2.3 0.4-5.4 10 ^3/uL Monocytes # (Auto) 0.9 0-1.3 10 ^3/uL Eosinophils # (Auto) 0.3 0-0.8 10 ^3/uL Basophils # (Auto) 0.1 0-0.2 10 ^3/uL Nucleated Red Blood Cells 0.1 % Total Bilirubin 0.3 0.2-1.0 mg/dL Aspartate Amino Transferase (AST) 14 13-40 U/L Alanine Aminotransferase (ALT) 21 7-40 U/L Alkaline Phosphatase 100 46-116 U/L Total Protein 6.2 5.7-8.2 g/dL Albumin 3.8 3.2-4.8 g/dL Test 11/17/24 00:25 11/16/24 23:10 11/16/24 21:00 Range/Units Troponin I High Sensitivity 7 </=34 ng/L Urine Color Light-yellow Yellow Urine Clarity Clear Clear Urine pH 6.5 5.0-9.0 Urine Specific [place] 1.010 1.001-1.035 Urine Protein Negative Negative Urine Ketones Negative Negative Urine Blood Negative Negative /uL Urine Nitrite Negative Negative Urine Bilirubin Negative Negative Urine Urobilinogen Normal Negative mg/dL Urine Leukocyte Esterase Negative Negative /uL Urine RBC 1 0 - 4 /hpf Urine Microscopic WBC 1 0-5 /HPF Urine Squamous Epithelial Cells Few <5 /hpf Urine Bacteria None seen None Seen /hpf Urine Glucose Normal Normal mg/dL Prothrombin Time 10.6 9.3-11.8 sec Prothrombin Time INR 1.00 0.9-1.15 Activated Partial Thromboplast Time 25.3 24.5-34.5 SEC Lactic Acid Level 1.3 0.4-2.0 mmol/L B-Type Natriuretic Peptide 162.58 0-100 pg/mL Microbiology Date/Time Source Procedure Growth Status 11/17/24 18:19 Nose MRSA Screen - Final Complete 11/16/24 21:00 Blood Blood Culture - Preliminary NO GROWTH AFTER 48 HOURS OF INCUBATION. Resulted Plan/Recommendation Assessment/plan # acute on chronic heart failure with preserved ejection fraction, likely due to methamphetamine use -last echo EF 60%, august 2024 -EKG reveals Afib, no significant ST changes -BNP 162.58 -normal trops -CXR shows Cardiomegaly with findings suggestive of congestive heart failure. U nderlying right mid and lower lung zone pneumonia can not excluded. # A-fib, long standing persistent -currently on eliquis, rate control with Carvedilol -[id number] score 3 points -HASBLED score 1 points #Acute on chronic hypoxic respiratory failure secondary to CHF exacerbation, ?COPD exacerbation/?pneumonia #Morbid obesity Plan keep k>4, mag>2 repeat Echo IV diuresis with Lasix 40mg IV daily continue with eliquis and carvedilol Telemetry consider to add GDMT after improvement in acute exacerbation of CHF Pt will need outpatient follow-up with cardiology for outpatient Stress test/LHC Case discussion with Dr Phelan Plan discussed with: Other PARMINDER DOUGLASS RESIDENT November 19, 2024 19:14
[2024-11-20] VITALS (19 sets, daily range): BP systolic 130–177; BP diastolic 79–106; PULSE 68–154; RESP 12–24; TEMP 97.4–97.8; O2SAT 91–98
[2024-11-20] MEDS: hydrALAZINE HCL 20 MG/ML VL IV PRN (04:49)
[2024-11-20] MEDS ORDERED: CARVEDILOL 3.125 MG TAB PO SCH (09:15)
[2024-11-20] MEDS ORDERED: FUROSEMIDE 20 MG/2 ML VIAL IV ONE (09:45)
[2024-11-20] MEDS ORDERED: CARVEDILOL 3.125 MG TAB PO ONE (09:45)
[2024-11-20 10:31] LABS: Chloride 102 mmol/L (98-107); Potassium 3.8 mmol/L (3.5-5.1); Sodium 142 mmol/L (136-145)
[2024-11-20 10:32] LABS: Anion Gap 9 (5-15); Carbon Dioxide 31 mmol/L (20-31)
[2024-11-20 10:36] LABS: Calcium 10.5 mg/dL (8.7-10.4)
[2024-11-20 10:37] LABS: BUN/Creatinine Ratio 27.9 (10.0-20.0); Blood Urea Nitrogen 24 mg/dL (9-23); Glucose 218 mg/dL (74-106)
--- NOTE | 2024-11-20 12:46 | DVH ---
EXAM: XY CHEST XRAY 1 VIEW Indication: SHORTNESS OF BREATH Technique: Single frontal view of the chest was obtained Comparison: XY CHEST PORTABLE on DOS: 11/18/24, XY CHEST PORTABLE on DOS: 11/16/24, XY CHEST PORTABLE o n DOS: 10/24/24, XY CHEST PORTABLE on DOS: 09/28/24, XY CHEST PORTABLE on DOS: 09/19/24 FINDINGS: Lines and Tubes: None Lungs: No focal consolidation. Pulmonary vascular congestion. Pleura: No effusion. No pneumothorax. Cardiomediastinal contours: Cardiomegaly Bones: No acute osseous abnormality. IMPRESSION: Cardiomegaly with pulmonary vascular congestion.
[2024-11-20] MEDS: FUROSEMIDE 20 MG/2 ML VIAL IV ONE (13:34)
[2024-11-20] MEDS: CARVEDILOL 3.125 MG TAB PO ONE (13:35)
--- NOTE | 2024-11-20 16:08 | DVHPN2 ---
Subjective Patient is still complaining of generalized weakness and shortness of breaths. Patient's beta javon has been held yesterday. Reviewed: Care Plan Changes from previous H/P or p: No Changes Eyes: No Pain, No Vision change, No Conjunctivae inflammation, No Eyelid inflammation, No Other, No Redness ENT: No Ear pain, No Ear discharge, No Nose pain, No Nose discharge, No Nose congestion, No Mouth pain, No Mouth swelling, No Throat pain, No Throat swelling, No Other Cardiovascular: No Chest Pain, No Palpitations, No Orthopnea, No Paroxysmal Noc. Dyspnea, No Edema, No Lt Headedness, No Other Respiratory: Cough; No Dry; Shortness of breath; No SOB with excertion, No Wheezing, No Hemoptysis, No Pleuritic Pain, No Sputum; Other (SOB at rest) Gastrointestinal: No Nausea, No Vomiting, No Abdominal Pain, No Diarrhea, No Constipation, No Melena, No Hematochezia, No Other Genitourinary: No Dysuria, No Frequency, No Incontinence, No Hematuria, No Retention, No Other Musculoskeletal: No other, No neck pain, No shoulder pain, No arm pain, No back pain, No hand pain, No leg pain, No foot pain Skin: No Rash, No Lesions, No Jaundice, No Bruising, No Other Objective Vitals Vital Signs Date Time Temp Pulse Resp B/P (MAP) Pulse Ox O2 Delivery O2 Flow Rate FiO2 11/20/24 15:24 121 18 97 11/20/24 15:16 Nasal Cannula 3.0 11/20/24 15:16 32 11/20/24 13:35 159/94 11/20/24 13:00 97.5 97.5 Intake/Output Intake and Output 11/20/24 07:00 Intake Total 900 ml Output Total 1750 ml Balance -850 ml Intake Oral 600 ml IV Total 300 ml Output Urine Total 1750 ml # Voids 3 # Bowel Movements 3 Exam HEENT pupils are reactive Neck is supple CV is S1-S2 regular rate and rhythm Respiratory diminished breath sound bases GI posterior bowel sound 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 Bilateral lower extremity chronic leg inflammation/cellulitis Medications Current Medications Medications Dose Ordered Sig/Tod Route Start Time Stop Time Status Last Admin Dose Admin Ceftriaxone Sodium 50 ml @ 100 mls/hr DAILY@09 IV 11/18/24 09:00 11/20/24 09:14 100 MLS/HR Azithromycin 250 ml @ 125 mls/hr DAILY IV 11/18/24 10:00 11/19/24 13:28 125 MLS/HR Famotidine 20 mg DAILY IV 11/17/24 10:00 11/20/24 09:17 20 MG Hydralazine HCl 10 mg Q6HP PRN IV 11/17/24 00:00 11/20/24 04:49 10 MG Lorazepam 0.5 mg Q8HP PRN IV 11/17/24 00:00 11/20/24 05:06 0.5 MG Apixaban 5 mg BID PO 11/17/24 10:00 11/20/24 09:16 5 MG Sodium Chloride 10 ml Q8HR IV 11/17/24 06:00 11/20/24 05:06 10 ML Acetaminophen/ Hydrocodone Bitart 1 tab Q4HP PRN PO 11/17/24 00:00 11/20/24 09:17 1 TAB Ondansetron HCl 4 mg Q4HP PRN IV 11/17/24 00:00 Docusate Sodium 100 mg BIDPRN PRN PO 11/17/24 00:00 Acetaminophen 650 mg Q6HP PRN PO 11/17/24 00:00 11/20/24 02:25 650 MG Nitroglycerin 0.4 mg Q5MINP PRN SL 11/17/24 00:00 Morphine Sulfate 2 mg Q30M PRN IV 11/17/24 00:00 Albuterol 2.5 mg Q4HPRN PRN NEB 11/17/24 00:00 11/20/24 15:16 2.5 MG Ipratropium [place] 0.5 mg Q4HPRN PRN NEB 11/17/24 00:00 11/20/24 15:16 0.5 MG Methylprednisolone Sodium Succinate 40 mg Q8HR IV 11/18/24 16:00 11/20/24 13:35 40 MG Carvedilol 6.25 mg Q12HR PO 11/20/24 22:00 Furosemide 40 mg BIDD IV 11/20/24 18:00 Laboratory Results Laboratory Tests 11/18/24 17:34 11/20/24 10:03 Chemistry Test 11/20/24 10:03 Calcium Level 10.5 mg/dL (8.7-10.4) H Magnesium Level 2.0 mg/dL (1.6-2.6) Urinalysis Test 11/16/24 23:10 Urine Color Light-yellow (Yellow) Urine Clarity Clear (Clear) Urine pH 6.5 (5.0-9.0) Urine Specific [place] 1.010 (1.001-1.035) Urine Protein Negative (Negative) Urine Ketones Negative (Negative) Urine Blood Negative /uL (Negative) Urine Nitrite Negative (Negative) Urine Bilirubin Negative (Negative) Urine Urobilinogen Normal mg/dL (Negative) Urine Leukocyte Esterase Negative /uL (Negative) Urine RBC 1 /hpf (0 - 4) Urine Microscopic WBC 1 /HPF (0-5) Urine Squamous Epithelial Cells Few /hpf (<5) Urine Bacteria None seen /hpf (None Seen) Urine Glucose Normal mg/dL (Normal) Microbiology Microbiology Date/Time Source Procedure Growth Status 11/17/24 18:19 Nose MRSA Screen - Final Complete 11/16/24 21:00 Blood Blood Culture - Preliminary NO GROWTH AFTER 72 HOURS OF INCUBATION. Resulted Assessment/Plan Assessment/Plan 59-year-old female with a known history of chronic AFib, hypertension, COPD, presented to the hospital with shortness breath found to have 1. Acute hypoxic respiratory failure secondary to COPD exacerbation/CHF exacerbation/pneumonia 2. Acute CHF exacerbation with diastolic dysfunction with a decompensation 3. Suspected pneumonia 4. Acute COPD exacerbation 5. Morbid obesity classII 6. AFib with RVR, currently on beta javon and Eliquis -continue med nebs, O2 supplementation, IV antibiotics, add IV Solu-Medrol. -continue beta javon . -social service consultation for [facility] placement. Plan discussed with: Patient My Orders Orders - NEVIN ALLEN MD Procedure Category Date Status Time * Commercial Production Editor CONS 11/19/24 Transmitted Consult * Commercial Production Editor CONS 11/20/24 Transmitted Consult Date of Service: November 20, 2024 Billing Provider: NEVIN ALLEN MD Common Visit Codes: [id number] INP/OBS CARE(MOD) NEVIN ALLEN MD November 20, 2024 16:08
[2024-11-20] MEDS: FUROSEMIDE 40 MG/4 ML VIAL IV SCH (18:00)
--- NOTE | 2024-11-20 18:07 | DVHPN2 ---
Progress Note Date Seen: November 20, 2024 Resident Creating Document: PARMINDER DOUGLASS RESIDENT Medical Necessity Reason Pt with a Central, PICC or Fol: No Subjective Review of Systems History of Present Illness Old female who has past medical history of hypertension, COPD, on 3 L of oxygen at home, atrial fibrillation, peripheral arterial disease and CHF presented with complaints of generalized body swelling, pedal edema and shortness of breath for last three days. Patient mentioned that patient gets shortness of breath on minimal activity correlating to NYHA class III on most of the days, but for last three days she is getting shortness of breath on rest. She also mentioned generalized body swelling has worsened for last 3 days, associated with chest pressure in the left side. On presenting in the ER patient was treated with IV diuretics. She is currently on 2 L of oxygen through nasal cannula. Patient denied any palpitations, nausea, vomiting, diarrhea. Patient mentioned that she had a stress test done in [place] three years ago for which she does not remember the results was mentioned did not have any significant ischemic results. Last echocardiogram was done in September 17 which showed 60% ejection fraction. Past medical history hypertension, COPD, on 3 L of oxygen at home, atrial fibrillation, peripheral arterial disease and CHF Past surgical history Denied Social history Quit smoking four years ago, smoked for 35 years half pack every day Patient was taking methamphetamine for 30 years, quit four years ago Denied alcohol and marijuana intake INTERVAL EVENTS pt was found to be in resp distress with difficulty lying flat and had AFIB with HR in 130s. EKG was done which revealed Afib but no significant ST changes Objective vital signs Vital Sign Date Time Temp Pulse Resp B/P (MAP) Pulse Ox O2 Delivery O2 Flow Rate FiO2 11/20/24 17:15 172/104 11/20/24 15:24 121 18 97 11/20/24 15:16 Nasal Cannula 3.0 11/20/24 15:16 32 11/20/24 13:00 97.5 97.5 Total Intake and Output 11/19/24 11/19/24 11/20/24 15:00 23:00 07:00 Intake Total 50 ml 750 ml 100 ml Output Total 1750 ml Balance 50 ml -1000 ml 100 ml medications Current Medications Medications Dose Ordered Sig/Tod Route Start Time Stop Time Status Last Admin Dose Admin Ceftriaxone Sodium 50 ml @ 100 mls/hr DAILY@09 IV 11/18/24 09:00 11/20/24 09:14 100 MLS/HR Azithromycin 250 ml @ 125 mls/hr DAILY IV 11/18/24 10:00 11/19/24 13:28 125 MLS/HR Famotidine 20 mg DAILY IV 11/17/24 10:00 11/20/24 09:17 20 MG Hydralazine HCl 10 mg Q6HP PRN IV 11/17/24 00:00 11/20/24 17:15 10 MG Lorazepam 0.5 mg Q8HP PRN IV 11/17/24 00:00 11/20/24 17:15 0.5 MG Apixaban 5 mg BID PO 11/17/24 10:00 11/20/24 09:16 5 MG Sodium Chloride 10 ml Q8HR IV 11/17/24 06:00 11/20/24 14:00 10 ML Acetaminophen/ Hydrocodone Bitart 1 tab Q4HP PRN PO 11/17/24 00:00 11/20/24 16:31 1 TAB Ondansetron HCl 4 mg Q4HP PRN IV 11/17/24 00:00 Docusate Sodium 100 mg BIDPRN PRN PO 11/17/24 00:00 Acetaminophen 650 mg Q6HP PRN PO 11/17/24 00:00 11/20/24 02:25 650 MG Nitroglycerin 0.4 mg Q5MINP PRN SL 11/17/24 00:00 Morphine Sulfate 2 mg Q30M PRN IV 11/17/24 00:00 Albuterol 2.5 mg Q4HPRN PRN NEB 11/17/24 00:00 11/20/24 15:16 2.5 MG Ipratropium [place] 0.5 mg Q4HPRN PRN NEB 11/17/24 00:00 11/20/24 15:16 0.5 MG Methylprednisolone Sodium Succinate 40 mg Q8HR IV 11/18/24 16:00 11/20/24 13:35 40 MG Carvedilol 6.25 mg Q12HR PO 11/20/24 22:00 Furosemide 40 mg BIDD IV 11/20/24 18:00 Examination Examination General Appearance: Alert, Oriented X3, Cooperative, No acute distress HEENT: EOMI Respiratory: Clear to auscultation, Normal air movement Cardiovascular: Regular rate, Normal S1, Normal S2 Abdominal: Normal bowel sounds Extremities: Pedal edema, No cyanosis, No edema, Normal pulses, No tenderness/swelling Skin: No rashes, No breakdown Neuro: Normal gait, Normal speech, Strength at 5/5 X4 ext, Normal tone, Sensation intact, Cranial nerves 3-12 NL, Reflexes 2+ Psych/Mental Status: Mental status NL, Mood NL laboratory and microbiology Laboratory Tests 11/20/24 10:03 11/18/24 17:34 Test 11/20/24 10:03 Range/Units Serum Glucose 218 H 74-106 mg/dL Microbiology Date/Time Source Procedure Growth Status 11/17/24 18:19 Nose MRSA Screen - Final Complete 11/16/24 21:00 Blood Blood Culture - Preliminary NO GROWTH AFTER 72 HOURS OF INCUBATION. Resulted Labs and/or images reviewed: Labs reviewed by me, Image(s) reviewed by me Problem List/Assessment/Plan Problem List/Assessment/Plan A/P # acute on chronic heart failure with preserved ejection fraction, likely due to methamphetamine use -last echo EF 60%, august 2024 -EKG reveals Afib, no significant ST changes -BNP 162.58 -normal trops -CXR shows Cardiomegaly with findings suggestive of congestive heart failure. Underlying right mid and lower lung zone pneumonia can not excluded. # A-fib, long standing persistent -currently on eliquis, rate control with Carvedilol -[id number] score 3 points -HASBLED score 1 points #Acute on chronic hypoxic respiratory failure secondary to CHF exacerbation, ?COPD exacerbation/?pneumonia #Morbid obesity Plan keep k>4, mag>2 repeat Echo IV diuresis with Lasix 40mg IV BID continue with eliquis and carvedilol, increased to 6.25mg BID Telemetry consider to add GDMT after improvement in acute exacerbation of CHF Pt will need outpatient follow-up with cardiology for outpatient Stress test/LHC Case discussion with Dr Hernandez Plan discussed with: Other My Orders My Orders Orders - PARMIDNER DOUGLASS Procedure Category Date Status Time Carvedilol Tablet PHA 11/20/24 In Process (Coreg Tablet) 22:00 Electrocardigram EKG 11/20/24 Logged 09:35 Chest Xray 1 View XY 11/20/24 Resulted 11:37 Furosemide Injection PHA 11/20/24 In Process (Lasix Injection) 18:00 Dietary Evaluation Review Comments: Weight reducing diet after D/C Expected Outcomes/Goals: gradual wt loss APRMINDER DOUGLASS RESIDENT November 20, 2024 18:07
[2024-11-20] MEDS: CARVEDILOL 3.125 MG TAB PO SCH (21:50)
[2024-11-21] VITALS (12 sets, daily range): BP systolic 144–157; BP diastolic 96–119; PULSE 82–134; RESP 16–20; TEMP 97.4–97.8; O2SAT 94–98
[2024-11-21 08:48] LABS: Basophils # (auto) 0 10 ^3/uL (0-0.2); Basophils % (auto) 0.2 % (0.0-2.0); Eosinophils # (auto) 0 10 ^3/uL (0-0.8); Hematocrit 40.1 % (36.0-46.0); Hemoglobin 13.1 g/dL (12.2-16.2); Lymphocytes # (auto) 1.4 10 ^3/uL (0.4-5.4); Lymphocytes % (auto) 9.5 % (10.0-50.0); Mean Corpuscular Hemoglobin 29.4 pg (28.0-32.0); Mean Corpuscular Hgb Conc. 32.7 g/dL (32.0-36.0); Mean Corpuscular Volume 90.1 fL (80.0-100.0); Monocytes # (auto) 0.5 10 ^3/uL (0-1.3); Monocytes % (auto) 3.5 % (0.0-12.0); Neutrophils # (auto) 12.8 10 ^3/uL (1.6-8.6); Neutrophils % (auto) 86.8 % (37.0-80.0); Nucleated Red Blood Cells % 0.1 %; Platelet Count (auto) 323 10^3/uL (140-450); Red Blood Cells 4.46 10^6/uL (4.0-5.20); Red Cell Distribution Width 15.8 % (11.8-14.3); White Blood Cell 14.8 10^3/uL (4.4-10.8)
[2024-11-21 08:51] LABS: Chloride 99 mmol/L (98-107); Potassium 3.6 mmol/L (3.5-5.1); Sodium 143 mmol/L (136-145)
[2024-11-21 08:52] LABS: Anion Gap 9 (5-15)
[2024-11-21 08:55] LABS: Calcium 10.5 mg/dL (8.7-10.4); Carbon Dioxide 35 mmol/L (20-31)
[2024-11-21 08:57] LABS: BUN/Creatinine Ratio 33.3 (10.0-20.0)
[2024-11-21 08:58] LABS: Magnesium 2.4 mg/dL (1.6-2.6)
[2024-11-21 09:00] LABS: Blood Urea Nitrogen 27 mg/dL (9-23); Glucose 161 mg/dL (74-106)
[2024-11-21] MEDS ORDERED: FUROSEMIDE 40 MG/4 ML VIAL IV SCH (10:00)
--- NOTE | 2024-11-21 14:41 | DVHDS2 ---
Discharge Summary Date of Admission November 16, 2024 at 23:46 Date of Discharge: November 21, 2024 Labs/Diagnostic Data: Laboratory Results Test 11/21/24 07:37 11/20/24 10:03 11/18/24 17:35 11/17/24 04:58 White Blood Count 14.8 10^3/uL (4.4-10.8) Red Blood Count 4.46 10^6/uL (4.0-5.20) Hemoglobin 13.1 g/dL (12.2-16.2) Hematocrit 40.1 % (36.0-46.0) Mean Corpuscular Volume 90.1 fL (80.0-100.0) Mean Corpuscular Hemoglobin 29.4 pg (28.0-32.0) Mean Corpuscular Hemoglobin Concent 32.7 g/dL (32.0-36.0) Red Cell Distribution Width 15.8 % (11.8-14.3) Platelet Count 323 10^3/uL (140-450) Mean Platelet Volume 9.0 fL (6.9-10.8) Neutrophils (%) (Auto) 86.8 % (37.0-80.0) Lymphocytes (%) (Auto) 9.5 % (10.0-50.0) Monocytes (%) (Auto) 3.5 % (0.0-12.0) Eosinophils (%) (Auto) 0.0 % (0.0-7.0) Basophils (%) (Auto) 0.2 % (0.0-2.0) Neutrophils # (Auto) 12.8 10 ^3/uL (1.6-8.6) Lymphocytes # (Auto) 1.4 10 ^3/uL (0.4-5.4) Monocytes # (Auto) 0.5 10 ^3/uL (0-1.3) Eosinophils # (Auto) 0 10 ^3/uL (0-0.8) Basophils # (Auto) 0 10 ^3/uL (0-0.2) Nucleated Red Blood Cells 0.1 % Sodium Level 143 mmol/L (136-145) Potassium Level 3.6 mmol/L (3.5-5.1) Chloride Level 99 mmol/L (98-107) Carbon Dioxide Level 35 mmol/L (20-31) Anion Gap 9 (5-15) Blood Urea Nitrogen 27 mg/dL (9-23) Creatinine 0.81 mg/dL (0.550-1.02) Glomerular Filtration Rate Calc 84 mL/min (>90) BUN/Creatinine Ratio 33.3 (10.0-20.0) Serum Glucose 161 mg/dL (74-106) Calcium Level 10.5 mg/dL (8.7-10.4) Magnesium Level 2.4 mg/dL (1.6-2.6) Troponin I High Sensitivity 8 ng/L (</=34) Blood Gas Specimen Type Arterial Blood Gas Sample Site Right radial Blood Gas Patient Temperature 37.0 Arterial Blood Date Drawn [id number] Arterial Blood pH 7.416 (7.350-7.450) Arterial Blood Partial Pressure CO2 55.6 mmHg (32.0-45.0) Arterial Blood Partial Pressure O2 138.4 mmHg (83.0-108.0) Arterial Blood HCO3 34.9 mmol/L (21.0-28.0) Arterial Blood Oxygen Saturation 98.2 % (94.0-98.0) Arterial Blood Base Excess 8.7 mmol/L (-2.0-3.0) Arterial Blood Oxyhemoglobin 97.0 % (94.0-98.0) Arterial Blood Carboxyhemoglobin 0.8 % (0.5-1.5) Arterial Blood Methemoglobin 0.4 % (0.0-1.5) John Test Modified Blood Gas Total Hemoglobin 12.80 g/dL (12.0-16.0) Blood Gas Liter Flow 10.00 Blood Gas Modality Mask - simple FiO2 % 50.0 Total Bilirubin 0.3 mg/dL (0.2-1.0) Aspartate Amino Transferase (AST) 14 U/L (13-40) Alanine Aminotransferase (ALT) 21 U/L (7-40) Alkaline Phosphatase 100 U/L (46-116) Total Protein 6.2 g/dL (5.7-8.2) Albumin 3.8 g/dL (3.2-4.8) Test 11/16/24 23:10 11/16/24 21:00 Urine Color Light-yellow (Yellow) Urine Clarity Clear (Clear) Urine pH 6.5 (5.0-9.0) Urine Specific [place] 1.010 (1.001-1.035) Urine Protein Negative (Negative) Urine Ketones Negative (Negative) Urine Blood Negative /uL (Negative) Urine Nitrite Negative (Negative) Urine Bilirubin Negative (Negative) Urine Urobilinogen Normal mg/dL (Negative) Urine Leukocyte Esterase Negative /uL (Negative) Urine RBC 1 /hpf (0 - 4) Urine Microscopic WBC 1 /HPF (0-5) Urine Squamous Epithelial Cells Few /hpf (<5) Urine Bacteria None seen /hpf (None Seen) Urine Glucose Normal mg/dL (Normal) Prothrombin Time 10.6 sec (9.3-11.8) Prothrombin Time INR 1.00 (0.9-1.15) Activated Partial Thromboplast Time 25.3 SEC (24.5-34.5) Lactic Acid Level 1.3 mmol/L (0.4-2.0) B-Type Natriuretic Peptide 162.58 pg/mL (0-100) Other Laboratory Tests 11/21/24 07:37 Brief Hx & Hospital Course: 59-year-old female with a known history of chronic AFib, hypertension, COPD, presented to the hospital with shortness breath found to have acute on chronic hypoxic respiratory failure secondary to COPD exacerbation as well as CHF exacerbation as well as pneumonia. Patient was treated with the IV antibiotics med nebs also started on beta javon and Eliquis. Patient is currently stable to be discharged. Patient was being seen by Cardiology during the hospital stay. Patient's medications were adjusted including carvedilol. Patient is currently stable [facility] be [facility] once bed is available for physical therapy. Condition at Discharge: Stable Final Diagnosis/Problems List 59-year-old female with a known history of chronic AFib, hypertension, COPD, presented to the hospital with shortness breath found to have 1. Acute hypoxic respiratory failure secondary to COPD exacerbation/CHF exacerbation/pneumonia 2. Acute CHF exacerbation with diastolic dysfunction with a decompensation 3. Suspected pneumonia 4. Acute COPD exacerbation 5. Morbid obesity classII 6. AFib with RVR, currently on beta javon and Eliquis Discharge Disposition: Long Term Facility SNF Discharge Will this Physician continue t: No Discharge Instruct/Medications Diet: Cardiac 2g Na,low cholest Activity: No Restrictions, As Tolerated Follow Up/Referral: Please follow up with the PCP in 1-2 weeks Follow up with the Cardiology in 1-2 weeks. Continued Medications: Albuterol Sulfate (Albuterol Sulfate) 0.083 % Neb 1 VIAL NEB TID for 90 Days, #810 Amlodipine Besylate (Amlodipine Besylate) 10 Mg Tab 1 TAB PO DAILY for 30 Days, #30 Apixaban Base (Eliquis) 5 Mg Tab 1 TAB PO BID Carvedilol (Carvedilol) 6.25 Mg Tab 1 TAB PO BID for 30 Days, #60 Cephalexin (Keflex Capsule) 250 Mg Cp 500 MG PO BID for 7 Days, #14 CAP Clonidine Hydrochloride (Clonidine Hcl) 0.1 Mg Tab 1 TAB PO DAILY for 90 Days, #90 Diltiazem Hcl (Diltiazem Hcl Er) 240 Mg Cap 1 CAP PO DAILY for 90 Days, #90 Escitalopram Oxalate (Lexapro) 5 Mg Tab 1 TAB PO DAILY for 30 Days, #30 TAB 1 Refill Famotidine (Famotidine) 20 Mg Tab 1 TAB PO BID Furosemide (Lasix) 40 Mg Tab 40 MG PO DAILY for 30 Days, #30 TAB Hctz (Hydrochlorothiazide) 25 Mg Tab 1 TAB PO DAILY for 90 Days, #90 Hydralazine Hcl (Hydralazine Hcl) 25 Mg Tab 1 TAB PO BID for 90 Days, #180 Hydroxyzine Hcl (Hydroxyzine Hcl) 25 Mg Tab 1 TAB PO TID for 270 Days, #90 Lisinopril (Lisinopril) 10 Mg Tab 1 TAB PO DAILY for 90 Days, #90 Discontinued Medications: Levofloxacin Hemihydrate (Levaquin 500 Mg) 500 Mg Tab 1 TAB PO DAILY for 30 Days, #30 Discharge Statement: "Patient was advised to return to the ER or call 911 if any headaches, dizziness, shortness of breath, chest pain, abdominal pain, bleeding, fevers, or worsening of medical condition. Patient was counseled about treatment plan, medications, possible side effects, patientverbalized understanding. All questions were answered to the best of my ability. This discharge took greater then 30 minutes in planning, reviewing documentation, counseling the patient, and discussing with other team members." ASSESSMENT ASSESSMENT Assessment 59-year-old female with a known history of chronic AFib, hypertension, COPD, presented to the hospital with shortness breath found to have 1. Acute hypoxic respiratory failure secondary to COPD exacerbation/CHF exacerbation/pneumonia 2. Acute CHF exacerbation with diastolic dysfunction with a decompensation 3. Suspected pneumonia 4. Acute COPD exacerbation 5. Morbid obesity classII 6. AFib with RVR, currently on beta javon and Eliquis Date of Service: November 21, 2024 Billing Provider: NEVIN ALLEN MD Common Visit Codes: 20649-[id number] DISCH DAY >30min NEVIN ALLEN MD November 21, 2024 14:41
[2024-11-22] VITALS (12 sets, daily range): BP systolic 132–161; BP diastolic 70–112; PULSE 67–129; RESP 12–20; TEMP 97.6–98.1; O2SAT 94–99
--- NOTE | 2024-11-22 11:13 | DVH ---
EXAM: US BILAT LOWER DVT Clinical History: lower extremity swelling Comparison: US BILAT LOWER DVT on DOS: 10/25/24 Technique: Duplex Doppler evaluation of the deep venous systems of both lower extremities from the co mmon femoral veins to the popliteal veins including color Doppler and spectral/pulsed waveform analys is was performed. Findings: RIGHT SIDE: The common femoral vein demonstrates appropriate compressibility and waveform variability. There is compressibility/patency of the great saphenous vein at the proximal thigh. The femoral vein demonstrates appropriate compressibility and waveform variability. The deep femoral vein demonstrates appropriate compressibility and waveform variability. The popliteal vein demonstrates appropriate compressibility and waveform variability. There is color flow at the tibioperoneal trunk and in the posterior tibial vein. LEFT SIDE: The common femoral vein demonstrates appropriate compressibility and waveform variability. There is compressibility/patency of the great saphenous vein at the proximal thigh. The femoral vein demonstrates appropriate compressibility and waveform variability. The deep femoral vein demonstrates appropriate compressibility and waveform variability. The popliteal vein demonstrates appropriate compressibility and waveform variability. There is color flow at the tibioperoneal trunk and in the posterior tibial vein. Impression: 1. No right or left femoropopliteal venous thrombosis.
--- NOTE | 2024-11-22 11:41 | DVH ---
CHEST RADIOGRAPH Indication: shortness of breath Technique: Single frontal view of the chest was obtained Comparison: XY CHEST XRAY 1 VIEW on DOS: 11/20/24, XY CHEST PORTABLE on DOS: 11/18/24, XY CHEST PORTABL E on DOS: 11/16/24, XY CHEST PORTABLE on DOS: 10/24/24, XY CHEST PORTABLE on DOS: 09/28/24, XY CHEST XRAY 1 VIEW on DOS: 11/20/24 FINDINGS: Lines and Tubes: None Lungs: No focal consolidation. Pulmonary vascular congestion. Pleura: No effusion. No pneumothorax. Cardiomediastinal contours: Cardiomegaly Bones: No acute osseous abnormality. IMPRESSION: Cardiomegaly with pulmonary vascular congestion.
[2024-11-22] MEDS: FUROSEMIDE 40 MG/4 ML VIAL IV ONE (11:54)
[2024-11-22 14:02] LABS: Erythrocyte Sedimentation Rate 2 mm/hr (0-20)
--- NOTE | 2024-11-22 14:46 | DVHPN2 ---
Reviewed: Care Plan Changes from previous H/P or p: No Changes Eyes: No Pain, No Vision change, No Conjunctivae inflammation, No Eyelid inflammation, No Other, No Redness ENT: No Ear pain, No Ear discharge, No Nose pain, No Nose discharge, No Nose congestion, No Mouth pain, No Mouth swelling, No Throat pain, No Throat swelling, No Other Cardiovascular: No Chest Pain, No Palpitations, No Orthopnea, No Paroxysmal Noc. Dyspnea, No Edema, No Lt Headedness, No Other Respiratory: Cough; No Dry; Shortness of breath; No SOB with excertion, No Wheezing, No Hemoptysis, No Pleuritic Pain, No Sputum; Other (SOB at rest) Gastrointestinal: No Nausea, No Vomiting, No Abdominal Pain, No Diarrhea, No Constipation, No Melena, No Hematochezia, No Other Genitourinary: No Dysuria, No Frequency, No Incontinence, No Hematuria, No Retention, No Other Musculoskeletal: No other, No neck pain, No shoulder pain, No arm pain, No back pain, No hand pain, No leg pain, No foot pain Skin: No Rash, No Lesions, No Jaundice, No Bruising, No Other Objective Vitals Vital Signs Date Time Temp Pulse Resp B/P (MAP) Pulse Ox O2 Delivery O2 Flow Rate FiO2 11/22/24 11:54 160/108 11/22/24 10:43 67 11/22/24 09:00 98.1 12 96 98.1 11/22/24 08:43 Nasal Cannula* 3 32 Intake/Output Intake and Output 11/22/24 07:00 Intake Total 2260 ml Balance 2260 ml Intake Oral 1960 ml IV Total 300 ml # Voids 8 # Bowel Movements 1 Medications Current Medications Medications Dose Ordered Sig/Tod Route Start Time Stop Time Status Last Admin Dose Admin Ceftriaxone Sodium 50 ml @ 100 mls/hr DAILY@09 IV 11/18/24 09:00 11/22/24 09:44 100 MLS/HR Azithromycin 250 ml @ 125 mls/hr DAILY IV 11/18/24 10:00 11/22/24 10:39 125 MLS/HR Famotidine 20 mg DAILY IV 11/17/24 10:00 11/22/24 09:43 20 MG Hydralazine HCl 10 mg Q6HP PRN IV 11/17/24 00:00 11/20/24 21:48 10 MG Lorazepam 0.5 mg Q8HP PRN IV 11/17/24 00:00 11/22/24 09:51 0.5 MG Apixaban 5 mg BID PO 11/17/24 10:00 11/22/24 09:43 5 MG Sodium Chloride 10 ml Q8HR IV 11/17/24 06:00 11/22/24 05:25 10 ML Acetaminophen/ Hydrocodone Bitart 1 tab Q4HP PRN PO 11/17/24 00:00 11/22/24 11:53 1 TAB Ondansetron HCl 4 mg Q4HP PRN IV 11/17/24 00:00 Docusate Sodium 100 mg BIDPRN PRN PO 11/17/24 00:00 Acetaminophen 650 mg Q6HP PRN PO 11/17/24 00:00 11/22/24 09:46 650 MG Nitroglycerin 0.4 mg Q5MINP PRN SL 11/17/24 00:00 Morphine Sulfate 2 mg Q30M PRN IV 11/17/24 00:00 Albuterol 2.5 mg Q4HPRN PRN NEB 11/17/24 00:00 11/22/24 08:43 2.5 MG Ipratropium [place] 0.5 mg Q4HPRN PRN NEB 11/17/24 00:00 11/22/24 08:43 0.5 MG Methylprednisolone Sodium Succinate 40 mg Q8HR IV 11/18/24 16:00 11/22/24 05:25 40 MG Carvedilol 6.25 mg Q12HR PO 11/20/24 22:00 11/22/24 09:43 6.25 MG Furosemide 80 mg BIDD IV 11/22/24 18:00 Laboratory Results Laboratory Tests 11/21/24 07:37 Urinalysis Test 11/16/24 23:10 Urine Color Light-yellow (Yellow) Urine Clarity Clear (Clear) Urine pH 6.5 (5.0-9.0) Urine Specific [place] 1.010 (1.001-1.035) Urine Protein Negative (Negative) Urine Ketones Negative (Negative) Urine Blood Negative /uL (Negative) Urine Nitrite Negative (Negative) Urine Bilirubin Negative (Negative) Urine Urobilinogen Normal mg/dL (Negative) Urine Leukocyte Esterase Negative /uL (Negative) Urine RBC 1 /hpf (0 - 4) Urine Microscopic WBC 1 /HPF (0-5) Urine Squamous Epithelial Cells Few /hpf (<5) Urine Bacteria None seen /hpf (None Seen) Urine Glucose Normal mg/dL (Normal) Microbiology Microbiology Date/Time Source Procedure Growth Status 11/17/24 18:19 Nose MRSA Screen - Final Complete 11/16/24 21:00 Blood Blood Culture - Final NO GROWTH AFTER 5 DAYS OF INCUBATION. 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 Social service working on the placement Plan discussed with: Patient Date of Service: November 22, 2024 Billing Provider: PHANI ALTMAN MD Common Visit Codes: [id number] INP/OBS CARE(HIGH) PHANI ALTMAN MD November 22, 2024 14:46
[2024-11-22] MEDS: FUROSEMIDE 40 MG/4 ML VIAL IV SCH (17:47)
--- NOTE | 2024-11-22 18:36 | DVHPN2 ---
Progress Note Date Seen: November 22, 2024 Resident Creating Document: PARMINDER DOUGLASS RESIDENT Medical Necessity Reason Pt with a Central, PICC or Fol: No Subjective Review of Systems History of Present Illness Old female who has past medical history of hypertension, COPD, on 3 L of oxygen at home, atrial fibrillation, peripheral arterial disease and CHF presented with complaints of generalized body swelling, pedal edema and shortness of breath for last three days. Patient mentioned that patient gets shortness of breath on minimal activity correlating to NYHA class III on most of the days, but for last three days she is getting shortness of breath on rest. She also mentioned generalized body swelling has worsened for last 3 days, associated with chest pressure in the left side. On presenting in the ER patient was treated with IV diuretics. She is currently on 2 L of oxygen through nasal cannula. Patient denied any palpitations, nausea, vomiting, diarrhea. Patient mentioned that she had a stress test done in [place] three years ago for which she does not remember the results was mentioned did not have any significant ischemic results. Last echocardiogram was done in September 17 which showed 60% ejection fraction. Past medical history hypertension, COPD, on 3 L of oxygen at home, atrial fibrillation, peripheral arterial disease and CHF Past surgical history Denied Social history Quit smoking four years ago, smoked for 35 years half pack every day Patient was taking methamphetamine for 30 years, quit four years ago Denied alcohol and marijuana intake INTERVAL EVENTS 11/20/24 pt was found to be in resp distress with difficulty lying flat and had AFIB with HR in 130s. EKG was done which revealed Afib but no significant ST changes INTERVAL EVENTS 11/22/24 pt is currently in afib with HR in 90s mentioning of Chest pain left sided more on inspiration EKG no significant ST changes, Afib normal Trops Objective vital signs Vital Sign Date Time Temp Pulse Resp B/P (MAP) Pulse Ox O2 Delivery O2 Flow Rate FiO2 11/22/24 17:47 146/102 11/22/24 13:00 97.8 67 16 98 97.8 11/22/24 08:43 Nasal Cannula* 3 32 Total Intake and Output 11/21/24 11/21/24 11/22/24 15:00 23:00 07:00 Intake Total 300 ml 920 ml 1040 ml Balance 300 ml 920 ml 1040 ml medications Current Medications Medications Dose Ordered Sig/Tod Route Start Time Stop Time Status Last Admin Dose Admin Ceftriaxone Sodium 50 ml @ 100 mls/hr DAILY@09 IV 11/18/24 09:00 11/22/24 09:44 Azithromycin 250 ml @ 125 mls/hr DAILY IV 11/18/24 10:00 11/22/24 10:39 Famotidine 20 mg DAILY IV 11/17/24 10:00 11/22/24 09:43 Hydralazine HCl 10 mg Q6HP PRN IV 11/17/24 00:00 11/20/24 21:48 Lorazepam 0.5 mg Q8HP PRN IV 11/17/24 00:00 11/22/24 18:00 Apixaban 5 mg BID PO 11/17/24 10:00 11/22/24 09:43 Sodium Chloride 10 ml Q8HR IV 11/17/24 06:00 11/22/24 15:13 Acetaminophen/ Hydrocodone Bitart 1 tab Q4HP PRN PO 11/17/24 00:00 11/22/24 11:53 Ondansetron HCl 4 mg Q4HP PRN IV 11/17/24 00:00 Docusate Sodium 100 mg BIDPRN PRN PO 11/17/24 00:00 Acetaminophen 650 mg Q6HP PRN PO 11/17/24 00:00 11/22/24 09:46 Nitroglycerin 0.4 mg Q5MINP PRN SL 11/17/24 00:00 Morphine Sulfate 2 mg Q30M PRN IV 11/17/24 00:00 Albuterol 2.5 mg Q4HPRN PRN NEB 11/17/24 00:00 11/22/24 08:43 Ipratropium [place] 0.5 mg Q4HPRN PRN NEB 11/17/24 00:00 11/22/24 08:43 Methylprednisolone Sodium Succinate 40 mg Q8HR IV 11/18/24 16:00 11/22/24 15:13 Carvedilol 6.25 mg Q12HR PO 11/20/24 22:00 11/22/24 09:43 Furosemide 80 mg BIDD IV 11/22/24 18:00 11/22/24 17:47 Examination Examination General Appearance: Alert, Oriented X3, Cooperative, No acute distress HEENT: EOMI Respiratory: Clear to auscultation, Normal air movement Cardiovascular: Regular rate, Normal S1, Normal S2 Abdominal: Normal bowel sounds Extremities: Pedal edema, No cyanosis, No edema, Normal pulses, No tenderness/swelling Skin: No rashes, No breakdown Neuro: Normal gait, Normal speech, Strength at 5/5 X4 ext, Normal tone, Sensation intact, Cranial nerves 3-12 NL, Reflexes 2+ Psych/Mental Status: Mental status NL, Mood NL laboratory and microbiology Laboratory Tests 11/21/24 07:37 Test 11/21/24 07:37 Range/Units Serum Glucose 161 H 74-106 mg/dL Microbiology Date/Time Source Procedure Growth Status 11/17/24 18:19 Nose MRSA Screen - Final Complete 11/16/24 21:00 Blood Blood Culture - Final NO GROWTH AFTER 5 DAYS OF INCUBATION. Complete Labs and/or images reviewed: Labs reviewed by me, Image(s) reviewed by me Problem List/Assessment/Plan Problem List/Assessment/Plan A/P # acute on chronic heart failure with preserved ejection fraction, likely due to methamphetamine use -last echo EF 60%, august 2024 -EKG reveals Afib, no significant ST changes -BNP 162.58 -normal trops -CXR shows Cardiomegaly with findings suggestive of congestive heart failure. Underlying right mid and lower lung zone pneumonia can not excluded. # A-fib, long standing persistent -currently on eliquis, rate control with Carvedilol -[id number] score 3 points -HASBLED score 1 points #Acute on chronic hypoxic respiratory failure secondary to CHF exacerbation, ?COPD exacerbation/?pneumonia #Morbid obesity Plan strict i and o keep k>4, mag>2 IV diuresis with Lasix 80mg IV BID continue with eliquis and carvedilol, was increased to 6.25mg BID Telemetry consider to add GDMT after improvement in acute exacerbation of CHF Pt will need outpatient follow-up with cardiology for outpatient Stress test/LHC We Will sign off from this case as of now, kindly reconsult if needed Case discussion with Dr Goodman pt seen with cv team cont current management fu with her cards after dc Plan discussed with: Patient, Other My Orders My Orders Orders - PARMINDER DOUGLASS Procedure Category Date Status Time Bilat Lower Dvt US 11/22/24 Resulted 10:26 Echo 2d Mode Cardiac US 11/22/24 Logged DOP 10:26 Electrocardigram EKG 11/22/24 Logged 10:26 Chest Xray 1 View XY 11/22/24 Resulted 10:27 Furosemide Injection PHA 11/22/24 In Process (Lasix Injection) 18:00 Strict I & O KAY 11/22/24 In Process 11:05 Dietary Evaluation Review Comments: Weight reducing diet after D/C Expected Outcomes/Goals: gradual wt loss PARMINDER DOUGLASS November 22, 2024 18:36 AWILDA GOODMAN MD November 22, 2024 18:55
[2024-11-23] VITALS (13 sets, daily range): BP systolic 135–168; BP diastolic 77–108; PULSE 91–147; RESP 18–20; TEMP 97.6–98; O2SAT 94–98
--- NOTE | 2024-11-23 08:06 | DVHPN2 ---
Reviewed: Care Plan Changes from previous H/P or p: No Changes Eyes: No Pain, No Vision change, No Conjunctivae inflammation, No Eyelid inflammation, No Other, No Redness ENT: No Ear pain, No Ear discharge, No Nose pain, No Nose discharge, No Nose congestion, No Mouth pain, No Mouth swelling, No Throat pain, No Throat swelling, No Other Cardiovascular: No Chest Pain, No Palpitations, No Orthopnea, No Paroxysmal Noc. Dyspnea, No Edema, No Lt Headedness, No Other Respiratory: Cough; No Dry; Shortness of breath; No SOB with excertion, No Wheezing, No Hemoptysis, No Pleuritic Pain, No Sputum; Other (SOB at rest) Gastrointestinal: No Nausea, No Vomiting, No Abdominal Pain, No Diarrhea, No Constipation, No Melena, No Hematochezia, No Other Genitourinary: No Dysuria, No Frequency, No Incontinence, No Hematuria, No Retention, No Other Musculoskeletal: No other, No neck pain, No shoulder pain, No arm pain, No back pain, No hand pain, No leg pain, No foot pain Skin: No Rash, No Lesions, No Jaundice, No Bruising, No Other Objective Vitals Vital Signs Date Time Temp Pulse Resp B/P (MAP) Pulse Ox O2 Delivery O2 Flow Rate FiO2 11/23/24 07:50 167/100 11/23/24 07:11 102 18 98 11/23/24 07:02 Nasal Cannula 3.0 11/23/24 07:02 32 11/23/24 01:00 97.6 97.6 Intake/Output Intake and Output 11/23/24 07:00 Intake Total 1365 ml Output Total 300 ml Balance 1065 ml Intake Oral 1065 ml IV Total 300 ml Output Urine Total 300 ml # Bowel Movements 2 Medications Current Medications Medications Dose Ordered Sig/Tod Route Start Time Stop Time Status Last Admin Dose Admin Ceftriaxone Sodium 50 ml @ 100 mls/hr DAILY@09 IV 11/18/24 09:00 11/22/24 09:44 100 MLS/HR Azithromycin 250 ml @ 125 mls/hr DAILY IV 11/18/24 10:00 11/22/24 10:39 125 MLS/HR Famotidine 20 mg DAILY IV 11/17/24 10:00 11/22/24 09:43 20 MG Hydralazine HCl 10 mg Q6HP PRN IV 11/17/24 00:00 11/23/24 07:50 10 MG Lorazepam 0.5 mg Q8HP PRN IV 11/17/24 00:00 11/22/24 18:00 0.5 MG Apixaban 5 mg BID PO 11/17/24 10:00 11/22/24 21:36 5 MG Sodium Chloride 10 ml Q8HR IV 11/17/24 06:00 11/23/24 06:52 10 ML Acetaminophen/ Hydrocodone Bitart 1 tab Q4HP PRN PO 11/17/24 00:00 11/22/24 11:53 1 TAB Ondansetron HCl 4 mg Q4HP PRN IV 11/17/24 00:00 Docusate Sodium 100 mg BIDPRN PRN PO 11/17/24 00:00 Acetaminophen 650 mg Q6HP PRN PO 11/17/24 00:00 11/23/24 00:27 650 MG Nitroglycerin 0.4 mg Q5MINP PRN SL 11/17/24 00:00 Morphine Sulfate 2 mg Q30M PRN IV 11/17/24 00:00 Albuterol 2.5 mg Q4HPRN PRN NEB 11/17/24 00:00 11/23/24 06:59 2.5 MG Ipratropium [place] 0.5 mg Q4HPRN PRN NEB 11/17/24 00:00 11/23/24 06:59 0.5 MG Methylprednisolone Sodium Succinate 40 mg Q8HR IV 11/18/24 16:00 11/23/24 06:49 40 MG Carvedilol 6.25 mg Q12HR PO 11/20/24 22:00 11/22/24 21:36 6.25 MG Furosemide 80 mg BIDD IV 11/22/24 18:00 11/23/24 06:51 80 MG Laboratory Results Laboratory Tests 11/21/24 07:37 Urinalysis Test 11/16/24 23:10 Urine Color Light-yellow (Yellow) Urine Clarity Clear (Clear) Urine pH 6.5 (5.0-9.0) Urine Specific [place] 1.010 (1.001-1.035) Urine Protein Negative (Negative) Urine Ketones Negative (Negative) Urine Blood Negative /uL (Negative) Urine Nitrite Negative (Negative) Urine Bilirubin Negative (Negative) Urine Urobilinogen Normal mg/dL (Negative) Urine Leukocyte Esterase Negative /uL (Negative) Urine RBC 1 /hpf (0 - 4) Urine Microscopic WBC 1 /HPF (0-5) Urine Squamous Epithelial Cells Few /hpf (<5) Urine Bacteria None seen /hpf (None Seen) Urine Glucose Normal mg/dL (Normal) Microbiology Microbiology Date/Time Source Procedure Growth Status 11/17/24 18:19 Nose MRSA Screen - Final Complete 11/16/24 21:00 Blood Blood Culture - Final NO GROWTH AFTER 5 DAYS OF INCUBATION. 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 Jha to [facility] facility on 11/21/2024 Social service working on the placement PHANI ALTMAN MD November 23, 2024 08:06
--- NOTE | 2024-11-23 08:14 | DVHPN2 ---
Reviewed: Care Plan Changes from previous H/P or p: No Changes Eyes: No Pain, No Vision change, No Conjunctivae inflammation, No Eyelid inflammation, No Other, No Redness ENT: No Ear pain, No Ear discharge, No Nose pain, No Nose discharge, No Nose congestion, No Mouth pain, No Mouth swelling, No Throat pain, No Throat swelling, No Other Cardiovascular: No Chest Pain, No Palpitations, No Orthopnea, No Paroxysmal Noc. Dyspnea, No Edema, No Lt Headedness, No Other Respiratory: Cough; No Dry; Shortness of breath; No SOB with excertion, No Wheezing, No Hemoptysis, No Pleuritic Pain, No Sputum; Other (SOB at rest) Gastrointestinal: No Nausea, No Vomiting, No Abdominal Pain, No Diarrhea, No Constipation, No Melena, No Hematochezia, No Other Genitourinary: No Dysuria, No Frequency, No Incontinence, No Hematuria, No Retention, No Other Musculoskeletal: No other, No neck pain, No shoulder pain, No arm pain, No back pain, No hand pain, No leg pain, No foot pain Skin: No Rash, No Lesions, No Jaundice, No Bruising, No Other Objective Vitals Vital Signs Date Time Temp Pulse Resp B/P (MAP) Pulse Ox O2 Delivery O2 Flow Rate FiO2 11/23/24 08:00 Nasal Cannula* 3 32 11/23/24 07:50 167/100 11/23/24 07:11 102 18 98 11/23/24 01:00 97.6 97.6 Intake/Output Intake and Output 11/23/24 07:00 Intake Total 1365 ml Output Total 300 ml Balance 1065 ml Intake Oral 1065 ml IV Total 300 ml Output Urine Total 300 ml # Bowel Movements 2 Medications Current Medications Medications Dose Ordered Sig/Tod Route Start Time Stop Time Status Last Admin Dose Admin Ceftriaxone Sodium 50 ml @ 100 mls/hr DAILY@09 IV 11/18/24 09:00 11/23/24 07:56 100 MLS/HR Azithromycin 250 ml @ 125 mls/hr DAILY IV 11/18/24 10:00 11/22/24 10:39 125 MLS/HR Famotidine 20 mg DAILY IV 11/17/24 10:00 11/22/24 09:43 20 MG Hydralazine HCl 10 mg Q6HP PRN IV 11/17/24 00:00 11/23/24 07:50 10 MG Lorazepam 0.5 mg Q8HP PRN IV 11/17/24 00:00 11/22/24 18:00 0.5 MG Apixaban 5 mg BID PO 11/17/24 10:00 11/22/24 21:36 5 MG Sodium Chloride 10 ml Q8HR IV 11/17/24 06:00 11/23/24 06:52 10 ML Acetaminophen/ Hydrocodone Bitart 1 tab Q4HP PRN PO 11/17/24 00:00 11/22/24 11:53 1 TAB Ondansetron HCl 4 mg Q4HP PRN IV 11/17/24 00:00 Docusate Sodium 100 mg BIDPRN PRN PO 11/17/24 00:00 Acetaminophen 650 mg Q6HP PRN PO 11/17/24 00:00 11/23/24 00:27 650 MG Nitroglycerin 0.4 mg Q5MINP PRN SL 11/17/24 00:00 Morphine Sulfate 2 mg Q30M PRN IV 11/17/24 00:00 Albuterol 2.5 mg Q4HPRN PRN NEB 11/17/24 00:00 11/23/24 06:59 2.5 MG Ipratropium [place] 0.5 mg Q4HPRN PRN NEB 11/17/24 00:00 11/23/24 06:59 0.5 MG Methylprednisolone Sodium Succinate 40 mg Q8HR IV 11/18/24 16:00 11/23/24 06:49 40 MG Carvedilol 6.25 mg Q12HR PO 11/20/24 22:00 11/22/24 21:36 6.25 MG Furosemide 80 mg BIDD IV 11/22/24 18:00 11/23/24 06:51 80 MG Laboratory Results Laboratory Tests 11/21/24 07:37 Urinalysis Test 11/16/24 23:10 Urine Color Light-yellow (Yellow) Urine Clarity Clear (Clear) Urine pH 6.5 (5.0-9.0) Urine Specific [place] 1.010 (1.001-1.035) Urine Protein Negative (Negative) Urine Ketones Negative (Negative) Urine Blood Negative /uL (Negative) Urine Nitrite Negative (Negative) Urine Bilirubin Negative (Negative) Urine Urobilinogen Normal mg/dL (Negative) Urine Leukocyte Esterase Negative /uL (Negative) Urine RBC 1 /hpf (0 - 4) Urine Microscopic WBC 1 /HPF (0-5) Urine Squamous Epithelial Cells Few /hpf (<5) Urine Bacteria None seen /hpf (None Seen) Urine Glucose Normal mg/dL (Normal) Microbiology Microbiology Date/Time Source Procedure Growth Status 11/17/24 18:19 Nose MRSA Screen - Final Complete 11/16/24 21:00 Blood Blood Culture - Final NO GROWTH AFTER 5 DAYS OF INCUBATION. 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 Jha to long-term facility on 11/21/2024 Social service working on the placement Lorena vice president global digital marketing [phone] [facility] accepted the patient and patient is willing to go there, social service weas informed. Plan discussed with: Patient My Orders Orders - PHANI ALTMAN MD Procedure Category Date Status Time * General Office Clerk CONS 11/23/24 Transmitted Consult Discharge DISCHARGE 11/23/24 Transmitted 08:12 Date of Service: November 23, 2024 Billing Provider: PHANI ALTMAN MD Common Visit Codes: [id number] INP/OBS CARE(HIGH) PHANI ALTMAN MD November 23, 2024 08:14
--- NOTE | 2024-11-23 10:00 | ECG ---
[facility] Test Date: 2024-11-22 Test Time: 11:45:49 Pat Name: MYESHA BAEZ Department: Respiratoy Room: 0222T A Gender: F Director Trade: KELLEY : 1965 Requested By: PARMINDER DOUGLASS Order Number: [id number] Reading MD: Bishop Hernandez Measurements Intervals [place] Rate: 88 P: 0 [place]: 0 QRS: 36 QRSD: 108 T: 12 QT: 382 QTc: 463 Interpretive Statements Atrial fibrillation Ventricular premature complex Minimal ST depression, inferior leads Electronically Signed On 11-24-2024 22:52:00 PDT by Bishop Hernandez Please click the below link to view image of tracing.
--- NOTE | 2024-11-23 10:47 | ECG ---
[facility] Test Date: 2024-11-22 Test Time: 11:48:38 Pat Name: MYESHA BAEZ Department: Respiratoy Room: 0222T A Gender: F Non Morse Intercept Technician: KELLEY : 1965 Requested By: PARMINDER DOUGLASS Order Number: [id number] Reading MD: Bishop Hernandez Measurements Intervals [place] Rate: 97 P: 0 [place]: 0 QRS: 39 QRSD: 102 T: 14 QT: 374 QTc: 475 Interpretive Statements Atrial fibrillation Ventricular premature complex Baseline wander in lead(s) II Electronically Signed On 11-24-2024 22:52:34 PDT by Bishop Hernandez Please click the below link to view image of tracing.
--- NOTE | 2024-11-25 08:22 | ECG ---
[facility] Test Date: 2024-11-20 Test Time: 12:40:33 Pat Name: MYESHA BAEZ Department: Respiratoy Room: 0222T A Gender: F Hearings Reporter: PAMELA : 1965 Requested By: PARMINDER DOUGLASS Order Number: [id number] Reading MD: Bishop Hernandez Measurements Intervals [place] Rate: 105 P: 0 [place]: 0 QRS: 48 QRSD: 95 T: 22 QT: 341 QTc: 451 Interpretive Statements Atrial fibrillation Electronically Signed On 11-27-2024 14:39:28 PDT by Bishop Hernandez Please click the below link to view image of tracing.
== END 2024-11-23 22:50 | DRG 133 ==
LOC: ER 20:00 → EDBD 20:00 → OVERFLOW 23:46 → TELE-CENTR 11-17 17:43
PROVIDERS: ADMIT Family Medicine; ATTEND Family Medicine
PROC: 5A09357 Assistance with Respiratory Ventilation, Less than 24 Consecutive Hours, Continuous Positive Airway Pressure (ICD-10-PCS; principal; 2024-11-18)
DX: J96.21 Acute and chronic respiratory failure with hypoxia (principal); I50.33 Acute on chronic diastolic (congestive) heart failure; J15.69 Pneumonia due to other Gram-negative bacteria; J15.9 Unspecified bacterial pneumonia; I48.11 Longstanding persistent atrial fibrillation; I11.0 Hypertensive heart disease with heart failure; J44.0 Chronic obstructive pulmonary disease with (acute) lower respiratory infection; I73.9 Peripheral vascular disease, unspecified; Z79.01 Long term (current) use of anticoagulants; J44.1 Chronic obstructive pulmonary disease with (acute) exacerbation; Z68.42 Body mass index [BMI] 45.0-49.9, adult; E66.01 Morbid (severe) obesity due to excess calories; Z87.01 Personal history of pneumonia (recurrent); F17.210 Nicotine dependence, cigarettes, uncomplicated; F15.90 Other stimulant use, unspecified, uncomplicated
CPT/HCPCS: 36415; 36600; 71045; 80048; 80053; 81001; 82805; 83605; 83735; 83880; 84484; 85025; 85610; 85652; 85730; 87040; 87081; 93005; 93970; 94640; 94660; 96365; 97110; 97116; 97163; 99291; G0378; J3490

== ENCOUNTER 2025-01-08 20:44 | Inpatient (IN) | payer MEDICAID ==
[~2025-01-08] VITALS: Ht 172.7 cm; Wt 134.6 kg
[~2025-01-08 20:44] MED LIST changes: -LEVO500T91 PO
[2025-01-08 21:08] LABS: Hematocrit 36.9 % (36.0-46.0); Hemoglobin 11.9 g/dL (12.2-16.2); Mean Corpuscular Hemoglobin 29.8 pg (28.0-32.0); Mean Corpuscular Volume 92.4 fL (80.0-100.0); Nucleated Red Blood Cells % 0.0 %
[2025-01-08 21:25] LABS: Alanine Aminotransferase 31 U/L (7-40); Albumin 4.5 g/dL (3.2-4.8); Alkaline Phosphatase 91 U/L (46-116); Anion Gap 7 (5-15); BUN/Creatinine Ratio 26.4 (10.0-20.0); Bilirubin, Total 0.3 mg/dL (0.2-1.0); Blood Urea Nitrogen 24 mg/dL (9-23); Calcium 10.0 mg/dL (8.7-10.4); Carbon Dioxide 38 mmol/L (20-31); Chloride 100 mmol/L (98-107); Glucose 97 mg/dL (74-106); Potassium 3.5 mmol/L (3.5-5.1); Sodium 145 mmol/L (136-145); Total Protein 7.0 g/dL (5.7-8.2)
[2025-01-08] MEDS: IPRATROPIUM BROM 0.5 MG/2.5ML INH SOL ONE (21:28)
[2025-01-08] MEDS: ALBUTEROL SULF 2.5 MG/0.5ML(0.5%) NEB SOLN ONE (21:28)
--- NOTE | 2025-01-08 21:35 | ED.PDOC ---
SOB-HPI HPI Comments 59 year old female presents to the ED with a chief complaint of shortness of breath onset 2 days. Patient is from Post Acute care in [place], states her friend picked her up and dropped her off at the ED. Patient has been experiencing shortness of breath for the past 2 days, began experiencing chest pain this morning. Patient is currently on 3L O2 at home, was placed on 4L O2 sat was 92%. PMHx COPD, CHF, HTN, a-fib, states she is compliant with medicat ion. Denies fevers, chills, headache, blurry vision, numbness/tingling, dysuria, nausea, vomiting. No other symptoms or modifying factors present at this time. Chief Complaint: Shortness of Breath Time Seen by MD: 20:53 Reviewed notes: Medications, Allergies Information Source: Patient Mode of Arrival: Wheelchair Severity: Moderate Timing: Days Duration: Since onset Context: At Rest PE Risk Factors: None History of: COPD, CHF Prehospital treatment: None Associated Signs and Symptoms: Chest Pain Quality: Sharp Vital Signs Vital Signs Date Time Temp Pulse Resp B/P (MAP) Pulse Ox O2 Delivery O2 Flow Rate FiO2 01/08/25 22:40 149/89 01/08/25 22:39 99.9 111 26 94 3.0 32 99.9 01/08/25 22:10 Bi-Pap+ Physical Exam PHYSICAL EXAM: General: Awake, alert and oriented. No acute distress. Skin: Skin in warm, dry and intact without rashes or lesions. HEENT: The head is normocephalic and atraumatic. Conjunctivae are clear without exudates or hemorrhage. Sclera is non-icteric. Neck: Normal range of motion. No JVD. Cardiac: Regular rate Respiratory: No signs of respiratory distress. No Stridor. Extremities: Upper and lower extremities are atraumatic in appearance without deformity. Neurological: The patient is awake, alert and oriented to person, place, and time with normal speech. Speech is clear. There is no facial asymmetry. Psychiatric: Appropriate mood and affect. Good judgement and insight. Review of Systems: REVIEW OF SYSTEMS: General: No fever, no chills, or fatigue HEENT: No sore throat, no earache, no congestion, no neck pain. Cardiac: Positive chest pain. No palpitations. Lungs: Positive shortness of breath, no cough. GI: No nausea, no vomiting, no diarrhea, no constipation, no abdominal pain : No dysuria, frequency, or urgency. No hematuria. Musculoskeletal: No joint pain , no joint swelling, positive bilateral lower extremity edema. Skin: No rash, no itching. 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 Was a procedure done?: No Differential Dx Differential Diagnosis: Other (Differential diagnoses considered includebut arenot limited to acute Bronchitis, Asthma, COPD, Pneumothorax, PE, CHF, Pulmonary HTN, Anemia, CO Poisoning, Methemoglobinemia, Hyperventilation, [place] bolic Acidosis, Pulmonary Edema, Pneumonia, ACS, Pericardial Tamponade, Anxiety, other) X-Ray, Labs, Meds, VS Vital Signs Date Time Temp Pulse Resp B/P (MAP) Pulse Ox O2 Delivery O2 Flow Rate FiO2 01/08/25 22:40 149/89 01/08/25 22:39 99.9 111 26 177/79 94 3.0 32 99.9 01/08/25 22:15 86 01/08/25 22:10 99.7 100 22 177/79 (111) 98 99.7 01/08/25 22:10 100 22 98 Bi-Pap+ 3 44 44 01/08/25 22:03 91 177/79 Facial BiPAP Mask 30 01/08/25 21:37 26 94 Nasal Cannula* 3 32 01/08/25 20:51 99 Nasal Cannula* 4 36 01/08/25 20:51 99.9 99 30 110/69 (83) 92 99.9 Lab Test 01/08/25 21:48 01/08/25 21:04 01/08/25 20:50 Range/Units Troponin I High Sensitivity 9 9 </=34 ng/L Blood Gas Specimen Type Arterial Blood Gas Sample Site Left radial Blood Gas Patient Temperature 37.0 Arterial Blood Date Drawn [id number] Arterial Blood pH 7.464 H 7.350-7.450 Arterial Blood Partial Pressure CO2 52.4 H 32.0-45.0 mmHg Arterial Blood Partial Pressure O2 62.0 L 83.0-108.0 mmHg Arterial Blood HCO3 36.8 H 21.0-28.0 mmol/L Arterial Blood Oxygen Saturation 91.7 L 94.0-98.0 % Arterial Blood Base Excess 11.2 H -2.0-3.0 mmol/L Arterial Blood Oxyhemoglobin 90.5 L 94.0-98.0 % Arterial Blood Carboxyhemoglobin 0.9 0.5-1.5 % Arterial Blood Methemoglobin 0.4 0.0-1.5 % John Test Modified Blood Gas Total Hemoglobin 13.00 12.0-16.0 g/dL Blood Gas Liter Flow 4.00 Blood Gas Modality Nasal cannula FiO2 % 36.0 White Blood Count 12.3 H 4.4-10.8 10^3/uL Red Blood Count 3.99 L 4.0-5.20 10^6/uL Hemoglobin 11.9 L 12.2-16.2 g/dL Hematocrit 36.9 36.0-46.0 % Mean Corpuscular Volume 92.4 80.0-100.0 fL Mean Corpuscular Hemoglobin 29.8 28.0-32.0 pg Mean Corpuscular Hemoglobin Concent 32.2 32.0-36.0 g/dL Red Cell Distribution Width 15.1 H 11.8-14.3 % Platelet Count 199 140-450 10^3/uL Mean Platelet Volume 9.4 6.9-10.8 fL Neutrophils (%) (Auto) 73.7 37.0-80.0 % Lymphocytes (%) (Auto) 13.7 10.0-50.0 % Monocytes (%) (Auto) 11.3 0.0-12.0 % Eosinophils (%) (Auto) 0.3 0.0-7.0 % Basophils (%) (Auto) 1.0 0.0-2.0 % Neutrophils # (Auto) 9.0 H 1.6-8.6 10 ^3/uL Lymphocytes # (Auto) 1.7 0.4-5.4 10 ^3/uL Monocytes # (Auto) 1.4 H 0-1.3 10 ^3/uL Eosinophils # (Auto) 0 0-0.8 10 ^3/uL Basophils # (Auto) 0.1 0-0.2 10 ^3/uL Nucleated Red Blood Cells 0.0 % D-Dimer, Quantitative 0.37 0.0-0.49 mg/L FEU Sodium Level 145 136-145 mmol/L Potassium Level 3.5 3.5-5.1 mmol/L Chloride Level 100 98-107 mmol/L Carbon Dioxide Level 38 H 20-31 mmol/L Anion Gap 7 5-15 Blood Urea Nitrogen 24 H 9-23 mg/dL Creatinine 0.91 0.550-1.02 mg/dL Glomerular Filtration Rate Calc 73 >90 mL/min BUN/Creatinine Ratio 26.4 H 10.0-20.0 Serum Glucose 97 74-106 mg/dL Lactic Acid Level 1.2 0.4-2.0 mmol/L Calcium Level 10.0 8.7-10.4 mg/dL Total Bilirubin 0.3 0.2-1.0 mg/dL Aspartate Amino Transferase (AST) 26 13-40 U/L Alanine Aminotransferase (ALT) 31 7-40 U/L Alkaline Phosphatase 91 46-116 U/L B-Type Natriuretic Peptide 162.18 0-100 pg/mL Total Protein 7.0 5.7-8.2 g/dL Albumin 4.5 3.2-4.8 g/dL Current Medications Medications (Trade) Dose Ordered Sig/Tod Route Start Time Stop Time Status Last Admin Lorazepam (Ativan Inj) 0.5 mg ONCE ONCE IV 01/08/25 21:30 01/08/25 22:26 DC 01/08/25 21:37 Albuterol (Ventolin Medneb) 2.5 mg ONCE ONCE NEB 01/08/25 22:45 01/08/25 22:46 DC 01/08/25 23:30 Ipratropium [place] (Atrovent Medneb) 0.5 mg ONCE ONCE NEB 01/08/25 22:45 01/08/25 22:46 DC 01/08/25 23:30 Furosemide (Lasix Injection) 60 mg ONCE ONCE IV 01/08/25 22:45 01/08/25 22:46 DC 01/08/25 22:40 [facility] [address] [place] [address] Ph: [phone] DIAGNOSTIC IMAGING Diagnostic Imaging Report : [id number] Signed PATIENT: MYESHA BAEZ ACCT: [id number] UNIT: [id number] : 1965 LOC: ER ROOM / BED: / AGE / SEX: 59 / F ADM STATUS: REG ER SERVICE 45 ORDERING PHYSICIAN: MAGGY LYNCH MD PROCEDURE(s): CXR1 - CHEST XRAY 1 VIEW REASON: Shortness of breath ORDER NUMBER(s): [id number], ACCESSION NUMBER(s): [id number] EXAM: XY CHEST XRAY 1 VIEW TECHNIQUE: Single frontal chest radiograph CLINICAL HISTORY: Shortness of breath COMPARISON: XY CHEST XRAY 1 VIEW on DOS: 11/22/24, XY CHEST XRAY 1 VIEW on DOS: 11/20/24, XY CHEST PORTABLE on DOS: 11/18/24 Findings/Impression: Frontal chest radiograph demonstrates no acute osseous or superficial soft tissue abnormalities. The trachea is midline. Cardiomegaly with pulmonary vascular congestion. Mild bibasilar airspace opacities, [id number]. No pneumothorax or pleural effusions. ATED BY: TASNEEM HA DO DICTATED DATE/TIME: 01/08/252146 SIGNED BY: TASNEEM HA DO SIGNED DATE/TIME: 01/08/252146 CC: Time of 1ST Reevaluation: 21:23 Reevaluation 1ST: Unchanged Patient Education/Counseling: Need For Follow Up Family Education/Counseling: No Family Present SEPSIS Sepsis Screen Date sepsis recognized/suspect: Jan 08, 2025 Time Sepsis recognized/suspect: 2045 Recent Procedure: No On Antibiotic Therapy: No Respiratory Rate >20: Yes Heart Rate >90: Yes Temp<36 C (96.8 F) or >38.3 C: No SBP <90 or MAP <65 mmHG: No New Acute Mental Status Change: No Is the patient on CPAP, BIPAP,: No Physician Orders Abg W/ Co-Ox (01/08/25 20:46) Covid19 Antigen [place] (01/08/25 ) Rapid Influenza A&B (01/08/25 20:46) Chest Xray 1 View (01/08/25 20:46) Electrocardigram (01/08/25 20:46) Electrocardigram (01/08/25 21:46) Electrocardigram (01/08/25 23:46) BIPAP (01/08/25 20:46) Vital Signs Date Time Temp Pulse Resp B/P (MAP) Pulse Ox O2 Delivery O2 Flow Rate FiO2 01/08/25 22:40 149/89 01/08/25 22:39 99.9 111 26 177/79 94 3.0 32 99.9 01/08/25 22:15 86 01/08/25 22:10 99.7 100 22 177/79 (111) 98 99.7 01/08/25 22:10 100 22 98 Bi-Pap+ 3 44 44 01/08/25 22:03 91 177/79 Facial BiPAP Mask 30 01/08/25 21:37 26 94 Nasal Cannula* 3 32 01/08/25 20:51 99 Nasal Cannula* 4 36 01/08/25 20:51 99.9 99 30 110/69 (83) 92 99.9 Laboratory Tests Test 01/08/25 20:50 Lactic Acid Level 1.2 mmol/L (0.4-2.0) White Blood Count 12.3 10^3/uL (4.4-10.8) H Medications Medications Dose Ordered Sig/Tod Route Start Time Stop Time Status Last Admin Dose Admin Albuterol 2.5 mg ONCE ONCE NEB 01/08/25 22:45 01/08/25 22:46 DC 01/08/25 23:30 Albuterol 2.5 mg STK-MED ONCE .ROUTE 01/08/25 21:11 01/08/25 21:09 DC 01/08/25 21:28 Furosemide 60 mg ONCE ONCE IV 01/08/25 22:45 01/08/25 22:46 DC 01/08/25 22:40 Ipratropium [place] 0.5 mg ONCE ONCE NEB 01/08/25 22:45 01/08/25 22:46 DC 01/08/25 23:30 Ipratropium [place] 0.5 mg STK-MED ONCE .ROUTE 01/08/25 21:11 01/08/25 21:09 DC 01/08/25 21:28 Lorazepam 0.5 mg ONCE ONCE IV 01/08/25 21:30 01/08/25 22:26 DC 01/08/25 21:37 Departure 1 Departure Time of Disposition: 22:33 Impression: Primary Impression: CHF exacerbation Disposition: ADMITTED INPATIENT Condition: Serious Comments MDM: Patient started on BiPAP, given IV Lasix and stabilized in the ED Patient admitted to hospitalist service for further treatment, evaluation and monitoring. Extensive evaluation was performed in attempt to identify or rule out: (See differential diagnosis section) The following tests were ordered, and results were reviewed by me and discussed with patient: (See diagnostic results section) The following test were independently interpreted by me: EKG I reviewed and agreed with the following test results read by other providers: Chest x-ray I reviewed the following notes from the pt's past medical encounters: October 2024 for acute CHF exacerbation Additional information was gathered from interviewing the following independent historians: N/A Discussion of management or test interpretation with external physician/other qualified health plant care worker: N/A Addressed an acute or chronic illness that poses a threat to life or bodily function: CHF exacerbation, COPD Decision regarding hospitalization or escalation of hospital level of care: Risk and benefits of admission for further treatment of patient's condition was considered. Due to patient's current clinical condition, high risk of decline and poor outcome if discharged and need for further inpatient management and monitoring, patient will be admitted to the hospital. Parenteral controlled substances: IV lorazepam Critical Care Note Critical Care Time?: Yes (35 min-critical care time only) Critical care comment: Due to a high probability of clinically significant, life threatening deterioration, the patient required my highest level of preparedness to intervene emergently and I personally spent this critical care time directly and personally managing the patient. This critical care time included obtaining a history; examining the patient; pulse oximetry; ordering and review of studies; arranging urgent treatment with development of a management plan; evaluation of patient's response to treatment; frequent reassessment; and, discussions with other providers. This critical care time was performed to assess and manage the high probability of imminent, life-threatening deterioration that could result in multi-organ failure. It was exclusive of separately billable procedures and treating other patients and teaching time. Please see my other sections and the rest of the note for further information on patient assessment and treatment. Stability Stability form required: No Heart Score Heart Score: Heart Score Response (Comments) Value History Moderate Suspicious 1 EKG Normal 0 Age 45-64 1 Risk Factors >3 or Hx ASHD 2 Troponin Normal limit 0 Total 4 I personally scribed for MAGGY LYNCH MD ([email or web address]) on 01/08/25 at 21:35. Electronically submitted by Echo Jensen ([email or web address]). I personally scribed for MAGGY LYNCH MD ([email or web address]) on 01/09/25 at 00:32. Electronically submitted by Echo Jensen ([email or web address]). MAGGY LYNCH MD Jan 08, 2025 21:35
[2025-01-08] MEDS: LORazepam 2MG/ML-1ML VIAL IV ONE (21:37)
[2025-01-08 21:41] LABS: Base Excess 11.2 mmol/L (-2.0-3.0)
--- NOTE | 2025-01-08 21:50 | DVH ---
EXAM: XY CHEST XRAY 1 VIEW TECHNIQUE: Single frontal chest radiograph CLINICAL HISTORY: Shortness of breath COMPARISON: XY CHEST XRAY 1 VIEW on DOS: 11/22/24, XY CHEST XRAY 1 VIEW on DOS: 11/20/24, XY CHEST PORT ABLE on DOS: 11/18/24 Findings/Impression: Frontal chest radiograph demonstrates no acute osseous or superficial soft tissue abnormalities. The trachea is midline. Cardiomegaly with pulmonary vascular congestion. Mild bibasilar airspace opacities, [id number]-left. No pneumothorax or pleural effusions.
[2025-01-08 22:10] VITALS: PULSE 100; RESP 22; O2SAT 98
[2025-01-08 22:39] VITALS: BP 177/79; PULSE 111; RESP 26; TEMP 99.9; O2SAT 94
[2025-01-08] MEDS: FUROSEMIDE 40 MG/4 ML VIAL IV ONE (22:40)
[2025-01-08] MEDS: AZITHROMYCIN 500MG/ 250ML 250 ML IV ONE (23:30)
[2025-01-08] MEDS ORDERED: NITROGLYCERIN 0.4 MG SL TAB SL PRN (23:30)
[2025-01-08] MEDS: ALBUTEROL SULF 2.5 MG/0.5ML(0.5%) NEB SOLN NEB ONE (23:30)
[2025-01-08] MEDS: IPRATROPIUM BROM 0.5 MG/2.5ML INH SOL NEB ONE (23:30)
[2025-01-08] MEDS ORDERED: ONDANSETRON HCL 4 MG/2 ML VIAL IV PRN (23:30)
[2025-01-09] VITALS (13 sets, daily range): BP systolic 118–141; BP diastolic 41–91; PULSE 78–107; RESP 16–24; TEMP 96.5–98.5; O2SAT 94–100
--- NOTE | 2025-01-09 01:14 | DVHHP2 ---
History of Present Illness Reason for Visit: Shortness for breath History of Present Illness 59-year-old female presents for evaluation of shortness for breath. Patient presents with a two day history of worsening shortness for breath with a nonproductive cough and chest pressure. No fever or chills. No other acute complaints. Past Medical History COPD, hypertension, CHF, AFib Past Surgical History Denies Family History Noncontributory Smoke: <1 pack per day ALCOHOL: none Drugs: None Lives: with Family Review of Systems Review of Systems Review of systems are currently negative otherwise addressed in HPI. Allergies: Coded Allergies: NO KNOWN ALLERGIES (Unverified , 09/17/24) Medications Current Medications Medications Dose Ordered Sig/Tod Route Start Time Stop Time Status Last Admin Dose Admin Carvedilol 6.25 mg Q12HR PO 01/09/25 10:00 Amlodipine Besylate 10 mg DAILY PO 01/09/25 10:00 Apixaban 5 mg BID PO 01/09/25 10:00 Diltiazem HCl 240 mg DAILY PO 01/09/25 10:00 Hydrochlorothiazide 25 mg DAILY PO 01/09/25 10:00 Hydralazine HCl 25 mg Q12HR PO 01/09/25 10:00 Ceftriaxone Sodium 50 ml @ 100 mls/hr DAILY@09 IV 01/09/25 09:00 Azithromycin 250 ml @ 125 mls/hr DAILY IV 01/09/25 10:00 Albuterol 2.5 mg Q6HPRN PRN NEB 01/08/25 23:30 Ipratropium [place] 0.5 mg Q6HPRN PRN NEB 01/08/25 23:30 Furosemide 20 mg BIDD IV 01/09/25 06:00 Acetaminophen/ Hydrocodone Bitart 1 tab Q4HP PRN PO 01/08/25 23:30 Ondansetron HCl 4 mg Q4HP PRN IV 01/08/25 23:30 Acetaminophen 650 mg Q6HP PRN PO 01/08/25 23:30 Nitroglycerin 0.4 mg Q5MINP PRN SL 01/08/25 23:30 Morphine Sulfate 2 mg Q30M PRN IV 01/08/25 23:30 Exam Vital Signs Vital Signs Date Time Temp Pulse Resp B/P (MAP) Pulse Ox O2 Delivery O2 Flow Rate FiO2 01/09/25 01:03 94 Nasal Cannula 2.0 01/09/25 01:03 28 01/09/25 00:11 99.1 92 22 149/92 111) 99.1 Exam Gen: 59-year-old female in moderate distress, morbidly obese Skin: Warm, dry, normal color and texture, no rash. HEENT: Normocephalic atraumatic, mucous membranes moist and pink. Neck: Cervical and supraclavicular nodes normal without enlargement, trachea is midline, thyroid gland is normal without masses. Pulmonary: Rhonchi, on BiPAP Cardiac: Regular rate and rhythm. No murmur Abdomen: Soft, nontender, nondistended, bowel sounds present all 4 quadrants, no guarding, no rigidity, no organomegaly. Extremities: No cyanosis, clubbing, no edema Neuro: Cranial nerves II through XII grossly intact, normal affect and speech, no focal motor deficits. Labs/Xrays ORDERING PHYSICIAN: MAGGY LYNCH MD PROCEDURE(s): CXR1 - CHEST XRAY 1 VIEW REASON: Shortness of breath ORDER NUMBER(s): [id number], ACCESSION NUMBER(s): [id number] EXAM: XY CHEST XRAY 1 VIEW TECHNIQUE: Single frontal chest radiograph CLINICAL HISTORY: Shortness of breath COMPARISON: XY CHEST XRAY 1 VIEW on DOS: 11/22/24, XY CHEST XRAY 1 VIEW on DOS: 11/20/24, XY CHEST PORTABLE on DOS: 11/18/24 Findings/Impression: Frontal chest radiograph demonstrates no acute osseous or superficial soft tissue abnormalities. The trachea is midline. Cardiomegaly with pulmonary vascular congestion. Mild bibasilar airspace opacities, [id number]. No pneumothorax or pleural effusions. Labs Test 01/08/25 21:48 01/08/25 21:04 01/08/25 20:50 Range/Units Troponin I High Sensitivity 9 </=34 ng/L Blood Gas Specimen Type Arterial Blood Gas Sample Site Left radial Blood Gas Patient Temperature 37.0 Arterial Blood Date Drawn [id number] Arterial Blood pH 7.464 H 7.350-7.450 Arterial Blood Partial Pressure CO2 52.4 H 32.0-45.0 mmHg Arterial Blood Partial Pressure O2 62.0 L 83.0-108.0 mmHg Arterial Blood HCO3 36.8 H 21.0-28.0 mmol/L Arterial Blood Oxygen Saturation 91.7 L 94.0-98.0 % Arterial Blood Base Excess 11.2 H -2.0-3.0 mmol/L Arterial Blood Oxyhemoglobin 90.5 L 94.0-98.0 % Arterial Blood Carboxyhemoglobin 0.9 0.5-1.5 % Arterial Blood Methemoglobin 0.4 0.0-1.5 % John Test Modified Blood Gas Total Hemoglobin 13.00 12.0-16.0 g/dL Blood Gas Liter Flow 4.00 Blood Gas Modality Nasal cannula FiO2 % 36.0 White Blood Count 12.3 H 4.4-10.8 10^3/uL Red Blood Count 3.99 L 4.0-5.20 10^6/uL Hemoglobin 11.9 L 12.2-16.2 g/dL Hematocrit 36.9 36.0-46.0 % Mean Corpuscular Volume 92.4 80.0-100.0 fL Mean Corpuscular Hemoglobin 29.8 28.0-32.0 pg Mean Corpuscular Hemoglobin Concent 32.2 32.0-36.0 g/dL Red Cell Distribution Width 15.1 H 11.8-14.3 % Platelet Count 199 140-450 10^3/uL Mean Platelet Volume 9.4 6.9-10.8 fL Neutrophils (%) (Auto) 73.7 37.0-80.0 % Lymphocytes (%) (Auto) 13.7 10.0-50.0 % Monocytes (%) (Auto) 11.3 0.0-12.0 % Eosinophils (%) (Auto) 0.3 0.0-7.0 % Basophils (%) (Auto) 1.0 0.0-2.0 % Neutrophils # (Auto) 9.0 H 1.6-8.6 10 ^3/uL Lymphocytes # (Auto) 1.7 0.4-5.4 10 ^3/uL Monocytes # (Auto) 1.4 H 0-1.3 10 ^3/uL Eosinophils # (Auto) 0 0-0.8 10 ^3/uL Basophils # (Auto) 0.1 0-0.2 10 ^3/uL Nucleated Red Blood Cells 0.0 % D-Dimer, Quantitative 0.37 0.0-0.49 mg/L FEU Sodium Level 145 136-145 mmol/L Potassium Level 3.5 3.5-5.1 mmol/L Chloride Level 100 98-107 mmol/L Carbon Dioxide Level 38 H 20-31 mmol/L Anion Gap 7 5-15 Blood Urea Nitrogen 24 H 9-23 mg/dL Creatinine 0.91 0.550-1.02 mg/dL Glomerular Filtration Rate Calc 73 >90 mL/min BUN/Creatinine Ratio 26.4 H 10.0-20.0 Serum Glucose 97 74-106 mg/dL Lactic Acid Level 1.2 0.4-2.0 mmol/L Calcium Level 10.0 8.7-10.4 mg/dL Total Bilirubin 0.3 0.2-1.0 mg/dL Aspartate Amino Transferase (AST) 26 13-40 U/L Alanine Aminotransferase (ALT) 31 7-40 U/L Alkaline Phosphatase 91 46-116 U/L B-Type Natriuretic Peptide 162.18 0-100 pg/mL Total Protein 7.0 5.7-8.2 g/dL Albumin 4.5 3.2-4.8 g/dL SEPSIS Sepsis Screen Date sepsis recognized/suspect: Jan 08, 2025 Time Sepsis recognized/suspect: 2213 Recent Procedure: No On Antibiotic Therapy: No Respiratory Rate >20: No Heart Rate >90: No Temp<36 C (96.8 F) or >38.3 C: No SBP <90 or MAP <65 mmHG: No New Acute Mental Status Change: No Is the patient on CPAP, BIPAP,: No Physician Orders Abg W/ Co-Ox (01/08/25 20:46) Covid19 Antigen Paola (01/08/25 ) Rapid Influenza A&B (01/08/25 20:46) Chest Xray 1 View (01/08/25 20:46) Electrocardigram (01/08/25 20:46) Electrocardigram (01/08/25 21:46) Electrocardigram (01/08/25 23:46) BIPAP (01/08/25 20:46) Carvedilol Tablet (Coreg Tablet) (01/09/25 10:00) Amlodipine Tablet (Norvasc Tablet) (01/09/25 10:00) Apixaban (Eliquis) (01/09/25 10:00) Diltiazem Er Capsule (Cardizem Er Capsul (01/09/25 10:00) Hydrochlorothiazide Tablet (Hydrochlorot (01/09/25 10:00) Hydralazine Hcl Tablet (Apresoline Table (01/09/25 10:00) Ceftriaxone 1gm/50ml D5w (Rocephin) (01/09/25 09:00) Azithromycin 500mg/ 250ml (Zithromax 50 (01/09/25 10:00) Azithromycin 500mg/ 250ml (Zithromax 50 (01/08/25 23:30) Albuterol Medneb (Ventolin Medneb) (01/08/25 23:30) Ipratropium Medneb (Atrovent Medneb) (01/08/25 23:30) Furosemide Injection (Lasix Injection) (01/09/25 06:00) Basic Metabolic Panel (01/09/25 04:00) Admit (01/08/25 23:23) Hydrocodone-Acet 5/325mg Tab ([place] 5/32 (01/08/25 23:30) Ondansetron Hcl (Zofran) (01/08/25 23:30) Cardiac Diet-2gna,Lofat,Lochol (01/09/25 Breakfast) Condition: Fair (01/08/25 23:23) Acetaminophen Tablet (Tylenol Tablet) (01/08/25 23:30) Bedrest With Bathroom Privileg (01/08/25 23:23) Nitroglycerin Sublingual (Ntrostat Subli (01/08/25 23:30) Morphine Sulfate Injection (01/08/25 23:30) Stat Ekg For Chest Pain (01/08/25 23:23) Notify Md Of Changes From Base (01/08/25 23:23) Novelty Twister Operator For 24 Hours (01/08/25 23:23) Emergency Dysrhythmia Protocol (01/08/25 23:23) Rhythm Strips Once Every Shift (01/08/25 23:23) Oxygen By Nasal Cannula (01/08/25 23:23) Vital Signs Date Time Temp Pulse Resp B/P (MAP) Pulse Ox O2 Delivery O2 Flow Rate FiO2 01/09/25 01:03 94 Nasal Cannula 2.0 01/09/25 01:03 94 Nasal Cannula* 2 28 01/09/25 00:11 99.1 92 22 149/92 (111) 95 99.1 01/09/25 00:00 92 01/08/25 23:30 89 152/97 Facial BiPAP Mask 30 01/08/25 22:40 149/89 01/08/25 22:39 99.9 111 26 177/79 94 3.0 32 99.9 01/08/25 22:15 86 01/08/25 22:10 99.7 100 22 177/79 (111) 98 99.7 01/08/25 22:10 100 22 98 Bi-Pap+ 3 44 44 01/08/25 22:03 91 177/79 Facial BiPAP Mask 30 01/08/25 21:52 101 01/08/25 21:37 26 94 Nasal Cannula* 3 32 01/08/25 20:51 99 Nasal Cannula* 4 36 01/08/25 20:51 99.9 99 30 110/69 (83) 92 99.9 Laboratory Tests Test 01/08/25 20:50 Lactic Acid Level 1.2 mmol/L (0.4-2.0) White Blood Count 12.3 10^3/uL (4.4-10.8) H Medications Medications Dose Ordered Sig/Tod Route Start Time Stop Time Status Last Admin Dose Admin Albuterol 2.5 mg ONCE ONCE NEB 01/08/25 22:45 01/08/25 22:46 DC 01/08/25 23:30 2.5 MG Albuterol 2.5 mg STK-MED ONCE .ROUTE 01/08/25 21:11 01/08/25 21:09 DC 01/08/25 21:28 2.5 MG Azithromycin 250 ml @ 125 mls/hr ONCE ONCE IV 01/08/25 23:30 01/09/25 01:29 01/08/25 23:30 125 MLS/HR Furosemide 60 mg ONCE ONCE IV 01/08/25 22:45 01/08/25 22:46 DC 01/08/25 22:40 60 MG Ipratropium [place] 0.5 mg ONCE ONCE NEB 01/08/25 22:45 01/08/25 22:46 DC 01/08/25 23:30 0.5 MG Ipratropium [place] 0.5 mg STK-MED ONCE .ROUTE 01/08/25 21:11 01/08/25 21:09 DC 01/08/25 21:28 0.5 MG Lorazepam 0.5 mg ONCE ONCE IV 01/08/25 21:30 01/08/25 22:26 DC 01/08/25 21:37 0.5 MG Assessment/Plan Assessment/Plan Assessment Acute on chronic respiratory failure COPD exacerbation CHF exacerbation Community-acquired pneumonia Plan Admit the patient to [facility] to the hospitalist Rocephin/azithromycin Med nebs IV Lasix Resume home medications Continue treatment per orders. Total critical care time excluding procedures performed this 50 minutes. Plan discussed with: Patient My Orders Orders - KANDICE GUTIÉRREZCNIssa Procedure Category Date Status Time Carvedilol Tablet PHA 01/09/25 In Process (Coreg Tablet) 10:00 Amlodipine Tablet PHA 01/09/25 In Process (Norvasc Tablet) 10:00 Apixaban (Eliquis) PHA 01/09/25 In Process 10:00 Diltiazem Er Capsule PHA 01/09/25 In Process (Cardizem Er Capsul 10:00 Hydrochlorothiazide PHA 01/09/25 In Process Tablet (Hydrochlorot 10:00 Hydralazine Hcl PHA 01/09/25 In Process Tablet (Apresoline 10:00 Ceftriaxone 1gm/50ml PHA 01/09/25 In Process D5w (Rocephin) 09:00 Azithromycin 500mg/ PHA 01/09/25 In Process 250ml (Zithromax 50 10:00 Azithromycin 500mg/ PHA 01/08/25 In Process 250ml (Zithromax 50 23:30 Albuterol Medneb PHA 01/08/25 In Process (Ventolin Medneb) 23:30 Ipratropium Medneb PHA 01/08/25 In Process (Atrovent Medneb) 23:30 Furosemide Injection PHA 01/09/25 In Process (Lasix Injection) 06:00 Basic Metabolic Panel LAB 01/09/25 Logged 04:00 Admit ADMIT 01/08/25 Transmitted 23:23 Hydrocodone-Acet PHA 01/08/25 In Process 5/325mg Tab ([place] 23:30 Ondansetron Hcl PHA 01/08/25 In Process (Zofran) 23:30 Cardiac DIET 7/17/25 Transmitted Diet-2gna,Lofat,Lochol Breakfast Condition: Fair [facility] 01/08/25 In Process 23:23 Acetaminophen Tablet PHA 01/08/25 In Process (Tylenol Tablet) 23:30 Bedrest With Bathroom [facility] 01/08/25 In Process Privileg 23:[address] [facility] 01/08/25 In Process Sublingual (Ntrostat 23:30 Morphine Sulfate PHA 01/08/25 In Process Injection 23:30 Stat Ekg For Chest [facility] 01/08/25 In Process Pain 23:23 Notify Md Of Changes [facility] 01/08/25 In Process From Base 23:23 Novelty Twister Operator For [facility] 01/08/25 In Process 24 Hours 23:23 Emergency Dysrhythmia [facility] 01/08/25 In Process Protocol 23:23 Rhythm Strips Once [facility] 01/08/25 In Process Every Shift 23:23 Oxygen By Nasal RT 01/08/25 Transmitted Cannula 23:23 Date of Service: Jan 08, 2025 Billing Provider: KANDICE GUTIÉRREZ Common Visit Codes: [id number] CARE 30-74 MIN KANDICE GUTIÉRREZ Jan 09, 2025 01:14
[2025-01-09] MEDS: HYDROcodone-ACET 5/325MG TAB PO PRN (02:13)
[2025-01-09] MEDS: MORPHINE SULFATE INJ 2 MG/ml SYRG IV PRN (05:38)
[2025-01-09] MEDS: FUROSEMIDE 20 MG/2 ML VIAL IV SCH (06:00)
[2025-01-09] MEDS: IPRATROPIUM BROM 0.5 MG/2.5ML INH SOL NEB PRN (08:04)
[2025-01-09] MEDS: ALBUTEROL SULF 2.5 MG/0.5ML(0.5%) NEB SOLN NEB PRN (08:04)
[2025-01-09] MEDS: cefTRIAXone 1GM/50ML D5W 50 ML IV SCH (09:03)
[2025-01-09 09:39] LABS: COVID19 ANTIGEN SOFIA FIA POSITIVE (NEGATIVE)
--- NOTE | 2025-01-09 09:54 | ECG ---
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
--- NOTE | 2025-01-09 09:54 | ECG ---
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
[2025-01-09] MEDS: NICOTINE 14 MG/24HR TOPICAL PATCH TD SCH (10:18)
[2025-01-09] MEDS: AZITHROMYCIN 500MG/ 250ML 250 ML IV SCH (10:19)
[2025-01-09] MEDS: CARVEDILOL 3.125 MG TAB PO SCH (10:20)
[2025-01-09] MEDS: dilTIAZem 120MG ER CAP PO SCH (10:20)
[2025-01-09] MEDS: hydroCHLOROthiazide 25 MG TAB PO SCH (10:21)
[2025-01-09] MEDS: APIXABAN 5 MG TAB PO SCH (10:22)
[2025-01-09] MEDS: ACETAMINOPHEN 325 MG TAB PO PRN (11:31)
[2025-01-09 13:22] LABS: Anion Gap 6 (5-15); Calcium 8.8 mg/dL (8.7-10.4); Sodium 142 mmol/L (136-145)
[2025-01-09 13:23] LABS: Carbon Dioxide 39 mmol/L (20-31); Chloride 97 mmol/L (98-107); Potassium 3.2 mmol/L (3.5-5.1)
[2025-01-09 13:28] LABS: BUN/Creatinine Ratio 20.4 (10.0-20.0); Blood Urea Nitrogen 21 mg/dL (9-23); Glucose 126 mg/dL (74-106)
--- NOTE | 2025-01-09 23:24 | DVHPN2 ---
Subjective off bipap Reviewed: H&P, Labs Changes from previous H/P or p: No Changes Objective Vitals Vital Signs Date Time Temp Pulse Resp B/P (MAP) Pulse Ox O2 Delivery O2 Flow Rate FiO2 01/09/25 22:40 82 141/97 01/09/25 21:00 97.3 19 96 97.3 01/09/25 20:25 Nasal Cannula* 4 36 Intake/Output Intake and Output 01/09/25 07:00 Output Total 1900 ml Balance -1900 ml Output Urine Total 1900 ml General Appearance: Alert, Oriented X3 HEENT: Atraumatic Cardiovascular: Regular rate, Normal S1, Normal S2 Abdomen: Normal bowel sounds Medications Current Medications Medications Dose Ordered Sig/Tod Route Start Time Stop Time Status Last Admin Dose Admin Carvedilol 6.25 mg Q12HR PO 01/09/25 10:00 01/09/25 22:40 6.25 MG Amlodipine Besylate 10 mg DAILY PO 01/09/25 10:00 01/09/25 10:22 10 MG Apixaban 5 mg BID PO 01/09/25 10:00 01/09/25 22:37 5 MG Diltiazem HCl 240 mg DAILY PO 01/09/25 10:00 01/09/25 10:20 240 MG Hydrochlorothiazide 25 mg DAILY PO 01/09/25 10:00 01/09/25 10:21 25 MG Hydralazine HCl 25 mg Q12HR PO 01/09/25 10:00 01/09/25 22:38 25 MG Ceftriaxone Sodium 50 ml @ 100 mls/hr DAILY@09 IV 01/09/25 09:00 01/09/25 09:03 100 MLS/HR Azithromycin 250 ml @ 125 mls/hr DAILY IV 01/09/25 10:00 01/09/25 10:19 125 MLS/HR Albuterol 2.5 mg Q6HPRN PRN NEB 01/08/25 23:30 01/09/25 08:[address] [place] 0.5 mg Q6HPRN PRN NEB 01/08/25 23:30 01/09/25 08:04 0.5 MG Furosemide 20 mg BIDD IV 01/09/25 06:00 01/09/25 19:47 20 MG Acetaminophen/ Hydrocodone Bitart 1 tab Q4HP PRN PO 01/08/25 23:30 01/09/25 02:13 1 TAB Ondansetron HCl 4 mg Q4HP PRN IV 01/08/25 23:30 Acetaminophen 650 mg Q6HP PRN PO 01/08/25 23:30 01/09/25 11:31 650 MG Nitroglycerin 0.4 mg Q5MINP PRN SL 01/08/25 23:30 Morphine Sulfate 2 mg Q30M PRN IV 01/08/25 23:30 01/09/25 05:38 2 MG Nicotine 1 patch DAILY TD 01/09/25 10:00 01/09/25 10:18 1 PATCH Laboratory Results Laboratory Tests 01/08/25 20:50 01/09/25 12:43 Chemistry Test 01/09/25 12:43 Calcium Level 8.8 mg/dL (8.7-10.4) Assessment/Plan Assessment/Plan Acute on chronic respiratory failure COPD exacerbation CHF exacerbation Community-acquired pneumonia Plan Admit the patient to [facility] to the hospitalist Rocephin/azithromycin Med nebs IV Lasix Resume home medications Continue treatment per orders. Plan discussed with: Patient My Orders Orders - GILBERTO SALAZAR MD Procedure Category Date Status Time Transfer Orders XFER 01/09/25 Transmitted 14:16 Date of Service: Jan 09, 2025 Billing Provider: GILBERTO SALAZAR MD Common Visit Codes: [id number] INP/OBS CARE(HIGH) GILBERTO SALAZAR MD Jan 09, 2025 23:24
[2025-01-10] VITALS (12 sets, daily range): BP systolic 116–131; BP diastolic 75–88; PULSE 64–96; RESP 16–21; TEMP 97–98.5; O2SAT 96–99
[2025-01-10] MEDS: LORazepam 0.5 MG TAB PO ONE (00:44)
[2025-01-10] MEDS ORDERED: REMDESIVIR PER PHARMACY 0 ML IV SCH (10:00)
[2025-01-10] MEDS: REMDESIVIR 200mg in NS 210mL LOADING DOSE ADULT IV ONE (11:36)
[2025-01-10] MEDS: LORazepam 0.5 MG TAB PO PRN (12:33)
[2025-01-10] MEDS: POTASSIUM EFFERVESENT TAB 25 MEQ PO ONE (12:34)
--- NOTE | 2025-01-10 18:33 | DVHPN2 ---
Subjective off bipap Reviewed: H&P, Labs Changes from previous H/P or p: No Changes Objective Vitals Vital Signs Date Time Temp Pulse Resp B/P (MAP) Pulse Ox O2 Delivery O2 Flow Rate FiO2 01/10/25 16:39 98.2 64 18 127/87 (100) 96 98.2 01/10/25 10:00 Nasal Cannula* 4 36 Intake/Output Intake and Output 01/10/25 07:00 Intake Total 700 ml Output Total 4050 ml Balance -3350 ml Intake Oral 700 ml Output Urine Total 4050 ml # Bowel Movements 2 General Appearance: Alert, Oriented X3 HEENT: Atraumatic Cardiovascular: Regular rate, Normal S1, Normal S2 Abdomen: Normal bowel sounds Medications Current Medications Medications Dose Ordered Sig/Tod Route Start Time Stop Time Status Last Admin Dose Admin Carvedilol 6.25 mg Q12HR PO 01/09/25 10:00 01/10/25 10:19 6.25 MG Amlodipine Besylate 10 mg DAILY PO 01/09/25 10:00 01/10/25 10:15 10 MG Apixaban 5 mg BID PO 01/09/25 10:00 01/10/25 10:16 5 MG Diltiazem HCl 240 mg DAILY PO 01/09/25 10:00 01/10/25 10:14 240 MG Hydrochlorothiazide 25 mg DAILY PO 01/09/25 10:00 01/10/25 10:17 25 MG Hydralazine HCl 25 mg Q12HR PO 01/09/25 10:00 01/10/25 10:16 25 MG Ceftriaxone Sodium 50 ml @ 100 mls/hr DAILY@09 IV 01/09/25 09:00 01/10/25 10:03 100 MLS/HR Azithromycin 250 ml @ 125 mls/hr DAILY IV 01/09/25 10:00 01/10/25 13:49 125 MLS/HR Albuterol 2.5 mg Q6HPRN PRN NEB 01/08/25 23:30 01/09/25 23:50 2.5 MG Ipratropium [place] 0.5 mg Q6HPRN PRN NEB 01/08/25 23:30 01/09/25 23:50 0.5 MG Furosemide 20 mg BIDD IV 01/09/25 06:00 01/09/25 19:47 20 MG Acetaminophen/ Hydrocodone Bitart 1 tab Q4HP PRN PO 01/08/25 23:30 01/09/25 02:13 1 TAB Ondansetron HCl 4 mg Q4HP PRN IV 01/08/25 23:30 Acetaminophen 650 mg Q6HP PRN PO 01/08/25 23:30 01/09/25 11:31 650 MG Nitroglycerin 0.4 mg Q5MINP PRN SL 01/08/25 23:30 Morphine Sulfate 2 mg Q30M PRN IV 01/08/25 23:30 01/09/25 05:38 2 MG Nicotine 1 patch DAILY TD 01/09/25 10:00 01/10/25 10:13 1 PATCH Remdesivir 0 ml @ 0 mls/hr PER PHARMACY IV 01/10/25 10:00 01/14/25 10:01 Remdesivir 100 mg/ Sodium Chloride 250 ml @ 250 mls/hr DAILY@1500 IV 01/11/25 15:00 01/14/25 15:59 Albuterol 180 mcg TIDPRN PRN IN 01/10/25 12:00 Lorazepam 0.5 mg Q8HP PRN PO 01/10/25 12:15 01/10/25 12:33 0.5 MG Laboratory Results Laboratory Tests 01/08/25 20:50 01/09/25 12:43 Assessment/Plan Assessment/Plan Acute on chronic respiratory failure COPD exacerbation CHF exacerbation Community-acquired pneumonia COVID 19 Plan Admit the patient to [facility] to the hospitalist Rocephin/azithromycin Start remdesivir IV dexamethasone Med nebs IV Lasix Resume home medications Continue treatment per orders. Plan discussed with: Patient My Orders Orders - GILBERTO SALAZAR MD Procedure Category Date Status Time Complete Blood Count LAB 01/11/25 Verified 05:00 Complete Blood Count LAB 01/12/25 Verified 05:00 Complete Blood Count LAB 01/13/25 Verified 05:00 Complete Blood Count LAB 01/14/25 Verified 05:00 Complete Blood Count LAB 01/15/25 Verified 05:00 Complete Blood Count LAB 01/16/25 Verified 05:00 Complete Blood Count LAB 01/17/25 Verified 05:00 Basic Metabolic Panel LAB 01/11/25 Verified 05:00 Basic Metabolic Panel LAB 01/12/25 Verified 05:00 Basic Metabolic Panel LAB 01/13/25 Verified 05:00 Basic Metabolic Panel LAB 01/14/25 Verified 05:00 Basic Metabolic Panel LAB 01/15/25 Verified 05:00 Basic Metabolic Panel LAB 01/16/25 Verified 05:00 Basic Metabolic Panel LAB 01/17/25 Verified 05:00 Remdesivir Per PHA 01/10/25 In Process Pharmacy 10:00 Remdesivir 100mg PHA 01/11/25 In Process ([facility]ek[facility]) 15:00 Albuterol Inhaler PHA 01/10/25 In Process (Ventolin Hfa) 12:00 Lorazepam Tablet PHA 01/10/25 In Process (Ativan Tablet) 12:15 Date of Service: Jan 10, 2025 Billing Provider: GILBERTO SALAZAR MD Common Visit Codes: [id number] INP/OBS CARE(HIGH) GILBERTO SALAZAR MD Jan 10, 2025 18:32
[2025-01-10] MEDS: ALBUTEROL SULF HFA 90MCG INH 200DOSE IN PRN (19:45)
[2025-01-11] VITALS (13 sets, daily range): BP systolic 105–146; BP diastolic 59–88; PULSE 72–97; RESP 18–24; TEMP 97.8–98.6; O2SAT 93–99
[2025-01-11 06:57] LABS: Hematocrit 33.7 % (36.0-46.0); Hemoglobin 11.2 g/dL (12.2-16.2); Mean Corpuscular Hemoglobin 30.8 pg (28.0-32.0); Mean Corpuscular Volume 92.2 fL (80.0-100.0); Nucleated Red Blood Cells % 0.2 %
[2025-01-11 07:13] LABS: Anion Gap 7 (5-15); Sodium 142 mmol/L (136-145)
[2025-01-11 07:14] LABS: Calcium 9.6 mg/dL (8.7-10.4)
[2025-01-11 07:19] LABS: BUN/Creatinine Ratio 22.2 (10.0-20.0); Blood Urea Nitrogen 20 mg/dL (9-23); Glucose 80 mg/dL (74-106)
[2025-01-11 07:25] LABS: Chloride 95 mmol/L (98-107); Potassium 3.4 mmol/L (3.5-5.1)
[2025-01-11 07:26] LABS: Carbon Dioxide 40 mmol/L (20-31)
[2025-01-11] MEDS: REMDESIVIR 100mg in NS 230mL (5 DAY REGIMEN) IV SCH (15:29)
--- NOTE | 2025-01-11 15:49 | DVHPN2 ---
Subjective off bipap Reviewed: H&P, Labs Changes from previous H/P or p: No Changes Objective Vitals Vital Signs Date Time Temp Pulse Resp B/P (MAP) Pulse Ox O2 Delivery O2 Flow Rate FiO2 01/11/25 13:00 97.9 90 18 119/64 (82) 93 97.9 01/11/25 10:00 Nasal Cannula* 4 36 Intake/Output Intake and Output 01/11/25 07:00 Intake Total 1650 ml Output Total 3575 ml Balance -1925 ml Intake Oral 1100 ml IV Total 550 ml Output Urine Total 3575 ml # Bowel Movements 3 General Appearance: Alert, Oriented X3 HEENT: Atraumatic Cardiovascular: Regular rate, Normal S1, Normal S2 Abdomen: Normal bowel sounds Medications Current Medications Medications Dose Ordered Sig/Tod Route Start Time Stop Time Status Last Admin Dose Admin Carvedilol 6.25 mg Q12HR PO 01/09/25 10:00 01/11/25 09:56 6.25 MG Amlodipine Besylate 10 mg DAILY PO 01/09/25 10:00 01/11/25 09:57 10 MG Apixaban 5 mg BID PO 01/09/25 10:00 01/11/25 09:56 5 MG Diltiazem HCl 240 mg DAILY PO 01/09/25 10:00 01/11/25 09:56 240 MG Hydrochlorothiazide 25 mg DAILY PO 01/09/25 10:00 01/11/25 09:57 25 MG Hydralazine HCl 25 mg Q12HR PO 01/09/25 10:00 01/11/25 09:55 25 MG Ceftriaxone Sodium 50 ml @ 100 mls/hr DAILY@09 IV 01/09/25 09:00 01/11/25 09:55 100 MLS/HR Azithromycin 250 ml @ 125 mls/hr DAILY IV 01/09/25 10:00 01/11/25 11:16 125 MLS/HR Albuterol 2.5 mg Q6HPRN PRN NEB 01/08/25 23:30 01/09/25 23:50 2.5 MG Ipratropium [place] 0.5 mg Q6HPRN PRN NEB 01/08/25 23:30 01/09/25 23:50 0.5 MG Furosemide 20 mg BIDD IV 01/09/25 06:00 01/11/25 06:07 20 MG Acetaminophen/ Hydrocodone Bitart 1 tab Q4HP PRN PO 01/08/25 23:30 01/11/25 15:41 1 TAB Ondansetron HCl 4 mg Q4HP PRN IV 01/08/25 23:30 Acetaminophen 650 mg Q6HP PRN PO 01/08/25 23:30 01/10/25 20:01 650 MG Nitroglycerin 0.4 mg Q5MINP PRN SL 01/08/25 23:30 Morphine Sulfate 2 mg Q30M PRN IV 01/08/25 23:30 01/09/25 05:38 2 MG Nicotine 1 patch DAILY TD 01/09/25 10:00 01/11/25 09:58 1 PATCH Remdesivir 0 ml @ 0 mls/hr PER PHARMACY IV 01/10/25 10:00 01/14/25 10:01 Remdesivir 100 mg/ Sodium Chloride 250 ml @ 250 mls/hr DAILY@1500 IV 01/11/25 15:00 01/14/25 15:59 01/11/25 15:29 250 MLS/HR Albuterol 180 mcg TIDPRN PRN IN 01/10/25 12:00 01/10/25 19:45 180 MCG Lorazepam 0.5 mg Q8HP PRN PO 01/10/25 12:15 01/11/25 09:58 0.5 MG Dexamethasone Sodium Phosphate 6 mg DAILY IV 01/11/25 10:00 01/11/25 09:55 6 MG Laboratory Results Laboratory Tests 01/11/25 04:55 Chemistry Test 01/11/25 04:55 Calcium Level 9.6 mg/dL (8.7-10.4) Assessment/Plan Assessment/Plan Acute on chronic respiratory failure COPD exacerbation CHF exacerbation Community-acquired pneumonia COVID 19 Plan Admit the patient to [facility] to the hospitalist Rocephin/azithromycin Start remdesivir IV dexamethasone Med nebs IV Lasix Resume home medications Continue treatment per orders. Plan discussed with: Patient My Orders Orders - GILBERTO SALAZAR MD Procedure Category Date Status Time Dexamethasone PHA 01/11/25 In Process Injection (Decadron 10:00 Date of Service: Jan 11, 2025 Billing Provider: GILBERTO SALAZAR MD Common Visit Codes: [id number] INP/OBS CARE(HIGH) GILBERTO SALAZAR MD Jan 11, 2025 15:49
[2025-01-11] MEDS: MELATONIN 5 MG TAB PO ONE (23:48)
[2025-01-12] VITALS (12 sets, daily range): BP systolic 128–166; BP diastolic 78–99; PULSE 72–98; RESP 16–20; TEMP 97.6–98.5; O2SAT 93–98
[2025-01-12 06:52] LABS: Hematocrit 36.7 % (36.0-46.0); Hemoglobin 12.3 g/dL (12.2-16.2); Mean Corpuscular Hemoglobin 30.3 pg (28.0-32.0); Mean Corpuscular Volume 90.4 fL (80.0-100.0); Nucleated Red Blood Cells % 0.1 %
[2025-01-12 07:06] LABS: Anion Gap 7 (5-15); Potassium 3.5 mmol/L (3.5-5.1); Sodium 141 mmol/L (136-145)
[2025-01-12 07:13] LABS: BUN/Creatinine Ratio 26.6 (10.0-20.0)
[2025-01-12 07:34] LABS: Blood Urea Nitrogen 25 mg/dL (9-23); Calcium 10.5 mg/dL (8.7-10.4); Carbon Dioxide 39 mmol/L (20-31); Chloride 95 mmol/L (98-107); Glucose 133 mg/dL (74-106)
--- NOTE | 2025-01-12 15:42 | DVHPN2 ---
Subjective off bipap Reviewed: H&P, Labs Changes from previous H/P or p: No Changes Objective Vitals Vital Signs Date Time Temp Pulse Resp B/P (MAP) Pulse Ox O2 Delivery O2 Flow Rate FiO2 01/12/25 13:00 98.0 73 19 142/78 (99) 96 98.0 01/12/25 10:00 Nasal Cannula* 4 36 Intake/Output Intake and Output 01/12/25 07:00 Intake Total 1770 ml Output Total 4100 ml Balance -2330 ml Intake Oral 1220 ml IV Total 550 ml Output Urine Total 4100 ml # Bowel Movements 4 General Appearance: Alert, Oriented X3 HEENT: Atraumatic Cardiovascular: Regular rate, Normal S1, Normal S2 Abdomen: Normal bowel sounds Medications Current Medications Medications Dose Ordered Sig/Tod Route Start Time Stop Time Status Last Admin Dose Admin Carvedilol 6.25 mg Q12HR PO 01/09/25 10:00 01/12/25 09:24 6.25 MG Amlodipine Besylate 10 mg DAILY PO 01/09/25 10:00 01/12/25 09:24 10 MG Apixaban 5 mg BID PO 01/09/25 10:00 01/12/25 09:13 5 MG Diltiazem HCl 240 mg DAILY PO 01/09/25 10:00 01/12/25 09:23 240 MG Hydrochlorothiazide 25 mg DAILY PO 01/09/25 10:00 01/12/25 09:55 25 MG Hydralazine HCl 25 mg Q12HR PO 01/09/25 10:00 01/12/25 09:25 25 MG Ceftriaxone Sodium 50 ml @ 100 mls/hr DAILY@09 IV 01/09/25 09:00 01/12/25 09:33 100 MLS/HR Azithromycin 250 ml @ 125 mls/hr DAILY IV 01/09/25 10:00 01/12/25 09:43 125 MLS/HR Albuterol 2.5 mg Q6HPRN PRN NEB 01/08/25 23:30 01/12/25 07:22 2.5 MG Ipratropium [place] 0.5 mg Q6HPRN PRN NEB 01/08/25 23:30 01/12/25 07:22 0.5 MG Furosemide 20 mg BIDD IV 01/09/25 06:00 01/12/25 05:39 20 MG Acetaminophen/ Hydrocodone Bitart 1 tab Q4HP PRN PO 01/08/25 23:30 01/12/25 05:40 1 TAB Ondansetron HCl 4 mg Q4HP PRN IV 01/08/25 23:30 Acetaminophen 650 mg Q6HP PRN PO 01/08/25 23:30 01/10/25 20:01 650 MG Nitroglycerin 0.4 mg Q5MINP PRN SL 01/08/25 23:30 Morphine Sulfate 2 mg Q30M PRN IV 01/08/25 23:30 01/09/25 05:38 2 MG Nicotine 1 patch DAILY TD 01/09/25 10:00 01/12/25 09:13 1 PATCH Remdesivir 0 ml @ 0 mls/hr PER PHARMACY IV 01/10/25 10:00 01/14/25 10:01 Remdesivir 100 mg/ Sodium Chloride 250 ml @ 250 mls/hr DAILY@1500 IV 01/11/25 15:00 01/14/25 15:59 01/11/25 15:29 250 MLS/HR Albuterol 180 mcg TIDPRN PRN IN 01/10/25 12:00 01/11/25 19:07 180 MCG Lorazepam 0.5 mg Q8HP PRN PO 01/10/25 12:15 01/11/25 23:48 0.5 MG Dexamethasone Sodium Phosphate 6 mg DAILY IV 01/11/25 10:00 01/12/25 09:16 6 MG Laboratory Results Laboratory Tests 01/12/25 05:42 Chemistry Test 01/12/25 05:42 Calcium Level 10.5 mg/dL (8.7-10.4) H Assessment/Plan Assessment/Plan Acute on chronic respiratory failure COPD exacerbation CHF exacerbation Community-acquired pneumonia COVID 19 Plan Admit the patient to [facility] to the hospitalist Rocephin/azithromycin IV remdesivir IV dexamethasone Med nebs IV Lasix Resume home medications Continue treatment per orders. Plan discussed with: Patient Date of Service: Jan 12, 2025 Billing Provider: GILBERTO SALAZAR MD Common Visit Codes: [id number] INP/OBS CARE(HIGH) GILBERTO SALAZAR MD Jan 12, 2025 15:42
[2025-01-13] VITALS (11 sets, daily range): BP systolic 125–151; BP diastolic 74–97; PULSE 65–82; RESP 18–20; TEMP 98.1–98.7; O2SAT 92–96
[2025-01-13 07:29] LABS: Hematocrit 34.8 % (36.0-46.0); Hemoglobin 11.5 g/dL (12.2-16.2); Mean Corpuscular Hemoglobin 30.2 pg (28.0-32.0); Mean Corpuscular Volume 91.5 fL (80.0-100.0); Nucleated Red Blood Cells % 0.0 %
[2025-01-13 07:30] LABS: Sodium 143 mmol/L (136-145)
[2025-01-13 07:32] LABS: Calcium 10.3 mg/dL (8.7-10.4)
[2025-01-13 07:36] LABS: BUN/Creatinine Ratio 26.0 (10.0-20.0)
[2025-01-13 07:38] LABS: Anion Gap 7.99999 (5-15); Blood Urea Nitrogen 27 mg/dL (9-23); Chloride 95 mmol/L (98-107); Glucose 156 mg/dL (74-106); Potassium 3.4 mmol/L (3.5-5.1)
[2025-01-13 07:42] LABS: Carbon Dioxide > 40 mmol/L (20-31)
[2025-01-13] MEDS: POTASSIUM CHL 20 Meq TABLET PO ONE (16:52)
--- NOTE | 2025-01-13 17:50 | DVHPN2 ---
Subjective off bipap Reviewed: H&P, Labs Changes from previous H/P or p: No Changes Objective Vitals Vital Signs Date Time Temp Pulse Resp B/P (MAP) Pulse Ox O2 Delivery O2 Flow Rate FiO2 01/13/25 15:12 74 20 95 01/13/25 15:06 Nasal Cannula 3.0 01/13/25 15:06 32 01/13/25 12:21 98.7 127/81 (96) 98.7 Intake/Output Intake and Output 01/13/25 07:00 Intake Total 2275 ml Output Total 3150 ml Balance -875 ml Intake Oral 1725 ml IV Total 550 ml Output Urine Total 3150 ml # Bowel Movements 1 General Appearance: Alert, Oriented X3 HEENT: Atraumatic Cardiovascular: Regular rate, Normal S1, Normal S2 Abdomen: Normal bowel sounds Medications Current Medications Medications Dose Ordered Sig/Tod Route Start Time Stop Time Status Last Admin Dose Admin Carvedilol 6.25 mg Q12HR PO 01/09/25 10:00 01/13/25 09:33 6.25 MG Amlodipine Besylate 10 mg DAILY PO 01/09/25 10:00 01/13/25 09:39 10 MG Apixaban 5 mg BID PO 01/09/25 10:00 01/13/25 09:17 5 MG Diltiazem HCl 240 mg DAILY PO 01/09/25 10:00 01/13/25 09:32 240 MG Hydrochlorothiazide 25 mg DAILY PO 01/09/25 10:00 01/13/25 09:39 25 MG Hydralazine HCl 25 mg Q12HR PO 01/09/25 10:00 01/13/25 09:32 25 MG Ceftriaxone Sodium 50 ml @ 100 mls/hr DAILY@09 IV 01/09/25 09:00 01/13/25 09:07 100 MLS/HR Azithromycin 250 ml @ 125 mls/hr DAILY IV 01/09/25 10:00 01/13/25 11:15 125 MLS/HR Furosemide 20 mg BIDD IV 01/09/25 06:00 01/13/25 06:15 20 MG Acetaminophen/ Hydrocodone Bitart 1 tab Q4HP PRN PO 01/08/25 23:30 01/12/25 14:47 1 TAB Ondansetron HCl 4 mg Q4HP PRN IV 01/08/25 23:30 Acetaminophen 650 mg Q6HP PRN PO 01/08/25 23:30 01/13/25 00:16 650 MG Nitroglycerin 0.4 mg Q5MINP PRN SL 01/08/25 23:30 Morphine Sulfate 2 mg Q30M PRN IV 01/08/25 23:30 01/09/25 05:38 2 MG Nicotine 1 patch DAILY TD 01/09/25 10:00 01/13/25 09:13 1 PATCH Remdesivir 0 ml @ 0 mls/hr PER PHARMACY IV 01/10/25 10:00 01/14/25 10:01 Remdesivir 100 mg/ Sodium Chloride 250 ml @ 250 mls/hr DAILY@1500 IV 01/11/25 15:00 01/14/25 15:59 01/13/25 16:53 250 MLS/HR Albuterol 180 mcg TIDPRN PRN IN 01/10/25 12:00 01/13/25 15:06 180 MCG Lorazepam 0.5 mg Q8HP PRN PO 01/10/25 12:15 01/12/25 22:12 0.5 MG Dexamethasone Sodium Phosphate 6 mg DAILY IV 01/11/25 10:00 01/13/25 09:17 6 MG Laboratory Results Laboratory Tests 01/13/25 05:44 Chemistry Test 01/13/25 05:44 Calcium Level 10.3 mg/dL (8.7-10.4) Assessment/Plan Assessment/Plan Acute on chronic respiratory failure COPD exacerbation CHF exacerbation Community-acquired pneumonia COVID 19 Plan Admit the patient to [facility] to the hospitalist Rocephin/azithromycin IV remdesivir IV dexamethasone Med nebs IV Lasix Resume home medications Continue treatment per orders. Plan discussed with: Patient My Orders Orders - GILBERTO SALAZAR MD Procedure Category Date Status Time Cleanse Wound With KAY 01/13/25 In Process Mild Soap A 11:34 Date of Service: Jan 13, 2025 Billing Provider: GILBERTO SALAZAR MD Common Visit Codes: [id number] INP/OBS CARE(HIGH) GILBERTO SALAZAR MD Jan 13, 2025 17:50
[2025-01-14] VITALS (13 sets, daily range): BP systolic 131–164; BP diastolic 64–95; PULSE 59–90; RESP 16–20; TEMP 97.7–98.5; O2SAT 92–97
[2025-01-14] MEDS: guaiFENesin-DM 100/10mg/5ml SYR PO PRN (00:32)
[2025-01-14 06:13] LABS: Hematocrit 37.9 % (36.0-46.0); Hemoglobin 12.6 g/dL (12.2-16.2); Mean Corpuscular Hemoglobin 30.5 pg (28.0-32.0); Mean Corpuscular Volume 91.5 fL (80.0-100.0); Nucleated Red Blood Cells % 0.1 %
[2025-01-14 06:20] LABS: Anion Gap 9 (5-15); Calcium 9.8 mg/dL (8.7-10.4); Potassium 3.9 mmol/L (3.5-5.1); Sodium 142 mmol/L (136-145)
[2025-01-14 06:24] LABS: Carbon Dioxide 37 mmol/L (20-31); Chloride 96 mmol/L (98-107)
[2025-01-14 06:26] LABS: BUN/Creatinine Ratio 32.0 (10.0-20.0)
[2025-01-14 06:27] LABS: Blood Urea Nitrogen 33 mg/dL (9-23); Glucose 140 mg/dL (74-106)
--- NOTE | 2025-01-14 16:16 | DVHPN2 ---
Subjective off bipap Reviewed: H&P, Labs Changes from previous H/P or p: No Changes Objective Vitals Vital Signs Date Time Temp Pulse Resp B/P (MAP) Pulse Ox O2 Delivery O2 Flow Rate FiO2 01/14/25 13:49 131/71 01/14/25 13:30 98.1 59 19 92 98.1 01/14/25 08:30 Nasal Cannula* 2 28 Intake/Output Intake and Output 01/14/25 07:00 Intake Total 2900 ml Output Total 2500 ml Balance 400 ml Intake Oral 2350 ml IV Total 550 ml Output Urine Total 2500 ml # Bowel Movements 2 General Appearance: Alert, Oriented X3 HEENT: Atraumatic Cardiovascular: Regular rate, Normal S1, Normal S2 Abdomen: Normal bowel sounds Medications Current Medications Medications Dose Ordered Sig/Tod Route Start Time Stop Time Status Last Admin Dose Admin Carvedilol 6.25 mg Q12HR PO 01/09/25 10:00 01/14/25 09:25 6.25 MG Amlodipine Besylate 10 mg DAILY PO 01/09/25 10:00 01/14/25 09:28 10 MG Apixaban 5 mg BID PO 01/09/25 10:00 01/14/25 09:27 5 MG Diltiazem HCl 240 mg DAILY PO 01/09/25 10:00 01/14/25 09:31 240 MG Hydrochlorothiazide 25 mg DAILY PO 01/09/25 10:00 01/14/25 09:27 25 MG Hydralazine HCl 25 mg Q12HR PO 01/09/25 10:00 01/14/25 13:49 25 MG Ceftriaxone Sodium 50 ml @ 100 mls/hr DAILY@09 IV 01/09/25 09:00 01/14/25 09:24 100 MLS/HR Azithromycin 250 ml @ 125 mls/hr DAILY IV 01/09/25 10:00 01/14/25 13:49 125 MLS/HR Furosemide 20 mg BIDD IV 01/09/25 06:00 01/14/25 05:06 20 MG Acetaminophen/ Hydrocodone Bitart 1 tab Q4HP PRN PO 01/08/25 23:30 01/14/25 05:35 1 TAB Ondansetron HCl 4 mg Q4HP PRN IV 01/08/25 23:30 Acetaminophen 650 mg Q6HP PRN PO 01/08/25 23:30 01/14/25 05:05 650 MG Nitroglycerin 0.4 mg Q5MINP PRN SL 01/08/25 23:30 Morphine Sulfate 2 mg Q30M PRN IV 01/08/25 23:30 01/09/25 05:38 2 MG Nicotine 1 patch DAILY TD 01/09/25 10:00 01/14/25 09:26 1 PATCH Albuterol 180 mcg TIDPRN PRN IN 01/10/25 12:00 01/13/25 20:49 180 MCG Lorazepam 0.5 mg Q8HP PRN PO 01/10/25 12:15 01/13/25 22:06 0.5 MG Dexamethasone Sodium Phosphate 6 mg DAILY IV 01/11/25 10:00 01/14/25 09:29 6 MG Guaifenesin/ Dextromethorphan 10 ml Q4HP PRN PO 01/13/25 23:45 01/14/25 05:34 10 ML Laboratory Results Laboratory Tests 01/14/25 05:18 Chemistry Test 01/14/25 05:18 Calcium Level 9.8 mg/dL (8.7-10.4) Assessment/Plan Assessment/Plan Acute on chronic respiratory failure COPD exacerbation CHF exacerbation Community-acquired pneumonia COVID 19 Plan Admit the patient to [facility] to the hospitalist Rocephin/azithromycin IV remdesivir IV dexamethasone Med nebs IV Lasix Resume home medications Continue treatment per orders. Plan discussed with: Patient Date of Service: Jan 14, 2025 Billing Provider: GILBERTO SALAZAR MD Common Visit Codes: [id number] INP/OBS CARE(HIGH) GILBERTO SALAZAR MD Jan 14, 2025 16:16
[2025-01-14] MEDS: ZOLPIDEM TARTRATE 5 MG TAB PO PRN (21:17)
[2025-01-15] VITALS (13 sets, daily range): BP systolic 135–160; BP diastolic 78–96; PULSE 49–69; RESP 16–19; TEMP 97.4–97.9; O2SAT 93–97
[2025-01-15 06:18] LABS: Hematocrit 36.2 % (36.0-46.0); Hemoglobin 12.0 g/dL (12.2-16.2); Mean Corpuscular Hemoglobin 30.4 pg (28.0-32.0); Mean Corpuscular Volume 91.2 fL (80.0-100.0); Nucleated Red Blood Cells % 0.1 %
[2025-01-15 06:31] LABS: Anion Gap 7 (5-15); Potassium 3.6 mmol/L (3.5-5.1); Sodium 141 mmol/L (136-145)
[2025-01-15 06:32] LABS: Calcium 10.1 mg/dL (8.7-10.4)
[2025-01-15 06:37] LABS: BUN/Creatinine Ratio 32.1 (10.0-20.0)
[2025-01-15 06:48] LABS: Blood Urea Nitrogen 35 mg/dL (9-23); Carbon Dioxide 39 mmol/L (20-31); Chloride 95 mmol/L (98-107); Glucose 191 mg/dL (74-106)
--- NOTE | 2025-01-15 12:23 | DVHPN2 ---
Subjective off bipap Reviewed: H&P, Labs Changes from previous H/P or p: No Changes Objective Vitals Vital Signs Date Time Temp Pulse Resp B/P (MAP) Pulse Ox O2 Delivery O2 Flow Rate FiO2 01/15/25 10:44 60 160/88 01/15/25 09:34 97 Nasal Cannula* 3 32 01/15/25 08:58 97.4 18 97.4 Intake/Output Intake and Output 01/15/25 07:00 Intake Total 1770 ml Output Total 2950 ml Balance -1180 ml Intake Oral 1770 ml Output Urine Total 2950 ml # Bowel Movements 2 General Appearance: Alert, Oriented X3 HEENT: Atraumatic Cardiovascular: Regular rate, Normal S1, Normal S2 Abdomen: Normal bowel sounds Medications Current Medications Medications Dose Ordered Sig/Tod Route Start Time Stop Time Status Last Admin Dose Admin Carvedilol 6.25 mg Q12HR PO 01/09/25 10:00 01/15/25 10:41 6.25 MG Amlodipine Besylate 10 mg DAILY PO 01/09/25 10:00 01/15/25 10:42 10 MG Apixaban 5 mg BID PO 01/09/25 10:00 01/15/25 10:40 5 MG Diltiazem HCl 240 mg DAILY PO 01/09/25 10:00 01/15/25 10:44 240 MG Hydrochlorothiazide 25 mg DAILY PO 01/09/25 10:00 01/15/25 10:42 25 MG Hydralazine HCl 25 mg Q12HR PO 01/09/25 10:00 01/15/25 10:43 25 MG Ceftriaxone Sodium 50 ml @ 100 mls/hr DAILY@09 IV 01/09/25 09:00 01/15/25 10:32 100 MLS/HR Azithromycin 250 ml @ 125 mls/hr DAILY IV 01/09/25 10:00 01/14/25 13:49 125 MLS/HR Furosemide 20 mg BIDD IV 01/09/25 06:00 01/15/25 05:15 20 MG Acetaminophen/ Hydrocodone Bitart 1 tab Q4HP PRN PO 01/08/25 23:30 01/15/25 04:15 1 TAB Ondansetron HCl 4 mg Q4HP PRN IV 01/08/25 23:30 Acetaminophen 650 mg Q6HP PRN PO 01/08/25 23:30 01/14/25 05:05 650 MG Nitroglycerin 0.4 mg Q5MINP PRN SL 01/08/25 23:30 Morphine Sulfate 2 mg Q30M PRN IV 01/08/25 23:30 01/09/25 05:38 2 MG Nicotine 1 patch DAILY TD 01/09/25 10:00 01/15/25 10:38 1 PATCH Albuterol 180 mcg TIDPRN PRN IN 01/10/25 12:00 01/13/25 20:49 180 MCG Lorazepam 0.5 mg Q8HP PRN PO 01/10/25 12:15 01/13/25 22:06 0.5 MG Dexamethasone Sodium Phosphate 6 mg DAILY IV 01/11/25 10:00 01/15/25 10:35 6 MG Guaifenesin/ Dextromethorphan 10 ml Q4HP PRN PO 01/13/25 23:45 01/15/25 04:15 10 ML Zolpidem Tartrate 10 mg HSPRN PRN PO 01/14/25 16:30 01/14/25 21:17 10 MG Laboratory Results Laboratory Tests 01/15/25 05:17 Chemistry Test 01/15/25 05:17 Calcium Level 10.1 mg/dL (8.7-10.4) Assessment/Plan Assessment/Plan Acute on chronic respiratory failure COPD exacerbation CHF exacerbation Community-acquired pneumonia COVID 19 Plan Admit the patient to [facility] to the hospitalist Rocephin/azithromycin Completed IV remdesivir Med nebs IV Lasix Resume home medications Continue treatment per orders. Plan to dc tomorrow PT eval Plan discussed with: Patient My Orders Orders - GILBERTO SALAZAR MD Procedure Category Date Status Time Zolpidem Tartrate PHA 01/14/25 In Process (Ambien) 16:30 Date of Service: Jan 15, 2025 Billing Provider: GILBERTO SALAZAR MD Common Visit Codes: [id number] INP/OBS CARE(HIGH) GILBERTO SALAZAR MD Jan 15, 2025 12:23
[2025-01-15 13:02] LABS: Base Excess 11.5 mmol/L (-2.0-3.0)
[2025-01-16] VITALS (10 sets, daily range): BP systolic 134–148; BP diastolic 79–105; PULSE 51–81; RESP 16–18; TEMP 97–98.1; O2SAT 96–100
[2025-01-16 06:02] LABS: Hematocrit 37.0 % (36.0-46.0); Hemoglobin 12.1 g/dL (12.2-16.2); Mean Corpuscular Hemoglobin 29.8 pg (28.0-32.0); Mean Corpuscular Volume 91.0 fL (80.0-100.0); Nucleated Red Blood Cells % 0.1 %
[2025-01-16 06:12] LABS: Potassium 3.9 mmol/L (3.5-5.1); Sodium 139 mmol/L (136-145)
[2025-01-16 06:13] LABS: Anion Gap 7 (5-15); Calcium 9.4 mg/dL (8.7-10.4)
[2025-01-16 06:16] LABS: Carbon Dioxide 37 mmol/L (20-31); Chloride 95 mmol/L (98-107)
[2025-01-16 06:18] LABS: BUN/Creatinine Ratio 38.6 (10.0-20.0)
[2025-01-16 06:19] LABS: Blood Urea Nitrogen 34 mg/dL (9-23); Glucose 194 mg/dL (74-106)
--- NOTE | 2025-01-16 15:11 | DVH ---
Procedure: CT HEAD WITHOUT CONTRAST Study Date and Requested Time: 01/16/2025 02:36 PM History: SEVERE HEADACHE Comparison: None Dose: CTDI: 68.11 mGy DLP: 1341.95 mGycm Technique: Multiplanar images obtained through the brain without intravenous contrast. Findings: Normal brain volume and formation. [id number] chronic small vessel ischemic changes. No hemorrhages, masses, mass effect, midline shift, herniation or cytotoxic edema following a large v ascular territory. No intra-axial or extra-axial fluid collections. No evidence of hydrocephalus. The basal cisterns are patent. The pituitary gland, sella and parasellar regions are unremarkable. The cerebellar tonsils are in nor mal position. The cerebellum is unremarkable. The orbits and globes are unremarkable. Pansinus mucoperiosteal thickening with partial opacification of bilateral mastoids. There are no worrisome calvarial lesions. Impression: No evidence of acute intracranial abnormality. If symptoms persist, consider MRI for further evaluati on. Mild pansinus disease. Bilateral mastoid disease.
--- NOTE | 2025-01-16 19:50 | DVHPN2 ---
Subjective off bipap Reviewed: H&P, Labs Changes from previous H/P or p: No Changes Objective Vitals Vital Signs Date Time Temp Pulse Resp B/P (MAP) Pulse Ox O2 Delivery O2 Flow Rate FiO2 01/16/25 18:02 140/95 01/16/25 17:00 97.5 60 18 100 97.5 01/16/25 10:00 Nasal Cannula* 3 32 Intake/Output Intake and Output 01/16/25 07:00 Intake Total 1900 ml Output Total 1650 ml Balance 250 ml Intake Oral 1600 ml IV Total 300 ml Output Urine Total 1650 ml # Bowel Movements 2 General Appearance: Alert, Oriented X3 HEENT: Atraumatic Cardiovascular: Regular rate, Normal S1, Normal S2 Abdomen: Normal bowel sounds Medications Current Medications Medications Dose Ordered Sig/Tod Route Start Time Stop Time Status Last Admin Dose Admin Carvedilol 6.25 mg Q12HR PO 01/09/25 10:00 01/16/25 09:42 6.25 MG Amlodipine Besylate 10 mg DAILY PO 01/09/25 10:00 01/16/25 09:44 10 MG Apixaban 5 mg BID PO 01/09/25 10:00 01/16/25 09:44 5 MG Diltiazem HCl 240 mg DAILY PO 01/09/25 10:00 01/16/25 09:41 240 MG Hydrochlorothiazide 25 mg DAILY PO 01/09/25 10:00 01/16/25 09:43 25 MG Hydralazine HCl 25 mg Q12HR PO 01/09/25 10:00 01/16/25 09:43 25 MG Ceftriaxone Sodium 50 ml @ 100 mls/hr DAILY@09 IV 01/09/25 09:00 01/16/25 08:36 100 MLS/HR Azithromycin 250 ml @ 125 mls/hr DAILY IV 01/09/25 10:00 01/16/25 09:34 125 MLS/HR Furosemide 20 mg BIDD IV 01/09/25 06:00 01/16/25 18:02 20 MG Acetaminophen/ Hydrocodone Bitart 1 tab Q4HP PRN PO 01/08/25 23:30 01/16/25 18:03 1 TAB Ondansetron HCl 4 mg Q4HP PRN IV 01/08/25 23:30 Acetaminophen 650 mg Q6HP PRN PO 01/08/25 23:30 01/15/25 12:43 650 MG Nitroglycerin 0.4 mg Q5MINP PRN SL 01/08/25 23:30 Morphine Sulfate 2 mg Q30M PRN IV 01/08/25 23:30 01/09/25 05:38 2 MG Nicotine 1 patch DAILY TD 01/09/25 10:00 01/16/25 09:37 1 PATCH Albuterol 180 mcg TIDPRN PRN IN 01/10/25 12:00 01/15/25 19:42 180 MCG Lorazepam 0.5 mg Q8HP PRN PO 01/10/25 12:15 01/16/25 14:07 0.5 MG Dexamethasone Sodium Phosphate 6 mg DAILY IV 01/11/25 10:00 01/16/25 09:44 6 MG Guaifenesin/ Dextromethorphan 10 ml Q4HP PRN PO 01/13/25 23:45 01/15/25 17:51 10 ML Zolpidem Tartrate 10 mg HSPRN PRN PO 01/14/25 16:30 01/15/25 22:22 10 MG Laboratory Results Laboratory Tests 01/16/25 05:32 Chemistry Test 01/16/25 05:32 Calcium Level 9.4 mg/dL (8.7-10.4) Assessment/Plan Assessment/Plan Acute on chronic respiratory failure COPD exacerbation CHF exacerbation Community-acquired pneumonia COVID 19 Plan Admit the patient to [facility] to the hospitalist Rocephin/azithromycin Completed IV remdesivir Med nebs IV Lasix Resume home medications Continue treatment per orders. Plan to dc tomorrow PT eval Plan discussed with: Patient My Orders Orders - GILBERTO SALAZAR MD Procedure Category Date Status Time Head Without Contrast CT 01/16/25 Resulted 14:20 * Search Coordinator CONS 01/16/25 Transmitted Consult Date of Service: Jan 16, 2025 Billing Provider: GILBERTO SALAZAR MD Common Visit Codes: [id number] INP/OBS CARE(HIGH) GILBERTO SALAZAR MD Jan 16, 2025 19:50
[2025-01-17] VITALS (11 sets, daily range): BP systolic 141–146; BP diastolic 85–96; PULSE 52–101; RESP 16–22; TEMP 97.4–98.1; O2SAT 95–98
[2025-01-17 09:54] LABS: Hematocrit 40.1 % (36.0-46.0); Hemoglobin 13.3 g/dL (12.2-16.2); Mean Corpuscular Hemoglobin 30.2 pg (28.0-32.0); Mean Corpuscular Volume 91.1 fL (80.0-100.0); Nucleated Red Blood Cells % 0.0 %
[2025-01-17 09:59] LABS: Potassium 4.0 mmol/L (3.5-5.1); Sodium 140 mmol/L (136-145)
[2025-01-17 10:00] LABS: Calcium 10.0 mg/dL (8.7-10.4)
[2025-01-17 10:05] LABS: Anion Gap 6.99999 (5-15); BUN/Creatinine Ratio 36.7 (10.0-20.0); Blood Urea Nitrogen 33 mg/dL (9-23); Chloride 93 mmol/L (98-107); Glucose 148 mg/dL (74-106)
[2025-01-17 10:08] LABS: Carbon Dioxide > 40 mmol/L (20-31)
--- NOTE | 2025-01-17 16:29 | DVHPN2 ---
Subjective off bipap Reviewed: H&P, Labs Changes from previous H/P or p: No Changes Objective Vitals Vital Signs Date Time Temp Pulse Resp B/P (MAP) Pulse Ox O2 Delivery O2 Flow Rate FiO2 01/17/25 11:59 57 149/85 01/17/25 09:00 98.1 21 96 98.1 01/17/25 06:44 Nasal Cannula 3.0 01/17/25 06:44 32 Intake/Output Intake and Output 01/17/25 07:00 Intake Total 1160 ml Output Total 2950 ml Balance -1790 ml Intake Oral 860 ml IV Total 300 ml Output Urine Total 2950 ml General Appearance: Alert, Oriented X3 HEENT: Atraumatic Cardiovascular: Regular rate, Normal S1, Normal S2 Abdomen: Normal bowel sounds Medications Current Medications Medications Dose Ordered Sig/Tod Route Start Time Stop Time Status Last Admin Dose Admin Carvedilol 6.25 mg Q12HR PO 01/09/25 10:00 01/17/25 10:59 6.25 MG Amlodipine Besylate 10 mg DAILY PO 01/09/25 10:00 01/17/25 10:57 10 MG Apixaban 5 mg BID PO 01/09/25 10:00 01/17/25 10:58 5 MG Diltiazem HCl 240 mg DAILY PO 01/09/25 10:00 01/17/25 10:58 240 MG Hydrochlorothiazide 25 mg DAILY PO 01/09/25 10:00 01/17/25 10:56 25 MG Hydralazine HCl 25 mg Q12HR PO 01/09/25 10:00 01/17/25 10:57 25 MG Ceftriaxone Sodium 50 ml @ 100 mls/hr DAILY@09 IV 01/09/25 09:00 01/17/25 10:49 100 MLS/HR Azithromycin 250 ml @ 125 mls/hr DAILY IV 01/09/25 10:00 01/17/25 11:21 125 MLS/HR Furosemide 20 mg BIDD IV 01/09/25 06:00 01/17/25 06:08 20 MG Acetaminophen/ Hydrocodone Bitart 1 tab Q4HP PRN PO 01/08/25 23:30 01/16/25 18:03 1 TAB Ondansetron HCl 4 mg Q4HP PRN IV 01/08/25 23:30 Acetaminophen 650 mg Q6HP PRN PO 01/08/25 23:30 01/16/25 21:39 650 MG Nitroglycerin 0.4 mg Q5MINP PRN SL 01/08/25 23:30 Morphine Sulfate 2 mg Q30M PRN IV 01/08/25 23:30 01/09/25 05:38 2 MG Nicotine 1 patch DAILY TD 01/09/25 10:00 01/17/25 11:00 1 PATCH Albuterol 180 mcg TIDPRN PRN IN 01/10/25 12:00 01/15/25 19:42 180 MCG Lorazepam 0.5 mg Q8HP PRN PO 01/10/25 12:15 01/16/25 14:07 0.5 MG Dexamethasone Sodium Phosphate 6 mg DAILY IV 01/11/25 10:00 01/17/25 11:01 6 MG Guaifenesin/ Dextromethorphan 10 ml Q4HP PRN PO 01/13/25 23:45 01/15/25 17:51 10 ML Zolpidem Tartrate 10 mg HSPRN PRN PO 01/14/25 16:30 01/16/25 21:49 10 MG Laboratory Results Laboratory Tests 01/17/25 08:50 Chemistry Test 01/17/25 08:50 Calcium Level 10.0 mg/dL (8.7-10.4) Assessment/Plan Assessment/Plan Acute on chronic respiratory failure COPD exacerbation CHF exacerbation Community-acquired pneumonia COVID 19 Plan Admit the patient to [facility] to the hospitalist Rocephin/azithromycin Completed IV remdesivir Med nebs IV Lasix Resume home medications Continue treatment per orders. Plan to dc tomorrow if able to go back to [facility] care, pending oxygen set up PT eval Plan discussed with: Patient Date of Service: Jan 17, 2025 Billing Provider: GILBERTO SALAZAR MD Common Visit Codes: [id number] INP/OBS CARE(HIGH) GILBERTO SALAZAR MD Jan 17, 2025 16:29
[2025-01-18] VITALS (11 sets, daily range): BP systolic 124–152; BP diastolic 75–101; PULSE 64–91; RESP 16–19; TEMP 97.5–98.8; O2SAT 94–98
--- NOTE | 2025-01-18 19:02 | DVHPN2 ---
Subjective Some shortness a breath. 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 In her right eye vision is getting worse. She said she was told she has cataract. 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 Reviewed: Care Plan, H&P, Labs, Medications, Previous Orders, Radiology Changes from previous H/P or p: No Changes Objective Vitals Vital Signs Date Time Temp Pulse Resp B/P (MAP) Pulse Ox O2 Delivery O2 Flow Rate FiO2 01/18/25 18:47 146/86 01/18/25 17:00 98.8 65 19 94 98.8 01/18/25 11:03 Nasal Cannula 2.0 01/18/25 11:03 28 Intake/Output Intake and Output 01/18/25 07:00 Intake Total 1540 ml Output Total 3450 ml Balance -1910 ml Intake Oral 1240 ml IV Total 300 ml Output Urine Total 3450 ml # Bowel Movements 1 General Appearance: Alert, Oriented X3 HEENT: Atraumatic Lungs: Other (Crackles bilateral lungs) Cardiovascular: Regular rate Abdomen: Normal bowel sounds Medications Current Medications Medications Dose Ordered Sig/Tod Route Start Time Stop Time Status Last Admin Dose Admin Carvedilol 6.25 mg Q12HR PO 01/09/25 10:00 01/18/25 10:05 6.25 MG Amlodipine Besylate 10 mg DAILY PO 01/09/25 10:00 01/18/25 10:04 10 MG Apixaban 5 mg BID PO 01/09/25 10:00 01/18/25 10:04 5 MG Diltiazem HCl 240 mg DAILY PO 01/09/25 10:00 01/18/25 10:06 240 MG Hydrochlorothiazide 25 mg DAILY PO 01/09/25 10:00 01/18/25 10:04 25 MG Hydralazine HCl 25 mg Q12HR PO 01/09/25 10:00 01/18/25 10:04 25 MG Ceftriaxone Sodium 50 ml @ 100 mls/hr DAILY@09 IV 01/09/25 09:00 01/18/25 10:03 100 MLS/HR Azithromycin 250 ml @ 125 mls/hr DAILY IV 01/09/25 10:00 01/18/25 10:03 125 MLS/HR Furosemide 20 mg BIDD IV 01/09/25 06:00 01/18/25 18:47 20 MG Ondansetron HCl 4 mg Q4HP PRN IV 01/08/25 23:30 Acetaminophen 650 mg Q6HP PRN PO 01/08/25 23:30 01/16/25 21:39 650 MG Nitroglycerin 0.4 mg Q5MINP PRN SL 01/08/25 23:30 Nicotine 1 patch DAILY TD 01/09/25 10:00 01/18/25 10:07 1 PATCH Albuterol 180 mcg TIDPRN PRN IN 01/10/25 12:00 01/17/25 21:07 180 MCG Lorazepam 0.5 mg Q8HP PRN PO 01/10/25 12:15 01/18/25 10:05 0.5 MG Dexamethasone Sodium Phosphate 6 mg DAILY IV 01/11/25 10:00 01/18/25 10:06 6 MG Guaifenesin/ Dextromethorphan 10 ml Q4HP PRN PO 01/13/25 23:45 01/17/25 19:07 10 ML Zolpidem Tartrate 10 mg HSPRN PRN PO 01/14/25 16:30 01/17/25 21:22 10 MG Laboratory Results Laboratory Tests 01/17/25 08:50 Assessment/Plan Assessment/Plan Acute on chronic respiratory failure COPD exacerbation CHF exacerbation Pneumonia Positive for COVID Morbid obesity with BMI 45.8 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 Awaiting disposition and oxygen and other equipment delivery. 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
[2025-01-19] VITALS (11 sets, daily range): BP systolic 131–154; BP diastolic 70–97; PULSE 57–87; RESP 15–20; TEMP 97–98.8; O2SAT 94–97
[2025-01-19 09:30] LABS: Hematocrit 39.5 % (36.0-46.0); Hemoglobin 13.1 g/dL (12.2-16.2); Mean Corpuscular Hemoglobin 30.5 pg (28.0-32.0); Mean Corpuscular Volume 91.7 fL (80.0-100.0); Nucleated Red Blood Cells % 0.0 %
[2025-01-19 09:40] LABS: Potassium 4.0 mmol/L (3.5-5.1); Sodium 139 mmol/L (136-145)
[2025-01-19 09:41] LABS: Anion Gap 9 (5-15); Calcium 10.0 mg/dL (8.7-10.4)
[2025-01-19 09:46] LABS: BUN/Creatinine Ratio 42.4 (10.0-20.0); Blood Urea Nitrogen 36 mg/dL (9-23); Carbon Dioxide 36 mmol/L (20-31); Chloride 94 mmol/L (98-107); Glucose 139 mg/dL (74-106)
[2025-01-19] MEDS: DOCUSATE SOD 100 MG CAP PO ONE (15:09)
[2025-01-19 16:17] LABS: COVID19 ANTIGEN SOFIA FIA NEGATIVE (NEGATIVE)
--- NOTE | 2025-01-19 17:09 | DVHPN2 ---
Subjective Better but still chronic fatigue and dyspnea Reviewed: Care Plan, H&P, Labs, Medications, Previous Orders, Radiology Changes from previous H/P or p: No Changes Objective Vitals Vital Signs Date Time Temp Pulse Resp B/P (MAP) Pulse Ox O2 Delivery O2 Flow Rate FiO2 01/19/25 13:00 98.8 72 19 146/90 (108) 95 98.8 01/19/25 10:00 Nasal Cannula* 2 28 Intake/Output Intake and Output 01/19/25 07:00 Intake Total 1700 ml Output Total 2400 ml Balance -700 ml Intake Oral 1700 ml Output Urine Total 2400 ml General Appearance: Alert, Oriented X3 HEENT: Atraumatic Lungs: Other (Few crackles bilateral lungs) Cardiovascular: Regular rate Abdomen: Normal bowel sounds Medications Current Medications Medications Dose Ordered Sig/Tod Route Start Time Stop Time Status Last Admin Dose Admin Carvedilol 6.25 mg Q12HR PO 01/09/25 10:00 01/19/25 09:21 6.25 MG Amlodipine Besylate 10 mg DAILY PO 01/09/25 10:00 01/19/25 09:20 10 MG Apixaban 5 mg BID PO 01/09/25 10:00 01/19/25 09:18 5 MG Diltiazem HCl 240 mg DAILY PO 01/09/25 10:00 01/19/25 09:20 240 MG Hydrochlorothiazide 25 mg DAILY PO 01/09/25 10:00 01/19/25 09:22 25 MG Hydralazine HCl 25 mg Q12HR PO 01/09/25 10:00 01/19/25 09:22 25 MG Ceftriaxone Sodium 50 ml @ 100 mls/hr DAILY@09 IV 01/09/25 09:00 01/19/25 09:06 100 MLS/HR Azithromycin 250 ml @ 125 mls/hr DAILY IV 01/09/25 10:00 01/19/25 09:07 125 MLS/HR Furosemide 20 mg BIDD IV 01/09/25 06:00 01/19/25 05:12 20 MG Ondansetron HCl 4 mg Q4HP PRN IV 01/08/25 23:30 Acetaminophen 650 mg Q6HP PRN PO 01/08/25 23:30 01/19/25 14:21 650 MG Nitroglycerin 0.4 mg Q5MINP PRN SL 01/08/25 23:30 Nicotine 1 patch DAILY TD 01/09/25 10:00 01/19/25 09:22 1 PATCH Albuterol 180 mcg TIDPRN PRN IN 01/10/25 12:00 01/17/25 21:07 180 MCG Lorazepam 0.5 mg Q8HP PRN PO 01/10/25 12:15 01/18/25 10:05 0.5 MG Dexamethasone Sodium Phosphate 6 mg DAILY IV 01/11/25 10:00 01/19/25 09:23 6 MG Guaifenesin/ Dextromethorphan 10 ml Q4HP PRN PO 01/13/25 23:45 01/19/25 15:40 10 ML Zolpidem Tartrate 10 mg HSPRN PRN PO 01/14/25 16:30 01/18/25 21:31 10 MG Laboratory Results Laboratory Tests 01/19/25 08:39 Chemistry Test 01/19/25 08:39 Calcium Level 10.0 mg/dL (8.7-10.4) Assessment/Plan Assessment/Plan Acute on chronic respiratory failure COPD exacerbation CHF exacerbation Pneumonia Positive for COVID Morbid obesity with BMI 45.8 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 Awaiting disposition and oxygen and other equipment delivery. Again, Patient was recommended to follow with her finance vice president to take care of her cataract and spa director for new glasses. Plan discussed with: Patient Date of Service: Jan 19, 2025 Billing Provider: ISIS RYDER MD Common Visit Codes: [id number] INP/OBS CARE(HIGH) ISIS RYDER MD Jan 19, 2025 17:09
[2025-01-20] VITALS (13 sets, daily range): BP systolic 124–156; BP diastolic 82–103; PULSE 50–98; RESP 15–22; TEMP 97–97.9; O2SAT 93–98
--- NOTE | 2025-01-20 11:31 | DVHPN2 ---
Subjective The patient is seen and examined at bedside. Still complain of severe shortness for breath. Reviewed: Care Plan, H&P, Labs, Medications, Previous Orders, Radiology Changes from previous H/P or p: No Changes Objective Vitals Vital Signs Date Time Temp Pulse Resp B/P (MAP) Pulse Ox O2 Delivery O2 Flow Rate FiO2 01/20/25 10:00 96 Nasal Cannula* 3 32 01/20/25 09:32 124/94 01/20/25 09:31 86 01/20/25 09:00 97.9 18 97.9 Intake/Output Intake and Output 01/20/25 07:00 Intake Total 1450 ml Output Total 3300 ml Balance -1850 ml Intake Oral 1350 ml IV Total 100 ml Output Urine Total 3300 ml General Appearance: Alert, Oriented X3, Cooperative, No acute distress HEENT: Atraumatic Lungs: Other (Crackles bilateral lungs, decreased breath sounds bilateral) Cardiovascular: Regular rate, Normal S1, Normal S2, No murmurs, Gallops, Rubs Abdomen: Normal bowel sounds, Soft Psych/Mental Status: Mental status NL Medications Current Medications Medications Dose Ordered Sig/Tod Route Start Time Stop Time Status Last Admin Dose Admin Carvedilol 6.25 mg Q12HR PO 01/09/25 10:00 01/20/25 09:31 6.25 MG Amlodipine Besylate 10 mg DAILY PO 01/09/25 10:00 01/20/25 09:32 10 MG Apixaban 5 mg BID PO 01/09/25 10:00 01/20/25 09:30 5 MG Diltiazem HCl 240 mg DAILY PO 01/09/25 10:00 01/19/25 09:20 240 MG Hydrochlorothiazide 25 mg DAILY PO 01/09/25 10:00 01/20/25 09:31 25 MG Hydralazine HCl 25 mg Q12HR PO 01/09/25 10:00 01/20/25 09:30 25 MG Ceftriaxone Sodium 50 ml @ 100 mls/hr DAILY@09 IV 01/09/25 09:00 01/20/25 09:27 100 MLS/HR Azithromycin 250 ml @ 125 mls/hr DAILY IV 01/09/25 10:00 01/19/25 09:07 125 MLS/HR Furosemide 20 mg BIDD IV 01/09/25 06:00 01/20/25 05:07 20 MG Ondansetron HCl 4 mg Q4HP PRN IV 01/08/25 23:30 Acetaminophen 650 mg Q6HP PRN PO 01/08/25 23:30 01/20/25 03:21 650 MG Nitroglycerin 0.4 mg Q5MINP PRN SL 01/08/25 23:30 Nicotine 1 patch DAILY TD 01/09/25 10:00 01/20/25 09:30 1 PATCH Albuterol 180 mcg TIDPRN PRN IN 01/10/25 12:00 01/20/25 06:24 180 MCG Lorazepam 0.5 mg Q8HP PRN PO 01/10/25 12:15 01/18/25 10:05 0.5 MG Dexamethasone Sodium Phosphate 6 mg DAILY IV 01/11/25 10:00 01/20/25 09:32 6 MG Guaifenesin/ Dextromethorphan 10 ml Q4HP PRN PO 01/13/25 23:45 01/20/25 03:21 10 ML Zolpidem Tartrate 10 mg HSPRN PRN PO 01/14/25 16:30 01/19/25 21:11 10 MG Laboratory Results Laboratory Tests 01/19/25 08:39 Labs and/or images reviewed: Labs reviewed by me Assessment/Plan Assessment/Plan Acute on chronic respiratory failure COPD exacerbation CHF exacerbation Community-acquired pneumonia COVID 19 Plan Continuing current management. Continuing with oxygen support. The patient required 4 L of oxygen nasal cannula. The patient will need oxygen at home. Continuing IV antibiotic Rocephin and Zithromax. The patient had complete her IV remdesivir for COVID-19 Continuing with nebulizer Continuing with IV Lasix Continuing with physical therapy Discharge planning This medical document was created using an electronic medical record system with [employer] direct computerized dictation system. Although this document has been carefully reviewed, there may still be some phonetic and typographical errors. These areas are purely typographical due to imperfections of the software programs, and do not reflect any compromise in the patient's medical care. Plan discussed with: Patient Date of Service: Jan 20, 2025 Billing Provider: NUNO ENCARNACION MD Common Visit Codes: [id number] INP/OBS CARE(HIGH) NUNO ENCARNACION MD Jan 20, 2025 11:31
[2025-01-21] VITALS (13 sets, daily range): BP systolic 130–150; BP diastolic 72–104; PULSE 61–95; RESP 16–20; TEMP 97.6–98.6; O2SAT 95–98
--- NOTE | 2025-01-21 11:33 | DVHPN2 ---
Subjective The patient is seen and examined at bedside. Still complain of severe shortness for breath. Reviewed: Care Plan, H&P, Labs, Medications, Previous Orders, Radiology Changes from previous H/P or p: No Changes Objective Vitals Vital Signs Date Time Temp Pulse Resp B/P (MAP) Pulse Ox O2 Delivery O2 Flow Rate FiO2 01/21/25 10:50 60 130/72 01/21/25 08:33 97.6 20 96 97.6 01/21/25 08:00 Nasal Cannula* 3 32 Intake/Output Intake and Output 01/21/25 07:00 Intake Total 450 ml Output Total 1300 ml Balance -850 ml Intake Oral 400 ml IV Total 50 ml Output Urine Total 1300 ml # Voids 4 # Bowel Movements 1 General Appearance: Alert, Oriented X3, Cooperative, No acute distress HEENT: Atraumatic Lungs: Other (Crackles bilateral lungs, decreased breath sounds bilateral) Cardiovascular: Regular rate, Normal S1, Normal S2, No murmurs, Gallops, Rubs Abdomen: Normal bowel sounds, Soft Psych/Mental Status: Mental status NL Medications Current Medications Medications Dose Ordered Sig/Tod Route Start Time Stop Time Status Last Admin Dose Admin Carvedilol 6.25 mg Q12HR PO 01/09/25 10:00 01/21/25 08:14 6.25 MG Amlodipine Besylate 10 mg DAILY PO 01/09/25 10:00 01/21/25 08:15 10 MG Apixaban 5 mg BID PO 01/09/25 10:00 01/21/25 08:13 5 MG Diltiazem HCl 240 mg DAILY PO 01/09/25 10:00 01/21/25 08:13 240 MG Hydrochlorothiazide 25 mg DAILY PO 01/09/25 10:00 01/21/25 08:15 25 MG Hydralazine HCl 25 mg Q12HR PO 01/09/25 10:00 01/21/25 08:14 25 MG Furosemide 20 mg BIDD IV 01/09/25 06:00 01/21/25 06:10 20 MG Ondansetron HCl 4 mg Q4HP PRN IV 01/08/25 23:30 Acetaminophen 650 mg Q6HP PRN PO 01/08/25 23:30 01/21/25 08:12 650 MG Nitroglycerin 0.4 mg Q5MINP PRN SL 01/08/25 23:30 Nicotine 1 patch DAILY TD 01/09/25 10:00 01/21/25 08:16 1 PATCH Albuterol 180 mcg TIDPRN PRN IN 01/10/25 12:00 01/21/25 06:52 180 MCG Lorazepam 0.5 mg Q8HP PRN PO 01/10/25 12:15 01/18/25 10:05 0.5 MG Dexamethasone Sodium Phosphate 6 mg DAILY IV 01/11/25 10:00 01/21/25 08:15 6 MG Guaifenesin/ Dextromethorphan 10 ml Q4HP PRN PO 01/13/25 23:45 01/20/25 20:22 10 ML Zolpidem Tartrate 10 mg HSPRN PRN PO 01/14/25 16:30 01/20/25 21:08 10 MG Ketorolac Tromethamine 30 mg Q8HP PRN IV 01/21/25 11:30 01/26/25 11:29 UNV Laboratory Results Laboratory Tests 01/19/25 08:39 Labs and/or images reviewed: Labs reviewed by me Assessment/Plan Assessment/Plan Acute on chronic respiratory failure COPD exacerbation CHF exacerbation Community-acquired pneumonia COVID 19 Plan Continuing current management. Continuing with oxygen support. The patient required 4 L of oxygen nasal cannula. The patient will need oxygen at home. Continuing IV antibiotic Rocephin and Zithromax. The patient had complete her IV remdesivir for COVID-19 Continuing with nebulizer Continuing with IV Lasix Continuing with physical therapy Discharge planning This medical document was created using an electronic medical record system with [employer] direct computerized dictation system. Although this document has been carefully reviewed, there may still be some phonetic and typographical errors. These areas are purely typographical due to imperfections of the software programs, and do not reflect any compromise in the patient's medical care. Plan discussed with: Patient My Orders Orders - NUNO ENCARNACION MD Procedure Category Date Status Time Pt Request For Service PT 01/20/25 Logged 16:07 Ketorolac Injection PHA 01/21/25 Logged (Toradol Injection) 11:30 Date of Service: Jan 21, 2025 Billing Provider: NUNO ENCARNACION MD Common Visit Codes: [id number] INP/OBS CARE(HIGH) NUNO ENCARNACION MD Jan 21, 2025 11:33
[2025-01-21] MEDS: KETOROLAC TROMETH 30 MG/ML 1ML VIAL IV PRN (12:06)
[2025-01-22] VITALS (11 sets, daily range): BP systolic 101–166; BP diastolic 70–108; PULSE 58–89; RESP 16–19; TEMP 97.4–98; O2SAT 93–97
[2025-01-22 05:32] LABS: Hematocrit 40.8 % (36.0-46.0); Hemoglobin 13.6 g/dL (12.2-16.2); Mean Corpuscular Hemoglobin 30.5 pg (28.0-32.0); Mean Corpuscular Volume 91.2 fL (80.0-100.0); Nucleated Red Blood Cells % 0.1 %
[2025-01-22 05:46] LABS: Anion Gap 9 (5-15); Potassium 3.8 mmol/L (3.5-5.1); Sodium 139 mmol/L (136-145)
[2025-01-22 05:47] LABS: Calcium 9.1 mg/dL (8.7-10.4)
[2025-01-22 05:48] LABS: Carbon Dioxide 34 mmol/L (20-31); Chloride 96 mmol/L (98-107)
[2025-01-22 05:52] LABS: BUN/Creatinine Ratio 56.2 (10.0-20.0); Blood Urea Nitrogen 50 mg/dL (9-23); Glucose 135 mg/dL (74-106)
--- NOTE | 2025-01-22 11:43 | DVHDS2 ---
Discharge Summary Date of Admission Jan 08, 2025 at 23:23 Date of Discharge: Jan 22, 2025 Admitting Diagnosis Acute on chronic respiratory failure COPD exacerbation CHF exacerbation Community-acquired pneumonia COVID 19 Labs/Diagnostic Data: Laboratory Results Test 01/22/25 05:00 01/19/25 15:31 01/15/25 12:50 01/09/25 08:35 White Blood Count 16.8 10^3/uL (4.4-10.8) Red Blood Count 4.47 10^6/uL (4.0-5.20) Hemoglobin 13.6 g/dL (12.2-16.2) Hematocrit 40.8 % (36.0-46.0) Mean Corpuscular Volume 91.2 fL (80.0-100.0) Mean Corpuscular Hemoglobin 30.5 pg (28.0-32.0) Mean Corpuscular Hemoglobin Concent 33.4 g/dL (32.0-36.0) Red Cell Distribution Width 14.4 % (11.8-14.3) Platelet Count 261 10^3/uL (140-450) Mean Platelet Volume 9.0 fL (6.9-10.8) Neutrophils (%) (Auto) 80.4 % (37.0-80.0) Lymphocytes (%) (Auto) 10.7 % (10.0-50.0) Monocytes (%) (Auto) 8.8 % (0.0-12.0) Eosinophils (%) (Auto) 0.0 % (0.0-7.0) Basophils (%) (Auto) 0.1 % (0.0-2.0) Neutrophils # (Auto) 13.5 10 ^3/uL (1.6-8.6) Lymphocytes # (Auto) 1.8 10 ^3/uL (0.4-5.4) Monocytes # (Auto) 1.5 10 ^3/uL (0-1.3) Eosinophils # (Auto) 0 10 ^3/uL (0-0.8) Basophils # (Auto) 0 10 ^3/uL (0-0.2) Nucleated Red Blood Cells 0.1 % Sodium Level 139 mmol/L (136-145) Potassium Level 3.8 mmol/L (3.5-5.1) Chloride Level 96 mmol/L (98-107) Carbon Dioxide Level 34 mmol/L (20-31) Anion Gap 9 (5-15) Blood Urea Nitrogen 50 mg/dL (9-23) Creatinine 0.89 mg/dL (0.550-1.02) Glomerular Filtration Rate Calc 75 mL/min (>90) BUN/Creatinine Ratio 56.2 (10.0-20.0) Serum Glucose 135 mg/dL (74-106) Calcium Level 9.1 mg/dL (8.7-10.4) SARS-CoV-2 Antigen (Rapid) Negative (NEGATIVE) Blood Gas Specimen Type Arterial Blood Gas Sample Site Right radial Blood Gas Patient Temperature 37.0 Arterial Blood Date Drawn [id number] Arterial Blood pH 7.465 (7.350-7.450) Arterial Blood Partial Pressure CO2 52.8 mmHg (32.0-45.0) Arterial Blood Partial Pressure O2 52.8 mmHg (83.0-108.0) Arterial Blood HCO3 37.1 mmol/L (21.0-28.0) Arterial Blood Oxygen Saturation 86.1 % (94.0-98.0) Arterial Blood Base Excess 11.5 mmol/L (-2.0-3.0) Arterial Blood Oxyhemoglobin 85.3 % (94.0-98.0) Arterial Blood Carboxyhemoglobin 0.6 % (0.5-1.5) Arterial Blood Methemoglobin 0.3 % (0.0-1.5) John Test Yes Blood Gas Total Hemoglobin 13.20 g/dL (12.0-16.0) Blood Gas Modality Room air FiO2 % 21.0 Blood Gas Critical Value Read Back Yes Blood Gas Notified Whom Dr. bradly terry Blood Gas Notified Time [id number] Blood Gas Notified By Influenza Type A Antigen Negative (Negative) Influenza Type B Antigen Negative (Negative) Test 01/08/25 21:48 01/08/25 21:04 01/08/25 20:50 Troponin I High Sensitivity 9 ng/L (</=34) Blood Gas Liter Flow 4.00 D-Dimer, Quantitative 0.37 mg/L FEU (0.0-0.49) Lactic Acid Level 1.2 mmol/L (0.4-2.0) Total Bilirubin 0.3 mg/dL (0.2-1.0) Aspartate Amino Transferase (AST) 26 U/L (13-40) Alanine Aminotransferase (ALT) 31 U/L (7-40) Alkaline Phosphatase 91 U/L (46-116) B-Type Natriuretic Peptide 162.18 pg/mL (0-100) Total Protein 7.0 g/dL (5.7-8.2) Albumin 4.5 g/dL (3.2-4.8) Other Laboratory Tests 01/22/25 05:00 Brief Hx & Hospital Course: This is a 59 years old female come to emergency department because severe shortness for breath. The patient presents with two day history of worsening shortness for breath with nonproductive cough and chest pressure. No fever or chill. The patient was admitted. The patient was found to have COVID-19 positive. Patient also develop pneumonia probable sequela from COVID 19 infection. The patient received remdesivir five days. The patient received IV antibiotic with ceftriaxone and Zithromax. The patient subsequently doing better. However remained weak after treatment. Physical therapist has been working with the patient to get her out of bed and ambulate. Physical therapist recommend rehab/PT prior to discharge home. I discussed with the patient and she agreed to go to [facility] for further physical therapy before going home. Follow up with primary care physician 1-2 weeks. Activity as tolerated. Diet per home diet. Recommend low-salt low-cholesterol diet. Physical exam: HEENT: Normocephalic atraumatic pupils equal react to light and accommodation. Extraocular muscles intact, conjunctiva pink, oropharynx moist, no thrush, no exudate. Lymphatic: No lymphadenopathy Cardiovascular exam: S1, S2 was heard. No murmurs, rubs, gallops Lung: Clear on auscultation bilaterally, no wheeze, rale, rhonchi. GI: Abdominal soft, nondistended, nontenderness, positive bowel sounds. Extremity: No crepitus, cyanosis, edema. Pedal pulses present bilateral. Full range of motion. Skin: Normal turgor, no rash. Psych: Alert, oriented x3. Neurology: No focal deficits, cranial nerve II to XII grossly intact. This medical document was created using an electronic medical record system with [employer] direct computerized dictation system. Although this document has been carefully reviewed, there may still be some phonetic and typographical errors. These areas are purely typographical due to imperfections of the software programs, and do not reflect any compromise in the patient's medical care. Condition at Discharge: Stable Final Diagnosis/Problems List Acute on chronic respiratory failure COPD exacerbation CHF exacerbation Pneumonia with mix gram negative and gram positive bacteria. COVID 19 pneumonia Morbid obesity Discharge Disposition: [facility] Discharge Instruct/Medications Diet: Cardiac 2g Na,low cholest Activity: No Restrictions, As Tolerated Follow Up/Referral: pcp 1-2 weeks Medications: see med list. Scheduled Albuterol Sulfate (Albuterol Sulfate), 1 VIAL NEB TID, (Reported) Amlodipine Besylate (Amlodipine Besylate), 1 TAB PO DAILY, (Reported) Apixaban Base (Eliquis), 1 TAB PO BID, (Reported) Carvedilol (Carvedilol), 1 TAB PO BID, (Reported) Cephalexin (Keflex Capsule), 500 MG PO BID Clonidine Hydrochloride (Clonidine Hcl), 1 TAB PO DAILY, (Reported) Diltiazem Hcl (Diltiazem Hcl Er), 1 CAP PO DAILY, (Reported) Escitalopram Oxalate (Lexapro), 1 TAB PO DAILY Famotidine (Famotidine), 1 TAB PO BID, (Reported) Furosemide (Lasix), 40 MG PO DAILY Hctz (Hydrochlorothiazide), 1 TAB PO DAILY, (Reported) Hydralazine Hcl (Hydralazine Hcl), 1 TAB PO BID, (Reported) Hydroxyzine Hcl (Hydroxyzine Hcl), 1 TAB PO TID, (Reported) Lisinopril (Lisinopril), 1 TAB PO DAILY, (Reported) Discharge Statement: "Patient was advised to return to the ER or call 911 if any headaches, dizziness, shortness of breath, chest pain, abdominal pain, bleeding, fevers, or worsening of medical condition. Patient was counseled about treatment plan, medications, possible side effects, patientverbalized understanding. All questions were answered to the best of my ability. This discharge took greater then 30 minutes in planning, reviewing documentation, counseling the patient, and discussing with other team members." ASSESSMENT ASSESSMENT Assessment Date of Service: Jan 22, 2025 Billing Provider: NUNO ENCARNACION MD Common Visit Codes: [id number] DISCH DAY >30min NUNO ENCARNACION MD Jan 22, 2025 11:43
[2025-01-23] VITALS (9 sets, daily range): BP systolic 130–153; BP diastolic 82–97; PULSE 56–84; RESP 16–20; TEMP 97.6–98.9; O2SAT 96–99
--- NOTE | 2025-01-23 11:19 | DVHPN2 ---
Subjective The patient is seen and examined at bedside. Still complain of severe shortness for breath. Reviewed: Care Plan, H&P, Labs, Medications, Previous Orders, Radiology Objective Vitals Vital Signs Date Time Temp Pulse Resp B/P (MAP) Pulse Ox O2 Delivery O2 Flow Rate FiO2 01/23/25 10:10 147/97 01/23/25 10:09 73 01/23/25 09:00 98.0 18 96 98.0 01/23/25 07:37 Nasal Cannula* 2 28 Intake/Output Intake and Output 01/23/25 07:00 Intake Total 1150 ml Balance 1150 ml Intake Oral 1150 ml # Voids 8 # Bowel Movements 1 General Appearance: Alert, Oriented X3, Cooperative, No acute distress HEENT: Atraumatic Lungs: Other (Crackles bilateral lungs, decreased breath sounds bilateral) Cardiovascular: Regular rate, Normal S1, Normal S2, No murmurs, Gallops, Rubs Abdomen: Normal bowel sounds, Soft Psych/Mental Status: Mental status NL Medications Current Medications Medications Dose Ordered Sig/Tod Route Start Time Stop Time Status Last Admin Dose Admin Carvedilol 6.25 mg Q12HR PO 01/09/25 10:00 01/23/25 10:07 6.25 MG Amlodipine Besylate 10 mg DAILY PO 01/09/25 10:00 01/23/25 10:08 10 MG Apixaban 5 mg BID PO 01/09/25 10:00 01/23/25 10:08 5 MG Diltiazem HCl 240 mg DAILY PO 01/09/25 10:00 01/23/25 10:09 240 MG Hydrochlorothiazide 25 mg DAILY PO 01/09/25 10:00 01/22/25 11:14 25 MG Hydralazine HCl 25 mg Q12HR PO 01/09/25 10:00 01/23/25 10:10 25 MG Furosemide 20 mg BIDD IV 01/09/25 06:00 01/23/25 05:44 20 MG Ondansetron HCl 4 mg Q4HP PRN IV 01/08/25 23:30 Acetaminophen 650 mg Q6HP PRN PO 01/08/25 23:30 01/22/25 10:20 650 MG Nitroglycerin 0.4 mg Q5MINP PRN SL 01/08/25 23:30 Nicotine 1 patch DAILY TD 01/09/25 10:00 01/23/25 10:13 1 PATCH Albuterol 180 mcg TIDPRN PRN IN 01/10/25 12:00 01/22/25 20:21 180 MCG Lorazepam 0.5 mg Q8HP PRN PO 01/10/25 12:15 01/18/25 10:05 0.5 MG Dexamethasone Sodium Phosphate 6 mg DAILY IV 01/11/25 10:00 01/23/25 10:09 6 MG Guaifenesin/ Dextromethorphan 10 ml Q4HP PRN PO 01/13/25 23:45 01/22/25 00:42 10 ML Zolpidem Tartrate 10 mg HSPRN PRN PO 01/14/25 16:30 01/22/25 23:37 10 MG Ketorolac Tromethamine 30 mg Q8HP PRN IV 01/21/25 11:30 01/26/25 11:29 01/22/25 17:10 30 MG Laboratory Results Laboratory Tests 01/22/25 05:00 Assessment/Plan Assessment/Plan Acute on chronic respiratory failure COPD exacerbation CHF exacerbation Community-acquired pneumonia COVID 19 Plan Continuing current management. Continuing with oxygen support. The patient required 4 L of oxygen nasal cannula. The patient will need oxygen at home. Continuing IV antibiotic Rocephin and Zithromax. The patient had complete her IV remdesivir for COVID-19 Continuing with nebulizer Continuing with IV Lasix Continuing with physical therapy Discharge planning This medical document was created using an electronic medical record system with [employer] computerized dictation system. Although this document has been carefully reviewed, there may still be some phonetic and typographical errors. These areas are purely typographical due to imperfections of the software programs, and do not reflect any compromise in the patient's medical care. My Orders Orders - NUNO ENCARNACION MD Procedure Category Date Status Time Discharge DISCHARGE 01/22/25 Transmitted 11:44 * Glass Mechanic CONS 01/22/25 Transmitted Consult 11:53 NUNO ENCARNACION MD Jan 23, 2025 11:19
== END 2025-01-23 22:25 | DRG 720 ==
LOC: ER 20:44 → OVERFLOW 23:23 → TELE-EAST 01-09 16:00
PROVIDERS: ADMIT Internal Medicine; ATTEND Internal Medicine
PROC: 5A09357 Assistance with Respiratory Ventilation, Less than 24 Consecutive Hours, Continuous Positive Airway Pressure (ICD-10-PCS; principal; 2025-01-08)
PROC: 5A09357 Assistance with Respiratory Ventilation, Less than 24 Consecutive Hours, Continuous Positive Airway Pressure (ICD-10-PCS; 2025-01-09)
PROC: XW033E5 Introduction of Remdesivir Anti-infective into Peripheral Vein, Percutaneous Approach, New Technology Group 5 (ICD-10-PCS; 2025-01-10)
DX: A41.89 Other specified sepsis (principal); J96.20 Acute and chronic respiratory failure, unspecified whether with hypoxia or hypercapnia; J12.82 Pneumonia due to coronavirus disease 2019; I50.31 Acute diastolic (congestive) heart failure; U07.1 COVID-19; J44.0 Chronic obstructive pulmonary disease with (acute) lower respiratory infection; J44.1 Chronic obstructive pulmonary disease with (acute) exacerbation; I11.0 Hypertensive heart disease with heart failure; Z68.38 Body mass index [BMI] 38.0-38.9, adult; E66.01 Morbid (severe) obesity due to excess calories; R53.82 Chronic fatigue, unspecified; I48.91 Unspecified atrial fibrillation; H54.62 Unqualified visual loss, left eye, normal vision right eye; H26.8 Other specified cataract; F17.210 Nicotine dependence, cigarettes, uncomplicated
CPT/HCPCS: 36415; 36600; 70450; 71045; 80048; 80053; 82805; 83605; 83880; 84484; 85025; 85379; 87426; 87804; 93005; 94640; 94660; 96365; 96375; 97163; 99291; G0378; J1100; J1885